=== PATIENT | female | born 1975 | race Caucasian/White ===

== ENCOUNTER → 2016-11-12 | Outpatient (CLI) | payer OTHER ==
--- NOTE | 2016-11-12 17:53 | US ---
EXAMINATION TYPE: US transvaginal DATE OF EXAM: 11/12/2016 COMPARISON: NONE CLINICAL HISTORY: N94.6 Dysmenorrhea. Vaginal bleeding during intercourse x 2 years. . TECHNIQUE: Transvaginal (TV) Date of LMP: 2 weeks ago EXAM MEASUREMENTS: Uterus: 8.5 x 4.4 x 5.5 cm Endometrial Stripe: .82 cm Right Ovary: 2.8 x 1.5 x 2.6 cm Left Ovary: 3.7 x 2.5 1.5 cm 1. Uterus: Anteverted Calcifications noted within lower uterine segment. 2. Endometrium: wnl 3. Right Ovary: wnl 4. Left Ovary: Complex area noted =2.0 x 2.0 x 1.6 cm 5. Bilateral Adnexa: wnl 6. Posterior cul-de-sac: Small amount of fluid seen. IMPRESSION: 1. MIXED SOLID AND CYSTIC LESION MEASURING 2 CM AND THE LEFT OVARY. 2. NABOTHIAN CYSTS IN THE POSTERIOR LIP OF THE CERVIX. 3. SMALL AMOUNT OF FREE FLUID.
== END | disposition home or self-care (01) ==
LOC: RADUSWWP 15:06
PROVIDERS: ATTEND Family Medicine
DX: N83.202 Unspecified ovarian cyst, left side (principal); N88.8 Other specified noninflammatory disorders of cervix uteri
CPT/HCPCS: 76830

== ENCOUNTER → 2017-08-13 | Outpatient (CLI) | payer OTHER ==
--- NOTE | 2017-08-13 14:23 | MM ---
Reason for exam: screening (asymptomatic). Baseline mammogram. History: Family history of breast cancer in aunt. Physical Findings: Nurse did not find any significant physical abnormalities on exam. MG Screening Mammo w CAD Bilateral CC and MLO view(s) were taken. The breast tissue is heterogeneously dense. This may lower the sensitivity of mammography. There are benign appearing scattered bilateral calcifications with no suspicious group. No suspicious abnormality. These results were verbally communicated with the patient and result sheet given to the patient on 08/13/17. ASSESSMENT: Benign, BI-RAD 2 RECOMMENDATION: Routine screening mammogram of both breasts in 1 year.
== END | disposition home or self-care (01) ==
LOC: RADMAMWWP 12:59
PROVIDERS: ATTEND Family Medicine
DX: Z12.31 Encounter for screening mammogram for malignant neoplasm of breast (principal); Z80.3 Family history of malignant neoplasm of breast
CPT/HCPCS: 77067

== ENCOUNTER 2018-11-01 06:56 | Inpatient (IN) | payer OTHER ==
[2018-11-01] MEDS ORDERED: ONDANSETRON 4 MG/2 ML VIAL IVP STA (07:12)
[2018-11-01] MEDS ORDERED: SODIUM CHLORIDE 0.9% 1,000 ML IV STA (07:12)
[2018-11-01] MEDS ORDERED: LORazepam 2 MG/ML INJ IV STA (07:31)
--- NOTE | 2018-11-01 07:34 | ED ---
General Adult HPI - General Chief complaint: Abdominal Pain Stated complaint: Abdominal Pain/Cough Time Seen by Provider: 11/01/18 07:12 Source: patient, family Mode of arrival: ambulatory Limitations: no limitations - History of Present Illness Initial comments: Dictation was produced using [employer] dictation software. please excuse any grammatical, word or spelling errors. Chief Complaint: 43-year-old female past medical history of anxiety presents with pleuritic chest pain, nausea vomiting, cough 2 days. History of Present Illness: Patient is a 43-year-old female she states that she was diagnosed with pneumonia number course the last couple weeks. She was given a course of antibiotics and steroids with improvement of symptoms. She states her symptoms do not improve completely. She states that for the last 2-3 days she's been having worsening symptoms. Patient's with complaint of nausea vomiting, pleuritic chest pain and constitutional symptoms. Patient denies any history of blood clots. Patient denies any blood or black characteristic to her vomiting. No diarrhea. She does report that it feels as though the pain is in her abdomen. She has been having a persistent cough. She states that her pain is worse with coughing. She does have cough productive sputum. The ROS documented in this emergency department record has been reviewed and confirmed by me. Those systems with pertinent positive or negative responses have been documented in the HPI. All other systems are other negative and/or noncontributory. PHYSICAL EXAM: General Impression: Alert and oriented x3, not in acute distress HEENT: Normocephalic atraumatic, extra-ocular movements intact, pupils equal and reactive to light bilaterally, mucous membranes moist. Cardiovascular: Tachycardic Chest: Mild crackles to the right lung base posteriorly Abdomen: Bowel sounds present, abdomen soft, non-tender, non-distended, no organ omegaly, negative Arauz's sign Musculoskeletal: Pulses present and equal in all extremities, no peripheral edema Motor: no focal deficits noted Neurological: CN II-XII grossly intact, no focal motor or sensory deficits noted Skin: Intact with no visualized rashes Psych: Normal affect and mood ED course: 43-year-old female with presents chief complaint of nausea, vomiting, abdominal pain, pleuritic chest pain.Laboratory evaluation obtained. Leukocytosis of 14.7, hemoglobin of 7.6 which is drastically reduced from 14 4 years ago. Patient also appears slightly pale on reevaluation. Coag panel unremarkable. D-dimer is 3.67. Troponin 0.06. Rest metabolic panel is grossly unremarkable. Urinalysis shows 6 white blood cells in the urine however 16 squamous epithelial cells. This is likely a dirty catch. Urine culture pending. Chest x-ray shows worsening multifocal consolidations compatible with pneumonia and new mild) amount of confusion. CT was ordered for concern of pulmonary emboli. There appears to be right greater than left bilateral perihilar masslike consolidations in the upper and lower lungs. There is concern for neoplastic versus infectious etiology. Patient started on vancomycin and cefepime for atypical pneumonia resistant to outpatient antibiotics. Patient given fluids. Patient be admitted with pulmonology consultation. Discussed patient case with Dr. Thomas who is willing to accept admission. CT angioma was suboptimal for ruling out pulmonary emboli however given extensive findings and lung parenchyma PE is less likely given clinical presentation. Anticoagulation is held at this time. EKG interpretation: Ventricular rate 124, sinus tachycardia, RI interval 118, care 74, QTC 413. No RI prolongation, no QTC prolongation, no ST or T-wave changes noted. - Related Data Home Medications Medication Instructions Recorded Confirmed cloNIDine HCL 0.3 mg PO HS 05/15/15 11/01/18 ARIPiprazole [Abilify] 15 mg PO HS 11/01/18 11/01/18 Vortioxetine Hydrobromide 20 mg PO HS 11/01/18 11/01/18 [Trintellix] clonazePAM [KlonoPIN] 1 mg PO BID 11/01/18 11/01/18 lamoTRIgine [LaMICtal] 200 mg PO HS 11/01/18 11/01/18 Allergies Allergy/AdvReac Type Severity Reaction Status Date / Time No Known Allergies Allergy Verified 11/01/18 07:17 Review of Systems ROS Statement: Those systems with pertinent positive or pertinent negative responses have been documented in the HPI. ROS Other: All systems not noted in ROS Statement are negative. Past Medical History Past Medical History: No Reported History Additional Past Medical History / Comment(s): anxiety, recovering opiate addiction clean for a year, borderline personality History of Any Multi-Drug Resistant Organisms: None Reported Past Surgical History: Section, Tubal Ligation Past Anesthesia/Blood Transfusion Reactions: No Reported Reaction Past Psychological History: ADD/ADHD, Anxiety, Depression, Panic Disorder Smoking Status: Former smoker Past Drug Use History: Marijuana, Opiates - Past Family History Father History Unknown: Yes Mother History Unknown: Yes General Exam Limitations: no limitations Course Vital Signs 11/01/18 07:02 Temperature 99.1 F Pulse Rate 123 H Respiratory 20 Rate Blood Pressure 165/79 O2 Sat by Pulse 97 Oximetry Medical Decision Making - Lab Data Result diagrams: 11/01/18 07:35 11/01/18 07:35 Lab Results 11/01/18 11/01/18 11/01/18 Range/Units 07:35 07:35 07:35 WBC 14.7 H (3.8-10.6) k/uL RBC 2.94 L (3.80-5.40) m/uL Hgb 7.6 L (11.4-16.0) gm/dL Hct 24.8 L (34.0-46.0) % MCV 84.6 (80.0-100.0) fL MCH 25.7 (25.0-35.0) pg MCHC 30.4 L (31.0-37.0) g/dL RDW 15.4 (11.5-15.5) % Plt Count 565 H (150-450) k/uL Neutrophils % 84 % Lymphocytes % 8 % Monocytes % 5 % Eosinophils % 1 % Basophils % 0 % Neutrophils # 12.3 H (1.3-7.7) k/uL Lymphocytes # 1.2 (1.0-4.8) k/uL Monocytes # 0.7 (0-1.0) k/uL Eosinophils # 0.1 (0-0.7) k/uL Basophils # 0.1 (0-0.2) k/uL Hypochromasia Marked Poikilocytosis Slight PT (9.0-12.0) sec INR (<1.2) D-Dimer (<0.60) mg/L FEU Sodium 137 (137-145) mmol/L Potassium 4.1 (3.5-5.1) mmol/L Chloride 99 (98-107) mmol/L Carbon Dioxide 24 (22-30) mmol/L Anion Gap 14 mmol/L BUN 9 (7-17) mg/dL Creatinine 0.52 (0.52-1.04) mg/dL Est GFR (CKD-EPI)AfAm >90 (>60 ml/min/1.73 sqM) Est GFR (CKD-EPI)NonAf >90 (>60 ml/min/1.73 sqM) Glucose 123 H (74-99) mg/dL Calcium 9.3 (8.4-10.2) mg/dL Total Bilirubin 0.5 (0.2-1.3) mg/dL AST 41 H (14-36) U/L ALT 32 (9-52) U/L Alkaline Phosphatase 246 H (38-126) U/L Troponin I (0.000-0.034) ng/mL Total Protein 6.4 (6.3-8.2) g/dL Albumin 3.4 L (3.5-5.0) g/dL Lipase 18 L (23-300) U/L Urine Color Urine Appearance (Clear) Urine pH (5.0-8.0) Ur Specific [place] (1.001-1.035) Urine Protein (Negative) Urine Glucose (UA) (Negative) Urine Ketones (Negative) Urine Blood (Negative) Urine Nitrite (Negative) Urine Bilirubin (Negative) Urine Urobilinogen (<2.0) mg/dL Ur Leukocyte Esterase (Negative) Urine WBC (0-5) /hpf Ur Squamous Epith Cells (0-4) /hpf Urine Bacteria (None) /hpf Urine Mucus (None) /hpf Urine HCG, Qual Not Detected (Not Detectd) 11/01/18 11/01/18 11/01/18 Range/Units 07:35 07:35 07:35 WBC (3.8-10.6) k/uL RBC (3.80-5.40) m/uL Hgb (11.4-16.0) gm/dL Hct (34.0-46.0) % MCV (80.0-100.0) fL MCH (25.0-35.0) pg MCHC (31.0-37.0) g/dL RDW (11.5-15.5) % Plt Count (150-450) k/uL Neutrophils % % Lymphocytes % % Monocytes % % Eosinophils % % Basophils % % Neutrophils # (1.3-7.7) k/uL Lymphocytes # (1.0-4.8) k/uL Monocytes # (0-1.0) k/uL Eosinophils # (0-0.7) k/uL Basophils # (0-0.2) k/uL Hypochromasia Poikilocytosis PT 12.0 (9.0-12.0) sec INR 1.1 (<1.2) D-Dimer 3.67 H (<0.60) mg/L FEU Sodium (137-145) mmol/L Potassium (3.5-5.1) mmol/L Chloride (98-107) mmol/L Carbon Dioxide (22-30) mmol/L Anion Gap mmol/L BUN (7-17) mg/dL Creatinine (0.52-1.04) mg/dL Est GFR (CKD-EPI)AfAm (>60 ml/min/1.73 sqM) Est GFR (CKD-EPI)NonAf (>60 ml/min/1.73 sqM) Glucose (74-99) mg/dL Calcium (8.4-10.2) mg/dL Total Bilirubin (0.2-1.3) mg/dL AST (14-36) U/L ALT (9-52) U/L Alkaline Phosphatase (38-126) U/L Troponin I 0.060 H* (0.000-0.034) ng/mL Total Protein (6.3-8.2) g/dL Albumin (3.5-5.0) g/dL Lipase (23-300) U/L Urine Color Yellow Urine Appearance Cloudy H (Clear) Urine pH 5.5 (5.0-8.0) Ur Specific [place] 1.032 (1.001-1.035) Urine Protein 1+ H (Negative) Urine Glucose (UA) Negative (Negative) Urine Ketones Negative (Negative) Urine Blood Negative (Negative) Urine Nitrite Negative (Negative) Urine Bilirubin Negative (Negative) Urine Urobilinogen 3.0 (<2.0) mg/dL Ur Leukocyte Esterase Negative (Negative) Urine WBC 6 H (0-5) /hpf Ur Squamous Epith Cells 16 H (0-4) /hpf Urine Bacteria Many H (None) /hpf Urine Mucus Rare H (None) /hpf Urine HCG, Qual (Not Detectd) Disposition Clinical Impression: Pneumonia Disposition: ADMITTED IP TO THIS [facility] Condition: Fair Referrals: Fredo Eason MD [Primary Care Provider] - 1-2 days Decision Time: 09:37
[2018-11-01 08:03] LABS: Appearance,Urine Cloudy (Clear); Bacteria,Urine Many /hpf; Bilirubin,Urine Negative (Negative); Blood,Urine Negative (Negative); Color,Urine Yellow; Glucose,Urine (UA) Negative (Negative); Ketones,Urine Negative (Negative); Leukocyte Esterase,Urine Negative (Negative); Mucus,Urine Rare /hpf; Nitrite,Urine Negative (Negative); PH, Urine 5.5 (5.0-8.0); Protein,Urine 1+ (Negative); Specific Gravity,Urine 1.032 (1.001-1.035); Squamous Epithelial Cell,Urine 16 /hpf (0-4); WBC,Urine 6 /hpf (0-5)
[2018-11-01 08:04] LABS: Basophils # (A) 0.1 k/uL (0-0.2); Basophils % (A) 0 %; Eosinophils # (A) 0.1 k/uL (0-0.7); Eosinophils % (A) 1 %; HCT 24.8 % (34.0-46.0); HGB 7.6 gm/dL (11.4-16.0); Hypochromasia Marked; INR 1.1 (<1.2); Lymphocytes # (A) 1.2 k/uL (1.0-4.8); Lymphocytes % (A) 8 %; MCH 25.7 pg (25.0-35.0); MCHC 30.4 g/dL (31.0-37.0); MCV 84.6 fL (80.0-100.0); Mean Platelet Volume 6.7; Monocytes # (A) 0.7 k/uL (0-1.0); Monocytes % (A) 5 %; Neutrophils # (A) 12.3 k/uL (1.3-7.7); Neutrophils % (A) 84 %; Platelet Count 565 k/uL (150-450); Poikilocytosis Slight; RBC 2.94 m/uL (3.80-5.40); RDW 15.4 % (11.5-15.5); WBC 14.7 k/uL (3.8-10.6)
[2018-11-01 08:05] LABS: ALT 32 U/L (9-52); AST 41 U/L (14-36); African American GFR (CKD) >90 (>60 ml/min/1.73 sqM); Albumin 3.4 g/dL (3.5-5.0); Alkaline Phosphatase 246 U/L (38-126); Anion Gap 14 mmol/L; Blood Urea Nitrogen 9 mg/dL (7-17); Calcium 9.3 mg/dL (8.4-10.2); Carbon Dioxide 24 mmol/L (22-30); Chloride 99 mmol/L (98-107); Glucose 123 mg/dL (74-99); Lipase 18 U/L (23-300); Potassium 4.1 mmol/L (3.5-5.1); Sodium 137 mmol/L (137-145); Total Bilirubin 0.5 mg/dL (0.2-1.3); Total Protein 6.4 g/dL (6.3-8.2)
[2018-11-01 08:13] LABS: D-Dimer 3.67 mg/L FEU (<0.60)
--- NOTE | 2018-11-01 08:27 | XR ---
EXAMINATION TYPE: XR chest 2V DATE OF EXAM: 11/01/2018 COMPARISON: 07/20/2011 HISTORY: Pneumonia symptoms and shortness of breath TECHNIQUE: Frontal and lateral views of the chest are obtained. FINDINGS: There is worsening right sided airspace disease and right perihilar consolidation with new mild right pleural effusion. Left perihilar strand-like airspace disease has also worsened in the in terim. Cardiomediastinal silhouette is stable. Osseous structures are grossly intact. IMPRESSION: Worsening multifocal consolidations most compatible with pneumonia and a new mild right parapneumonic effusion.
[2018-11-01] MEDS ORDERED: HEPARIN SODIUM,PORCINE 10,000 UNIT/ML 1 ML VIAL IV ONE (08:39)
[2018-11-01] MEDS ORDERED: HEPARIN SODIUM,PORCINE 5,000 UNIT/ML 1 ML VIAL IV PRN (08:39)
[2018-11-01] MEDS ORDERED: HEPARIN SOD,PORK IN 0.45% NACL 25,000 UNIT in 0.45% NACL 1 250ML.BAG IV SCH (08:45)
--- NOTE | 2018-11-01 08:56 | CT ---
EXAMINATION TYPE: CT angio chest DATE OF EXAM: 11/01/2018 COMPARISON: CTA chest May 15, 2015. Two-view chest x-ray earlier today. HISTORY: Difficulty breathing CT DLP: 210.5 mGycm. Automated Exposure Control for Dose Reduction was Utilized. CONTRAST: CTA scan of the thorax is performed with IV Contrast, patient injected with 100 mL of Isovue 300, pul monary embolism protocol. MIP Images are created on CT scanner and reviewed. FINDINGS: LUNGS: There is small right pleural effusion or fluid collection which does not completely layer depe ndently. There is associated compressive atelectasis in the right lung base. There is masslike consol idation right hilar level extending superiorly abutting the mediastinum causing narrowing and occlusi on of upper lung bronchi and bronchioles for reference coronal image 58. There is extension of this l arge masslike consolidation into the right middle and lower lobes with abrupt occlusion of lower lobe bronchi. There is overall heterogeneity. Underlying neoplasm cannot be excluded. There is tiny left-sided pleural fluid collection which does not layer dependently. There is similar left hilar masslike consolidation with superior medial extension abutting the mediastinum and more pr ominent extension into the left lower lobe. Left-sided findings are less prominent than right sided f indings. Some bronchial occlusion on the left side however is present. There is additional left basil ar linear scarring and/or atelectasis. There are additional foci of groundglass opacity and gustavo con solidation in the periphery of the lung for reference left apex focus of masslike consolidation measu ring 1.3 x 1.1 cm coronal image 73 is noted. MEDIASTINUM: There is suboptimal study with more dense contrast in aorta versus pulmonary arteries bu t no CT evidence for pulmonary embolism. There is additional enlarged subcarinal lymph node estimate d 2.6 x 2.0 cm axial image 62. Mild cardiomegaly is now present. Tiny pericardial effusion is noted. OTHER: Visualized portion of liver shows small vague hypodense lesions measuring under 1.5 cm, nonspe cific finding on background of heterogeneity. Mild multilevel spurring is present. IMPRESSION: 1. Suboptimal study without CT evidence for acute pulmonary embolism. 2. Right greater than left bilateral perihilar masslike consolidations with extension into upper and lower lungs. There is bronchial narrowing and occlusion bilaterally. Possible hilar adenopathy. Under lying neoplasm needs to BE considered. Liver involvement is not excluded. Consider bronchoscopy to fu rther investigate. Small to tiny right greater than left nonsimple pleural fluid collections. Underly ing infectious process needs to BE considered.
[2018-11-01] MEDS ORDERED: CEFEPIME 2 GM in SODIUM CHLORIDE 0.9% 100 ML IVPB STA (08:57)
[2018-11-01] MEDS ORDERED: VANCOMYCIN 1,250 MG in SODIUM CHLORIDE 0.9% 250 ML IVPB STA (08:57)
[2018-11-01] MEDS ORDERED: NALOXONE 0.4 MG/ML 1 ML VIAL IV PRN (09:32)
[2018-11-01] MEDS: SODIUM CHLORIDE 0.9% 1,000 ML IV SCH (10:37)
[2018-11-01] MEDS: ACETAMINOPHEN TAB 325 MG TAB PO PRN (11:37)
[2018-11-01 11:53] VITALS: BMI 29.9
[2018-11-01] MEDS ORDERED: PNEUMOCOCCAL VACC-PNEUMOVAX 23 25 MCG/0.5 ML VIAL IM ONE (11:55)
--- NOTE | 2018-11-01 16:46 | P.CNPUL ---
History of Present Illness Consult date: 11/01/18 Reason for consult: pneumonia, pleural effusion Chief complaint: right sided pleuritic chest pain and cough for the last 2 days. History of present illness: this is a 43-year-old female with remote history of IV drug abuse, history of cervical cancer, status post chemotherapy and radiation therapy she was treated at [facility], and she was told that her cancer was clear. Her cancer was diagnosed about a year ago. Patient is also known to have history of anxiety. Presented to the ER with 2 days history of not feeling well, mostly been complaining of right-sided pleuritic chest pain, cough for the last 2 days, cough is productive with whitish phlegm, but she denies any fever no chills, no hemoptysis, she did havefew episodes of nausea and vomiting. Patient had a CT of the chest, and it showed significant abnormalities in both lungs. The CT of the chest showed masslike consolidation in the right lung and it also showed another masslike consolidation in the left lower lobe. Patient had a 12-pack- year smoking history. Does not smoke at present. Considering the findings and considering the masslike consolidation is suggestive of pneumonia or malignancy, this consult was initiated. There is also evidence of loculated pleural effusion on the right side.no evidence of pulmonary embolism noted.the CT of the chest also showed some bronchial narrowing and occlusion bilaterally with questionable hilar adenopathy. Liver involvement was entertained. Patient is known to have history of fatty infiltration of the liver. Review of Systems constitutional: Denies any weight loss, no fever, no chills. HEENT: Denies any sore throat, no earache, no headache, no blurred vision, no dizziness. Pulmonary: As noted in HPI. Cardiac: Denies any anginal symptoms, no palpitations, no diaphoresis. GI: Right sided upper quadrant pain and intermittent episodes of nausea and vomiting. Denies any melena no hematemesis , no diarrhea, no constipation. No changes in appetite. Genitourinary: Denies any dysuria frequency hematuria urgency. Or incontinence. [place] skeletal: Denies any limitation in range of motion, denies any muscular pain or arthralgia. Neurologic: Denies any headache blurred vision or dizziness. No syncope. Skin: Denies any rashes Psychiatric: History of anxiety, no symptoms of active depression.known history of ADHD and borderline personality disorder Hematologic: No clotting bleeding or bruising Lymphatics: No lymphadenopathy. Past Medical History Past Medical History: No Reported History Additional Past Medical History / Comment(s): anxiety, recovering opiate addiction clean for a year, borderline personality History of Any Multi-Drug Resistant Organisms: None Reported Past Surgical History: Section, Tubal Ligation Past Anesthesia/Blood Transfusion Reactions: No Reported Reaction Past Psychological History: ADD/ADHD, Anxiety, Depression, Panic Disorder Smoking Status: Former smoker Past Drug Use History: Marijuana, Opiates - Past Family History Father History Unknown: Yes Family Medical History: Liver Disease Additional Family Medical History / Comment(s): Father had hepatitis at the age of 17 yrs. He was an drug addict. He started drinking when his and this lead to his per pt. Mother History Unknown: Yes Additional Family Medical History / Comment(s): Mother is healthy. Medications and Allergies Home Medications Medication Instructions Recorded Confirmed Type cloNIDine HCL 0.3 mg PO HS 05/15/15 11/01/18 History ARIPiprazole [Abilify] 15 mg PO HS 11/01/18 11/01/18 History Vortioxetine Hydrobromide 20 mg PO HS 11/01/18 11/01/18 History [Trintellix] clonazePAM [KlonoPIN] 1 mg PO BID 11/01/18 11/01/18 History lamoTRIgine [LaMICtal] 200 mg PO HS 11/01/18 11/01/18 History Allergies Allergy/AdvReac Type Severity Reaction Status Date / Time No Known Allergies Allergy Verified 11/01/18 07:17 Physical Exam Vitals: Vital Signs Temp Pulse Pulse Resp BP BP Pulse Ox 11/01/18 15:17 99.2 F 136 H 18 139/84 81 L 11/01/18 14:02 98 F 115 H 18 123/84 93 L 11/01/18 13:40 117 H 20 128/61 95 11/01/18 11:39 102 H 22 138/71 95 11/01/18 10:04 98.5 F 101 H 20 119/67 96 11/01/18 07:02 99.1 F 123 H 20 165/79 97 Intake and Output 11/01/18 11/01/18 11/01/18 06:59 14:59 22:59 Other: Weight 67.132 kg Physical Exam: Revealed a 43-year-old female in no distress. Anxious. Head: Atraumatic, normocephalic. HEENT:[Neck is supple.] [No neck masses.] [No thyromegaly.] [No JVD.]PERRLA, EOMI, no icterus. Dry mucous membranes Chest: [diminished breath sounds on the right side, left side is clear..] Cardiac Exam: [Normal S1 and S2, no S3 gallop, no murmur.] Abdomen: [Soft, nontender, no megaly, no rebound, no guarding, normal bowel sounds.] Extremities: [No clubbing, no edema, no cyanosis.] Neurological Exam: alert and oriented 3.[No focal neurologic deficit.] psychiatric: Anxious, blunt affect, normal mental status examination. Lymphatics: No lymphadenopathy. Skin: No rashes. Results - Laboratory Findings CBC and BMP: 11/01/18 07:35 11/01/18 07:35 PT/INR, D-dimer PT 12.0 sec (9.0-12.0) 11/01/18 07:35 INR 1.1 (<1.2) 11/01/18 07:35 D-Dimer 3.67 mg/L FEU (<0.60) H 11/01/18 07:35 Abnormal lab findings: Abnormal Labs 11/01/18 11/01/18 11/01/18 07:35 07:35 07:35 WBC 14.7 H RBC 2.94 L Hgb 7.6 L Hct 24.8 L MCHC 30.4 L Plt Count 565 H Neutrophils # 12.3 H D-Dimer Glucose 123 H AST 41 H Alkaline Phosphatase 246 H Troponin I Albumin 3.4 L Lipase 18 L Urine Appearance Cloudy H Urine Protein 1+ H Urine WBC 6 H Ur Squamous Epith Cells 16 H Urine Bacteria Many H Urine Mucus Rare H 11/01/18 11/01/18 07:35 07:35 WBC RBC Hgb Hct MCHC Plt Count Neutrophils # D-Dimer 3.67 H Glucose AST Alkaline Phosphatase Troponin I 0.060 H* Albumin Lipase Urine Appearance Urine Protein Urine WBC Ur Squamous Epith Cells Urine Bacteria Urine Mucus - Diagnostic Findings CT scan - chest: image reviewed (no evidence of pulmonary embolism, right greater than left bilateral perihilar masslike consolidations with extension into the upper and lower lungs. There is bronchial narrowing and occlusion bilaterally with possible hilar adenopathy. Differential diagnoses includes pneumonia and or malignancy. Small 2 tiny right greater than left loculated pleural effusion is noted.) Assessment and Plan Assessment: impression: Masslike consolidation involving both lungs however mostly involving the right lung, differential diagnoses includes malignancy and/or pneumonia. history of generalized anxiety disorder and depression History of IV drug abuse Remote smoking history. Recommendation: Had a long discussion with the patient regarding her abnormal CT of the chest, I have recommended bronchoscopy and airways evaluation, possible biopsy depending on the findings during the bronchoscopy examination. Patient is agreeable to proceed, and this will be done on at no time. In the meantime we'll continue present treatment plan including antibiotics, and bronchodilators.depending on the bronchoscopy findings, further recommendations will follow. In the meantime I will go ahead and recommended ultrasound of the liver and assess findings on the liver and decide whether the patient will even require CT-guided liver biopsy. I believe the findings on the liver are related to fatty infiltration. Time with Patient: Greater than 30
[2018-11-01] MEDS: VANCOMYCIN 1,250 MG in SODIUM CHLORIDE 0.9% 250 ML IVPB SCH (17:44)
[2018-11-01] MEDS: IBUPROFEN 800 MG TAB PO PRN (17:44)
[2018-11-01] MEDS: lamoTRIgine 100 MG TAB PO SCH (20:16)
[2018-11-01] MEDS: clonazePAM 1 MG TAB PO SCH (20:16)
[2018-11-01] MEDS: VORTIOXETINE HYDROBROMIDE 20 MG TABLET PO SCH (22:07)
[2018-11-01] MEDS: ARIPiprazole 15 MG TAB PO SCH (22:07)
[2018-11-01] MEDS: cloNIDine HCL 0.1 MG TAB PO SCH (22:07)
[2018-11-02] MEDS: VANCOMYCIN 1,250 MG in SODIUM CHLORIDE 0.9% 250 ML IVPB SCH ×3 (02:01→18:09)
[2018-11-02 07:55] LABS: Basophils % (A) 0 %; Eosinophils # (A) 0.2 k/uL (0-0.7); Eosinophils % (A) 2 %; HCT 24.8 % (34.0-46.0); HGB 7.3 gm/dL (11.4-16.0); Hypochromasia Marked; Lymphocytes # (A) 0.7 k/uL (1.0-4.8); Lymphocytes % (A) 7 %; MCH 25.6 pg (25.0-35.0); MCHC 29.3 g/dL (31.0-37.0); MCV 87.4 fL (80.0-100.0); Mean Platelet Volume 6.6; Monocytes # (A) 0.5 k/uL (0-1.0); Monocytes % (A) 5 %; Neutrophils # (A) 8.3 k/uL (1.3-7.7); Neutrophils % (A) 84 %; Platelet Count 535 k/uL (150-450); Poikilocytosis Slight; RBC 2.84 m/uL (3.80-5.40); RDW 15.3 % (11.5-15.5); WBC 9.9 k/uL (3.8-10.6)
[2018-11-02 08:19] LABS: ALT 35 U/L (9-52); AST 26 U/L (14-36); African American GFR (CKD) >90 (>60 ml/min/1.73 sqM); Alkaline Phosphatase 217 U/L (38-126); Anion Gap 10 mmol/L; Blood Urea Nitrogen 9 mg/dL (7-17); Calcium 9.2 mg/dL (8.4-10.2); Carbon Dioxide 26 mmol/L (22-30); Chloride 104 mmol/L (98-107); Glucose 106 mg/dL (74-99); Potassium 4.4 mmol/L (3.5-5.1); Sodium 140 mmol/L (137-145); Total Bilirubin 0.3 mg/dL (0.2-1.3)
[2018-11-02] MEDS: PANTOPRAZOLE 40 MG/10 ML VIAL IV SCH (09:22)
[2018-11-02] MEDS: IBUPROFEN 800 MG TAB PO PRN ×2 (09:23→18:34)
[2018-11-02] MEDS: clonazePAM 1 MG TAB PO SCH ×2 (09:26→21:03)
[2018-11-02] MEDS: SODIUM CHLORIDE 0.9% 1,000 ML IV SCH (09:30)
--- NOTE | 2018-11-02 15:18 | US ---
EXAMINATION TYPE: US liver DATE OF EXAM: 11/02/2018 COMPARISON: NONE CLINICAL HISTORY: liver lesions, possibly mets. EXAM MEASUREMENTS: Liver Length: 14.9 cm Gallbladder Wall: 0.3 cm CBD: 0.4 cm Right Kidney: 11.1 x 4.4 x 5.4 cm Right pleural effusion noted Pancreas: wnl Liver: unable to visualize mass seen on CT Gallbladder: wnl Evidence for sonographic Arauz's sign: no CBD: wnl Right Kidney: inferior pole obscured by overlying bowel gas IMPRESSION: No distinct abnormality seen at this time. Correlate with dedicated CT of the liver.
--- NOTE | 2018-11-02 16:46 | P.HPIM ---
History of Present Illness H&P Date: 11/02/18 Chief Complaint: N/V, pleuritic cp This is a 43-year-old female, history of opiate addiction, nicotine dependence of 12 years- Quit 3 weeks ago, cervical cancer diagnosed 1 year ago-s/p leap procedure,chemotherapy and radiation; patient reports cancer has cleared, anxiety, depression, borderline personality disorder, completed antibiotic regimen for pneumonia approximately 2 weeks ago; but reports she has not felt well for over a month with loss of appetite accompanied by significant weight loss estimated to be around 15lbs in the last month. Presented to the ER with wo rsening shortness of breath, cough, pleuritic chest pain,Nausea ,Vomiting without diarrhea, distal to right ribcage, right upper quadrant abdominal pain.PE ruled out per Chest CT, but reports masslike consolidations right greater than left of the perihilarareas extending into upper and lower lungs with bronchial narrowing and bilaterally occlusion. Possible Hilar adenopathy.Enlarged subcarinal lymph node 2.6 X 2.0 cm. right pleural effusion. Possible malignancy,Compressive Atelactasis, possible liver involvement with small liver lesions 1.5cm. Denies any fever or chills. Denies any chest pain, palpitations. Denies any lightheadedness ,dizziness or focal deficits. T-max 99.2, WBC 14.7 -now down to 9.9 , hemoglobin 7.6 , currently 7.3 tachycardic- heart rate 136 on admission, 97% on room air on admission, now maintaining high 90s on 3 L nasal cannula, alk phos 246, now 217.Troponin 0.060. EKG reported sinus tachycardia. Vancomycin and cefepime initiated, in addition to IV fluid hydration. Pulmonary consulted. - Review of Systems ROS Statement: Those systems with pertinent positive or pertinent negative responses have been documented in the HPI. ROS Other: All systems not noted in ROS Statement are negative. Past Medical History Past Medical History: No Reported History Additional Past Medical History / Comment(s): anxiety, recovering opiate addiction clean for a year, borderline personality History of Any Multi-Drug Resistant Organisms: None Reported Past Surgical History: Section, Tubal Ligation Past Anesthesia/Blood Transfusion Reactions: No Reported Reaction Past Psychological History: ADD/ADHD, Anxiety, Depression, Panic Disorder Smoking Status: Former smoker Past Drug Use History: Marijuana, Opiates - Past Family History Father History Unknown: Yes Mother History Unknown: Yes Medications and Allergies Home Medications Medication Instructions Recorded Confirmed Type cloNIDine HCL 0.3 mg PO HS 05/15/15 11/01/18 History ARIPiprazole [Abilify] 15 mg PO HS 11/01/18 11/01/18 History Vortioxetine Hydrobromide 20 mg PO HS 11/01/18 11/01/18 History [Trintellix] clonazePAM [KlonoPIN] 1 mg PO BID 11/01/18 11/01/18 History lamoTRIgine [LaMICtal] 200 mg PO HS 11/01/18 11/01/18 History Allergies Allergy/AdvReac Type Severity Reaction Status Date / Time No Known Allergies Allergy Verified 11/01/18 07:17 Physical Exam Vitals: Vital Signs Temp Pulse Resp BP Pulse Ox 11/01/18 10:04 98.5 F 101 H 20 119/67 96 11/01/18 07:02 99.1 F 123 H 20 165/79 97 Intake and Output 10/31/18 11/01/18 11/01/18 22:59 06:59 14:59 Other: Weight 67.132 kg PHYSICAL EXAM: VITAL SIGNS: As above GENERAL: Sitting up in bed, no acute distress, tearful HEENT: Normocephalic, atraumatic, Conjunctivae normal. eyes normal. face has sunken in appearance, Oral mucosa moist NECK: No JVD. No thyroid enlargement. No LNs CARDIOVASCULAR: S1, S2 regular. Tachycardic, No murmur RESPIRATION: Breath sounds diminished in the bases more so on the right; No rhonchi, crackles, No wheezing, No bronchial breathing. ABDOMEN: Soft,tender Right upper quadrant, No guarding. no masses palpable. Bowel sounds heard. LEGS: No edema. no swelling. No clubbing, no cyanosis PSYCHIATRY: Alert and oriented -3, flat affect, anxious NERVOUS SYSTEM: Cranial N 2-12 grossly normal. Moves all 4 limbs. No focal deficits. Strength and sensation grossly intact. Skin: no lesions, no rash Joints: No active swelling. No inflammation. Lymphatic system. No LN neck axilla or groin. Results CBC & Chem 7: 11/02/18 07:09 11/02/18 07:09 Labs: Abnormal Lab Results - Last 24 Hours (Table) 11/01/18 11/01/18 11/01/18 Range/Units 07:35 07:35 07:35 WBC 14.7 H (3.8-10.6) k/uL RBC 2.94 L (3.80-5.40) m/uL Hgb 7.6 L (11.4-16.0) gm/dL Hct 24.8 L (34.0-46.0) % MCHC 30.4 L (31.0-37.0) g/dL Plt Count 565 H (150-450) k/uL Neutrophils # 12.3 H (1.3-7.7) k/uL D-Dimer (<0.60) mg/L FEU Glucose 123 H (74-99) mg/dL AST 41 H (14-36) U/L Alkaline Phosphatase 246 H (38-126) U/L Troponin I (0.000-0.034) ng/mL Albumin 3.4 L (3.5-5.0) g/dL Lipase 18 L (23-300) U/L Urine Appearance Cloudy H (Clear) Urine Protein 1+ H (Negative) Urine WBC 6 H (0-5) /hpf Ur Squamous Epith Cells 16 H (0-4) /hpf Urine Bacteria Many H (None) /hpf Urine Mucus Rare H (None) /hpf 11/01/18 11/01/18 Range/Units 07:35 07:35 WBC (3.8-10.6) k/uL RBC (3.80-5.40) m/uL Hgb (11.4-16.0) gm/dL Hct (34.0-46.0) % MCHC (31.0-37.0) g/dL Plt Count (150-450) k/uL Neutrophils # (1.3-7.7) k/uL D-Dimer 3.67 H (<0.60) mg/L FEU Glucose (74-99) mg/dL AST (14-36) U/L Alkaline Phosphatase (38-126) U/L Troponin I 0.060 H* (0.000-0.034) ng/mL Albumin (3.5-5.0) g/dL Lipase (23-300) U/L Urine Appearance (Clear) Urine Protein (Negative) Urine WBC (0-5) /hpf Ur Squamous Epith Cells (0-4) /hpf Urine Bacteria (None) /hpf Urine Mucus (None) /hpf Assessment and Plan Assessment: -Pneumonia, possibly failed OP Treatment. PE ruled out per Chest CT, but reports masslike consolidations right greater than left of the perihilarareas extending into upper and lower lungs with bronchial narrowing and bilaterally occlusion. Possible Hilar adenopathy.Enlarged subcarinal lymph node 2.6 X 2.0 cm.Pleural effusions. Possible malignancy with possible liver involvement in a patient with history of nicotine abuse. -Compressive Atelactasis -Elevated alk phos Small liver lesions 1.5cm, in a patient with history of fatty liver -History of opiate abuse -Nicotine dependence, quit 3 weeks ago -Borderline Personality disorder -Anxiety & depression -Cervical cancer 1yr ago, status post chemoradiation, patient reports cleared. -Significant weight loss over a month of approximately 15 pounds. Plan: Continue on current medication regime ,monitoring and symptomatic treat ment. Obtain records from [facility] regarding cervical cancer treatment. Maintain IV antibiotics, nebulized bronchodilators. Appreciate Pulmonary recommendations; diagnostic bronchoscopy with biopsy pending. Liver ultrasound ordered. Anticoagulation held at this time. GI prophylaxis in place. Oncology will be consulted, pending results.Home meds have been reviewed and resumed. Repeat troponin. Further recommendations to follow. The impression and plan of care has been dictated as directed. : I performed a history and examination of this patient, discussed the same with the dictator. I agree with the dictator's note ,documented as a scribe. Any additional findings or plans will be noted. Time taken: 35 min
[2018-11-02] MEDS ORDERED: VANCOMYCIN TROUGH DUE 1 EACH MISC MISCELLANE ONE (17:00)
--- NOTE | 2018-11-02 17:03 | P.PN ---
Subjective Progress Note Date: 11/02/18 Principal diagnosis: Right-sided bruit chest pain, masslike consolidation involving both lungs, mostly involving the right lung this is a 43-year-old female with remote history of IV drug abuse, history of cervical cancer, status post chemotherapy and radiation therapy she was treated at [facility], and she was told that her cancer was clear. Her cancer was diagnosed about a year ago. Patient is also known to have history of anxiety. Presented to the ER with 2 days history of not feeling well, mostly been complaining of right-sided pleuritic chest pain, cough for the last 2 days, cough is productive with whitish phlegm, but she denies any fever no chills, no hemoptysis, she did havefew episodes of nausea and vomiting. Patient had a CT of the chest, and it showed significant abnormalities in both lungs. The CT of the chest showed masslike consolidation in the right lung and it also showed another masslike consolidation in the left lower lobe. Patient had a [id number] smoking history. Does not smoke at present. Considering the findings and considering the masslike consolidation is suggestive of pneumonia or malignancy, this consult was initiated. There is also evidence of loculated pleural effusion on the right side.no evidence of pulmonary embolism noted.the CT of the chest also showed some bronchial narrowing and occlusion bilaterally with questionable hilar adenopathy. Liver involvement was entertained. Patient is known to have history of fatty infiltration of the liver. On 11/02/2018 patient seen in follow-up on medical surgical floor. She is awake and alert, in no acute distress, is on supplemental oxygen on 3 L, with a pulse ox of 94%, afebrile, patient is are even and nonlabored. On sounds reveal some scattered wheezes, primarily right lower lobe. Urine culture showed no growth. Today's labs have been reviewed, white blood cell count is 9.9, hemoglobin is 7.3, electrolytes and renal profile were unremarkable. Objective - Vital Signs Vital signs: Vital Signs Temp 98 F 11/02/18 12:30 Pulse 118 H 11/02/18 12:30 Resp 16 11/02/18 12:30 BP 136/71 11/02/18 12:30 Pulse Ox 94 L 11/02/18 12:30 Intake & Output 11/01/18 11/02/18 11/02/18 18:59 06:59 18:59 Intake Total 40 Balance 40 Weight 67.132 kg 67.132 kg Intake: Intake, IV Titration 40 Amount Sodium Chloride 0.9% 1, 40 000 ml @ 20 mls/hr IV . Q24H [facility] Rx#:[id number] Other: # Voids 3 - Exam GENERAL EXAM: Alert, pleasant, 43-year-old white female, comfortable in no apparent distress. HEAD: Normocephalic/atraumatic. EYES: Normal reaction of pupils, equal size. Conjunctiva pink, sclera white. NOSE: Clear with pink turbinates. THROAT: No erythema or exudates. NECK: No masses, no JVD, no thyroid enlargement, no adenopathy. CHEST: No chest wall deformity. Symmetrical expansion. LUNGS: Equal air entry with wheezes at the bases, particularly in the right lower lobe CVS: Regular rate and rhythm, normal S1 and S2, no gallops, no murmurs, no rubs ABDOMEN: Soft, nontender. No hepatosplenomegaly, normal bowel sounds, no guarding or rigidity. EXTREMITIES: No clubbing, no edema, no cyanosis, 2+ pulses and upper and lower extremities. MUSCULOSKELETAL: Muscle strength and tone normal. SPINE: No scoliosis or deformity SKIN: No rashes CENTRAL NERVOUS SYSTEM: Alert and oriented -3. No focal deficits, tone is normal in all 4 extremities. PSYCHIATRIC: Alert and oriented -3. Appropriate affect. Intact judgment and insight. - Labs CBC & Chem 7: 11/02/18 07:09 11/02/18 07:09 Labs: Abnormal Lab Results - Last 24 Hours (Table) 11/02/18 11/02/18 Range/Units 07:09 07:09 RBC 2.84 L (3.80-5.40) m/uL Hgb 7.3 L (11.4-16.0) gm/dL Hct 24.8 L (34.0-46.0) % MCHC 29.3 L (31.0-37.0) g/dL Plt Count 535 H (150-450) k/uL Neutrophils # 8.3 H (1.3-7.7) k/uL Lymphocytes # 0.7 L (1.0-4.8) k/uL Glucose 106 H (74-99) mg/dL Alkaline Phosphatase 217 H (38-126) U/L Total Protein 6.0 L (6.3-8.2) g/dL Albumin 3.0 L (3.5-5.0) g/dL Microbiology - Last 24 Hours (Table) 11/01/18 07:35 Urine Culture - Final Urine,Voided 11/01/18 07:35 Blood Culture - Preliminary Blood No Growth after 24 hours Assessment and Plan Plan: Masslike consolidation involving both lungs however mostly involving the right lung, differential diagnoses includes malignancy and/or pneumonia. history of generalized anxiety disorder and depression History of IV drug abuse Remote smoking history. Plan: We will continue current antibiotic coverage, breathing treatments, no worsening dyspnea, still has some scattered wheezes, and cough. We'll proceed with bronchoscopy and biopsies of the masslike lesions in both lungs tomorrow on 11/03/2018, NPO after midnight. Patient is agreeable to proceed I performed a history & physical examination of the patient and discussed their management with my nurse practitioner, Nicole Yancey. I reviewed the nurse practitioner's note and agree with the documented findings and plan of care. Lung sounds are positive for scattered wheezes and bilateral bases, particularly the right lower base. The findings and the impression was discussed with the patient. I attest to the documentation by the nurse practitioner. Time with Patient: Less than 30
[2018-11-02] MEDS: ARIPiprazole 15 MG TAB PO SCH (20:57)
[2018-11-02] MEDS: VORTIOXETINE HYDROBROMIDE 20 MG TABLET PO SCH (20:57)
[2018-11-02] MEDS: cloNIDine HCL 0.1 MG TAB PO SCH (20:58)
[2018-11-02] MEDS: lamoTRIgine 100 MG TAB PO SCH (20:58)
[2018-11-03] MEDS: PANTOPRAZOLE 40 MG/10 ML VIAL IV SCH (08:38)
[2018-11-03] MEDS: VANCOMYCIN 1,250 MG in SODIUM CHLORIDE 0.9% 250 ML IVPB SCH ×2 (08:44→20:39)
[2018-11-03] MEDS: clonazePAM 1 MG TAB PO SCH ×2 (08:44→20:39)
[2018-11-03] MEDS: SODIUM CHLORIDE 0.9% 1,000 ML IV SCH (08:47)
[2018-11-03 09:27] LABS: African American GFR (CKD) >90 (>60 ml/min/1.73 sqM); Anion Gap 7 mmol/L; Blood Urea Nitrogen 11 mg/dL (7-17); Calcium 8.8 mg/dL (8.4-10.2); Carbon Dioxide 28 mmol/L (22-30); Chloride 107 mmol/L (98-107); Glucose 115 mg/dL (74-99); Sodium 142 mmol/L (137-145)
[2018-11-03 09:33] LABS: Basophils % (A) 0 %; Eosinophils # (A) 0.2 k/uL (0-0.7); Eosinophils % (A) 2 %; HCT 21.8 % (34.0-46.0); Hypochromasia Marked; Lymphocytes # (A) 0.6 k/uL (1.0-4.8); Lymphocytes % (A) 8 %; MCH 25.4 pg (25.0-35.0); MCHC 29.2 g/dL (31.0-37.0); Mean Platelet Volume 6.6; Monocytes # (A) 0.4 k/uL (0-1.0); Monocytes % (A) 5 %; Neutrophils # (A) 6.5 k/uL (1.3-7.7); Neutrophils % (A) 83 %; Platelet Count 468 k/uL (150-450); Poikilocytosis Slight; RDW 15.5 % (11.5-15.5); WBC 7.8 k/uL (3.8-10.6)
[2018-11-03 09:53] LABS: HGB 6.3 gm/dL (11.4-16.0)
--- NOTE | 2018-11-03 12:20 | P.PN ---
Subjective Progress Note Date: 11/03/18 Principal diagnosis: Right-sided chest pain, masslike consolidation bilaterally, more so on the right lung This is a 43-year-old female with remote history of IV drug abuse, history of cervical cancer, status post chemotherapy and radiation therapy she was treated at [facility], and she was told that her cancer was clear. Her cancer was diagnosed about a year ago. Patient is also known to have history of anxiety. Presented to the ER with 2 days history of not feeling well, mostly been complaining of right-sided pleuritic chest pain, cough for the last 2 days, cough is productive with whitish phlegm, but she denies any fever no chills, no hemoptysis, she did havefew episodes of nausea and vomiting. Patient had a CT of the chest, and it showed significant abnormalities in both lungs. The CT of the chest showed masslike consolidation in the right lung and it also showed another masslike consolidation in the left lower lobe. Patient had a [id number] smoking history. Does not smoke at present. Considering the findings and considering the masslike consolidation is suggestive of pneumonia or malignancy, this consult was initiated. There is also evidence of loculated pleural effusion on the right side.no evidence of pulmonary embolism noted.the CT of the chest also showed some bronchial narrowing and occlusion bilaterally with questionable hilar adenopathy. Liver involvement was entertained. Patient is known to have history of fatty infiltration of the liver. On 11/02/2018 patient seen in follow-up on medical surgical floor. She is awake and alert, in no acute distress, is on supplemental oxygen on 3 L, with a pulse ox of 94%, afebrile, patient is are even and nonlabored. On sounds reveal some scattered wheezes, primarily right lower lobe. Urine culture showed no growth. Today's labs have been reviewed, white blood cell count is 9.9, hemoglobin is 7.3, electrolytes and renal profile were unremarkable. Patient is seen today 11/03/2018 in follow-up on the regular medical floor. She is currently resting comfortably in bed. Her right-sided chest discomfort is better today compared to yesterday. She is maintaining O2 saturations in the 90s on 3 L/m per nasal cannula. She's afebrile. Hemodynamically stable. Blood and urine cultures reveal no growth. White count 7.8. Hemoglobin 6.3. Platelet count 468,000. Creatinine 0.77. No active bleeding noted. The patient was for bronchoscopy with biopsies today however based on her hemoglobin the procedure was canceled. She is to be transfused 1 unit of packed red blood cells. GI consulted. Ultrasound of the liver revealed no distinct abnormalities. Objective - Vital Signs Vital signs: Vital Signs Temp 97.7 F 11/03/18 05:00 Pulse 100 11/03/18 05:00 Resp 16 11/03/18 05:00 BP 101/63 11/03/18 05:00 Pulse Ox 92 L 11/03/18 05:00 Intake & Output 11/02/18 11/03/18 11/03/18 18:59 06:59 18:59 Intake Total 650 Balance 650 Weight 67.132 kg Intake: Intake, IV Titration 60 Amount Sodium Chloride 0.9% 1, 60 000 ml @ 20 mls/hr IV . Q24H [facility] Rx#:[id number] Oral 590 Other: # Voids 2 2 - Exam GENERAL EXAM: Pale. Alert, fairly comfortable in no apparent distress. On 2 L. HEAD: Normocephalic. EYES: Normal reaction of pupils, equal size. NOSE: Clear with pink turbinates. THROAT: No erythema or exudates. NECK: No masses, no JVD. CHEST: No chest wall deformity. LUNGS: Equal air entry with few scattered rhonchi. CVS: S1 and S2 normal with no audible murmur, regular rhythm. ABDOMEN: No hepatosplenomegaly, normal bowel sounds, no guarding or rigidity. SPINE: No scoliosis or deformity SKIN: No rashes CENTRAL NERVOUS SYSTEM: No focal deficits, tone is normal in all 4 extremities. EXTREMITIES: There is no peripheral edema. No clubbing, no cyanosis. Peripheral pulses are intact. - Labs CBC & Chem 7: 11/03/18 08:50 11/03/18 08:50 Labs: Abnormal Lab Results - Last 24 Hours (Table) 11/02/18 11/03/18 11/03/18 Range/Units 17:38 08:50 08:50 RBC 2.50 L (3.80-5.40) m/uL Hgb 6.3 L* (11.4-16.0) gm/dL Hct 21.8 L (34.0-46.0) % MCHC 29.2 L (31.0-37.0) g/dL Plt Count 468 H (150-450) k/uL Lymphocytes # 0.6 L (1.0-4.8) k/uL Glucose 115 H (74-99) mg/dL Troponin I 0.035 H* (0.000-0.034) ng/mL Microbiology - Last 24 Hours (Table) 11/01/18 07:35 Blood Culture - Preliminary Blood No Growth after 48 hours 11/01/18 07:35 Urine Culture - Final Urine,Voided Assessment and Plan Assessment: Impression: #1 Right-sided pleuritic-type chest pain and a patient found to have masslike consolidation involving both lungs more so on the right lung. Differential inc ludes malignancy versus pneumonia. #2 History of cervical cancer status post chemoradiation 1 year ago. #3 History of opiate addiction. #4 History of generalized anxiety/depression. #5 History of chronic tobacco dependence. Plan: The patient was seen and evaluated by Dr. Peck. The plan was for bronchoscopy with biopsies today however her hemoglobin is 6.3 and she'll receive one unit of packed red blood cells. GI consulted. We'll reschedule for tomorrow. Continue current treatment plan. Currently on vancomycin. We will continue to follow and make further recommendations based on her clinical status. I, the cosigning physician, performed a history & physical examination of the patient. Lungs sounds with bilateral rhonchi. Maintaining good O2 saturations in the 90s on 3 L/m per nasal cannula. I discussed the assessment and plan of care with my nurse practitioner, Angelika Bingham. I attest to the above note as dictated by her.
[2018-11-03] MEDS: IBUPROFEN 800 MG TAB PO PRN (12:39)
[2018-11-03 13:40] LABS: Reticulocyte % 1.5 % (0.5-2.0)
--- NOTE | 2018-11-03 13:50 | P.CONS ---
History of Present Illness - Reason for Consult Consult date: 11/03/18 Anemia Requesting physician: Angelika Bingham - Chief Complaint Pleuritic chest pain nausea vomiting cough - History of Present Illness 43-year-old female history of remote IV drug abuse, fatty liver disease, cervical cancer chemoradiation, nicotine cigarette dependency, anxiety, admitted with chest pain nausea vomiting cough [address] chest reported masslike consolidation involving both lungs most involving the right lung differential diagnosis includes malignancy and/or pneumonia. IV antibiotics bronchodilators started. CT chest cannot rule out liver involvement. Follow-up liver ultrasound no distinct abnormality. Patient was scheduled for bronchoscopy biopsies today but it was canceled secondary to a drop in hemoglobin and rescheduled for tomorrow afternoon. Consult requested for anemia. Admission hemoglobin 7.6. MCV 84. Platelet 565. White count 14.7. Currently hemoglobin 6.3. INR 1.1. BUN 9 creatinine 0.5. Total bilirubin 0.5. AST 41. ALT 32. AP 46. Lipase 18. Previous hemoglobin in May 2015 was 14.6. Patient denies overt bleeding such as hematemesis hematochezia or melena. She has been treating right pleuritic pain with 600 mg of Motrin twice daily with occasional tablet of Aleve as needed. No history of GI bleeds EGD or colonoscopy. Review of Systems Constitutional: Denies fever, chills, sweats, weight gain, or loss. HEENT: Negative for migraines, blurred vision or loss, earaches, drainage, tinnitus, oral mucosal lesions, dysphagia, or odynophagia. CARDIAC: Negative for chest pain, arrhythmias, or palpitation. RESPIRATORY: Admitted with shortness of breath denies, hemoptysis, cough, or sputum production. GI: See HPI for pertinent findings. : Negative for hematuria, urgency, frequency, polyuria, or dysuria. GYNc: Denies possibility of . Negative vaginal discharge. MUSCULOSKELETAL: Negative for muscle aches, swelling, arthritis, and arthralgias. NEUROLOGIC: Negative for stroke or TIA. ENDOCRINE: Negative for thyroid problems. SKIN: Negative for rash or itching. PSYCHIATRIC: Negative history for depression and anxiety Past Medical History Past Medical History: No Reported History Additional Past Medical History / Comment(s): anxiety, recovering opiate addiction clean for a year, borderline personality History of Any Multi-Drug Resistant Organisms: None Reported Past Surgical History: Section, Tubal Ligation Past Anesthesia/Blood Transfusion Reactions: No Reported Reaction Past Psychological History: ADD/ADHD, Anxiety, Depression, Panic Disorder Smoking Status: Former smoker Past Drug Use History: Marijuana, Opiates - Past Family History Father History Unknown: Yes Family Medical History: Liver Disease Additional Family Medical History / Comment(s): Father had hepatitis at the age of 17 yrs. He was an drug addict. He started drinking when his and this lead to his per pt. Mother History Unknown: Yes Additional Family Medical History / Comment(s): Mother is healthy. Medications and Allergies Home Medications Medication Instructions Recorded Confirmed Type cloNIDine HCL 0.3 mg PO HS 05/15/15 11/01/18 History ARIPiprazole [Abilify] 15 mg PO HS 11/01/18 11/01/18 History Vortioxetine Hydrobromide 20 mg PO HS 11/01/18 11/01/18 History [Trintellix] clonazePAM [KlonoPIN] 1 mg PO BID 11/01/18 11/01/18 History lamoTRIgine [LaMICtal] 200 mg PO HS 11/01/18 11/01/18 History Allergies Allergy/AdvReac Type Severity Reaction Status Date / Time No Known Allergies Allergy Verified 11/01/18 07:17 Physical Exam Vitals: Vital Signs Temp Pulse Resp BP Pulse Ox 11/03/18 05:00 97.7 F 100 16 101/63 92 L 11/02/18 21:00 98.1 F 103 H 16 104/67 95 11/02/18 12:30 98 F 118 H 16 136/71 94 L Intake and Output 11/02/18 11/03/18 11/03/18 22:59 06:59 14:59 Intake Total 60 590 Balance 60 590 Intake: Intake, IV Titration 60 Amount Sodium Chloride 0.9% 1, 60 000 ml @ 20 mls/hr IV . Q24H [facility] Rx#:[id number] Oral 590 Other: # Voids 1 2 General appearance: The patient is alert, oriented, in no acute distress. HET: Head is normocephalic and atraumatic. Pupils are equal and reactive. Oropharynx is clear without lesions. Neck: Supple without lymphadenopathy. Trachea midline. Heart: S1 S2. Regular rate and rhythm. Lungs: No crackles or wheezes are heard. Abdomen: Soft, mild tenderness under the right breast region right upper quadrant increased discomfort with inspiration, nondistended with bowel sounds. No peritoneal signs. No palpable organomegaly or masses. Extremities: Normal skin color and turgor. No cyanosis, rash, ulceration, clubbing, or edema. Radial and pedal pulses are 2/4 bilaterally. Neurological: No focal deficits. Strength and sensation are grossly intact. Results CBC & Chem 7: 11/03/18 08:50 11/03/18 08:50 Labs: Abnormal Lab Results - Last 24 Hours (Table) 11/02/18 11/03/18 11/03/18 Range/Units 17:38 08:50 08:50 RBC 2.50 L (3.80-5.40) m/uL Hgb 6.3 L* (11.4-16.0) gm/dL Hct 21.8 L (34.0-46.0) % MCHC 29.2 L (31.0-37.0) g/dL Plt Count 468 H (150-450) k/uL Lymphocytes # 0.6 L (1.0-4.8) k/uL Glucose 115 H (74-99) mg/dL Troponin I 0.035 H* (0.000-0.034) ng/mL Microbiology - Last 24 Hours (Table) 11/01/18 07:35 Blood Culture - Preliminary Blood No Growth after 48 hours 11/01/18 07:35 Urine Culture - Final Urine,Voided CT scan - chest: report reviewed (Dr. Perez) US - abdomen: report reviewed (Dr. Perez) Assessment and Plan (1) Normocytic hypochromic anemia Narrative/Plan: 43-year-old female with a history of cervical carcinoma presents with shortness of breath with abnormal CT chest imaging underlying neoplasm could not be excluded an underlying normocytic hypochromic anemia component of acute blood loss without overt bleeding. Occult GI bleed cannot be excluded with recent NSAID usage for the past month. Other considerations to consider is a small bowel source possible colonic source contributing to her anemia. Current Visit: Yes Status: Acute Code(s): D50.9 - IRON DEFICIENCY ANEMIA, UNSPECIFIED SNOMED Code(s): 72368824 Plan: 1. Protonix 40 mg daily. No NSAIDs. Case was discussed with boarding machine operator Dr. Cisco. We'll proceed with EGD evaluation this afternoon to rule out upper GI pathology. Continue CBC monitoring blood transfusion. Patient is scheduled for bronchoscopy tomorrow afternoon. Patient may require small bowel video capsule endoscopy possible colonoscopy during this admission will advise based on her clinical course. Thank you for this kind referral and the opportunity to participate in the care of your patient. This consultation was discussed with Dr. Perez. The impression and plan of care have been directed as dictated.
--- NOTE | 2018-11-03 15:26 | P.PN ---
Subjective Progress Note Date: 11/03/18 This is a 43-year-old female, history of opiate addiction, nicotine dependence of 12 years- Quit 3 weeks ago, cervical cancer diagnosed 1 year ago-s/p leap procedure,chemotherapy and radiation; patient reports cancer has cleared, anxiety, depression, borderline personality disorder, completed antibiotic re gimen for pneumonia approximately 2 weeks ago; but reports she has not felt well for over a month with loss of appetite accompanied by significant weight loss estimated to be around 15lbs in the last month. Presented to the ER with worsening shortness of breath, cough, pleuritic chest pain,Nausea ,Vomiting without diarrhea, distal to right ribcage, right upper quadrant abdominal pain.PE ruled out per Chest CT, but reports masslike consolidations right greater than left of the perihilarareas extending into upper and lower lungs with bronchial narrowing and bilaterally occlusion. Possible Hilar adenopathy.Enlarged subcarinal lymph node 2.6 X 2.0 cm. right pleural effusion. Possible malignancy,Compressive Atelactasis, possible liver involvement with small liver lesions 1.5cm. Denies any fever or chills. Denies any chest pain, palpitations. Denies any lightheadedness ,dizziness or focal deficits. T-max 99.2, WBC 14.7 -now down to 9.9 , hemoglobin 7.6 , currently 7.3 tachycardic- heart rate 136 on admission, 97% on room air on admission, now maintaining high 90s on 3 L nasal cannula, alk phos 246, now 217.Troponin 0.060. EKG reported sinus tachycardia. Vancomycin and cefepime initiated, in addition to IV fluid hydration. Pulmonary consulted. 11/03/2018 initially scheduled for diagnostic bronchoscopy with biopsy with pulmonary today but hemoglobin dropped to 6.3, platelets 468. Denies abdominal pain. Reports she has been consuming NSAIDs regularly for right pleuritic pain at home. Asymptomatic, denies active bleeding. Stool for occult blood sent. Receiving 1 unit of packed RBCs. Evaluated by GI and scheduled for EGD. Awaiting [facility] records regarding cervical cancer, treatment. Tachycardic, heart rate in the 120s. Maintaining O2 sats in the 90s on 3 L nasal cannula. Afebrile. Preliminary Blood and urine cultures revealed no growth. Objective - Vital Signs Vital signs: Vital Signs Temp 98.6 F 11/03/18 14:25 Pulse 126 H 11/03/18 14:25 Resp 18 11/03/18 14:15 BP 113/69 11/03/18 14:25 Pulse Ox 92 L 11/03/18 14:25 Intake & Output 11/02/18 11/03/18 11/03/18 18:59 06:59 18:59 Intake Total 650 0 Balance 650 0 Weight 67.132 kg Intake: Intake, IV Titration 60 Amount Sodium Chloride 0.9% 1, 60 000 ml @ 20 mls/hr IV . Q24H [facility] Rx#:[id number] Oral 590 Blood Product 0 Rc Pheresis 2 As3 Unit 0 [id number] Other: # Voids 2 2 - Exam VITAL SIGNS: As above GENERAL: Sitting up in bed, no acute distress HEENT: Normocephalic, atraumatic, Conjunctivae normal. eyes normal. Oral mucosa moist NECK: No JVD. No thyroid enlargement. No LNs CARDIOVASCULAR: S1, S2 regular. Tachycardic, No murmur RESPIRATION: Breath sounds diminished in the bases more so on the right; No rhonchi, crackles, No wheezing, No bronchial breathing. ABDOMEN: Soft,tender Right rib cage /upper quadrant, No guarding. no masses palpable. Bowel sounds heard. LEGS: No edema. no swelling. No clubbing, no cyanosis PSYCHIATRY: Alert and oriented -3, flat affect, anxious, tearful NERVOUS SYSTEM: Cranial N 2-12 grossly normal. Moves all 4 limbs. No focal deficits. Strength and sensation grossly intact. Skin: no lesions, no rash - Labs CBC & Chem 7: 11/03/18 08:50 11/03/18 08:50 Labs: Abnormal Lab Results - Last 24 Hours (Table) 11/02/18 11/03/18 11/03/18 Range/Units 17:38 08:50 08:50 RBC 2.50 L (3.80-5.40) m/uL Hgb 6.3 L* (11.4-16.0) gm/dL Hct 21.8 L (34.0-46.0) % MCHC 29.2 L (31.0-37.0) g/dL Plt Count 468 H (150-450) k/uL Lymphocytes # 0.6 L (1.0-4.8) k/uL Glucose 115 H (74-99) mg/dL Troponin I 0.035 H* (0.000-0.034) ng/mL Stool Occult Blood (Negative) Crossmatch 11/03/18 11/03/18 Range/Units 10:45 13:30 RBC (3.80-5.40) m/uL Hgb (11.4-16.0) gm/dL Hct (34.0-46.0) % MCHC (31.0-37.0) g/dL Plt Count (150-450) k/uL Lymphocytes # (1.0-4.8) k/uL Glucose (74-99) mg/dL Troponin I (0.000-0.034) ng/mL Stool Occult Blood Positive H (Negative) Crossmatch See Detail Microbiology - Last 24 Hours (Table) 11/01/18 07:35 Blood Culture - Preliminary Blood No Growth after 48 hours 11/01/18 07:35 Urine Culture - Final Urine,Voided Assessment and Plan Assessment: -Pneumonia, possibly failed OP Treatment. PE ruled out per Chest CT, but reports masslike consolidations right greater than left of the perihilarareas extending into upper and lower lungs with bronchial narrowing and bilaterally occlusion. Possible Hilar adenopathy.Enlarged subcarinal lymph node 2.6 X 2.0 cm.Pleural effusions. Possible malignancy with possible liver involvement in a patient with history of nicotine abuse. -Compressive Atelactasis -Elevated alk phos Small liver lesions 1.5cm, in a patient with history of fatty liver -History of opiate abuse, addiction -Nicotine dependence, quit 3 weeks ago -Borderline Personality disorder -Anxiety & depression -Cervical cancer 1yr ago, status post chemoradiation, patient reports cleared. -Significant weight loss over a month of approximately 15 pounds. -Anemia, rule out acute GI bleed, in a patient had been consuming NSAIDs on a regular basis. Plan: Continue on current medication regime , PPI, monitoring and symptomatic treatment. Records pending from [facility] regarding cervical cancer, treatment. Diagnostic bronchoscopy with biopsy on hold, rescheduled for tomorrow. Anticoagulation remains on hold. Scheduled for EGD today. Close monitoring of hemoglobin, labs ordered for tomorrow. Patient updated on plan of care. The impression and plan of care has been dictated as directed. : I performed a history and examination of this patient, discussed the same with the dictator. I agree with the dictator's note ,documented as a scribe. Any additional findings or plans will be noted. Time taken: 35 min
[2018-11-03] MEDS ORDERED: PROPOFOL 10 MG/ML 20 ML VIAL IV ONE (16:48)
[2018-11-03] MEDS ORDERED: LIDOCAINE 1% INJ 10MG/ML (20 ML MDV) ONE (16:48)
[2018-11-03] MEDS ORDERED: LACTATED RINGERS 1,000 ML IV ONE (16:50)
--- NOTE | 2018-11-03 17:08 | P.PCN ---
Date of Procedure: 11/03/18 Description of Procedure: BRIEF HISTORY: 43-year-old female history of remote IV drug abuse, fatty liver disease, cervical cancer chemoradiation, nicotine cigarette dependency, anxiety, admitted with chest pain nausea vomiting cough [address] chest reported masslike consolidation involving both lungs most involving the right lung differential diagnosis includes malignancy and/or pneumonia. IV antibiotics bronchodilators started. CT chest cannot rule out liver involvement. Follow-up liver ultrasound no distinct abnormality. Patient was scheduled for bronchoscopy biopsies today but it was canceled secondary to a drop in hemoglobin and rescheduled for tomorrow afternoon. Consult requested for anemia. Admission hemoglobin 7.6. MCV 84. Platelet 565. White count 14.7. Currently hemoglobin 6.3. INR 1.1. BUN 9 creatinine 0.5. Total bilirubin 0.5. AST 41. ALT 32. AP 46. Lipase 18. Previous hemoglobin in May 2015 was 14.6. Patient denies overt bleeding such as hematemesis hematochezia or melena. She has been treating right pleuritic pain with 600 mg of Motrin twice daily with occasional tablet of Aleve as needed. No history of GI bleeds EGD or colonoscopy. PROCEDURE PERFORMED: Esophagogastroduodenoscopy with biopsy. PREOPERATIVE DIAGNOSIS: Anemia. ESTIMATED BLOOD LOSS: Minimal. IV sedation per anesthesia. PROCEDURE: After informed consent was obtained, the patient was brought into the endoscopy unit. IV sedation was administered by Anesthesia under continuous monitoring. Initially the Olympus GIF-190 video endoscope was inserted into the mouth. Esophagus intubated without any difficulty. It was gradually advanced into the stomach and duodenum and carefully examined. The bulb and the second part of the duodenum appeared normal, with biopsies taken. The scope at this time was withdrawn to the stomach, adequately insufflated with air, and upon careful examination, mucosa of the antrum, body, cardia and the fundus were significant for a superficial nonbleeding ulcer in the antrum of the stomach with biopsies taken and some mild scattered erythema in the antrum and body suggestive of mild gastritis with biopsies taken. The scope was then withdrawn into the esophagus. The GE junction was located at 35 cm from the incisors. The esophagus appeared normal. There were no erosions or ulcerations seen and the patient tolerated the procedure well. IMPRESSION: 1. Nonbleeding antral ulcer, biopsied. 2. Gastritis antrum and body, biopsied. 3. Duodenal biopsies. RECOMMENDATIONS: The findings of this examination were discussed with the patient. Okay for diet tonight. Monitor hemoglobin and hematocrit and transfuse as needed. Continue Protonix 40 mg twice daily by mouth. Patient will need repeat EGD in 6-8 weeks to check for ulcer healing. The gastroenterology service will stand by, please call us back with any questions or concerns.
[2018-11-03] MEDS: PANTOPRAZOLE 40 MG TABLET PO SCH (18:26)
[2018-11-03] MEDS: VORTIOXETINE HYDROBROMIDE 20 MG TABLET PO SCH (20:39)
[2018-11-03] MEDS: cloNIDine HCL 0.1 MG TAB PO SCH (20:39)
[2018-11-03] MEDS: lamoTRIgine 100 MG TAB PO SCH (20:39)
[2018-11-03] MEDS: ARIPiprazole 15 MG TAB PO SCH (20:39)
[2018-11-03 23:16] LABS: Iron Saturation 6.09 (12.00-45.00)
[2018-11-04] MEDS ORDERED: LIDOCAINE 1% 20 ML VIAL (10MG/ML) FOR IV START INTRADERMA PRN (06:26)
[2018-11-04] MEDS ORDERED: LACTATED RINGERS 1,000 ML IV SCH (06:30)
[2018-11-04] MEDS ORDERED: VANCOMYCIN TROUGH DUE 1 EACH MISC MISCELLANE ONE (08:00)
[2018-11-04] MEDS: PANTOPRAZOLE 40 MG TABLET PO SCH ×2 (08:21→20:26)
[2018-11-04] MEDS: VANCOMYCIN 1,250 MG in SODIUM CHLORIDE 0.9% 250 ML IVPB SCH (08:21)
[2018-11-04] MEDS: clonazePAM 1 MG TAB PO SCH ×2 (08:21→20:26)
[2018-11-04 08:33] LABS: Basophils % (A) 0 %; Eosinophils # (A) 0.2 k/uL (0-0.7); Eosinophils % (A) 2 %; HCT 24.8 % (34.0-46.0); HGB 7.6 gm/dL (11.4-16.0); Hypochromasia Marked; Lymphocytes # (A) 0.9 k/uL (1.0-4.8); Lymphocytes % (A) 10 %; MCHC 30.5 g/dL (31.0-37.0); MCV 85.2 fL (80.0-100.0); Mean Platelet Volume 6.5; Monocytes # (A) 0.6 k/uL (0-1.0); Monocytes % (A) 6 %; Neutrophils # (A) 7.9 k/uL (1.3-7.7); Neutrophils % (A) 80 %; Platelet Count 519 k/uL (150-450); Poikilocytosis Moderate; RBC 2.91 m/uL (3.80-5.40); RDW 15.9 % (11.5-15.5); WBC 9.9 k/uL (3.8-10.6)
[2018-11-04 08:37] LABS: African American GFR (CKD) >90 (>60 ml/min/1.73 sqM); Anion Gap 6 mmol/L; Blood Urea Nitrogen 10 mg/dL (7-17); Calcium 8.9 mg/dL (8.4-10.2); Carbon Dioxide 29 mmol/L (22-30); Chloride 107 mmol/L (98-107); Glucose 103 mg/dL (74-99); Potassium 5.1 mmol/L (3.5-5.1); Sodium 142 mmol/L (137-145)
[2018-11-04] MEDS: SODIUM CHLORIDE 0.9% 1,000 ML IV SCH (11:35)
[2018-11-04] MEDS: ONDANSETRON 4 MG/2 ML VIAL IVP PRN ×2 (11:35→20:27)
--- NOTE | 2018-11-04 12:39 | P.PN ---
Subjective Progress Note Date: 11/04/18 This is a 43-year-old female, history of opiate addiction, nicotine dependence of 12 years- Quit 3 weeks ago, cervical cancer diagnosed 1 year ago-s/p leap procedure,chemotherapy and radiation; patient reports cancer has cleared, anxiety, depression, borderline personality disorder, completed antibiotic re gimen for pneumonia approximately 2 weeks ago; but reports she has not felt well for over a month with loss of appetite accompanied by significant weight loss estimated to be around 15lbs in the last month. Presented to the ER with worsening shortness of breath, cough, pleuritic chest pain,Nausea ,Vomiting without diarrhea, distal to right ribcage, right upper quadrant abdominal pain.PE ruled out per Chest CT, but reports masslike consolidations right greater than left of the perihilarareas extending into upper and lower lungs with bronchial narrowing and bilaterally occlusion. Possible Hilar adenopathy.Enlarged subcarinal lymph node 2.6 X 2.0 cm. right pleural effusion. Possible malignancy,Compressive Atelactasis, possible liver involvement with small liver lesions 1.5cm. Denies any fever or chills. Denies any chest pain, palpitations. Denies any lightheadedness ,dizziness or focal deficits. T-max 99.2, WBC 14.7 -now down to 9.9 , hemoglobin 7.6 , currently 7.3 tachycardic- heart rate 136 on admission, 97% on room air on admission, now maintaining high 90s on 3 L nasal cannula, alk phos 246, now 217.Troponin 0.060. EKG reported sinus tachycardia. Vancomycin and cefepime initiated, in addition to IV fluid hydration. Pulmonary consulted. 11/03/2018 initially scheduled for diagnostic bronchoscopy with biopsy with pulmonary today but hemoglobin dropped to 6.3, platelets 468. Denies abdominal pain. Reports she has been consuming NSAIDs regularly for right pleuritic pain at home. Asymptomatic, denies active bleeding. Stool for occult blood sent. Receiving 1 unit of packed RBCs. Evaluated by GI and scheduled for EGD. Awaiting [facility] records regarding cervical cancer, treatment. Tachycardic, heart rate in the 120s. Maintaining O2 sats in the 90s on 3 L nasal cannula. Afebrile. Preliminary Blood and urine cultures revealed no growth. 11/04/2018 positive stool for occult blood. receive 1 unit of packed RBCs yesterday, current hemoglobin 7.6. Anemia workup in progress reporting low iron levels. Evaluated by GI, underwent ETT yesterday reporting nonbleeding antral ulcer, gastritis, biopsies obtained. Maintained on PPI twice a day with recommended follow-up EGD in 2 months. Scheduled for diagnostic bronchoscopy today with pulmonary. Denies chest pain, palpitations. Objective - Vital Signs Vital signs: Vital Signs Temp 98.6 F 11/04/18 05:00 Pulse 114 H 11/04/18 08:00 Resp 32 H 11/04/18 05:00 BP 112/65 11/04/18 05:00 Pulse Ox 93 L 11/04/18 05:00 Intake & Output 11/03/18 11/04/18 11/04/18 18:59 06:59 18:59 Intake Total 410 1300 Balance 410 1300 Intake: IV 100 Oral 1300 Blood Product 310 Rc Pheresis 2 As3 Unit 310 [id number] Other: # Voids 2 2 - Exam VITAL SIGNS: As above GENERAL: Sitting up in bed, no acute distress, sleepy HEENT: Normocephalic, atraumatic, Conjunctivae normal. eyes normal. Oral mucosa moist NECK: No JVD. No thyroid enlargement. No LNs CARDIOVASCULAR: S1, S2 regular. Mild Tachycardic, No murmur, rubs or gallops RESPIRATION: Breath sounds diminished in the bases more so on the right; No rhonchi, crackles, wheezing. ABDOMEN: Soft,tender Right rib cage /upper quadrant, No guarding. no masses palpable.Positive Bowel sounds. LEGS: No edema. no swelling. No clubbing, no cyanosis. PSYCHIATRY: Alert and oriented -3, mood and affect normal NERVOUS SYSTEM: Cranial N 2-12 grossly normal. Moves all 4 limbs. No focal de ficits. Strength and sensation grossly intact. Skin: no lesions, no rash - Labs CBC & Chem 7: 11/04/18 07:49 11/04/18 07:49 Labs: Abnormal Lab Results - Last 24 Hours (Table) 11/03/18 11/03/18 11/03/18 Range/Units 08:50 08:50 08:50 RBC 2.50 L (3.80-5.40) m/uL Hgb 6.3 L* (11.4-16.0) gm/dL Hct 21.8 L (34.0-46.0) % MCHC 29.2 L (31.0-37.0) g/dL RDW (11.5-15.5) % Plt Count 468 H (150-450) k/uL Neutrophils # (1.3-7.7) k/uL Lymphocytes # 0.6 L (1.0-4.8) k/uL Glucose 115 H (74-99) mg/dL Iron 12 L (50-170) ug/dL TIBC 197 L (228-460) ug/dL Iron Saturation 6.09 L (12.00-45.00) Ferritin 626.3 H (10.0-291.0) ng/mL Stool Occult Blood (Negative) Crossmatch 11/03/18 11/03/18 11/04/18 Range/Units 10:45 13:30 07:49 RBC (3.80-5.40) m/uL Hgb (11.4-16.0) gm/dL Hct (34.0-46.0) % MCHC (31.0-37.0) g/dL RDW (11.5-15.5) % Plt Count (150-450) k/uL Neutrophils # (1.3-7.7) k/uL Lymphocytes # (1.0-4.8) k/uL Glucose 103 H (74-99) mg/dL Iron (50-170) ug/dL TIBC (228-460) ug/dL Iron Saturation (12.00-45.00) Ferritin (10.0-291.0) ng/mL Stool Occult Blood Positive H (Negative) Crossmatch See Detail 11/04/18 Range/Units 07:49 RBC 2.91 L (3.80-5.40) m/uL Hgb 7.6 L (11.4-16.0) gm/dL Hct 24.8 L (34.0-46.0) % MCHC 30.5 L (31.0-37.0) g/dL RDW 15.9 H (11.5-15.5) % Plt Count 519 H (150-450) k/uL Neutrophils # 7.9 H (1.3-7.7) k/uL Lymphocytes # 0.9 L (1.0-4.8) k/uL Glucose (74-99) mg/dL Iron (50-170) ug/dL TIBC (228-460) ug/dL Iron Saturation (12.00-45.00) Ferritin (10.0-291.0) ng/mL Stool Occult Blood (Negative) Crossmatch Microbiology - Last 24 Hours (Table) 11/01/18 07:35 Blood Culture - Preliminary Blood No Growth after 48 hours Assessment and Plan Assessment: -Pneumonia, possibly failed OP Treatment. PE ruled out per Chest CT, but reports masslike consolidations right greater than left of the perihilarareas extending into upper and lower lungs with bronchial narrowing and bilaterally occlusion. Possible Hilar adenopathy.Enlarged subcarinal lymph node 2.6 X 2.0 cm.Pleural effusions. Possible malignancy with possible liver involvement in a patient with history of nicotine abuse. -Compressive Atelactasis -Elevated alk phos Small liver lesions 1.5cm, in a patient with history of fatty liver -History of opiate abuse, addiction -Nicotine dependence, quit 3 weeks ago -Borderline Personality disorder -Anxiety & depression -Cervical cancer 1yr ago, status post chemoradiation, patient reports cleared. -Significant weight loss over a month of approximately 15 pounds. -Anemia, iron deficient, status post EGD reporting nonbleeding antral ulcer, gastritis, in a patient had been consuming NSAIDs on a regular basis. Plan: Continue on current medication regime , PPI, monitoring and symptomatic treatment.[facility] reports pending regarding cervical cancer, treatment. Diagnostic bronchoscopy with biopsy today. Anticoagulation remains on hold. Close monitoring of hemoglobin, labs ordered for tomorrow. The impression and plan of care has been dictated as directed. : I performed a history and examination of this patient, discussed the same with the dictator. I agree with the dictator's note ,documented as a scribe. Any additional findings or plans will be noted. Time taken: 35 min
--- NOTE | 2018-11-04 12:57 | P.PN ---
Subjective Progress Note Date: 11/04/18 Principal diagnosis: Right-sided chest pain, masslike consolidation bilaterally, more so on the right lung This is a 43-year-old female with remote history of IV drug abuse, history of cervical cancer, status post chemotherapy and radiation therapy she was treated at [facility], and she was told that her cancer was clear. Her cancer was diagnosed about a year ago. Patient is also known to have history of anxiety. Presented to the ER with 2 days history of not feeling well, mostly been complaining of right-sided pleuritic chest pain, cough for the last 2 days, cough is productive with whitish phlegm, but she denies any fever no chills, no hemoptysis, she did havefew episodes of nausea and vomiting. Patient had a CT of the chest, and it showed significant abnormalities in both lungs. The CT of the chest showed masslike consolidation in the right lung and it also showed another masslike consolidation in the left lower lobe. Patient had a [id number] smoking history. Does not smoke at present. Considering the findings and considering the masslike consolidation is suggestive of pneumonia or malignancy, this consult was initiated. There is also evidence of loculated pleural effusion on the right side.no evidence of pulmonary embolism noted.the CT of the chest also showed some bronchial narrowing and occlusion bilaterally with questionable hilar adenopathy. Liver involvement was entertained. Patient is known to have history of fatty infiltration of the liver. On 11/02/2018 patient seen in follow-up on medical surgical floor. She is awake and alert, in no acute distress, is on supplemental oxygen on 3 L, with a pulse ox of 94%, afebrile, patient is are even and nonlabored. On sounds reveal some scattered wheezes, primarily right lower lobe. Urine culture showed no growth. Today's labs have been reviewed, white blood cell count is 9.9, hemoglobin is 7.3, electrolytes and renal profile were unremarkable. Patient is seen today 11/03/2018 in follow-up on the regular medical floor. She is currently resting comfortably in bed. Her right-sided chest discomfort is better today compared to yesterday. She is maintaining O2 saturations in the 90s on 3 L/m per nasal cannula. She's afebrile. Hemodynamically stable. Blood and urine cultures reveal no growth. White count 7.8. Hemoglobin 6.3. Platelet count 468,000. Creatinine 0.77. No active bleeding noted. The patient was for bronchoscopy with biopsies today however based on her hemoglobin the procedure was canceled. She is to be transfused 1 unit of packed red blood cells. GI consulted. Ultrasound of the liver revealed no distinct abnormalities. The patient is seen today 11/04/2017 in follow-up on the regular medical floor. She is awake and alert in no acute distress. She is still with a loose nonproductive cough. Maintaining O2 saturations in the 90s on 3 L/m per nasal cannula. She's afebrile. Hemoglobin 7.6 post 1 unit of packed red blood cells. White count 9.9. Platelets 519,000. Stool for occult blood was positive. EGD yesterday revealed a nonbleeding antral ulcer, gastritis. Biopsies were taken. Remains on Protonix 40 mg every 12 hours. Plan is to recheck via EGD in 6-8 weeks. She will be undergoing bronchoscopy with biopsies today. Objective - Vital Signs Vital signs: Vital Signs Temp 98.6 F 11/04/18 08:00 Pulse 114 H 11/04/18 08:00 Resp 32 H 11/04/18 08:00 BP 112/65 11/04/18 08:00 Pulse Ox 93 L 11/04/18 08:00 Intake & Output 11/03/18 11/04/18 11/04/18 18:59 06:59 18:59 Intake Total 410 1300 Balance 410 1300 Intake: IV 100 Oral 1300 Blood Product 310 Rc Pheresis 2 As3 Unit 310 [id number] Other: # Voids 2 2 - Exam GENERAL EXAM: Pale. Alert, fairly comfortable in no apparent distress. On 2 L. HEAD: Normocephalic. EYES: Normal reaction of pupils, equal size. NOSE: Clear with pink turbinates. THROAT: No erythema or exudates. NECK: No masses, no JVD. CHEST: No chest wall deformity. LUNGS: Equal air entry with few scattered rhonchi. CVS: S1 and S2 normal with no audible murmur, regular rhythm. ABDOMEN: No hepatosplenomegaly, normal bowel sounds, no guarding or rigidity. SPINE: No scoliosis or deformity SKIN: No rashes CENTRAL NERVOUS SYSTEM: No focal deficits, tone is normal in all 4 extremities. EXTREMITIES: There is no peripheral edema. No clubbing, no cyanosis. Peripheral pulses are intact. - Labs CBC & Chem 7: 11/04/18 07:49 11/04/18 07:49 Labs: Abnormal Lab Results - Last 24 Hours (Table) 11/03/18 11/03/18 11/03/18 Range/Units 08:50 08:50 10:45 RBC (3.80-5.40) m/uL Hgb (11.4-16.0) gm/dL Hct (34.0-46.0) % MCHC (31.0-37.0) g/dL RDW (11.5-15.5) % Plt Count (150-450) k/uL Neutrophils # (1.3-7.7) k/uL Lymphocytes # (1.0-4.8) k/uL Glucose (74-99) mg/dL Iron 12 L (50-170) ug/dL TIBC 197 L (228-460) ug/dL Iron Saturation 6.09 L (12.00-45.00) Ferritin 626.3 H (10.0-291.0) ng/mL RBC Folate 1,543 H (280 - 791) ng/mL Stool Occult Blood (Negative) Crossmatch See Detail 11/03/18 11/04/18 11/04/18 Range/Units 13:30 07:49 07:49 RBC 2.91 L (3.80-5.40) m/uL Hgb 7.6 L (11.4-16.0) gm/dL Hct 24.8 L (34.0-46.0) % MCHC 30.5 L (31.0-37.0) g/dL RDW 15.9 H (11.5-15.5) % Plt Count 519 H (150-450) k/uL Neutrophils # 7.9 H (1.3-7.7) k/uL Lymphocytes # 0.9 L (1.0-4.8) k/uL Glucose 103 H (74-99) mg/dL Iron (50-170) ug/dL TIBC (228-460) ug/dL Iron Saturation (12.00-45.00) Ferritin (10.0-291.0) ng/mL RBC Folate (280 - 791) ng/mL Stool Occult Blood Positive H (Negative) Crossmatch Microbiology - Last 24 Hours (Table) 11/01/18 07:35 Blood Culture - Preliminary Blood No Growth after 72 hours Assessment and Plan Assessment: Impression: #1 Right-sided pleuritic-type chest pain and a patient found to have masslike consolidation involving both lungs more so on the right lung. Differential includes malignancy versus pneumonia. Bronchoscopy with biopsies 11/04/2018. #2 History of cervical cancer status post chemoradiation 1 year ago. #3 History of opiate addiction. #4 History of generalized anxiety/depression. #5 History of chronic tobacco dependence. #6 Anemia of unclear etiology with hemoglobin is 6.3. Status post 1 unit packed red blood cells. Today's hemoglobin 7.6. EGD 11/03/2018 revealed a nonbleeding antral ulcer, gastritis. Biopsies taken. Plan: The patient was seen and evaluated by Dr. Peck. Hemoglobin 7.6 following 1 unit of packed red blood cells. The plan is for bronchoscopy with biopsies today. Continue current treatment plan. Currently on vancomycin. We will continue to follow and make further recommendations based on her clinical status. I, the cosigning physician, performed a history & physical examination of the patient. Lungs sounds with bilateral rhonchi. Maintaining good O2 saturations in the 90s on 3 L/m per nasal cannula. I discussed the assessment and plan of care with my nurse practitioner, Angelika Bingham. I attest to the above note as dictated by her.
[2018-11-04] MEDS ORDERED: KETAMINE 10 MG/ML 20 ML VIAL ONE (13:00)
[2018-11-04] MEDS ORDERED: MIDAZOLAM 2 MG/2 ML VIAL ONE (13:00)
[2018-11-04] MEDS ORDERED: LIDOCAINE 1% INJ 10MG/ML (20 ML MDV) ONE (13:00)
[2018-11-04] MEDS ORDERED: SODIUM CHLORIDE 0.9% 500 ML 500 ML IV ONE (13:07)
--- NOTE | 2018-11-04 14:07 | P.PN ---
Progress Note - Text Progress Note Date: 11/04/18 bronchoscopy was canceled.patient was brought in to bronch suite,however,she was noted to be tachycardic,HR 150,tachypneic RR 40 SAO2 92 PERCENT ON 5 LIT NC.Given ketamine and versed and lidocaine by insulation estimator.No change was noted.Hence I recommended canceling bronchoscopy.will consult thoracic surgery for possible vats lung biopsy.Otherwise consider transfer to [facility]
[2018-11-04] MEDS: ARIPiprazole 15 MG TAB PO SCH (20:26)
[2018-11-04] MEDS: ACETAMINOPHEN TAB 325 MG TAB PO PRN (20:26)
[2018-11-04] MEDS: cloNIDine HCL 0.1 MG TAB PO SCH (20:27)
[2018-11-04] MEDS: lamoTRIgine 100 MG TAB PO SCH (20:27)
[2018-11-04] MEDS: VORTIOXETINE HYDROBROMIDE 20 MG TABLET PO SCH (20:27)
[2018-11-04 21:00] VITALS: BP 141/81; PULSE 132; RESP 32; TEMP 101.6
[2018-11-05] MEDS ORDERED: VANCOMYCIN 1,250 MG in SODIUM CHLORIDE 0.9% 250 ML IVPB SCH (09:00)
[2018-11-07 13:30] LABS: Methylmalonic Acid 0.11 umol/L (<0.40)
--- NOTE | 2018-11-07 13:50 | CDI ---
Documentation Clarification Form Date: 11/07/2018 From: Gunjan Berger Phone: If questions call Romy Merino @ [phone], Hours-8:30 am & 5 pm M- F Admit Date: 11/01/2018 9:32:00 AM Patient Name: Latonia Quiles Visit Number: [id number] Discharge Date: 11/04/2018 9:15:00 PM ATTENTION: The Clinical Documentation Specialists (CDI) and [facility] Coding Staff appreciate your assistance in clarifying documentation. Please respond to the clarification below the line at the bottom and electronically sign. The CDI & [facility] Coding staff will review the response and follow-up if needed. Please note: Queries are made part of the Legal Health Record. If you have any questions, please contact the author of this message via ITS. Dr. Truman Thomas The patients principal diagnosis has not been clearly identified and requires clarification. She presented with pneumonia, possibly failied OP treatment. PE ruled out per chest CT but reports masslike consolidations right greater than left or the perihilarareas extending into upper and lower lungs with bronchial narrowing and bilaterally occlusion. Possbile hilar adenopathy. Bronchoscopy cancelled due to tachycardia. Patient transferred to [facility]. History/Risk factors: cervical ca s/p treatment In your professional opinion, can you please clarify which diagnosis, after study, accounted for the patients presenting symptoms and was the reason chiefly responsible for the admission? see discharge summary MTDD
--- NOTE | 2018-11-16 13:44 | P.DS ---
Providers Date of admission: 11/01/18 09:32 Expected date of discharge: 11/16/18 Attending physician: Truman Thomas Consults: 11/01/18 09:34 Consult Physician Routine Consulting Provider: Louis Barrios Consult Reason/Comments: pleural effusion Do you want consulting provider notified?: Yes 11/02/18 11:48 Consult Physician Routine Consulting Provider: Abdullahi García Consult Reason/Comments: Lung Cancer Do you want consulting provider notified?: Already Contacted Primary care physician: Fredo Yumi [facility] Course: Attempt was made to perform bronchoscopy on patient apparently she decompensated O2 sats dropped and Dr. Peck decided that she was becoming more unstable and that she needed to be she needed to be transferred to [facility] He has of her acuity, and risk Patient Condition at Discharge: Fair Plan - Discharge Summary Discharge Rx Participant: No New Discharge Prescriptions: No Action cloNIDine HCL 0.3 mg PO HS lamoTRIgine [LaMICtal] 200 mg PO HS clonazePAM [KlonoPIN] 1 mg PO BID ARIPiprazole [Abilify] 15 mg PO HS Vortioxetine Hydrobromide [Trintellix] 20 mg PO HS Discharge Medication List cloNIDine HCL 0.3 mg PO HS 05/15/15 [History] ARIPiprazole [Abilify] 15 mg PO HS 11/01/18 [History] Vortioxetine Hydrobromide [Trintellix] 20 mg PO HS 11/01/18 [History] clonazePAM [KlonoPIN] 1 mg PO BID 11/01/18 [History] lamoTRIgine [LaMICtal] 200 mg PO HS 11/01/18 [History] Follow up Appointment(s)/Referral(s): Fredo Eason MD [Primary Care Provider] - 1 Week Stanley Perez MD [STAFF PHYSICIAN] - 2 Weeks Activity/Diet/Wound Care/Special Instructions: patient requests pneumonia vaccine before discharge (if ok with doctors) Care Plan Goals (MU): Transferred to [facility] Discharge Disposition: OTHER INSTITUTION NOT DEFINED
== END 2018-11-04 21:15 | disposition short-term general hospital (02) | DRG 194 ==
LOC: EC 06:56 → 3NMEDONC 09:32
PROVIDERS: ADMIT Family Medicine; ATTEND Family Medicine
PROC: 0DB78ZX Excision of Stomach, Pylorus, Via Natural or Artificial Opening Endoscopic, Diagnostic (ICD-10-PCS; 2018-11-03)
PROC: 30233N1 Transfusion of Nonautologous Red Blood Cells into Peripheral Vein, Percutaneous Approach (ICD-10-PCS; principal; 2018-11-03 11:10)
DX: J18.9 Pneumonia, unspecified organism (principal); J90 Pleural effusion, not elsewhere classified; D62 Acute posthemorrhagic anemia; R91.8 Other nonspecific abnormal finding of lung field; K76.0 Fatty (change of) liver, not elsewhere classified; D50.9 Iron deficiency anemia, unspecified; F11.21 Opioid dependence, in remission; F32.9 Major depressive disorder, single episode, unspecified; K29.70 Gastritis, unspecified, without bleeding; K25.9 Gastric ulcer, unspecified as acute or chronic, without hemorrhage or perforation; F90.9 Attention-deficit hyperactivity disorder, unspecified type; F41.1 Generalized anxiety disorder; F60.3 Borderline personality disorder; F41.0 Panic disorder [episodic paroxysmal anxiety]; R63.4 Abnormal weight loss; Z53.9 Procedure and treatment not carried out, unspecified reason; Z79.899 Other long term (current) drug therapy; Z87.891 Personal history of nicotine dependence; Z85.41 Personal history of malignant neoplasm of cervix uteri; Z92.21 Personal history of antineoplastic chemotherapy; Z92.3 Personal history of irradiation; Z98.891 History of uterine scar from previous surgery; Z98.51 Tubal ligation status; Z83.1 Family history of other infectious and parasitic diseases; Z81.3 Family history of other psychoactive substance abuse and dependence
CPT/HCPCS: 31625; 36415; 43239; 71046; 71275; 76705; 80048; 80053; 80202; 81001; 81025; 82272; 82607; 82728; 82747; 83540; 83550; 83690; 83921; 84484; 85025; 85045; 85379; 85610; 86850; 86900; 86901; 86920; 87040; 87086; 88305; 93005; 94760; 96361; 96365; 96366; 96367; 96375; 99285

== ENCOUNTER 2018-11-22 08:55 | Inpatient (IN) | payer OTHER ==
[2018-11-22] MEDS ORDERED: ACETAMINOPHEN TAB 325 MG TAB PO STA (09:06)
[2018-11-22] MEDS ORDERED: SODIUM CHLORIDE 0.9% 1,000 ML IV STA ×2 (09:06→11:23)
[2018-11-22] MEDS ORDERED: IPRATROPIUM-ALBUTEROL 3 ML NEB INHALATION STA (09:07)
--- NOTE | 2018-11-22 09:42 | ED ---
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 No overt chest pain no nausea vomiting or diarrhea and question whether there was an overdose of her medication no other modifying factors at this time MD Complaint: fever, malaise, weakness - Related Data Home Medications Medication Instructions Recorded Confirmed cloNIDine HCL 0.3 mg PO HS 05/15/15 11/22/18 ARIPiprazole [Abilify] 15 mg PO HS 11/01/18 11/22/18 Vortioxetine Hydrobromide 20 mg PO HS 11/01/18 11/22/18 [Trintellix] clonazePAM [KlonoPIN] 1 mg PO BID 11/01/18 11/22/18 lamoTRIgine [LaMICtal] 200 mg PO HS 11/01/18 11/22/18 Benzonatate [Tessalon Perles] 200 mg PO TID 11/22/18 11/22/18 Loratadine [Claritin] 10 mg PO DAILY 11/22/18 11/22/18 Methocarbamol [Robaxin] 500 mg PO QID 11/22/18 11/22/18 Omeprazole 40 mg PO DAILY 11/22/18 11/22/18 Ondansetron Odt [Zofran Odt] 8 mg PO Q8HR 11/22/18 11/22/18 traMADol HCL [Ultram] 50 mg PO Q6HR PRN 11/22/18 11/22/18 Allergies Allergy/AdvReac Type Severity Reaction Status Date / Time No Known Allergies Allergy Verified 11/22/18 09:49 Review of Systems ROS Statement: Those systems with pertinent positive or pertinent negative responses have been documented in the HPI. ROS Other: All systems not noted in ROS Statement are negative. Past Medical History Past Medical History: Cancer Additional Past Medical History / Comment(s): stage 4 lung cancer,anxiety, recovering opiate addiction clean for a year, borderline personality History of Any Multi-Drug Resistant Organisms: None Reported Past Surgical History: Section, Tubal Ligation Past Anesthesia/Blood Transfusion Reactions: No Reported Reaction Past Psychological History: ADD/ADHD, Anxiety, Depression, Panic Disorder Smoking Status: Former smoker Past Alcohol Use History: None Reported Past Drug Use History: Marijuana, Opiates - Past Family History Father History Unknown: Yes Family Medical History: Liver Disease Additional Family Medical History / Comment(s): Father had hepatitis at the age of 17 yrs. He was an drug addict. He started drinking when his and this lead to his per pt. Mother History Unknown: Yes Additional Family Medical History / Comment(s): Mother is healthy. General Exam - General Exam Comments Initial Comments: This a well-developed well-nourished awake alert but somewhat lethargic female Limitations: no limitations General appearance: alert, in no apparent distress Head exam: Present: atraumatic, normocephalic, normal inspection Eye exam: Present: normal appearance, PERRL, EOMI. Absent: scleral icterus, conjunctival injection, periorbital swelling ENT exam: Present: mucous membranes dry Neck exam: Present: normal inspection. Absent: tenderness, meningismus, lymphadenopathy Respiratory exam: Present: decreased breath sounds, other (Some right lower lobe rhonchi and markedly diminished breath sounds on the right compared to the left). Absent: respiratory distress, wheezes, rales, rhonchi, stridor Cardiovascular Exam: Present: normal rhythm, tachycardia, normal heart sounds. Absent: systolic murmur, diastolic murmur, rubs, gallop, clicks GI/Abdominal exam: Present: soft, normal bowel sounds. Absent: distended, tenderness, guarding, rebound, rigid Extremities exam: Present: normal inspection, full ROM, normal capillary refill. Absent: tenderness, pedal edema, joint swelling, calf tenderness Back exam: Present: normal inspection Neurological exam: Present: alert, oriented X3, CN II-XII intact Psychiatric exam: Present: normal affect, normal mood Skin exam: Present: warm, dry, intact, normal color. Absent: rash Course Vital Signs 11/22/18 11/22/18 11/22/18 08:59 09:04 09:30 Temperature 99.0 F Pulse Rate 121 H 111 H Respiratory 18 19 Rate Blood Pressure 103/59 103/59 103/59 O2 Sat by Pulse 95 93 L 94 L Oximetry 11/22/18 11/22/18 11/22/18 09:50 10:00 10:30 Temperature Pulse Rate 107 H 105 H 111 H Respiratory 20 20 Rate Blood Pressure 101/62 104/65 O2 Sat by Pulse 98 93 L Oximetry 11/22/18 11/22/18 11/22/18 11:00 11:30 12:00 Temperature Pulse Rate 102 H 99 105 H Respiratory 21 20 20 Rate Blood Pressure 100/59 110/57 97/51 O2 Sat by Pulse 95 96 94 L Oximetry 11/22/18 12:30 Temperature Pulse Rate 105 H Respiratory 18 Rate Blood Pressure 89/50 O2 Sat by Pulse 95 Oximetry Medical Decision Making - Medical Decision Making I did discuss the findings with the patient family members as well as with Dr. Eason. Patient be admitted we placed on antibiotics for suspected pneumonia due to the anemia and evidence dehydration he'll be given 1 unit of blood she did demonstrate hypotensive episode. Oncology Dr. Michaels will also be consulted. - Lab Data Result diagrams: 11/22/18 10:10 11/22/18 10:10 Lab Results 11/22/18 11/22/18 11/22/18 Range/Units 10:10 10:10 10:10 WBC 8.7 (3.8-10.6) k/uL RBC 2.86 L (3.80-5.40) m/uL Hgb 7.3 L (11.4-16.0) gm/dL Hct 24.5 L (34.0-46.0) % MCV 85.5 (80.0-100.0) fL MCH 25.6 (25.0-35.0) pg MCHC 30.0 L (31.0-37.0) g/dL RDW 18.2 H (11.5-15.5) % Plt Count 545 H (150-450) k/uL Neutrophils % 83 % Lymphocytes % 10 % Monocytes % 5 % Eosinophils % 1 % Basophils % 0 % Neutrophils # 7.2 (1.3-7.7) k/uL Lymphocytes # 0.8 L (1.0-4.8) k/uL Monocytes # 0.4 (0-1.0) k/uL Eosinophils # 0.1 (0-0.7) k/uL Basophils # 0.0 (0-0.2) k/uL Hypochromasia Marked Poikilocytosis Slight Anisocytosis Slight Sodium 141 (137-145) mmol/L Potassium 5.6 H (3.5-5.1) mmol/L Chloride 103 (98-107) mmol/L Carbon Dioxide 30 (22-30) mmol/L Anion Gap 8 mmol/L BUN 14 (7-17) mg/dL Creatinine 0.64 (0.52-1.04) mg/dL Est GFR (CKD-EPI)AfAm >90 (>60 ml/min/1.73 sqM) Est GFR (CKD-EPI)NonAf >90 (>60 ml/min/1.73 sqM) Glucose 84 (74-99) mg/dL Plasma Lactic Acid Peter 2.7 H* (0.7-2.0) mmol/L Calcium 8.7 (8.4-10.2) mg/dL Magnesium 2.3 (1.6-2.3) mg/dL Total Bilirubin 0.2 (0.2-1.3) mg/dL AST 23 (14-36) U/L ALT 26 (9-52) U/L Alkaline Phosphatase 127 H (38-126) U/L Ammonia <9 (<30) umol/L Total Protein 6.0 L (6.3-8.2) g/dL Albumin 3.0 L (3.5-5.0) g/dL Urine Color Urine Appearance (Clear) Urine pH (5.0-8.0) Ur Specific [place] (1.001-1.035) Urine Protein (Negative) Urine Glucose (UA) (Negative) Urine Ketones (Negative) Urine Blood (Negative) Urine Nitrite (Negative) Urine Bilirubin (Negative) Urine Urobilinogen (<2.0) mg/dL Ur Leukocyte Esterase (Negative) Urine Opiates Screen (NotDetected) Ur Oxycodone Screen (NotDetected) Urine Methadone Screen (NotDetected) Ur Propoxyphene Screen (NotDetected) Acetaminophen ug/mL Ur Barbiturates Screen (NotDetected) U Tricyclic Antidepress (NotDetected) Ur Phencyclidine Scrn (NotDetected) Ur Amphetamines Screen (NotDetected) U Methamphetamines Scrn (NotDetected) U Benzodiazepines Scrn (NotDetected) Urine Cocaine Screen (NotDetected) U Marijuana (THC) Screen (NotDetected) Influenza Type A RNA (Not Detectd) Influenza Type B (PCR) (Not Detectd) 11/22/18 11/22/18 11/22/18 Range/Units 10:10 11:00 12:24 WBC (3.8-10.6) k/uL RBC (3.80-5.40) m/uL Hgb (11.4-16.0) gm/dL Hct (34.0-46.0) % MCV (80.0-100.0) fL MCH (25.0-35.0) pg MCHC (31.0-37.0) g/dL RDW (11.5-15.5) % Plt Count (150-450) k/uL Neutrophils % % Lymphocytes % % Monocytes % % Eosinophils % % Basophils % % Neutrophils # (1.3-7.7) k/uL Lymphocytes # (1.0-4.8) k/uL Monocytes # (0-1.0) k/uL Eosinophils # (0-0.7) k/uL Basophils # (0-0.2) k/uL Hypochromasia Poikilocytosis Anisocytosis Sodium (137-145) mmol/L Potassium (3.5-5.1) mmol/L Chloride (98-107) mmol/L Carbon Dioxide (22-30) mmol/L Anion Gap mmol/L BUN (7-17) mg/dL Creatinine (0.52-1.04) mg/dL Est GFR (CKD-EPI)AfAm (>60 ml/min/1.73 sqM) Est GFR (CKD-EPI)NonAf (>60 ml/min/1.73 sqM) Glucose (74-99) mg/dL Plasma Lactic Acid Peter (0.7-2.0) mmol/L Calcium (8.4-10.2) mg/dL Magnesium (1.6-2.3) mg/dL Total Bilirubin (0.2-1.3) mg/dL AST (14-36) U/L ALT (9-52) U/L Alkaline Phosphatase (38-126) U/L Ammonia (<30) umol/L Total Protein (6.3-8.2) g/dL Albumin (3.5-5.0) g/dL Urine Color Yellow Urine Appearance Clear (Clear) Urine pH 5.5 (5.0-8.0) Ur Specific [place] 1.013 (1.001-1.035) Urine Protein Trace H (Negative) Urine Glucose (UA) Negative (Negative) Urine Ketones Negative (Negative) Urine Blood Negative (Negative) Urine Nitrite Negative (Negative) Urine Bilirubin Negative (Negative) Urine Urobilinogen <2.0 (<2.0) mg/dL Ur Leukocyte Esterase Negative (Negative) Urine Opiates Screen (NotDetected) Ur Oxycodone Screen (NotDetected) Urine Methadone Screen (NotDetected) Ur Propoxyphene Screen (NotDetected) Acetaminophen <10.0 ug/mL Ur Barbiturates Screen (NotDetected) U Tricyclic Antidepress (NotDetected) Ur Phencyclidine Scrn (NotDetected) Ur Amphetamines Screen (NotDetected) U Methamphetamines Scrn (NotDetected) U Benzodiazepines Scrn (NotDetected) Urine Cocaine Screen (NotDetected) U Marijuana (THC) Screen (NotDetected) Influenza Type A RNA Not Detected (Not Detectd) Influenza Type B (PCR) Not Detected (Not Detectd) 11/22/18 Range/Units 12:24 WBC (3.8-10.6) k/uL RBC (3.80-5.40) m/uL Hgb (11.4-16.0) gm/dL Hct (34.0-46.0) % MCV (80.0-100.0) fL MCH (25.0-35.0) pg MCHC (31.0-37.0) g/dL RDW (11.5-15.5) % Plt Count (150-450) k/uL Neutrophils % % Lymphocytes % % Monocytes % % Eosinophils % % Basophils % % Neutrophils # (1.3-7.7) k/uL Lymphocytes # (1.0-4.8) k/uL Monocytes # (0-1.0) k/uL Eosinophils # (0-0.7) k/uL Basophils # (0-0.2) k/uL Hypochromasia Poikilocytosis Anisocytosis Sodium (137-145) mmol/L Potassium (3.5-5.1) mmol/L Chloride (98-107) mmol/L Carbon Dioxide (22-30) mmol/L Anion Gap mmol/L BUN (7-17) mg/dL Creatinine (0.52-1.04) mg/dL Est GFR (CKD-EPI)AfAm (>60 ml/min/1.73 sqM) Est GFR (CKD-EPI)NonAf (>60 ml/min/1.73 sqM) Glucose (74-99) mg/dL Plasma Lactic Acid Peter (0.7-2.0) mmol/L Calcium (8.4-10.2) mg/dL Magnesium (1.6-2.3) mg/dL Total Bilirubin (0.2-1.3) mg/dL AST (14-36) U/L ALT (9-52) U/L Alkaline Phosphatase (38-126) U/L Ammonia (<30) umol/L Total Protein (6.3-8.2) g/dL Albumin (3.5-5.0) g/dL Urine Color Urine Appearance (Clear) Urine pH (5.0-8.0) Ur Specific [place] (1.001-1.035) Urine Protein (Negative) Urine Glucose (UA) (Negative) Urine Ketones (Negative) Urine Blood (Negative) Urine Nitrite (Negative) Urine Bilirubin (Negative) Urine Urobilinogen (<2.0) mg/dL Ur Leukocyte Esterase (Negative) Urine Opiates Screen Not Detected (NotDetected) Ur Oxycodone Screen Not Detected (NotDetected) Urine Methadone Screen Not Detected (NotDetected) Ur Propoxyphene Screen Not Detected (NotDetected) Acetaminophen ug/mL Ur Barbiturates Screen Not Detected (NotDetected) U Tricyclic Antidepress Not Detected (NotDetected) Ur Phencyclidine Scrn Not Detected (NotDetected) Ur Amphetamines Screen Not Detected (NotDetected) U Methamphetamines Scrn Detected H (NotDetected) U Benzodiazepines Scrn Not Detected (NotDetected) Urine Cocaine Screen Not Detected (NotDetected) U Marijuana (THC) Screen Detected H (NotDetected) Influenza Type A RNA (Not Detectd) Influenza Type B (PCR) (Not Detectd) - Radiology Data Radiology results: report reviewed (I did review the imaging and report there is evidence of the perihilar mass was noted beenSided infiltrate.), image reviewed Disposition Clinical Impression: Symptomatic anemia, Left lower lobe pneumonia, Dehydration, Febrile illness, acute, Ovarian cancer, Metastatic cancer to lung Disposition: ADMITTED IP TO THIS HOSP Condition: Fair Referrals: Fredo Eason MD [Primary Care Provider] - 1-2 days
[2018-11-22 10:26] LABS: Anisocytosis Slight; Basophils % (A) 0 %; Eosinophils # (A) 0.1 k/uL (0-0.7); Eosinophils % (A) 1 %; HCT 24.5 % (34.0-46.0); HGB 7.3 gm/dL (11.4-16.0); Hypochromasia Marked; Lymphocytes # (A) 0.8 k/uL (1.0-4.8); Lymphocytes % (A) 10 %; MCH 25.6 pg (25.0-35.0); MCV 85.5 fL (80.0-100.0); Mean Platelet Volume 6.3; Monocytes # (A) 0.4 k/uL (0-1.0); Monocytes % (A) 5 %; Neutrophils # (A) 7.2 k/uL (1.3-7.7); Neutrophils % (A) 83 %; Platelet Count 545 k/uL (150-450); Poikilocytosis Slight; RBC 2.86 m/uL (3.80-5.40); RDW 18.2 % (11.5-15.5); WBC 8.7 k/uL (3.8-10.6)
[2018-11-22 10:36] LABS: Ammonia <9 umol/L (<30)
[2018-11-22 10:42] LABS: ALT 26 U/L (9-52); AST 23 U/L (14-36); African American GFR (CKD) >90 (>60 ml/min/1.73 sqM); Alkaline Phosphatase 127 U/L (38-126); Anion Gap 8 mmol/L; Blood Urea Nitrogen 14 mg/dL (7-17); Calcium 8.7 mg/dL (8.4-10.2); Carbon Dioxide 30 mmol/L (22-30); Chloride 103 mmol/L (98-107); Glucose 84 mg/dL (74-99); Magnesium 2.3 mg/dL (1.6-2.3); Potassium 5.6 mmol/L (3.5-5.1); Sodium 141 mmol/L (137-145); Total Bilirubin 0.2 mg/dL (0.2-1.3)
--- NOTE | 2018-11-22 10:52 | XR ---
EXAMINATION TYPE: XR chest 2V DATE OF EXAM: 11/22/2018 COMPARISON: Chest x-ray and CTA chest 11/01/2018 HISTORY: Recently diagnosed lung cancer with hypoxia and cough TECHNIQUE: Frontal and lateral views of the chest are obtained. FINDINGS: There is persisting cardiomegaly with central vascular congestion and small to moderate-si zed right pleural fluid collection which does not completely layer dependently. Persistent hilar opac ities and new left basilar opacity noted. The osseous structures are intact. IMPRESSION: Persistent cardiomegaly with small to moderate-sized nonsimple right pleural effusion. P ersistent bilateral hilar masslike infiltrates. New left basilar infiltrate is felt present.
[2018-11-22 11:01] LABS: Lactic Acid, Venous 2.7 mmol/L (0.7-2.0)
[2018-11-22] MEDS ORDERED: cefTRIAXone IN SWFI 1,000 MG/10 ML SYRINGE IVP STA (11:38)
--- NOTE | 2018-11-22 12:02 | CT ---
EXAMINATION TYPE: CT brain wo con DATE OF EXAM: 11/22/2018 COMPARISON: None HISTORY: Unresponsive, altered mental status CT DLP: 1095.4 mGycm. Automated Exposure Control for Dose Reduction was Utilized. TECHNIQUE: CT scan of the head is performed without contrast. FINDINGS: There is no acute intracranial hemorrhage, mass effect, or midline shift identified. The ventricles and sulci are within normal limits in size. The globes are intact and the visualized sin uses are clear. IMPRESSION: No acute intracranial hemorrhage, mass effect, or midline shift is seen.
[2018-11-22] MEDS ORDERED: SODIUM CHLORIDE 0.9% 500 ML 500 ML IV STA (12:38)
[2018-11-22 12:42] LABS: Appearance,Urine Clear (Clear); Bilirubin,Urine Negative (Negative); Blood,Urine Negative (Negative); Color,Urine Yellow; Glucose,Urine (UA) Negative (Negative); Ketones,Urine Negative (Negative); Leukocyte Esterase,Urine Negative (Negative); Nitrite,Urine Negative (Negative); PH, Urine 5.5 (5.0-8.0); Protein,Urine Trace (Negative); Specific Gravity,Urine 1.013 (1.001-1.035); Urobilinogen,Urine <2.0 mg/dL (<2.0)
[2018-11-22 12:59] LABS: Amphetamine Screen,Urine Not Detected (NotDetected); Barbiturate Screen,Urine Not Detected (NotDetected); Benzodiazepines Screen,Urine Not Detected (NotDetected); Cocaine Screen,Urine Not Detected (NotDetected); Methadone Screen, Urine Not Detected (NotDetected); Opiate Screen,Urine Not Detected (NotDetected); Oxycodone Screen, Urine Not Detected (NotDetected); Phencyclidine Screen,Urine Not Detected (NotDetected); Tricyclic Antidepressant,Urine Not Detected (NotDetected); Urn Cannabinoid Scrn Detected (NotDetected)
[2018-11-22] MEDS ORDERED: NALOXONE 0.4 MG/ML 1 ML VIAL IV PRN (13:28)
[2018-11-22] MEDS ORDERED: ACETAMINOPHEN TAB 325 MG TAB PO PRN (13:28)
[2018-11-22] MEDS ORDERED: AZITHROMYCIN 500 MG in SODIUM CHLORIDE 0.9% 250 ML IVPB STA (13:31)
[2018-11-22] MEDS ORDERED: traMADol 50 MG TAB PO PRN (13:33)
[2018-11-22] MEDS: SODIUM CHLORIDE 0.9% 1,000 ML IV SCH (14:42)
[2018-11-22] MEDS: BENZONATATE 100 MG CAP PO SCH ×2 (16:51→21:50)
[2018-11-22] MEDS: ONDANSETRON ODT 8 MG TAB.RAPDIS PO SCH ×2 (16:51→23:22)
[2018-11-22] MEDS: METHOCARBAMOL 500 MG TAB PO SCH ×2 (19:55→21:51)
[2018-11-22] MEDS: cloNIDine HCL 0.1 MG TAB PO SCH (21:20)
[2018-11-22] MEDS: VORTIOXETINE HYDROBROMIDE 20 MG TABLET PO SCH (21:50)
[2018-11-22] MEDS: ARIPiprazole 15 MG TAB PO SCH (21:50)
[2018-11-22] MEDS: lamoTRIgine 100 MG TAB PO SCH (21:50)
[2018-11-23] MEDS: SODIUM CHLORIDE 0.9% 1,000 ML IV SCH ×3 (04:57→12:30)
[2018-11-23] MEDS: AZITHROMYCIN 500 MG TAB PO SCH (07:54)
[2018-11-23] MEDS: METHOCARBAMOL 500 MG TAB PO SCH ×4 (07:54→21:23)
[2018-11-23] MEDS: BENZONATATE 100 MG CAP PO SCH ×3 (07:54→21:23)
[2018-11-23] MEDS: PANTOPRAZOLE 40 MG TABLET PO SCH (07:54)
[2018-11-23] MEDS: LORATADINE 10 MG TAB PO SCH (07:54)
[2018-11-23] MEDS: ONDANSETRON ODT 8 MG TAB.RAPDIS PO SCH ×2 (07:55→16:00)
[2018-11-23] MEDS ORDERED: cefTRIAXone IN SWFI 1,000 MG/10 ML SYRINGE IVP SCH (09:00)
[2018-11-23] MEDS: clonazePAM 1 MG TAB PO SCH ×2 (09:06→21:26)
[2018-11-23 09:46] LABS: Anisocytosis Slight; Basophils % (A) 0 %; Eosinophils # (A) 0.1 k/uL (0-0.7); Eosinophils % (A) 1 %; HCT 28.6 % (34.0-46.0); HGB 8.4 gm/dL (11.4-16.0); Hypochromasia Marked; Lymphocytes # (A) 0.7 k/uL (1.0-4.8); Lymphocytes % (A) 7 %; MCH 26.5 pg (25.0-35.0); MCHC 29.3 g/dL (31.0-37.0); MCV 90.3 fL (80.0-100.0); Mean Platelet Volume 6.5; Monocytes # (A) 0.5 k/uL (0-1.0); Monocytes % (A) 5 %; Neutrophils # (A) 8.8 k/uL (1.3-7.7); Neutrophils % (A) 85 %; Platelet Count 447 k/uL (150-450); Poikilocytosis Slight; RBC 3.17 m/uL (3.80-5.40); RDW 17.8 % (11.5-15.5); WBC 10.3 k/uL (3.8-10.6)
[2018-11-23 10:04] LABS: African American GFR (CKD) >90 (>60 ml/min/1.73 sqM); Anion Gap 8 mmol/L; Blood Urea Nitrogen 9 mg/dL (7-17); Calcium 8.7 mg/dL (8.4-10.2); Carbon Dioxide 27 mmol/L (22-30); Chloride 106 mmol/L (98-107); Glucose 106 mg/dL (74-99); Potassium 4.4 mmol/L (3.5-5.1); Sodium 141 mmol/L (137-145)
[2018-11-23] MEDS: methylPREDNISolone SOD SUCCI 40 MG/ML 1 ML VIAL IV SCH ×2 (11:21→16:00)
--- NOTE | 2018-11-23 12:01 | P.HPIM ---
History of Present Illness H&P Date: 11/23/18 Chief Complaint: Lethargic,fevers This a 43-year-old female history of stage IV lung cancer metastasis, primary ovaries, anxiety, recovering opiate addiction, depression, panic disorder, borderline personality disorder, former nicotine dependence-quit a month and a half ago, and multiple other medical issues, presented to the ER with complaints of fever of 101.3 at home accompanied by shortness of breath, generalized weakness, lethargic, malaise-possible medication related. Drug screen positive for THC, methamphetamines. T-max 99 on admission, normal WBC. Denies nausea vomiting or diarrhea. Denies chest pain, palpitations. Brain CT reported no acute hemorrhage, mass effect or midline shift. Chest x-ray reports persistent cardiomegaly, small to moderate-sized non-simple right pleural effusion, persistent bilateral hilar masslike infiltrates with new left basilar infiltrate. Receive 1 unit of packed RBCs for symptomatic anemia, repeat hemoglobin pending. Influenza screen negative, Lactic acid 2.7, with an episode of hypotension.Hemoglobin 7.3. Received 1 unit of packed RBCs, IV fluids. Placed on IV antibiotics Rocephin and Zithromax. Oncology consulted. Review of Systems ROS Statement: Those systems with pertinent positive or pertinent negative responses have been documented in the HPI. ROS Other: All systems not noted in ROS Statement are negative. Past Medical History Past Medical History: Cancer Additional Past Medical History / Comment(s): stage 4 lung cancer,anxiety, recovering opiate addiction clean for a year, borderline personality History of Any Multi-Drug Resistant Organisms: None Reported Past Surgical History: Section, Tubal Ligation Past Anesthesia/Blood Transfusion Reactions: No Reported Reaction Past Psychological History: ADD/ADHD, Anxiety, Depression, Panic Disorder Additional Psychological History / Comment(s): Borderline personality disorder. Pt resides with her significant other and 2 of her adult children. She recieves social security d/t mental health problems. She is independent. She goes to [facility] but needs to set up with new therapist-her current therapist no longer works there. Smoking Status: Former smoker Past Alcohol Use History: None Reported Additional Past Alcohol Use History / Comment(s): Pt started smoking in 2006 quit a month and a half hgo 5/4 Past Drug Use History: Marijuana, Opiates Additional Drug Use History / Comment(s): Pt is a recovering opiate addict-she has been clean 5 yrs. - Past Family History Father History Unknown: Yes Family Medical History: Liver Disease Additional Family Medical History / Comment(s): Father had hepatitis at the age of 17 yrs. He was an drug addict. He started drinking when his and this lead to his per pt. Mother History Unknown: Yes Additional Family Medical History / Comment(s): Mother is healthy. Medications and Allergies Home Medications Medication Instructions Recorded Confirmed Type cloNIDine HCL 0.3 mg PO HS 05/15/15 11/22/18 History ARIPiprazole [Abilify] 15 mg PO HS 11/01/18 11/22/18 History Vortioxetine Hydrobromide 20 mg PO HS 11/01/18 11/22/18 History [Trintellix] clonazePAM [KlonoPIN] 1 mg PO BID 11/01/18 11/22/18 History lamoTRIgine [LaMICtal] 200 mg PO HS 11/01/18 11/22/18 History Benzonatate [Tessalon Perles] 200 mg PO TID 11/22/18 11/22/18 History Loratadine [Claritin] 10 mg PO DAILY 11/22/18 11/22/18 History Methocarbamol [Robaxin] 500 mg PO QID 11/22/18 11/22/18 History Omeprazole 40 mg PO DAILY 11/22/18 11/22/18 History Ondansetron Odt [Zofran Odt] 8 mg PO Q8HR 11/22/18 11/22/18 History traMADol HCL [Ultram] 50 mg PO Q6HR PRN 11/22/18 11/22/18 History Allergies Allergy/AdvReac Type Severity Reaction Status Date / Time No Known Allergies Allergy Verified 11/22/18 09:49 Physical Exam Vitals: Vital Signs Temp Pulse Pulse Resp BP BP Pulse Ox 11/23/18 05:00 98.5 F 111 H 20 106/67 93 L 11/22/18 21:00 97.9 F 106 H 16 115/73 95 11/22/18 20:01 18 11/22/18 19:17 98.3 F 93 18 110/67 95 11/22/18 18:30 98.1 F 88 16 98/64 95 11/22/18 18:25 98.1 F 88 16 98/64 95 11/22/18 17:30 92 20 109/61 95 11/22/18 17:00 107 H 19 94/57 94 L 11/22/18 16:41 98.1 F 98 16 100/53 95 11/22/18 16:30 97 18 101/64 95 11/22/18 16:11 98.3 F 105 H 15 106/65 95 11/22/18 16:01 98.1 F 107 H 14 96/59 96 11/22/18 16:00 103 H 17 95/58 97 11/22/18 15:30 100 17 88/53 95 11/22/18 15:00 99 15 100/57 96 11/22/18 14:45 101 H 18 100/57 95 11/22/18 14:30 98.2 F 95 16 82/49 11/22/18 14:00 100 19 100/54 98 11/22/18 13:30 101 H 18 108/55 98 11/22/18 13:00 105 H 18 89/50 94 L 11/22/18 12:30 105 H 18 89/50 95 11/22/18 12:00 105 H 20 97/51 94 L 11/22/18 11:30 99 20 110/57 96 11/22/18 11:00 102 H 21 100/59 95 11/22/18 10:30 111 H 20 104/65 93 L 11/22/18 10:00 105 H 20 101/62 98 11/22/18 09:50 107 H 11/22/18 09:30 111 H 19 103/59 94 L 11/22/18 09:04 103/59 93 L 11/22/18 08:59 99.0 F 121 H 18 103/59 95 Intake and Output 11/22/18 11/23/18 11/23/18 22:59 06:59 14:59 Intake Total 900 590 Balance 900 590 Intake: Oral 590 590 Blood Product 310 Rc As-1 Unit 310 [id number] Other: Voiding Method Toilet # Voids 1 2 PHYSICAL EXAM: VITAL SIGNS: [As above] GENERAL: Sitting up in bed, no acute distress, anxious HEENT: Conjunctivae normal. eyes normal. Oral mucosa moist NECK: No JVD. No thyroid enlargement. No LNs CARDIOVASCULAR: S1, S2 regular.. No murmur RESPIRATION: Breath sounds diminished in the bases. Right sided rhonchi, no c rackles. ABDOMEN: Soft, nontender . No guarding. no masses palpable.Bowel sounds heard. LEGS: No edema. no swelling PSYCHIATRY: Alert and oriented X3, mood and affect normal. NERVOUS SYSTEM: Cranial N 2-12 grossly normal. Moves all 4 limbs. Diffuse weakness No focal deficits. Strength and sensation grossly intact.. Skin: no lesions, no rash Joints: No active swelling. No inflammation. Lymphatic system. No LN neck axilla or groin. Results CBC & Chem 7: 11/23/18 08:57 11/23/18 08:57 Labs: Abnormal Lab Results - Last 24 Hours (Table) 11/22/18 11/22/18 11/22/18 Range/Units 10:10 10:10 10:10 RBC 2.86 L (3.80-5.40) m/uL Hgb 7.3 L (11.4-16.0) gm/dL Hct 24.5 L (34.0-46.0) % MCHC 30.0 L (31.0-37.0) g/dL RDW 18.2 H (11.5-15.5) % Plt Count 545 H (150-450) k/uL Lymphocytes # 0.8 L (1.0-4.8) k/uL Potassium 5.6 H (3.5-5.1) mmol/L Plasma Lactic Acid Peter 2.7 H* (0.7-2.0) mmol/L Alkaline Phosphatase 127 H (38-126) U/L Total Protein 6.0 L (6.3-8.2) g/dL Albumin 3.0 L (3.5-5.0) g/dL Urine Protein (Negative) U Methamphetamines Scrn (NotDetected) U Marijuana (THC) Screen (NotDetected) Crossmatch 11/22/18 11/22/18 11/22/18 Range/Units 12:24 12:24 14:05 RBC (3.80-5.40) m/uL Hgb (11.4-16.0) gm/dL Hct (34.0-46.0) % MCHC (31.0-37.0) g/dL RDW (11.5-15.5) % Plt Count (150-450) k/uL Lymphocytes # (1.0-4.8) k/uL Potassium (3.5-5.1) mmol/L Plasma Lactic Acid Peter (0.7-2.0) mmol/L Alkaline Phosphatase (38-126) U/L Total Protein (6.3-8.2) g/dL Albumin (3.5-5.0) g/dL Urine Protein Trace H (Negative) U Methamphetamines Scrn Detected H (NotDetected) U Marijuana (THC) Screen Detected H (NotDetected) Crossmatch See Detail 11/22/18 Range/Units 14:44 RBC (3.80-5.40) m/uL Hgb (11.4-16.0) gm/dL Hct (34.0-46.0) % MCHC (31.0-37.0) g/dL RDW (11.5-15.5) % Plt Count (150-450) k/uL Lymphocytes # (1.0-4.8) k/uL Potassium (3.5-5.1) mmol/L Plasma Lactic Acid Peter 2.4 H* (0.7-2.0) mmol/L Alkaline Phosphatase (38-126) U/L Total Protein (6.3-8.2) g/dL Albumin (3.5-5.0) g/dL Urine Protein (Negative) U Methamphetamines Scrn (NotDetected) U Marijuana (THC) Screen (NotDetected) Crossmatch Thrombosis Risk Factor Assmnt - Choose All That Apply Any of the Below Risk Factors Present?: Yes Each Factor Represents 1 point: Age 41-60 years, Serious lung disease incl. pneumonia (< 1month) Other Risk Factors: No Thrombosis Risk Factor Assessment Total Risk Factor Score: 2 Thrombosis Risk Factor Assessment Level: Low Risk Assessment and Plan Assessment: -Acute left lower lobe pneumonia -Sepsis secondary to the above -Dehydration with fever -Symptomatic anemia, status post transfusion 1 unit packed RBCs -Ovarian cancer, metastatic cancer to lung, stage IV -Recovering opiate addiction -Toxicology screen positive for methamphetamines,THC -Anxiety, depression, panic disorder -Former nicotine dependence, quit 1-1/2 months ago Plan: Continue on current medication regime ,monitoring and symptomatic treatment. Home meds have been reviewed and resumed. This morning alert, anxious, Klonopin resumed. Status post transfusion of 1 unit packed RBCs with follow-up CBC pending. Maintain IV fluids, IV antibiotics. Aggressive pulmonary toileting with incentive spirometer ordered. GI and DVT prophylaxis ordered. Oncology consulted with recommendations pending. Colace added for complaints of constipation, hold if diarrhea. The impression and plan of care has been dictated as directed. : I performed a history and examination of this patient, discussed the same with the dictator. I agree with the dictator's note ,documented as a scribe. Any additional findings or plans will be noted. Time taken: 35 minutes
--- NOTE | 2018-11-23 12:20 | P.CNPUL ---
History of Present Illness Consult date: 11/23/18 Requesting physician: Abdullahi García Reason for consult: abnormal CXR/CT Chief complaint: Shortness of breath, fever History of present illness: This is a pleasant 43-year-old female patient who follows with Dr. Eason as her primary care physician. She has a history of borderline personality dis order, anxiety, depression, panic disorder, ADHD, IV drug abuse, opiate addiction. She also has a [place] [facility] [place] last month for maintenance of shortness of breath cough and congestion. CAT scan from 11/01/2018 revealed evidence of bilateral perihilar masslike consolidations right greater than left with extension into upper and lower lungs. There was bronchial narrowing and occlusion bilaterally. Possible hilar adenopathy. Underlying neoplasm was considered. There is liver involvement as well. She was to have a bronchoscopy with biopsies at that time by Dr. Peck however she was too unstable in the Bronch suite. Tachycardic, tachypneic, hypoxic. She was subsequently transferred to [facility] for further evaluation. She presented here to the emergency room yesterday with complaints of weakness fatigue shortness of breath and his temperature of 101.3. She states she was diagnosed with stage IV ovarian cancer that metastasized to the lungs. The records and pathology from [facility] are still pendin g. She is seen today in consultation on the oncology unit. She is currently awake and alert. Maintaining O2 saturations in the mid 90s on 2 L/m nasal cannula. She's been afebrile. Slightly tachycardic in the 110s. Shortness of breath with exertion. Chest x-ray shows persistent cardiomegaly with small to moderate-sized non-simple right pleural effusion. Persistent bilateral hilar masslike infiltrates. New left basilar infiltrate. White count 10.3. Hemoglobin 8.4. Creatinine 0.57. Lactic acid 2.4. Urine drug screen positive for methamphetamines and marijuana. She has been initiated on ceftriaxone and azithromycin. Review of Systems REVIEW OF SYSTEMS: CONSTITUTIONAL: Positive for recent weight loss, fatigue, weakness. EYES: Denies change in vision. EARS, NOSE, MOUTH, THROAT: Denies headaches, denies sore throat. CARDIOVASCULAR: Denies chest pain, palpitations or syncopal episodes. RESPIRATORY: Positive for shortness of breath, cough, congestion no hemoptysis. GASTROINTESTINAL: Denies change in appetite, denies abdominal pain GENITOURINARY: Denies hematuria, denies infections. MUSKULOSKELETAL: Denies pain, denies swelling. INTEGUMENTARY: Denies rash, denies eczema. NEUROLOGICAL: Denies recent memory loss, no recent seizure activity. PSYCHIATRIC: Positive for anxiety, positive for depression. HEMATOLOGIC/LYMPHATIC: Denies anemia, denies enlarged lymph nodes. Past Medical History Past Medical History: Cancer Additional Past Medical History / Comment(s): stage 4 lung cancer,anxiety, recovering opiate addiction clean for a year, borderline personality History of Any Multi-Drug Resistant Organisms: None Reported Past Surgical History: Section, Tubal Ligation Past Anesthesia/Blood Transfusion Reactions: No Reported Reaction Past Psychological History: ADD/ADHD, Anxiety, Depression, Panic Disorder Additional Psychological History / Comment(s): Borderline personality disorder. Pt resides with her significant other and 2 of her adult children. She recieves social security d/t mental health problems. She is independent. She goes to [facility] but needs to set up with new therapist-her current therapist no longer works there. Smoking Status: Former smoker Past Alcohol Use History: None Reported Additional Past Alcohol Use History / Comment(s): Pt started smoking in 2006 quit a month and a half hgo 5/4 Past Drug Use History: Marijuana, Opiates Additional Drug Use History / Comment(s): Pt is a recovering opiate addict-she has been clean 5 yrs. - Past Family History Father History Unknown: Yes Family Medical History: Liver Disease Additional Family Medical History / Comment(s): Father had hepatitis at the age of 17 yrs. He was an drug addict. He started drinking when his and this lead to his per pt. Mother History Unknown: Yes Additional Family Medical History / Comment(s): Mother is healthy. Medications and Allergies Home Medications Medication Instructions Recorded Confirmed Type cloNIDine HCL 0.3 mg PO HS 05/15/15 11/22/18 History ARIPiprazole [Abilify] 15 mg PO HS 11/01/18 11/22/18 History Vortioxetine Hydrobromide 20 mg PO HS 11/01/18 11/22/18 History [Trintellix] clonazePAM [KlonoPIN] 1 mg PO BID 11/01/18 11/22/18 History lamoTRIgine [LaMICtal] 200 mg PO HS 11/01/18 11/22/18 History Benzonatate [Tessalon Perles] 200 mg PO TID 11/22/18 11/22/18 History Loratadine [Claritin] 10 mg PO DAILY 11/22/18 11/22/18 History Methocarbamol [Robaxin] 500 mg PO QID 11/22/18 11/22/18 History Omeprazole 40 mg PO DAILY 11/22/18 11/22/18 History Ondansetron Odt [Zofran Odt] 8 mg PO Q8HR 11/22/18 11/22/18 History traMADol HCL [Ultram] 50 mg PO Q6HR PRN 11/22/18 11/22/18 History Allergies Allergy/AdvReac Type Severity Reaction Status Date / Time No Known Allergies Allergy Verified 11/22/18 09:49 Physical Exam Vitals: Vital Signs Temp Pulse Pulse Resp BP BP Pulse Ox 11/23/18 08:00 115 H 11/23/18 05:00 98.5 F 111 H 20 106/67 93 L 11/22/18 21:00 97.9 F 106 H 16 115/73 95 11/22/18 20:01 18 11/22/18 19:17 98.3 F 93 18 110/67 95 11/22/18 18:30 98.1 F 88 16 98/64 95 11/22/18 18:25 98.1 F 88 16 98/64 95 11/22/18 17:30 92 20 109/61 95 11/22/18 17:00 107 H 19 94/57 94 L 11/22/18 16:41 98.1 F 98 16 100/53 95 11/22/18 16:30 97 18 101/64 95 11/22/18 16:11 98.3 F 105 H 15 106/65 95 11/22/18 16:01 98.1 F 107 H 14 96/59 96 11/22/18 16:00 103 H 17 95/58 97 11/22/18 15:30 100 17 88/53 95 11/22/18 15:00 99 15 100/57 96 11/22/18 14:45 101 H 18 100/57 95 11/22/18 14:30 98.2 F 95 16 82/49 11/22/18 14:00 100 19 100/54 98 11/22/18 13:30 101 H 18 108/55 98 11/22/18 13:00 105 H 18 89/50 94 L 11/22/18 12:30 105 H 18 89/50 95 11/22/18 12:00 105 H 20 97/51 94 L Intake and Output 11/22/18 11/23/18 11/23/18 22:59 06:59 14:59 Intake Total 900 590 Balance 900 590 Intake: Oral 590 590 Blood Product 310 Rc As-1 Unit 310 [id number] Other: Voiding Method Toilet Toilet # Voids 1 2 GENERAL EXAM: Weak 43-year-old female patient. Alert, fairly comfortable in no apparent distress. On 2 L nasal cannula. HEAD: Normocephalic. EYES: Normal reaction of pupils, equal size. NOSE: Clear with pink turbinates. THROAT: No erythema or exudates. NECK: No masses, no JVD. CHEST: No chest wall deformity. LUNGS: Equal air entry with scattered rhonchi bilaterally CVS: S1 and S2 normal with no audible murmur, regular rhythm. Tachycardic. ABDOMEN: No hepatosplenomegaly, normal bowel sounds, no guarding or rigidity. SPINE: No scoliosis or deformity SKIN: No rashes CENTRAL NERVOUS SYSTEM: No focal deficits, tone is normal in all 4 extremities. EXTREMITIES: There is no peripheral edema. No clubbing, no cyanosis. Peripheral pulses are intact. Results - Laboratory Findings CBC and BMP: 11/23/18 08:57 11/23/18 08:57 Abnormal lab findings: Abnormal Labs 11/22/18 11/22/18 11/22/18 10:10 10:10 10:10 RBC 2.86 L Hgb 7.3 L Hct 24.5 L MCHC 30.0 L RDW 18.2 H Plt Count 545 H Neutrophils # Lymphocytes # 0.8 L Potassium 5.6 H Glucose Plasma Lactic Acid Peter 2.7 H* Alkaline Phosphatase 127 H Total Protein 6.0 L Albumin 3.0 L Urine Protein U Methamphetamines Scrn U Marijuana (THC) Screen Crossmatch 11/22/18 11/22/18 11/22/18 12:24 12:24 14:05 RBC Hgb Hct MCHC RDW Plt Count Neutrophils # Lymphocytes # Potassium Glucose Plasma Lactic Acid Peter Alkaline Phosphatase Total Protein Albumin Urine Protein Trace H U Methamphetamines Scrn Detected H U Marijuana (THC) Screen Detected H Crossmatch See Detail 11/22/18 11/23/18 11/23/18 14:44 08:57 08:57 RBC 3.17 L Hgb 8.4 L Hct 28.6 L MCHC 29.3 L RDW 17.8 H Plt Count Neutrophils # 8.8 H Lymphocytes # 0.7 L Potassium Glucose 106 H Plasma Lactic Acid Peter 2.4 H* Alkaline Phosphatase Total Protein Albumin Urine Protein U Methamphetamines Scrn U Marijuana (THC) Screen Crossmatch - Diagnostic Findings Chest x-ray: image reviewed Assessment and Plan Assessment: Impression: #1 Generalized weakness, malaise, febrile illness. The patient is a recent diagnosis of ovarian cancer with lung metastasis possible liver involvement. Records pending from [facility]. #2 Dyspnea secondary to new left basilar infiltrate. Chest x-ray reveals persistent cardiomegaly with small to moderate-sized non-simple right pleural effusion. Persistent bilateral hilar masslike infiltrates. Status post biopsies performed at [facility]. Records pending. #3 History of generalized anxiety disorder. #4 History of depression. #5 History of IV drug abuse. #6 History of chronic tobacco dependence. #7 Urine drug screen positive for marijuana and methamphetamines. Plan: The patient was seen and evaluated by Dr. Peck. Chest x-ray and labs reviewed. He is familiar with the patient's case from previous admission. She was quite unstable for bronchoscopy in the past and he feels this repeated bronchoscopy or further biopsies are needed she should be transferred back to [facility]. In the interim, we'll continue with her current treatment plan. Continue antibiotics. Increase her activity as tolerated. We'll continue to follow. I, the cosigning physician, performed a history & physical examination of the patient. Lungs sounds few scattered rhonchi, crackles in the bases left greater than right. Maintaining good O2 saturations in the 90s on 2 L/m per nasal cannula. I discussed the assessment and plan of care with my nurse practitioner, Angelika Bingham. I attest to the above note as dictated by her. Time with Patient: Greater than 30
[2018-11-23] MEDS: DOCUSATE 100 MG CAP PO SCH ×2 (12:31→21:22)
[2018-11-23 15:12] LABS: Anisocytosis Slight; Basophils % (A) 0 %; Eosinophils % (A) 0 %; HCT 29.7 % (34.0-46.0); Hypochromasia Marked; Lymphocytes # (A) 0.5 k/uL (1.0-4.8); Lymphocytes % (A) 5 %; MCH 26.7 pg (25.0-35.0); MCHC 30.3 g/dL (31.0-37.0); MCV 87.9 fL (80.0-100.0); Mean Platelet Volume 6.6; Monocytes # (A) 0.2 k/uL (0-1.0); Monocytes % (A) 2 %; Neutrophils # (A) 9.7 k/uL (1.3-7.7); Neutrophils % (A) 92 %; Platelet Count 432 k/uL (150-450); Poikilocytosis Moderate; RBC 3.38 m/uL (3.80-5.40); RDW 17.1 % (11.5-15.5); WBC 10.6 k/uL (3.8-10.6)
--- NOTE | 2018-11-23 15:34 | P.CONS ---
History of Present Illness - Reason for Consult Consult date: 11/23/18 Hx cervical cancer, lungs metastasis Requesting physician: Fredo Eason - Chief Complaint JOHNNY - History of Present Illness Ms. Quiles is a very pleasant 43-year-old female patient who was diagnosed in August 2017 with an endometrial/cervical squamous cell carcinoma. The information I have available to me is that this was clinically a stage IB, treated with surgery, weekly cisplatin concurrently with 6 weeks of radiation therapy. This was completed in December 2017. Patient states last following up with Dr. Mendez at [facility] in April 2018. Patient has been plagued, since during treatment, with persistent cough and shortness of breath. Patient denies hemoptysis, pleuritic chest pain, history of lung disease, she does have a 11 year pack history of smoking, no lymph node swellings, unintentional/excessive weight loss, acute changes in appetite, no nausea, vomiting, abdominal pain or cramping, vaginal discharge or unusual odor, new or unusual pain. Review of Systems 14 point ROS is negative except as stated in HPI Past Medical History Past Medical History: Cancer Additional Past Medical History / Comment(s): stage 4 lung cancer,anxiety, recovering opiate addiction clean for a year, borderline personality History of Any Multi-Drug Resistant Organisms: None Reported Past Surgical History: Section, Tubal Ligation Past Anesthesia/Blood Transfusion Reactions: No Reported Reaction Past Psychological History: ADD/ADHD, Anxiety, Depression, Panic Disorder Additional Psychological History / Comment(s): Borderline personality disorder. Pt resides with her significant other and 2 of her adult children. She recieves social security d/t mental health problems. She is independent. She goes to [facility] but needs to set up with new therapist-her current therapist no longer works there. Smoking Status: Former smoker Past Alcohol Use History: None Reported Additional Past Alcohol Use History / Comment(s): Pt started smoking in 2006 quit a month and a half hgo 5/4 Past Drug Use History: Marijuana, Opiates Additional Drug Use History / Comment(s): Pt is a recovering opiate addict-she has been clean 5 yrs. - Past Family History Father History Unknown: Yes Family Medical History: Liver Disease Additional Family Medical History / Comment(s): Father had hepatitis at the age of 17 yrs. He was an drug addict. He started drinking when his and this lead to his per pt. Mother History Unknown: Yes Additional Family Medical History / Comment(s): Mother is healthy. Medications and Allergies Home Medications Medication Instructions Recorded Confirmed Type cloNIDine HCL 0.3 mg PO HS 05/15/15 11/22/18 History ARIPiprazole [Abilify] 15 mg PO HS 11/01/18 11/22/18 History Vortioxetine Hydrobromide 20 mg PO HS 11/01/18 11/22/18 History [Trintellix] clonazePAM [KlonoPIN] 1 mg PO BID 11/01/18 11/22/18 History lamoTRIgine [LaMICtal] 200 mg PO HS 11/01/18 11/22/18 History Benzonatate [Tessalon Perles] 200 mg PO TID 11/22/18 11/22/18 History Loratadine [Claritin] 10 mg PO DAILY 11/22/18 11/22/18 History Methocarbamol [Robaxin] 500 mg PO QID 11/22/18 11/22/18 History Omeprazole 40 mg PO DAILY 11/22/18 11/22/18 History Ondansetron Odt [Zofran Odt] 8 mg PO Q8HR 11/22/18 11/22/18 History traMADol HCL [Ultram] 50 mg PO Q6HR PRN 11/22/18 11/22/18 History Allergies Allergy/AdvReac Type Severity Reaction Status Date / Time No Known Allergies Allergy Verified 11/22/18 09:49 Physical Exam Vitals: Vital Signs Temp Pulse Pulse Resp BP BP Pulse Ox 11/23/18 12:30 97.9 F 127 H 28 H 175/96 92 L 11/23/18 08:00 115 H 11/23/18 05:00 98.5 F 111 H 20 106/67 93 L 11/22/18 21:00 97.9 F 106 H 16 115/73 95 11/22/18 20:01 18 11/22/18 19:17 98.3 F 93 18 110/67 95 11/22/18 18:30 98.1 F 88 16 98/64 95 11/22/18 18:25 98.1 F 88 16 98/64 95 11/22/18 17:30 92 20 109/61 95 11/22/18 17:00 107 H 19 94/57 94 L 11/22/18 16:41 98.1 F 98 16 100/53 95 11/22/18 16:30 97 18 101/64 95 11/22/18 16:11 98.3 F 105 H 15 106/65 95 11/22/18 16:01 98.1 F 107 H 14 96/59 96 11/22/18 16:00 103 H 17 95/58 97 11/22/18 15:30 100 17 88/53 95 Intake and Output 11/23/18 11/23/18 11/23/18 06:59 14:59 22:59 Intake Total 590 2040 Balance 590 2040 Intake: Intake, IV Titration 1200 Amount Sodium Chloride 0.9% 1, 1150 000 ml @ 100 mls/hr IV . Q10H STA Rx#:[id number] cefTRIAXone 1 gm In 50 Sodium Chloride 0.9% 50 ml @ 100 mls/hr IVPB Q24HR LAYLA Rx#:[id number] Oral 590 840 Other: Voiding Method Toilet Toilet # Voids 2 4 4 # Bowel Movements 1 1 - Constitutional looks much older then stated age General appearance: average body habitus, cooperative, no acute distress - EENT Eyes: anicteric sclerae, EOMI, normal appearance ENT: no hard of hearing, hearing grossly normal, no NA/AT, normal oropharynx, no other, no pharyngeal erythema, no thrush, no tonsillar exudates, no tonsillar swelling - Neck Neck: no lymphadenopathy - Respiratory Respiratory: bilateral: diminished, other (weak inspiratory efffort) - Cardiovascular Rhythm: regular Heart sounds: normal: S1, S2 Abnormal Heart Sounds: no systolic murmur, no diastolic murmur, no rub, no S3 Gallop, no S4 Gallop, no click, no other - Gastrointestinal General gastrointestinal: no absent bowel sounds, no decreased bowel sounds, no distended, no hepatomegaly, no hyperactive bowel sounds, normal bowel sounds, no organomegaly, no rigid, no scaphoid, soft, no splenomegaly, no tenderness, no umbilical hernia, no ventral hernia - Integumentary Integumentary: pale - Neurologic Neurologic: CNII-XII intact - Musculoskeletal Musculoskeletal: strength equal bilaterally - Psychiatric flat affect Psychiatric: A&O x's 3, intact judgment & insight Results CBC & Chem 7: 11/23/18 14:50 11/23/18 08:57 Labs: Abnormal Lab Results - Last 24 Hours (Table) 11/22/18 11/22/18 11/23/18 Range/Units 14:05 14:44 08:57 RBC 3.17 L (3.80-5.40) m/uL Hgb 8.4 L (11.4-16.0) gm/dL Hct 28.6 L (34.0-46.0) % MCHC 29.3 L (31.0-37.0) g/dL RDW 17.8 H (11.5-15.5) % Neutrophils # 8.8 H (1.3-7.7) k/uL Lymphocytes # 0.7 L (1.0-4.8) k/uL Glucose (74-99) mg/dL Plasma Lactic Acid Peter 2.4 H* (0.7-2.0) mmol/L Crossmatch See Detail 11/23/18 11/23/18 Range/Units 08:57 14:50 RBC 3.38 L (3.80-5.40) m/uL Hgb 9.0 L (11.4-16.0) gm/dL Hct 29.7 L (34.0-46.0) % MCHC 30.3 L (31.0-37.0) g/dL RDW 17.1 H (11.5-15.5) % Neutrophils # 9.7 H (1.3-7.7) k/uL Lymphocytes # 0.5 L (1.0-4.8) k/uL Glucose 106 H (74-99) mg/dL Plasma Lactic Acid Peter (0.7-2.0) mmol/L Crossmatch Microbiology - Last 24 Hours (Table) 11/22/18 10:10 Blood Culture - Preliminary Blood No Growth after 24 hours Comments: 11/04-EGD negative CT Scan - head: report reviewed Assessment and Plan (1) Primary cervical squamous cell carcinoma Narrative/Plan: Patient and her mother states recent CT-guided percutaneous biopsy in the upper chest area performed at [facility] came back positive for squamous cell cancer, which they were told was metastatic from her cervical cancer. Whether this squamous cell is consistent with patient's previous cervical squamous cell is not known for sure-very unusual but not impossible. We have calls out to [facility] to have them review the slides and to confirm if patient's biopsy is consistent with a metastatic cervical cancer or if this is a new squamous cell primary of the lung. Both situations have very different treatments and prognosis. Dr. García did discuss this with the patient and her mother. We will follow-up as soon as we have information. Discussed the case with Pulmonary. Have asked Pulmonary to see the patient. In case there is not enough tissue from the [facility] specimen to do further testing on to clarify origin of the squamous cell malignancy then a bronchoscopy would be the preferred modality for evaluation and biopsy. This was also discussed with the patient and her mother. Will follow up Current Visit: Yes Status: Chronic Priority: High Code(s): C53.9 - MALIGNANT NEOPLASM OF CERVIX UTERI, UNSPECIFIED SNOMED Code(s): 397663418 Plan: attests: I have seen and examined patient, performed history and physical exam, developed impression and plan of care. Discussed with dictator, agree with note as dictated, documented as described
[2018-11-23] MEDS: cloNIDine HCL 0.1 MG TAB PO SCH (21:22)
[2018-11-23] MEDS: ARIPiprazole 15 MG TAB PO SCH (21:23)
[2018-11-23] MEDS: VORTIOXETINE HYDROBROMIDE 20 MG TABLET PO SCH (21:23)
[2018-11-23] MEDS: lamoTRIgine 100 MG TAB PO SCH (21:23)
[2018-11-24] MEDS: ONDANSETRON ODT 8 MG TAB.RAPDIS PO SCH ×3 (00:36→17:02)
[2018-11-24] MEDS: methylPREDNISolone SOD SUCCI 40 MG/ML 1 ML VIAL IV SCH ×3 (00:36→17:11)
[2018-11-24] MEDS: SODIUM CHLORIDE 0.9% 1,000 ML IV SCH ×2 (00:37→17:11)
[2018-11-24 08:06] LABS: African American GFR (CKD) >90 (>60 ml/min/1.73 sqM); Anion Gap 8 mmol/L; Blood Urea Nitrogen 11 mg/dL (7-17); Calcium 9.5 mg/dL (8.4-10.2); Carbon Dioxide 27 mmol/L (22-30); Chloride 108 mmol/L (98-107); Glucose 120 mg/dL (74-99); Potassium 4.7 mmol/L (3.5-5.1); Sodium 143 mmol/L (137-145)
[2018-11-24] MEDS: AZITHROMYCIN 500 MG TAB PO SCH (08:10)
[2018-11-24] MEDS: METHOCARBAMOL 500 MG TAB PO SCH ×3 (08:10→17:02)
[2018-11-24] MEDS: DOCUSATE 100 MG CAP PO SCH (08:10)
[2018-11-24] MEDS: clonazePAM 1 MG TAB PO SCH (08:10)
[2018-11-24] MEDS: PANTOPRAZOLE 40 MG TABLET PO SCH (08:10)
[2018-11-24] MEDS: BENZONATATE 100 MG CAP PO SCH ×2 (08:10→17:02)
[2018-11-24] MEDS: LORATADINE 10 MG TAB PO SCH (08:10)
--- NOTE | 2018-11-24 12:11 | P.PN ---
Subjective Progress Note Date: 11/24/18 Principal diagnosis: Generalized weakness, malaise, febrile illness This is a pleasant 43-year-old female patient who follows with Dr. Eason as her primary care physician. She has a history of borderline personality disorder, anxiety, depression, panic disorder, ADHD, IV drug abuse, opiate addiction. She also has a history of cervical/ovarian cancer treated at [facility]. She was here last month for maintenance of shortness of breath cough and congestion. CAT scan from 11/01/2018 revealed evidence of bilateral perihilar masslike consolidations right greater than left with extension into upper and lower lungs. There was bronchial narrowing and occlusion bilaterally. Possible hilar adenopathy. Underlying neoplasm was considered. There is liver involvement as well. She was to have a bronchoscopy with biopsies at that time by Dr. Peck however she was too unstable in the Bronch suite. Tachycardic, tachypneic, hypoxic. She was subsequently transferred to [facility] for further evaluation. She presented here to the emergency room yesterday with complaints of weakness fatigue shortness of breath and his temperature of 101.3. She states she was diagnosed with stage IV ovarian cancer that metastasized to the lungs. The records and pathology from [facility] are still pending. She is seen today in consultation on the oncology unit. She is currently awake and alert. Maintaining O2 saturations in the mid 90s on 2 L/m nasal cannula. She's been afebrile. Slightly tachycardic in the 110s. Shortness of breath with exertion. Chest x-ray shows persistent cardiomegaly with small to moderate-sized non-simple right pleural effusion. Persistent bilateral hilar masslike infiltrates. New left basilar infiltrate. White count 10.3. Hemoglobin 8.4. Creatinine 0.57. Lactic acid 2.4. Urine drug screen positive for methamphetamines and marijuana. She has been initiated on ceftriaxone and azithromycin. The patient is seen today 11/24/2018 in follow-up on the oncology unit. She is currently awake and alert oriented no acute distress. Maintaining O2 saturations in the 90s on 3 L/m per nasal cannula. She's been afebrile. Sodium 143. Potassium 4.7. Creatinine 0.51. The culture reveals no growth to date. She is continued on ceftriaxone and azithromycin. Records from [facility] are still pending. Objective - Vital Signs Vital signs: Vital Signs Temp 97.5 F L 11/24/18 05:00 Pulse 105 H 11/24/18 08:20 Resp 18 11/24/18 08:20 BP 137/87 11/24/18 05:00 Pulse Ox 94 L 11/24/18 05:00 Intake & Output 11/23/18 11/24/18 11/24/18 18:59 06:59 18:59 Intake Total 2039 2099 Balance 2039 2099 Intake: Intake, IV Titration 1200 1600 Amount Sodium Chloride 0.9% 1, 400 000 ml @ 100 mls/hr IV . Q10H LAYLA Rx#:[id number] Sodium Chloride 0.9% 1, 1150 000 ml @ 100 mls/hr IV . Q10H STA Rx#:[id number] cefTRIAXone 1 gm In 50 1200 Sodium Chloride 0.9% 50 ml @ 100 mls/hr IVPB Q24HR LAYLA Rx#:[id number] Oral 840 500 Other: Voiding Method Toilet Toilet Toilet # Voids 4 2 # Bowel Movements 1 - Exam GENERAL EXAM: Weak 43-year-old female patient. Alert, comfortable in no apparent distress. On 3 L nasal cannula. HEAD: Normocephalic. EYES: Normal reaction of pupils, equal size. NOSE: Clear with pink turbinates. THROAT: No erythema or exudates. NECK: No masses, no JVD. CHEST: No chest wall deformity. LUNGS: Equal air entry with scattered rhonchi bilaterally CVS: S1 and S2 normal with no audible murmur, regular rhythm. Tachycardic. ABDOMEN: No hepatosplenomegaly, normal bowel sounds, no guarding or rigidity. SPINE: No scoliosis or deformity SKIN: No rashes CENTRAL NERVOUS SYSTEM: No focal deficits, tone is normal in all 4 extremities. EXTREMITIES: There is no peripheral edema. No clubbing, no cyanosis. Peripheral pulses are intact. - Labs CBC & Chem 7: 11/23/18 14:50 11/24/18 06:40 Labs: Abnormal Lab Results - Last 24 Hours (Table) 11/23/18 11/24/18 Range/Units 14:50 06:40 RBC 3.38 L (3.80-5.40) m/uL Hgb 9.0 L (11.4-16.0) gm/dL Hct 29.7 L (34.0-46.0) % MCHC 30.3 L (31.0-37.0) g/dL RDW 17.1 H (11.5-15.5) % Neutrophils # 9.7 H (1.3-7.7) k/uL Lymphocytes # 0.5 L (1.0-4.8) k/uL Chloride 108 H (98-107) mmol/L Creatinine 0.51 L (0.52-1.04) mg/dL Glucose 120 H (74-99) mg/dL Microbiology - Last 24 Hours (Table) 11/22/18 10:10 Blood Culture - Preliminary Blood No Growth after 24 hours Assessment and Plan Assessment: Impression: #1 Generalized weakness, malaise, febrile illness. The patient is a recent diagnosis of ovarian cancer with lung metastasis possible liver involvement. Records still pending from [facility]. #2 Dyspnea secondary to new left basilar infiltrate. Chest x-ray reveals persistent cardiomegaly with small to moderate-sized non-simple right pleural effusion. Persistent bilateral hilar masslike infiltrates. Status post biopsies performed at [facility]. Records pending. #3 History of generalized anxiety disorder. #4 History of depression. #5 History of IV drug abuse. #6 History of chronic tobacco dependence. #7 Urine drug screen positive for marijuana and methamphetamines. Plan: The patient was seen and evaluated by Dr. Peck. Records from [facility] still pending. She is improved today compared to yesterday. We'll continue with her current treatment plan. Continue antibiotics. Increase her activity as tolerated. We'll continue to follow. I, the cosigning physician, performed a history & physical examination of the patient. Lungs sounds few scattered rhonchi, crackles in the bases left greater than right. Maintaining good O2 saturations in the 90s on 3 L/m per nasal cannula. I discussed the assessment and plan of care with my nurse practitioner, Angelika Bingham. I attest to the above note as dictated by her.
--- NOTE | 2018-11-24 13:19 | P.DS ---
Providers Date of admission: 11/22/18 13:28 Expected date of discharge: 11/24/18 Attending physician: Fredo Eason Consults: 11/22/18 13:29 Consult Physician Routine Consulting Provider: Daniella Michaels Consult Reason/Comments: Ovarian cancer with metastatic disease to the lung Do you want consulting provider notified?: Yes 11/23/18 09:19 Consult Physician Routine Consulting Provider: Christine Peck Consult Reason/Comments: bilateral lung infiltrates, bronch, biopsy Do you want consulting provider notified?: Already Contacted 11/23/18 14:41 Consult Physician Routine Consulting Provider: Yadira Swenson Consult Reason/Comments: depression Do you want consulting provider notified?: Yes Primary care physician: Fredo Eason Hospital Course: Final Diagnoses: -Acute left lower lobe pneumonia. -Sepsis secondary to the above -Dehydration with fever -Symptomatic anemia, status post transfusion 1 unit packed RBCs -Ovarian cancer, metastatic cancer to lung, stage IV, possible liver involvement .biopsy/pathology reports from [facility] pending. -Recovering opiate addiction -Toxicology screen positive for methamphetamines,THC -Anxiety, depression, panic disorder -Former nicotine dependence, quit 1-1/2 months ago Hospital course:This a 43-year-old female history of stage IV lung cancer metastasis, primary ovaries, anxiety, recovering opiate addiction, depression, panic disorder, borderline personality disorder, former nicotine dependence-quit a month and a half ago, and multiple other medical issues, presented to the ER with complaints of fever of 101.3 at home accompanied by shortness of breath, generalized weakness, lethargic, malaise-possible medication related. Drug screen positive for THC, methamphetamines. T-max 99 on admission, normal WBC. Denies nausea vomiting or diarrhea. Denies chest pain, palpitations. Brain CT reported no acute hemorrhage, mass effect or midline shift. Chest x-ray reports persistent cardiomegaly, small to moderate-sized non-simple right pleural effusion, persistent bilateral hilar masslike infiltrates with new left basilar infiltrate. Receive 1 unit of packed RBCs for symptomatic anemia, repeat hemoglobin pending. Influenza screen negative, Lactic acid 2.7, with an episode of hypotension.Hemoglobin 7.3. Received 1 unit of packed RBCs, IV fluids. Placed on IV antibiotics Rocephin and Zithromax. Oncology consulted. Status post transfusion of 1 unit packed RBCs. Maintained on IV antibiotics.[facility] Records being obtained. IF further Bronscopy/BX required, probably transfer to , given her instability with prior attempted bronschopsy here. Maintaining O2 sats in the 90s on 3 L nasal cannula. Afebrile, normal WBC, preliminary blood cultures no growth at 48 hours. [facility] records pending. Oncology recommending diagnostic bronchoscopy to clarify origin of squamous cell malignancy. Patient is being transferred to [facility] secondary to high risk bronchoscopy. Patient updated and consented to transfer. Oncology currently speaking with [facility]. Patient will be transferred to [facility] in stable condition with guarded prognosis. EXAM: GENERAL: Alert & oriented X 3, no acute distress CARDIOVASCULAR: S1, S2 regular.. No murmur RESPIRATION: Breath sounds diminished in the bases. Occasional scattered rhonchi, no crackles. Occasional fine inspiratory wheeze ABDOMEN: Soft, nontender . No guarding. no masses palpable.Bowel sounds heard. LEGS: No edema. no swelling NERVOUS SYSTEM: No focal deficits. The impression and plan of care has been dictated as directed. : I performed a history and examination of this patient, discussed the same with the dictator. I agree with the dictator's note ,documented as a scribe. Any additional findings or plans will be noted. Time taken: 35 minutes Patient Condition at Discharge: Stable Plan - Discharge Summary Discharge Rx Participant: No New Discharge Prescriptions: No Action cloNIDine HCL 0.3 mg PO HS lamoTRIgine [LaMICtal] 200 mg PO HS clonazePAM [KlonoPIN] 1 mg PO BID ARIPiprazole [Abilify] 15 mg PO HS Vortioxetine Hydrobromide [Trintellix] 20 mg PO HS Loratadine [Claritin] 10 mg PO DAILY traMADol HCL [Ultram] 50 mg PO Q6HR PRN PRN Reason: Pain Ondansetron Odt [Zofran Odt] 8 mg PO Q8HR Omeprazole 40 mg PO DAILY Methocarbamol [Robaxin] 500 mg PO QID Benzonatate [Tessalon Perles] 200 mg PO TID Discharge Medication List cloNIDine HCL 0.3 mg PO HS 05/15/15 [History] ARIPiprazole [Abilify] 15 mg PO HS 11/01/18 [History] Vortioxetine Hydrobromide [Trintellix] 20 mg PO HS 11/01/18 [History] clonazePAM [KlonoPIN] 1 mg PO BID 11/01/18 [History] lamoTRIgine [LaMICtal] 200 mg PO HS 11/01/18 [History] Benzonatate [Tessalon Perles] 200 mg PO TID 11/22/18 [History] Loratadine [Claritin] 10 mg PO DAILY 11/22/18 [History] Methocarbamol [Robaxin] 500 mg PO QID 11/22/18 [History] Omeprazole 40 mg PO DAILY 11/22/18 [History] Ondansetron Odt [Zofran Odt] 8 mg PO Q8HR 11/22/18 [History] traMADol HCL [Ultram] 50 mg PO Q6HR PRN 11/22/18 [History] Follow up Appointment(s)/Referral(s): [facility], [NON-STAFF] - Fredo Eason MD [Primary Care Provider] - 1 Week Daniella Michaels MD [STAFF PHYSICIAN] - 1 Week Activity/Diet/Wound Care/Special Instructions: Transfer to [facility] secondary to high risk bronchoscopy/biopsy needed to differentiate origin of squamous cell malignancy of the lungs.
--- NOTE | 2018-11-24 15:20 | P.CN ---
Psychiatric Consult - . Consult date: 11/24/18 Consult:: 11/24/18 15:05 Identification: Patient is a 43-year-old female who presented to the hospital reporting that she had an increasing temperature was becoming more short of breath. Reason for Consult: Depression History of Present Illness: Patient's chart was reviewed the patient was seen and interviewed in her room with no family members. Patient states that she had not been feeling well for some time and presented to the hospital last week and was transferred to [facility] where she had a needle biopsy with a diagnosis of squamous cell cancer but they have not been able to determine whether this is metastatic disease from a prior cervical cancer diagnosis or a new primary tumor. Patient states that she did have her follow-up in March for her diagnosis of cervical cancer that had been made over a year ago, she had a LEEP procedure as well as chemotherapy and radiation therapy in her treatment was done at [facility]. Patient states she had follow-up in March 2018 and all her tests were negative but she did not go back for follow-up in May. Patient states that over the last several months she's felt increasingly tired and lethargic and thought it was due to her depression for which she is been treated for a number of years. Patient has been treated for depression and is currently being seen by [facility] and maintained on Abilify 15 mg daily, Klonopin 1 mg twice a day, Lamictal 200 mg twice a day and Trintellix 20 mg daily and reports that these doses have not been adjusted for some time. She states that she has periods of depression but they have not been severe enough to require hospitalization or an adjustment in her medication. Her last hospitalization was here in 2014. Patient states that she in the past is had periods of depression, she has had hallucinations in the past but states she has not had any hallucinations or paranoia for quite some time. Patient has had no history of suicide attempts. Patient states that she has not been feeling suicidal, has not had any psychotic symptoms and her depressive symptoms of been relatively mild, she thought her increasing tiredness and lethargy were due to her depression. She reports that her appetite has not been good either. Patient has been compliant with her medication as an outpatient and states that she has not been using any drugs other than marijuana and has not used for the last 3 weeks. Patient discussed her concerns regarding her diagnosis and the need for further procedures to obtain more tissue to correctly diagnose whether this is metastatic lung cancer or a primary lung cancer. She states that they are requesting transfer to [facility] to have a bronchoscopy performed there. She discussed her concerns about her children and how they will deal with this, her fears of dying and leaving her children. Past Psychiatric History: Patient has a history of depression and anxiety that of been treated in the past at [facility] and most recently at [facility]. She was hospitalized here twice in 2014 and prior to that in 2011 following an overdose of opiates. Patient denied any prior history of suicide attempts. Patient's current psychotropic medications are as stated above. Past Medical/Surgical History: Patient states that she was diagnosed with cervical cancer a year ago is status post LEEP procedure and chemotherapy and radiation therapy. She is currently diagnosed with squamous cell cancer of the lung is not determine whether this is metastatic disease or primary tumor. Family History: Mother is treated for anxiety, her father was treated for depression and substance use. Social History: Patient has been with her current partner for 5 years and states it's a good relationship. She has 5 children between the ages of 25 and 18. Her 18-year-old is living with her father and her 21-year-old daughter is living with the patient and her partner. Patient reports a good relationship with all 5 of her children. Patient is currently on Social Security disability. Substance Use History: Patient denies any current alcohol use and states that in the past she was using opiates, stating that she's been sober from opiates for more than 3 years. She reports that she does use marijuana but has not used it for the last 3 weeks. She reports no other drug use history. Mental status: Appearance/Attitude: Patient is in a hospital gown, in no acute distress she makes eye contact and was cooperative during the interview. Behavior: Patient did not exhibit any psychomotor agitation or retardation Speech/Language: Patient's speech was spontaneous and normal volume and rhythm and she was coherent Thought Process: Patient is goal-directed there is no evidence of loose associations or flight of ideas Thought Content: Patient denies any current auditory or visual hallucinations no delusions or paranoid ideation were elicited. Patient discussed her fears about her diagnosis, concerns about her children and her guilt about not having gone for follow-up care testing in May. Patient states that she is been feeling tired and lethargic and thought it was due to depression but slowly was developing shortness of breath when walking, pain in her side and a cough and states that she felt something else was wrong. Suicidal/Homicidal Ideation: Patient denies any current suicidal or homicidal ideation Sensorium/Cognition: Patient is alert and oriented to person, place, and time and her recent and remote memory are grossly intact Mood/Affect: Patient's mood is tearful, slightly depressed and her affect is appropriate to her mood Insight/Judgment: Patient's insight and judgment fair Assessment: Patient has a history of being treated for depression and anxiety for a number of years and has not been hospitalized since 2014. Patient does not endorse a history of manic symptoms in the past but has had psychotic symptoms in the past but states those have not been present for a number of years. Patient has been stable on her current medications for over a year with no adjustments in the doses and has been following up at the [facility]. Patient states that she needs to change her counselor is her counselor is taken a leave of absence from there she was in the process of setting up appointments with a new counselor. Patient discussed with me her concerns about her diagnosis, her fears in regard to her children as well as her regrets about not having followed up with the appointments that she did not make in May and did not reschedule. Patient states that she has not abused any drugs other than marijuana and has not smoked marijuana for the last 3 weeks, but patient was quite upset that her urine drug screen revealed positive for methamphetamines. Patient adamantly denies that she has used any methamphetamines or other drugs. Diagnosis: Major depressive disorder, recurrent; unspecified anxiety disorder Plan: Patient was encouraged to continue on her current psychiatric medications, and continue with outpatient counseling. Patient and I discussed her fears and concerns regarding her diagnosis and we reviewed coping strategies that she had learned when she was taking DBT classes in the past at [facility]. I recommend no changes to her psychotropic medication at this time and recommend that she be continued on them. I will sign off the case 30 further questions or concerns please and hesitate to contact me 11/24/18 15:08
--- NOTE | 2018-11-24 16:26 | P.PN ---
Subjective Progress Note Date: 11/24/18 Principal diagnosis: Squamous cell carcinoma of right pleura Patient is seen in follow-up today, her O2 needs are stable, denies purulent sputum or hemoptysis, no fevers or vomiting Objective - Vital Signs Vital signs: Vital Signs Temp 97.8 F 11/24/18 13:00 Pulse 123 H 11/24/18 13:00 Resp 18 11/24/18 13:00 BP 131/75 11/24/18 13:00 Pulse Ox 93 L 11/24/18 13:00 Intake & Output 11/23/18 11/24/18 11/24/18 18:59 06:59 18:59 Intake Total 2040 2100 360 Balance 2040 2100 360 Intake: Intake, IV Titration 1200 1600 Amount Sodium Chloride 0.9% 1, 400 000 ml @ 100 mls/hr IV . Q10H LAYLA Rx#:[id number] Sodium Chloride 0.9% 1, 1150 000 ml @ 100 mls/hr IV . Q10H STA Rx#:[id number] cefTRIAXone 1 gm In 50 1200 Sodium Chloride 0.9% 50 ml @ 100 mls/hr IVPB Q24HR LAYLA Rx#:[id number] Oral 840 500 360 Other: Voiding Method Toilet Toilet Toilet # Voids 4 2 4 # Bowel Movements 1 - Constitutional General appearance: Present: average body habitus, cooperative, mild distress - EENT Eyes: Present: anicteric sclerae ENT: Present: hearing grossly normal - Respiratory Respiratory: bilateral: diminished - Cardiovascular Heart sounds: normal: S1, S2 - Peripheral edema leg Peripheral Edema: bilateral: None - Gastrointestinal General gastrointestinal: Present: normal bowel sounds, soft - Integumentary Integumentary: Present: pale - Neurologic Neurologic: Present: CNII-XII intact - Musculoskeletal Musculoskeletal: Present: generalized weakness - Psychiatric Psychiatric Comment(s): flat affect, tearful at times Psychiatric: Present: A&O x's 3, intact judgment & insight - Labs CBC & Chem 7: 11/23/18 14:50 11/24/18 06:40 Labs: Abnormal Lab Results - Last 24 Hours (Table) 11/24/18 Range/Units 06:40 Chloride 108 H (98-107) mmol/L Creatinine 0.51 L (0.52-1.04) mg/dL Glucose 120 H (74-99) mg/dL Microbiology - Last 24 Hours (Table) 11/22/18 10:10 Blood Culture - Preliminary Blood No Growth after 48 hours Assessment and Plan (1) Primary cervical squamous cell carcinoma Narrative/Plan: Patient and her mother states recent CT-guided percutaneous biopsy in the upper chest area performed at [facility] came back positive for squamous cell cancer, which they were told was metastatic from her cervical cancer. Whether th is squamous cell is consistent with patient's previous cervical squamous cell is not known for sure-very unusual but not impossible. Dr. García did discuss case with the [facility] pathologist. The staining used to define squamous cell unfortunately is not specific for squamous cell of the cervical origin versus lung origin. Due to the extraordinary differences in treatment and prognosis of metastatic cervical cancer versus a squamous cell lung cancer recommendation was for a bronchoscopy and possible biopsy. Discussed the case with pulmonary and unfortunately, patient is a very high risk bronchoscopy, recommendation to go to [facility]. I have spoken with [facility] transfer team who did agree to transfer but, unfortunately patient's insurance is requiring a [id number]. When I contacted the insurance company to do the [id number] I was told that they will contact someone at our location to do the peer to peer in the next 24-48 hours(?). At this point in time I am unsure what are the proper steps to take to get this patient to [facility]. Should Attending and pulmonary treat her, discharge her and see if they can get a follow-up at [facility] for bronch and biopsy or should we wait for the [id number], to happen sometime in the next 24-48 hours-and see if the patient's insurance will allow her to be transferred-no guarantees. There is an appt for pt to see Dr. Toney on the . CTA chest from 11/01 reviewed. Current Visit: Yes Status: Chronic Priority: High Code(s): C53.9 - MALIGNANT NEOPLASM OF CERVIX UTERI, UNSPECIFIED SNOMED Code(s): 758739018 Time with Patient: Greater than 30 (90 min spent, >50% time counseling and coordinating care)
[2018-11-24 20:09] VITALS: BP 132/74; PULSE 118; RESP 22; TEMP 98.5
== END 2018-11-24 21:00 | disposition short-term general hospital (02) | DRG 871 ==
LOC: EC 08:55 → 3NMEDONC 13:28
PROVIDERS: ADMIT Family Medicine; ATTEND Family Medicine
PROC: 30233N1 Transfusion of Nonautologous Red Blood Cells into Peripheral Vein, Percutaneous Approach (ICD-10-PCS; principal; 2018-11-22)
DX: A41.9 Sepsis, unspecified organism (principal); J18.1 Lobar pneumonia, unspecified organism; C56.9 Malignant neoplasm of unspecified ovary; J90 Pleural effusion, not elsewhere classified; E86.0 Dehydration; C53.9 Malignant neoplasm of cervix uteri, unspecified; F41.9 Anxiety disorder, unspecified; F60.3 Borderline personality disorder; F90.9 Attention-deficit hyperactivity disorder, unspecified type; D64.9 Anemia, unspecified; F32.9 Major depressive disorder, single episode, unspecified; F41.0 Panic disorder [episodic paroxysmal anxiety]; F41.1 Generalized anxiety disorder; I51.7 Cardiomegaly; K59.00 Constipation, unspecified; R09.02 Hypoxemia; R06.82 Tachypnea, not elsewhere classified; Z87.891 Personal history of nicotine dependence; Z79.899 Other long term (current) drug therapy; Z80.49 Family history of malignant neoplasm of other genital organs; Z81.3 Family history of other psychoactive substance abuse and dependence
CPT/HCPCS: 36415; 51701; 70450; 71046; 80048; 80053; 80306; 80329; 81003; 82140; 83605; 83735; 85025; 86850; 86900; 86901; 86920; 87040; 87502; 94640; 96361; 96374; 99285

== ENCOUNTER 2018-11-30 11:05 | Day surgery (SDC) | payer OTHER ==
[2018-11-30 11:45] VITALS: BP 101/56; RESP 16
[2018-11-30 12:52] VITALS: PULSE 96; TEMP 97.4
--- NOTE | 2018-11-30 16:02 | IR ---
EXAMINATION TYPE: IR cvc insert >=5 years DATE OF EXAM: 11/30/2018 COMPARISON: NONE CLINICAL HISTORY: Cervical cancer Needs long-term intravenous access for chemotherapy. PROCEDURE: After informed consent, the skin overlying the right basilic vein was localized with ultrasound and n oted to be compressible and patent. An ultrasound image was obtained and submitted on the patient's chart. The overlying skin was prepped and draped and Lidocaine was used for local anesthesia. A ski n lindsey was made with a scalpel. Access was gained to the vein under ultrasound guidance with a 21 ga uge needle and a 0.018 inch wire was advanced. Access site was dilated with Peel-Away sheath and cat heter tailored to the appropriate length and advanced such that the distal tip is at the cavoatrial j unction. Spot image was obtained verifying placement. Catheter was fixed to the skin and a sterile dressing was placed following hemostasis. Catheter was aspirated and flushed with saline. Patient w as discharged in stable condition without complication.Maximal barrier technique is utilized. Ultras ound image is documented on the chart. Ultrasound used with sterile technique. Fluoro time and fluoroscopic images submitted to document procedure: 14 intraoperative C-arm images, 0.3 minutes fluoroscopy time IMPRESSION: STATUS POST ULTRASOUND AND FLUOROSCOPIC GUIDED PICC LINE PLACEMENT, READY FOR USE. THIS PROCEDURE WAS PERFORMED BY THE UNDERSIGNED.
== END 2018-11-30 12:52 | disposition home health service (06) ==
LOC: CATHCVL 11:05
PROVIDERS: ATTEND Radiology Diagnostic Radiology
DX: C53.8 Malignant neoplasm of overlapping sites of cervix uteri (principal); C78.2 Secondary malignant neoplasm of pleura; I87.2 Venous insufficiency (chronic) (peripheral); F32.5 Major depressive disorder, single episode, in full remission; R63.0 Anorexia; Z98.51 Tubal ligation status; Z80.3 Family history of malignant neoplasm of breast; Z79.899 Other long term (current) drug therapy; Z87.891 Personal history of nicotine dependence
CPT/HCPCS: 36573; 81025; C1751; C1769

== ENCOUNTER → 2019-02-14 | Outpatient (CLI) | payer OTHER ==
[2019-02-14 14:42] LABS: African American GFR (CKD) >90 (>60 ml/min/1.73 sqM); Blood Urea Nitrogen 11 mg/dL (7-17)
--- NOTE | 2019-02-14 16:20 | CT ---
EXAMINATION TYPE: CT ChestAbdPelvis w con DATE OF EXAM: 02/14/2019 COMPARISON: CTA chest November 01, 2018 HISTORY: Cervical and long CA, observation for metastatic disease, currently receiving chemotherapy CT DLP: 1239 mGycm. Automated Exposure Control for Dose Reduction was Utilized. CONTRAST: CT scan of the thorax, abdomen and pelvis is performed with IV Contrast, patient injected with 100 mL of Isovue 300. FINDINGS: LUNGS: Improving masslike consolidation bilaterally particularly in the left lung where there are quiana e scattered linear scarring and/or atelectasis and small area of masslike consolidation posterior mid line measuring 2.8 x 1.2 cm current study image 31 significantly improved from prior study measuring 4.5 x 3.3 cm axial image 78. There is persistent central pleural masslike thickening in the right lluvia g extending to the right lung base just above the diaphragm but is improved from prior study. Some ce ntral bronchial narrowing on the right remains present though improved. No complete occlusion present on current study. Improvement in pleural effusions. No pneumothorax. MEDIASTINUM: There are no new greater than 1 cm hilar or mediastinal lymph nodes. Improved subcarinal lymph node noted grossly axial image 24 versus image 59 measuring 1.6 x 0.9 cm prior study versus 2. 6 x 1.7 cm. tiny pericardial effusion is less prominent. Heart size upper limits of normal but stabl e. OTHER: Stable right subclavian Mediport catheter. LIVER/GB: But a visualization of hepatic metastatic disease with multiple hypodense nodules, for refe rence 1.3 cm lesion adjacent to intrahepatic IVC axial image 49 is noted. Prior study did not include is entire abdomen or liver to assess if there is interval change. Liver is upper limits of normal in current study PANCREAS: No significant abnormality is seen. SPLEEN: Spleen is upper limits of normal in size on current study. ADRENALS: No significant abnormality is seen. KIDNEYS: No significant abnormality is seen. BOWEL: Oral contrast only reaches mid small bowel loops in the left abdomen. Small bowel loops are pr ominent. There is no abrupt transition point. Fecal material is seen in prominent colon along the per iphery. GENITAL ORGANS: This heterogeneous anteverted uterus with suspicion for uterine fibroids. Moderate am ount of fluid in pelvis surrounding the uterus and also involves cul-de-sac. LYMPH NODES: No greater than 1cm abdominal or pelvic lymph nodes are appreciated. Prominent but subce ntimeter mesenteric lymph nodes are seen. OSSEOUS STRUCTURES: No significant abnormality is seen. OTHER: No significant additional abnormality is seen. IMPRESSION: Interval improvement in neoplastic involvement in the thorax. Confirmation of metastatic disease in the liver. Moderate amount of fluid in pelvis is noted. Overall nonspecific bowel gas pat tern.
== END | disposition home or self-care (01) ==
LOC: RADPROMAIN 13:53
PROVIDERS: ATTEND Internal Medicine Hematology & Oncology
DX: C78.7 Secondary malignant neoplasm of liver and intrahepatic bile duct (principal); C53.8 Malignant neoplasm of overlapping sites of cervix uteri; D49.89 Neoplasm of unspecified behavior of other specified sites
CPT/HCPCS: 82565; 84520; 71260; 74177; 36415; J1642; Q9967

== ENCOUNTER 2019-02-16 14:02 | Inpatient (IN) | payer OTHER ==
[2019-02-16] MEDS ORDERED: ONDANSETRON 4 MG/2 ML VIAL IVP STA (14:50)
[2019-02-16] MEDS ORDERED: SODIUM CHLORIDE 0.9% 1,000 ML IV STA (14:50)
[2019-02-16] MEDS ORDERED: FAMOTIDINE 20 MG/2 ML VIAL IV STA (14:51)
[2019-02-16] MEDS ORDERED: MORPHINE SULFATE 4 MG/ML SYRINGE IV STA (14:52)
--- NOTE | 2019-02-16 14:58 | ED ---
General Adult HPI - General Chief complaint: Abdominal Pain Stated complaint: Abdominal pain, CA PT Time Seen by Provider: 02/16/19 14:16 Source: patient, RN notes reviewed Mode of arrival: ambulatory Limitations: no limitations - History of Present Illness Initial comments: Patient is a pleasant 43-year-old female presenting to the emergency Department with complaints of abdominal discomfort. Symptoms started a couple of days ago. Patient does have nausea and has had several episodes of vomiting. Discomfort is in the epigastric region patient states she has a known history of ulcer disease. No hematemesis. Patient feels like her abdomen is somewhat bloated. Patient slightly has some constipation. No diarrhea. No fevers. Patient does have history of metastatic lesion in her lung from history of cervical cancer. Patient is currently on chemotherapy. - Related Data Home Medications Medication Instructions Recorded Confirmed cloNIDine HCL 0.3 mg PO HS 05/15/15 02/16/19 ARIPiprazole [Abilify] 15 mg PO HS 11/01/18 02/16/19 Vortioxetine Hydrobromide 20 mg PO HS 11/01/18 02/16/19 [Trintellix] clonazePAM [KlonoPIN] 1 mg PO BID 11/01/18 02/16/19 lamoTRIgine [LaMICtal] 200 mg PO HS 11/01/18 02/16/19 Benzonatate [Tessalon Perles] 200 mg PO TID 11/22/18 02/16/19 Omeprazole 40 mg PO DAILY 11/22/18 02/16/19 Ondansetron Odt [Zofran Odt] 8 mg PO Q8HR 11/22/18 02/16/19 Acetaminophen 650 mg PO Q6H PRN 11/30/18 02/16/19 CHLORPHEN-HYDROcod 8-10mg/5ml 5 ml PO Q12HR 02/16/19 02/16/19 [Tussionex] LORazepam [Ativan] 0.5 mg PO DAILY PRN 02/16/19 02/16/19 Allergies Allergy/AdvReac Type Severity Reaction Status Date / Time No Known Allergies Allergy Verified 02/16/19 14:53 Review of Systems ROS Statement: Those systems with pertinent positive or pertinent negative responses have been documented in the HPI. ROS Other: All systems not noted in ROS Statement are negative. Constitutional: Denies: fever Eyes: Denies: eye pain ENT: Denies: ear pain Respiratory: Denies: cough Cardiovascular: Denies: chest pain Endocrine: Denies: fatigue Gastrointestinal: Reports: abdominal pain, nausea, vomiting Genitourinary: Denies: dysuria Musculoskeletal: Denies: back pain Skin: Denies: rash Neurological: Denies: weakness Past Medical History Past Medical History: Cancer Additional Past Medical History / Comment(s): stage 4 lung cancer,anxiety, recovering opiate addiction clean for a year, borderline personality History of Any Multi-Drug Resistant Organisms: None Reported Past Surgical History: Section, Tubal Ligation Past Anesthesia/Blood Transfusion Reactions: No Reported Reaction Past Psychological History: ADD/ADHD, Anxiety, Depression, Panic Disorder Smoking Status: Former smoker Past Alcohol Use History: None Reported Past Drug Use History: None Reported - Past Family History Father History Unknown: Yes Family Medical History: Liver Disease Additional Family Medical History / Comment(s): Father had hepatitis at the age of 17 yrs. He was an drug addict. He started drinking when his and this lead to his per pt. Mother History Unknown: Yes Additional Family Medical History / Comment(s): Mother is healthy. General Exam Limitations: no limitations General appearance: alert, in no apparent distress Head exam: Present: atraumatic Eye exam: Present: normal appearance, PERRL ENT exam: Present: normal oropharynx Neck exam: Present: normal inspection Respiratory exam: Present: normal lung sounds bilaterally Cardiovascular Exam: Present: normal rhythm, tachycardia Expanded Peripheral pulses: 2+: Radial (R), Radial (L), Dorsalis Pedis (R), Dorsalis Pedis (L) GI/Abdominal exam: Present: soft, tenderness (Mild to moderate epigastric tenderness to palpation). Absent: distended Back exam: Present: normal inspection Neurological exam: Present: alert Psychiatric exam: Present: normal affect, normal mood Skin exam: Present: normal color Course Vital Signs 02/16/19 02/16/19 14:04 14:36 Temperature 97.6 F Pulse Rate 120 H 108 H Respiratory 24 18 Rate Blood Pressure 143/85 134/84 O2 Sat by Pulse 100 99 Oximetry - Reevaluation(s) Reevaluation #1: 02/16/19 16:51 Case was discussed with Dr. García, who will consult. He does request 1 unit of blood. EKG Findings - EKG Comments: EKG Findings:: Sinus tachycardia 114. AR 134. QRS 74. QT 318. QTC 438. Normal axis. Normal QRS. No acute ST change. Medical Decision Making - Medical Decision Making Patient reevaluated and updated. Case discussed with Dr. John, Dr. Toney has been paged. - Lab Data Result diagrams: 02/16/19 15:30 02/16/19 15:30 Lab Results 02/16/19 02/16/19 02/16/19 Range/Units 15:30 15:30 15:30 WBC 3.6 L (3.8-10.6) k/uL RBC 2.24 L (3.80-5.40) m/uL Hgb 7.1 L (11.4-16.0) gm/dL Hct 21.1 L (34.0-46.0) % MCV 94.4 (80.0-100.0) fL MCH 31.7 (25.0-35.0) pg MCHC 33.6 (31.0-37.0) g/dL RDW 19.6 H (11.5-15.5) % Plt Count 238 (150-450) k/uL Hypochromasia Slight Poikilocytosis Slight Anisocytosis Slight Macrocytosis Slight PT 10.3 (9.0-12.0) sec INR 1.0 (<1.2) APTT 27.8 (22.0-30.0) sec Sodium 135 L (137-145) mmol/L Potassium 4.6 (3.5-5.1) mmol/L Chloride 98 (98-107) mmol/L Carbon Dioxide 26 (22-30) mmol/L Anion Gap 11 mmol/L BUN 10 (7-17) mg/dL Creatinine 0.44 L (0.52-1.04) mg/dL Est GFR (CKD-EPI)AfAm >90 (>60 ml/min/1.73 sqM) Est GFR (CKD-EPI)NonAf >90 (>60 ml/min/1.73 sqM) Glucose 95 (74-99) mg/dL Calcium 9.4 (8.4-10.2) mg/dL Total Bilirubin 0.4 (0.2-1.3) mg/dL AST 35 (14-36) U/L ALT 17 (9-52) U/L Alkaline Phosphatase 155 H (38-126) U/L Total Protein 7.4 (6.3-8.2) g/dL Albumin 3.9 (3.5-5.0) g/dL Amylase 37 (30-110) U/L Lipase 21 L (23-300) U/L Urine Color Urine Appearance (Clear) Urine pH (5.0-8.0) Ur Specific Bradley (1.001-1.035) Urine Protein (Negative) Urine Glucose (UA) (Negative) Urine Ketones (Negative) Urine Blood (Negative) Urine Nitrite (Negative) Urine Bilirubin (Negative) Urine Urobilinogen (<2.0) mg/dL Ur Leukocyte Esterase (Negative) 02/16/19 Range/Units 15:30 WBC (3.8-10.6) k/uL RBC (3.80-5.40) m/uL Hgb (11.4-16.0) gm/dL Hct (34.0-46.0) % MCV (80.0-100.0) fL MCH (25.0-35.0) pg MCHC (31.0-37.0) g/dL RDW (11.5-15.5) % Plt Count (150-450) k/uL Hypochromasia Poikilocytosis Anisocytosis Macrocytosis PT (9.0-12.0) sec INR (<1.2) APTT (22.0-30.0) sec Sodium (137-145) mmol/L Potassium (3.5-5.1) mmol/L Chloride (98-107) mmol/L Carbon Dioxide (22-30) mmol/L Anion Gap mmol/L BUN (7-17) mg/dL Creatinine (0.52-1.04) mg/dL Est GFR (CKD-EPI)AfAm (>60 ml/min/1.73 sqM) Est GFR (CKD-EPI)NonAf (>60 ml/min/1.73 sqM) Glucose (74-99) mg/dL Calcium (8.4-10.2) mg/dL Total Bilirubin (0.2-1.3) mg/dL AST (14-36) U/L ALT (9-52) U/L Alkaline Phosphatase (38-126) U/L Total Protein (6.3-8.2) g/dL Albumin (3.5-5.0) g/dL Amylase (30-110) U/L Lipase (23-300) U/L Urine Color Yellow Urine Appearance Clear (Clear) Urine pH 6.5 (5.0-8.0) Ur Specific Bradley 1.017 (1.001-1.035) Urine Protein Negative (Negative) Urine Glucose (UA) Negative (Negative) Urine Ketones Negative (Negative) Urine Blood Negative (Negative) Urine Nitrite Negative (Negative) Urine Bilirubin Negative (Negative) Urine Urobilinogen <2.0 (<2.0) mg/dL Ur Leukocyte Esterase Negative (Negative) - Radiology Data Radiology results: image reviewed (Abdominal x-ray shows nonobstructive pattern. Small right effusion with possible infiltrate.) Disposition Clinical Impression: Abdominal pain, Anemia, Liver metastases Disposition: ADMITTED IP TO THIS HOSP Is patient prescribed a controlled substance at d/c from ED?: No Referrals: Fredo Eason MD [Primary Care Provider] - 1-2 days Decision Time: 16:46
[2019-02-16 15:52] LABS: Appearance,Urine Clear (Clear); Bilirubin,Urine Negative (Negative); Blood,Urine Negative (Negative); Color,Urine Yellow; Glucose,Urine (UA) Negative (Negative); Ketones,Urine Negative (Negative); Leukocyte Esterase,Urine Negative (Negative); Nitrite,Urine Negative (Negative); PH, Urine 6.5 (5.0-8.0); Protein,Urine Negative (Negative); Specific Gravity,Urine 1.017 (1.001-1.035); Urobilinogen,Urine <2.0 mg/dL (<2.0)
[2019-02-16 16:02] LABS: Anisocytosis Slight; HCT 21.1 % (34.0-46.0); HGB 7.1 gm/dL (11.4-16.0); Hypochromasia Slight; MCH 31.7 pg (25.0-35.0); MCHC 33.6 g/dL (31.0-37.0); MCV 94.4 fL (80.0-100.0); Macrocytosis Slight; Mean Platelet Volume 6.6; Platelet Count 238 k/uL (150-450); Poikilocytosis Slight; RBC 2.24 m/uL (3.80-5.40); RDW 19.6 % (11.5-15.5); WBC 3.6 k/uL (3.8-10.6)
[2019-02-16 16:05] LABS: ALT 17 U/L (9-52); AST 35 U/L (14-36); African American GFR (CKD) >90 (>60 ml/min/1.73 sqM); Albumin 3.9 g/dL (3.5-5.0); Alkaline Phosphatase 155 U/L (38-126); Amylase 37 U/L (30-110); Anion Gap 11 mmol/L; Blood Urea Nitrogen 10 mg/dL (7-17); Calcium 9.4 mg/dL (8.4-10.2); Carbon Dioxide 26 mmol/L (22-30); Chloride 98 mmol/L (98-107); Glucose 95 mg/dL (74-99); Sodium 135 mmol/L (137-145); Total Bilirubin 0.4 mg/dL (0.2-1.3); Total Protein 7.4 g/dL (6.3-8.2)
[2019-02-16 16:18] LABS: Partial Thromboplastin Time 27.8 sec (22.0-30.0); Prothrombin Time 10.3 sec (9.0-12.0)
[2019-02-16 16:25] LABS: Potassium 4.6 mmol/L (3.5-5.1)
--- NOTE | 2019-02-16 16:26 | XR ---
EXAMINATION TYPE: XR KUB DATE OF EXAM: 02/16/2019 COMPARISON: NONE HISTORY: Pain TECHNIQUE: Single supine KUB image of the abdomen is obtained FINDINGS: Small bowel demonstrates no evidence for dilatation or air fluid levels. Gas and fecal material is seen in non-distended colon. No convincing evidence for pneumoperitoneum. Moderate residual contrast within the right hemicolon fr om recent CT. No unusual calcifications. Small right basilar pleural effusion with infiltrate suggested. The osseous structures are intact. IMPRESSION: 1. Overall nonobstructive bowel gas pattern. 2.Small right basilar pleural effusion with infiltrate suggested.
[2019-02-16] MEDS ORDERED: NALOXONE 0.4 MG/ML 1 ML VIAL IV PRN (16:48)
[2019-02-16 17:27] LABS: Lymphocytes # (M) 0.79 k/uL (1.0-4.8); Monocytes # (M) 0.47 k/uL (0-1.0); Neutrophils % (M) 65 %; Nucleated Red Blood Cells 0 /100 WBC (0-0); Poikilocytosis (M) Present; Polychromasia Present; Target Cells Present; Total Cells Counted 100; Toxic Vacuolation Present
[2019-02-16] MEDS: PANTOPRAZOLE 40 MG/10 ML VIAL IV SCH (17:29)
[2019-02-16] MEDS: SODIUM CHLORIDE 0.9% 1,000 ML IV SCH (18:09)
[2019-02-16 21:38] VITALS: BMI 27.8
[2019-02-16] MEDS: HYDROmorphone 0.5 MG/0.5 ML SYRINGE IVP PRN (22:28)
[2019-02-16] MEDS: ONDANSETRON 4 MG/2 ML VIAL IVP PRN (23:19)
[2019-02-16] MEDS: cloNIDine HCL 0.1 MG TAB PO SCH (23:55)
[2019-02-16] MEDS: clonazePAM 1 MG TAB PO SCH (23:55)
[2019-02-16] MEDS: ARIPiprazole 15 MG TAB PO SCH (23:55)
[2019-02-16] MEDS: BENZONATATE 100 MG CAP PO SCH (23:55)
[2019-02-16] MEDS: lamoTRIgine 100 MG TAB PO SCH (23:56)
[2019-02-16] MEDS: VORTIOXETINE HYDROBROMIDE 20 MG TABLET PO SCH (23:56)
[2019-02-16] MEDS: [UNRECOGNIZED DRUG - OTHER] PO SCH (23:56)
[2019-02-17] MEDS: HYDROmorphone 1 MG/ML 1 ML SYRINGE IVP PRN ×7 (01:30→19:57)
[2019-02-17] MEDS: PANTOPRAZOLE 40 MG/10 ML VIAL IV SCH (08:34)
[2019-02-17] MEDS: BENZONATATE 100 MG CAP PO SCH ×3 (08:34→22:13)
[2019-02-17] MEDS: clonazePAM 1 MG TAB PO SCH ×2 (08:34→21:37)
[2019-02-17] MEDS: [UNRECOGNIZED DRUG - OTHER] PO SCH ×2 (08:40→21:37)
--- NOTE | 2019-02-17 13:47 | P.CONS ---
History of Present Illness - Reason for Consult Consult date: 02/17/19 Metastatic Cancer on Treatment - Chief Complaint abdominal pain - History of Present Illness Latonia was originally admitted to [facility] with rapidly progressive SOB X 1-2 months, she was found to have bilateral lung masses and inflamatory changes, she was thought to have infectious process, received antibiotics coursed, she was evenually referred to [facility] where she was treated with Cervical vancer in August 2017, had R Pleural biopsy on November 07 revealing metastatic Squamous cell Carcinoma. The patient was diagnosed with stage IIB cervical Squamous cell carcinoma on August 30 2017, she was treated with Primary concurrent radiation therapy/Chemotherapy (H dose Cisplatinum) with excellent local response. More lately the patient became Hypoxemic and required Home O2 at all times (2-4 L per NC). She denies any pain at present, but stated having R lower chest pain 1 month ago. She admitted anorexia & weight loss. She smoked 2 PPD X 15 years, quit October 2018, denied STOH use, she is . 12/13/18: Feels much better, tolerated cycle#1 of Carnoplatinum+Taxol+Avastin very well > pain is much better, less Hypoxemic, no nausea/vomiting. 01/03/19: Feels Ok, tolerated cycle#2 of Chemotherapy well (Carboplatinum+Taxol+Avastin+Keytruda) very well, C/O dry cough & stable SOB, on O2 PRN now 01.17.19: Latonia is status post cycle 3 but is seen today for acute visit as she has been complaining of increased pain, nausea. She did have positive Klebsiella in Urine in December. Continued to complain of UTI like symptoms 01.13.19 - Urine dipstick negative. Her urine dipstick was negative 12.23, but 4 days later resulted Klebsiella pneumonia. She did not take abx at that time, I will prescribe today. recheck urine and culture. She also has sharp pain in right chest, Heart Rate is 135, Cough, Hypoxia oxygen require,emt 1 Liter now 2-3L. 01.26.19: She is feeling so much better after last weeks visit. CTA Revealed bilateral pneumonia and she is on Day 6 of Levaquin. She is scheduled today for her restaging CT scans, although Will delay to the week of to allow full treatment of pneumonia and pulmonology evaluation. She is saturating on room air >95%. 02/02/19: C/O SOB & cough, tolerating Chemotherapy well, given ABX for suspected pneumonia. Latonia was seen in office on 02.16.19. She was nauseated and having a difficult time with abdominal pain, feeling twisted. She was given IV hydration as she was unable to drink or eat well with her nausea and abdominal pain. the pain worsened when she left and was advised to be seen in ER. A unit of PRBC was given. Her pain did improve. KUB showed no signs of obstruction. Her recent CT scans for restagng showed positive response to treatment and no acute issues that could account for symptoms. Review of Systems A 14 point review of systems assessed and completed and all negative except HPI Past Medical History Past Medical History: Cancer Additional Past Medical History / Comment(s): stage 4 lung cancer,anxiety, recovering opiate addiction clean for a year, borderline personality History of Any Multi-Drug Resistant Organisms: None Reported Past Surgical History: Section, Tubal Ligation Past Anesthesia/Blood Transfusion Reactions: No Reported Reaction Past Psychological History: ADD/ADHD, Anxiety, Depression, Panic Disorder Additional Psychological History / Comment(s): Borderline personality disorder. Pt resides with her significant other and 2 of her adult children. She recieves social security d/t mental health problems. She is independent. She goes to [facility] but needs to set up with new therapist-her current therapist no longer works there. Smoking Status: Former smoker Past Alcohol Use History: None Reported Additional Past Alcohol Use History / Comment(s): Pt started smoking in 2006 quit a month and a half hgo 5/4 Past Drug Use History: None Reported Additional Drug Use History / Comment(s): Pt is a recovering opiate addict-she has been clean 5 yrs. - Past Family History Father History Unknown: Yes Family Medical History: Liver Disease Additional Family Medical History / Comment(s): Father had hepatitis at the age of 17 yrs. He was an drug addict. He started drinking when his and this lead to his per pt. Mother History Unknown: Yes Additional Family Medical History / Comment(s): Mother is healthy. Medications and Allergies Home Medications Medication Instructions Recorded Confirmed Type cloNIDine HCL 0.3 mg PO HS 15 02/16/19 History ARIPiprazole [Abilify] 15 mg PO HS 11/01/18 02/16/19 History Vortioxetine Hydrobromide 20 mg PO HS 11/01/18 02/16/19 History [Trintellix] clonazePAM [KlonoPIN] 1 mg PO BID 11/01/18 02/16/19 History lamoTRIgine [LaMICtal] 200 mg PO HS 11/01/18 02/16/19 History Benzonatate [Tessalon Perles] 200 mg PO TID 11/22/18 02/16/19 History Omeprazole 40 mg PO DAILY 11/22/18 02/16/19 History Ondansetron Odt [Zofran Odt] 8 mg PO Q8HR 11/22/18 02/16/19 History Acetaminophen 650 mg PO Q6H PRN 11/30/18 02/16/19 History CHLORPHEN-HYDROcod 8-10mg/5ml 5 ml PO Q12HR 02/16/19 02/16/19 History [Tussionex] LORazepam [Ativan] 0.5 mg PO DAILY PRN 02/16/19 02/16/19 History Allergies Allergy/AdvReac Type Severity Reaction Status Date / Time No Known Allergies Allergy Verified 02/16/19 14:53 Physical Exam Vitals: Vital Signs Temp Pulse Pulse Resp BP BP Pulse Ox 02/17/19 08:00 95 02/17/19 07:00 98.5 F 95 16 114/75 97 02/17/19 02:35 98.3 F 99 18 143/88 98 02/16/19 23:52 98.3 F 101 H 16 145/83 98 02/16/19 22:05 98.3 F 101 H 18 120/78 94 L 02/16/19 21:35 98.2 F 102 H 16 123/83 94 L 02/16/19 21:25 98.1 F 97 16 121/77 95 02/16/19 20:19 98.2 F 95 18 114/78 100 02/16/19 17:31 98 18 106/65 96 02/16/19 14:36 108 H 18 134/84 99 02/16/19 14:04 97.6 F 120 H 24 143/85 100 Intake and Output 02/16/19 02/17/19 02/17/19 22:59 06:59 14:59 Intake Total 900 0 50 Balance 900 0 50 Intake: Oral 590 50 Blood Product 310 0 Rc Pheresis As-3 Unit 0 0 [id number] Other: Voiding Method Toilet # Voids 2 - Constitutional General appearance: average body habitus, mild distress - EENT Eyes: EOMI, PERRLA ENT: NA/AT, thrush - Respiratory Respiratory: bilateral: diminished (lower lobes no increased efffort) - Cardiovascular aTachy - Gastrointestinal Localized gastrointestinal: rebound: midline - Integumentary Integumentary: pale - Neurologic Neurologic: CNII-XII intact - Musculoskeletal Musculoskeletal: gait normal Results CBC & Chem 7: 02/17/19 13:45 02/17/19 13:45 Labs: Abnormal Lab Results - Last 24 Hours (Table) 02/16/19 02/16/19 02/16/19 Range/Units 15:30 15:30 16:50 WBC 3.6 L (3.8-10.6) k/uL RBC 2.24 L (3.80-5.40) m/uL Hgb 7.1 L (11.4-16.0) gm/dL Hct 21.1 L (34.0-46.0) % RDW 19.6 H (11.5-15.5) % Lymphocytes # (Manual) 0.79 L (1.0-4.8) k/uL Sodium 135 L (137-145) mmol/L Creatinine 0.44 L (0.52-1.04) mg/dL Alkaline Phosphatase 155 H (38-126) U/L Lipase 21 L (23-300) U/L Crossmatch See Detail Abdominal x-ray: report reviewed, other CT scan - abdomen: report reviewed CT scan - chest: report reviewed Assessment and Plan Plan: Assessment and Recommendations: Metastatic Cervical Cancer: - Metastatic Disease to lungs - Recent CT improvement in mets to lung Intractable midepigastric pain: - Associated nausea and vomting - Hx: Ulcers - Reordered CT Scans of abdomen and pelvis and concern for Partial obstruction/Gastritis: Patient has had BM - Gi and Gen Surg consults to evalaute - NPO until further evalaution, if SBO ruled out consider EGD Physician Attest: I have completed the full history and physicial and developed the completed impression and plan, agree with above dictation, dictated as a scribe.
[2019-02-17 14:13] LABS: Anisocytosis Slight; HCT 30.3 % (34.0-46.0); Hypochromasia Slight; MCH 29.7 pg (25.0-35.0); MCHC 31.7 g/dL (31.0-37.0); MCV 93.6 fL (80.0-100.0); Macrocytosis Slight; Mean Platelet Volume 6.8; Platelet Count 203 k/uL (150-450); Poikilocytosis Slight; RBC 3.23 m/uL (3.80-5.40); RDW 19.1 % (11.5-15.5); WBC 2.6 k/uL (3.8-10.6)
[2019-02-17 14:18] LABS: HGB 9.6 gm/dL (11.4-16.0)
[2019-02-17 14:21] LABS: ALT 17 U/L (9-52); AST 19 U/L (14-36); African American GFR (CKD) >90 (>60 ml/min/1.73 sqM); Albumin 3.4 g/dL (3.5-5.0); Alkaline Phosphatase 128 U/L (38-126); Anion Gap 7 mmol/L; Blood Urea Nitrogen 8 mg/dL (7-17); Calcium 9.2 mg/dL (8.4-10.2); Carbon Dioxide 30 mmol/L (22-30); Chloride 99 mmol/L (98-107); Glucose 83 mg/dL (74-99); Potassium 4.3 mmol/L (3.5-5.1); Sodium 136 mmol/L (137-145); Total Bilirubin 0.4 mg/dL (0.2-1.3); Total Protein 6.5 g/dL (6.3-8.2)
[2019-02-17 15:04] LABS: Band Neutrophils % 1 %; Monocytes # (M) 0.47 k/uL (0-1.0); Neutrophils % (M) 58 %; Nucleated Red Blood Cells 0 /100 WBC (0-0); Total Cells Counted 100
[2019-02-17] MEDS: DICYCLOMINE 10 MG CAP PO PRN (15:23)
[2019-02-17] MEDS: SODIUM CHLORIDE 0.9% 1,000 ML IV SCH (17:00)
[2019-02-17] MEDS: IOPAMIDOL-300 CONTRAST 30 ML VIAL (ORAL USE) PO PRN ×2 (17:01→18:06)
--- NOTE | 2019-02-17 18:18 | P.HPIM ---
History of Present Illness H&P Date: 02/17/19 Chief Complaint: Abdominal pain This a 43-year-old female history of stage IIB cervical squama cell CA ,stage IV lung cancer metastasis, squamous cell carcinoma of right pleura, status post chemotherapy, radiation ,anxiety, recovering opiate addiction, depression, panic disorder, borderline personality disorder, former nicotine dependence, and multiple other medical issues, presented to the ER with complaints of mid epigastric abdominal pain, abdominal cramping, spasming, nausea/vomiting. Denies hematemesis. Denies fever or chills Receive 1 unit of packed RBCs in the ER. KUB reporting no signs of obstruction, small right effusion with possible infiltrate. Patient reports recent CT reporting improvement. Last bowel movement yesterday-hardened. Routinely has 1-2 bowel movements per week. Received IV fluid hydration. Clear liquid diet initiated. Review of Systems ROS Statement: Those systems with pertinent positive or pertinent negative responses have been documented in the HPI. ROS Other: All systems not noted in ROS Statement are negative. Past Medical History Past Medical History: Cancer Additional Past Medical History / Comment(s): stage 4 lung cancer,anxiety, recovering opiate addiction clean for a year, borderline personality History of Any Multi-Drug Resistant Organisms: None Reported Past Surgical History: Section, Tubal Ligation Past Anesthesia/Blood Transfusion Reactions: No Reported Reaction Past Psychological History: ADD/ADHD, Anxiety, Depression, Panic Disorder Additional Psychological History / Comment(s): Borderline personality disorder. Pt resides with her significant other and 2 of her adult children. She recieves social security d/t mental health problems. She is independent. She goes to [facility] but needs to set up with new therapist-her current therapist no longer works there. Smoking Status: Former smoker Past Alcohol Use History: None Reported Additional Past Alcohol Use History / Comment(s): Pt started smoking in 2006 quit a month and a half hgo 5/ Past Drug Use History: None Reported Additional Drug Use History / Comment(s): Pt is a recovering opiate addict-she has been clean 5 yrs. - Past Family History Father History Unknown: Yes Family Medical History: Liver Disease Additional Family Medical History / Comment(s): Father had hepatitis at the age of 17 yrs. He was an drug addict. He started drinking when his and this lead to his per pt. Mother History Unknown: Yes Additional Family Medical History / Comment(s): Mother is healthy. Medications and Allergies Home Medications Medication Instructions Recorded Confirmed Type cloNIDine HCL 0.3 mg PO HS 05/15/15 02/16/19 History ARIPiprazole [Abilify] 15 mg PO HS 11/01/18 02/16/19 History Vortioxetine Hydrobromide 20 mg PO HS 11/01/18 02/16/19 History [Trintellix] clonazePAM [KlonoPIN] 1 mg PO BID 11/01/18 02/16/19 History lamoTRIgine [LaMICtal] 200 mg PO HS 11/01/18 02/16/19 History Benzonatate [Tessalon Perles] 200 mg PO TID 11/22/18 02/16/19 History Omeprazole 40 mg PO DAILY 11/22/18 02/16/19 History Ondansetron Odt [Zofran Odt] 8 mg PO Q8HR 11/22/18 02/16/19 History Acetaminophen 650 mg PO Q6H PRN 11/30/18 02/16/19 History CHLORPHEN-HYDROcod 8-10mg/5ml 5 ml PO Q12HR 02/16/19 02/16/19 History [Tussionex] LORazepam [Ativan] 0.5 mg PO DAILY PRN 02/16/19 02/16/19 History Allergies Allergy/AdvReac Type Severity Reaction Status Date / Time No Known Allergies Allergy Verified 02/16/19 14:53 Physical Exam Vitals: Vital Signs Temp Pulse Pulse Resp BP BP Pulse Ox 02/17/19 14:44 98.4 F 94 18 100/66 98 02/17/19 08:00 95 02/17/19 07:00 98.5 F 95 16 114/75 97 02/17/19 02:35 98.3 F 99 18 143/88 98 02/16/19 23:52 98.3 F 101 H 16 145/83 98 02/16/19 22:05 98.3 F 101 H 18 120/78 94 L 02/16/19 21:35 98.2 F 102 H 16 123/83 94 L 02/16/19 21:25 98.1 F 97 16 121/77 95 02/16/19 20:19 98.2 F 95 18 114/78 100 Intake and Output 02/17/19 02/17/19 02/17/19 06:59 14:59 22:59 Intake Total 0 50 Balance 0 50 Intake: Oral 50 Blood Product 0 Rc Pheresis As-3 Unit 0 [id number] Other: # Voids 3 PHYSICAL EXAM: VITAL SIGNS: As above GENERAL: Sitting up in bed, no acute distress HEENT: Conjunctivae normal. eyes normal. NECK: No JVD. No thyroid enlargement. No LNs CARDIOVASCULAR: S1, S2 regular.. No murmur RESPIRATION: Breath sounds diminished in the bases. No rhonchi or crackles. No bronchial breathing. ABDOMEN: Soft, nontender . Distended. No guarding. no masses palpable. Hyperactive Bowel sounds heard ,spasms palpable. LEGS: No edema. no swelling PSYCHIATRY: Alert and oriented X3, mood and affect normal. NERVOUS SYSTEM: Cranial N 2-12 grossly normal. Moves all 4 limbs. Diffuse weakness No focal deficits. Strength and sensation grossly intact.. Skin: no lesions, no rash Joints: No active swelling. No inflammation. Lymphatic system. No LN neck axilla or groin. Results CBC & Chem 7: 02/17/19 13:45 02/17/19 13:45 Labs: Abnormal Lab Results - Last 24 Hours (Table) 02/16/19 02/17/19 02/17/19 Range/Units 16:50 13:45 13:45 WBC 2.6 L (3.8-10.6) k/uL RBC 3.23 L (3.80-5.40) m/uL Hgb 9.6 L D (11.4-16.0) gm/dL Hct 30.3 L (34.0-46.0) % RDW 19.1 H (11.5-15.5) % Lymphocytes # (Manual) 0.60 L (1.0-4.8) k/uL Sodium 136 L (137-145) mmol/L Creatinine 0.50 L (0.52-1.04) mg/dL Alkaline Phosphatase 128 H (38-126) U/L Albumin 3.4 L (3.5-5.0) g/dL Crossmatch See Detail Thrombosis Risk Factor Assmnt - Choose All That Apply Any of the Below Risk Factors Present?: Yes Each Factor Represents 1 point: Age 41-60 years Other Risk Factors: Yes Each Risk Factor Represents 2 Points: Malignancy Other congenital or acquired thrombophilia - If yes, enter type in comment: No Thrombosis Risk Factor Assessment Total Risk Factor Score: 3 Thrombosis Risk Factor Assessment Level: Moderate Risk Assessment and Plan Assessment: Abdominal pain with spasms, radiation Sequlae -Symptomatic Chronic anemia, status post 1 unit of packed RBCs -Stage IIB Cervical squamous Cell cancer, 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 IV push Protonix. Maintain clear liquid diet until patient begins passing flatus, bowel movements. Mental and MiraLAX added to med regime for patient's abdominal spasming, cramping. Home meds have been reviewed and resumed accordingly. Increase ambulation as tolerated. Dr. García consulted with recommendations pending. Further recommendations to follow. The impression and plan of care has been dictated as directed. : I performed a history and examination of this patient, discussed the same with the dictator. I agree with the dictator's note ,documented as a scribe. Any additional findings or plans will be noted. Time taken: 35 minutes
[2019-02-17] MEDS: POLYETHYLENE GLYCOL 3350 17 GM POWD.PACK PO SCH (19:57)
[2019-02-17] MEDS: ONDANSETRON 4 MG/2 ML VIAL IVP PRN (19:57)
--- NOTE | 2019-02-17 20:25 | CT ---
EXAMINATION TYPE: CT abdomen pelvis w con DATE OF EXAM: 02/17/2019 COMPARISON: CT chest abdomen pelvis 02/14/2019 HISTORY: abdominal pain, nausea, vomiting. hx of lung ca. CT DLP: 838.8 mGycm Automated exposure control for dose reduction was used. TECHNIQUE: Helical acquisition of images was performed from the lung bases through the pelvis. CONTRAST: Performed with Oral Contrast and with IV Contrast, patient injected with 100 mL of Isovue 300. FINDINGS: Masslike pleural thickening of the image right lung base without significant interval change. Incompl etely imaged consolidative right basilar opacities and to a lesser extent at the left lung base demon strates no significant interval change from 02/14/2019. Multiple intraparenchymal liver lesions redemonstrated. Portal venous system remains patent. No intra hepatic biliary ductal dilatation. The gallbladder is distended with questionable increased attenuati on dependently which may be due to vicarious contrast excretion from recent contrasted exam versus fa sting state. No splenomegaly. Pancreas is within normal limits. No adrenal mass. Symmetric renal enhancement without hydronephrosis. Urinary bladder is within normal limits. Antevert ed uterus with heterogenous endometrial and myometrial appearance which is nonspecific and not signif icant change in the interval. Jejunal and ileal small bowel dilatation up to 3.7 cm with wall thickening and mucosal hyperenhanceme nt and mesenteric fluid. Right midabdominal distal ileal transition point (series 201 images 51-49) f rom dilated bowel to somewhat decompressed distal ileal loops where the wall is abnormally thickened to 1.1 cm a very small amount of fluid is present within the distal ileum beyond the transition point . Oral contrast from recent exam is present within the colon. There is stool throughout the colon. No suspicious mesenteric adenopathy. No aortic aneurysm or ectasia. No osseous destructive lesion. Mild degenerative changes throughout the imaged spine. IMPRESSION: 1. Incomplete small bowel obstruction with distal ileal transition point in the right mid abdomen, as sociated enteritis. There is abnormal masslike wall thickening at the transition point raising suspic ion for neoplastic involvement. 2. No significant interval change in hepatic metastatic disease from 02/14/2019. Incompletely imaged t horacic metastatic disease also demonstrates no significant interval change.
[2019-02-17] MEDS: lamoTRIgine 100 MG TAB PO SCH (21:36)
[2019-02-17] MEDS: ARIPiprazole 15 MG TAB PO SCH (21:37)
[2019-02-17] MEDS: cloNIDine HCL 0.1 MG TAB PO SCH (21:37)
[2019-02-17] MEDS: VORTIOXETINE HYDROBROMIDE 20 MG TABLET PO SCH ×2 (22:12→22:15)
[2019-02-18] MEDS: HYDROmorphone 1 MG/ML 1 ML SYRINGE IVP PRN ×6 (00:22→23:23)
[2019-02-18] MEDS: PANTOPRAZOLE 40 MG/10 ML VIAL IV SCH (09:31)
[2019-02-18] MEDS: BENZONATATE 100 MG CAP PO SCH ×3 (09:31→21:05)
[2019-02-18] MEDS: ONDANSETRON 4 MG/2 ML VIAL IVP PRN ×2 (09:31→22:13)
[2019-02-18] MEDS: clonazePAM 1 MG TAB PO SCH ×2 (09:32→21:05)
[2019-02-18] MEDS: [UNRECOGNIZED DRUG - OTHER] PO SCH ×2 (09:33→21:08)
[2019-02-18] MEDS: POLYETHYLENE GLYCOL 3350 17 GM POWD.PACK PO SCH ×2 (09:34→14:54)
--- NOTE | 2019-02-18 11:08 | P.PN ---
Subjective Progress Note Date: 02/18/19 Principal diagnosis: Cervical cancer with metastatic disease Patient was started on Bentyl 10 mg 1 pill by mouth 4 times daily as needed for abdominal spasm. CT abdomen suggests a mass like wall thickening in the small bowel consistent with or suspicious for neoplastic involvement. Hepatic metastases noted as well Objective - Vital Signs Vital signs: Vital Signs Temp 97.6 F 02/18/19 09:10 Pulse 101 H 02/18/19 09:10 Resp 16 02/18/19 09:10 BP 106/71 02/18/19 09:10 Pulse Ox 98 02/18/19 09:10 Intake & Output 02/17/19 02/18/19 02/18/19 18:59 06:59 18:59 Intake Total 150 360 Balance 150 360 Intake: Intake, IV Titration 240 Amount Sodium Chloride 0.9% 1, 240 000 ml @ 20 mls/hr IV . Q24H [facility] Rx#:[id number] Oral 150 120 Other: Voiding Method Toilet # Voids 3 1 - Exam General: [Patient awake, alert and oriented times 3. Patient in no acute distress.] HEENT: [PERRL. EOMI. No pharyngeal erythema or exudate.] Neck: [No adenopathy.] Cardiac: [Heart regular in rate and rhythm. No S3. No S4. No clicks, rubs. No murmur.] Lungs: [Clear to auscultation bilaterally.] Abdomen: [No mass. No organomegaly. Bowel sounds presnt and normoactive in all 4 quadrants. Patient is passing gas, limited diffuse abdominal pain improved from yesterday Extremes: [No edema no cyanosis no claudication normal pulses] : Female genitalia Musculoskeletal: [No joint erythema, edema or tenderness.] Skin: [No rash.] Neurologic: [No lateralizing deficits. CN II - XII grossly intact.] Lymphatic: [No adenopathy.] - Labs CBC & Chem 7: 02/17/19 13:45 02/17/19 13:45 Labs: Abnormal Lab Results - Last 24 Hours (Table) 02/17/19 02/17/19 Range/Units 13:45 13:45 WBC 2.6 L (3.8-10.6) k/uL RBC 3.23 L (3.80-5.40) m/uL Hgb 9.6 L D (11.4-16.0) gm/dL Hct 30.3 L (34.0-46.0) % RDW 19.1 H (11.5-15.5) % Lymphocytes # (Manual) 0.60 L (1.0-4.8) k/uL Sodium 136 L (137-145) mmol/L Creatinine 0.50 L (0.52-1.04) mg/dL Alkaline Phosphatase 128 H (38-126) U/L Albumin 3.4 L (3.5-5.0) g/dL Assessment and Plan (1) Abdominal pain Current Visit: Yes Status: Acute Code(s): R10.9 - UNSPECIFIED ABDOMINAL PAIN SNOMED Code(s): 49872950 (2) Anemia Current Visit: Yes Status: Acute Code(s): D64.9 - ANEMIA, UNSPECIFIED SNOMED Code(s): 002269610 (3) Liver metastases Current Visit: Yes Status: Acute Code(s): C78.7 - SECONDARY MALIG NEOPLASM OF LIVER AND INTRAHEPATIC BILE DUCT SNOMED Code(s): 75213087 (4) Primary cervical squamous cell carcinoma Current Visit: No Status: Chronic Priority: High Code(s): C53.9 - MALIGNANT NEOPLASM OF CERVIX UTERI, UNSPECIFIED SNOMED Code(s): 027623945 Plan: Possible small bowel metastases Hold MiraLAX for now Continue Bentyl as scheduled seems to be helping spasm Known liver metastases no increase in size or number Known lung metastases no change Primary cervical cancer by history GI evaluation pending/surgical evaluation pending Time with Patient: Greater than 30
--- NOTE | 2019-02-18 12:00 | P.PN ---
Subjective Progress Note Date: 02/18/19 The patient's pain is better controlled. She continues however, to have distention and some nausea. She has been passing some gas. She has not had any bowel movement since her exam yesterday. She denied any shortness of breath or obvious bleeding Objective - Vital Signs Vital signs: Vital Signs Temp 97.6 F 02/18/19 09:10 Pulse 101 H 02/18/19 09:10 Resp 16 02/18/19 09:10 BP 106/71 02/18/19 09:10 Pulse Ox 98 02/18/19 09:10 Intake & Output 02/17/19 02/18/19 02/18/19 18:59 06:59 18:59 Intake Total 150 360 Balance 150 360 Intake: Intake, IV Titration 240 Amount Sodium Chloride 0.9% 1, 240 000 ml @ 20 mls/hr IV . Q24H [facility] Rx#:[id number] Oral 150 120 Other: Voiding Method Toilet # Voids 3 1 - Constitutional General appearance: Present: no acute distress - EENT Eyes: Present: EOMI ENT: Present: hearing grossly normal, normal oropharynx - Respiratory Respiratory: bilateral: CTA - Cardiovascular Rhythm: regular Heart sounds: normal: S1, S2 - Gastrointestinal General gastrointestinal: Present: absent bowel sounds, distended Localized gastrointestinal: tender: epigastric periumbilical - Integumentary Integumentary: Present: normal - Neurologic Neurologic: Present: CNII-XII intact - Musculoskeletal Musculoskeletal: Present: generalized weakness, strength equal bilaterally - Psychiatric Psychiatric: Present: A&O x's 3, appropriate affect - Labs CBC & Chem 7: 02/17/19 13:45 02/17/19 13:45 Labs: Abnormal Lab Results - Last 24 Hours (Table) 02/17/19 02/17/19 Range/Units 13:45 13:45 WBC 2.6 L (3.8-10.6) k/uL RBC 3.23 L (3.80-5.40) m/uL Hgb 9.6 L D (11.4-16.0) gm/dL Hct 30.3 L (34.0-46.0) % RDW 19.1 H (11.5-15.5) % Lymphocytes # (Manual) 0.60 L (1.0-4.8) k/uL Sodium 136 L (137-145) mmol/L Creatinine 0.50 L (0.52-1.04) mg/dL Alkaline Phosphatase 128 H (38-126) U/L Albumin 3.4 L (3.5-5.0) g/dL Assessment and Plan (1) Small bowel obstruction Narrative/Plan: The patient appears to have a partial obstruction at this time, as she is passing some gas. She continues to have pain due to the same. As noted previously, the obstruction could be mechanical due to tumor, but enteritis, including ischemic is not ruled out. The patient is nothing by mouth except for ice chips and meds. Surgical consult pending. Continue IV hydration. The results of the CT scan and plan were discussed with her. Current Visit: Yes Status: Acute Code(s): K56.609 - UNSP INTESTNL OBST, UNSP TO PARTIAL VERSUS COMPLETE OBST SNOMED Code(s): 364709994 (2) Abdominal pain Narrative/Plan: Due to above. Pain is better controlled with bowel rest and pain medications. Await surgical recommendations Current Visit: Yes Status: Acute Code(s): R10.9 - UNSPECIFIED ABDOMINAL PAIN SNOMED Code(s): 58930393 (3) Primary cervical squamous cell carcinoma Narrative/Plan: The patient has metastatic disease, on treatment as noted in the initial consult. Her CAT scan otherwise shows no progression with some decrease in tumor burden in the lung and stable disease in the liver. Therefore etiologies other than tumor progression cannot be ruled out as a cause of her small bowel obstruction Treatment is on hold until her acute situation resolves. We will monitor counts. Current Visit: No Status: Chronic Priority: High Code(s): C53.9 - MALIGNANT NEOPLASM OF CERVIX UTERI, UNSPECIFIED SNOMED Code(s): 875317783
[2019-02-18] MEDS: SODIUM CHLORIDE 0.9% 1,000 ML IV SCH ×3 (12:09→23:19)
--- NOTE | 2019-02-18 12:21 | P.GSCN ---
History of Present Illness Consult date: 02/18/19 History of present illness: CHIEF COMPLAINT: Abdominal pain HISTORY OF PRESENT ILLNESS: The patient is a 43 year old female admitted 02/16/2019. She has history of lung cancer stage IV. She reports feeling better today that yesterday. She denies any current nausea. She reports abdominal pain, crampy and at the epigastrium for 5 days. She reports her bowel movements are weekly. She has had similar abdominal pain prior to bowel movements. She reports hunger. PAST MEDICAL HISTORY: See list. PAST SURGICAL HISTORY: See list. MEDICATIONS: See list. ALLERGIES: See list. SOCIAL HISTORY: See list. FAMILY HISTORY: See list. REVIEW OF ORGAN SYSTEMS: CONSTITUTIONAL: No fevers or chills. EYES: Denies any trouble with vision. No glasses. HEENT: No difficulties with hearing. No nosebleeds. No difficulty swallowing. RESPIRATORY: Has stage IV lung cancer CARDIOVASCULAR: Denies any chest pain, palpitations, or recent heart attacks. GASTROINTESTINAL: Denies fatty food intolerance. Has chronic constipation weekly. GENITOURINARY: Denies any blood in urine or increased urinary frequency. NEUROLOGICAL: Denies any numbness or tingling along the distal extremities. No seizure disorders or headaches. MUSCULOSKELETAL: Has back pain, stiffness or joint arthritis. SKIN: No current skin cancer. No rash. PSYCHIATRIC: Has depression. Has anxiety. Has borderline personality disorder ENDOCRINE: Denies current thyroid disorders. Denies any blood sugar glucose intolerance. HEME/LYMPHATIC: On chemotherapy ALLERGY/IMMUNOLOGY: No immunoglobulin therapy. No immune deficiencies. BREAST: Denies current breast lumps, pain or nipple discharge. PHYSICAL EXAM: VITALS: Reviewed CONSTITUTIONAL: Well developed and in no acute distress. EYES: Conjuctivae without sclera icterus. Extraocular movements grossly intact. HEAD, EARS, NOSE, THROAT: Moist buccal mucosa. Head is atraumatic, normocephalic. Hears conversational speech. No nasal drainage. NECK: Supple. No JV distention. No thyroidomegaly. RESPIRATORY: Non-labored respirations and equal bilateral excursions. No gross wheezes. CARDIOVASCULAR: Regular rate and rhythm. Extremities without moderate edema. Palpable 2+ radial pulses. ABDOMEN: Soft. Mild distention. Minimal tenderness at epigastrium. MUSCULOSKELETAL: Nail and fingers with good capillary refill. SKIN: Warm and well perfused with good skin turgor. NEUROLOGIC: Cranial nerves I through XII grossly intact. Sensation upper and extremities intact. No focal or lateralizing signs. PSYCH: Appropriate affect. Alert and oriented to person, place and time. Displays appropriate insight. CLINCAL LABS: Reviewed. White blood cell count 2.6. Hemoglobin 9.6 RADIOLOGY: Report reviewed. Demonstrates confirmed small bowel obstruction with transition point within the abdomen highly suspicious for metastatic process MEDICAL TEST: Endoscopy reviewed from October 2018 demonstrating gastritis. IMAGING: Independently reviewed CT of the abdomen and pelvis demonstrating multiple lesions along the liver highly suspicious for metastatic disease. Small bowel is dilated with small bowel wall edema along the left upper quadr ant. Abdominal ascites also identified. ASSESSMENT: 1. Small bowel obstruction PLAN: 1. Clinically she is feeling better and may start liquid diet 2. No surgical intervention at this time. 3. DVT prophylaxis 4. IV fluid hydration. Thank you for this kind consultation. Past Medical History Past Medical History: Cancer Additional Past Medical History / Comment(s): stage 4 lung cancer,anxiety, recovering opiate addiction clean for a year, borderline personality History of Any Multi-Drug Resistant Organisms: None Reported Past Surgical History: Section, Tubal Ligation Past Anesthesia/Blood Transfusion Reactions: No Reported Reaction Past Psychological History: ADD/ADHD, Anxiety, Depression, Panic Disorder Additional Psychological History / Comment(s): Borderline personality disorder. Pt resides with her significant other and 2 of her adult children. She recieves social security d/t mental health problems. She is independent. She goes to [facility] but needs to set up with new therapist-her current therapist no longer works there. Smoking Status: Former smoker Past Alcohol Use History: None Reported Additional Past Alcohol Use History / Comment(s): Pt started smoking in 2006 q uit a month and a half hgo 5/4 Past Drug Use History: None Reported Additional Drug Use History / Comment(s): Pt is a recovering opiate addict-she has been clean 5 yrs. - Past Family History Father History Unknown: Yes Family Medical History: Liver Disease Additional Family Medical History / Comment(s): Father had hepatitis at the age of 17 yrs. He was an drug addict. He started drinking when his and this lead to his per pt. Mother History Unknown: Yes Additional Family Medical History / Comment(s): Mother is healthy. Medications and Allergies Home Medications Medication Instructions Recorded Confirmed Type cloNIDine HCL 0.3 mg PO HS 05/15/15 02/16/19 History ARIPiprazole [Abilify] 15 mg PO HS 11/01/18 02/16/19 History Vortioxetine Hydrobromide 20 mg PO HS 11/01/18 02/16/19 History [Trintellix] clonazePAM [KlonoPIN] 1 mg PO BID 11/01/18 02/16/19 History lamoTRIgine [LaMICtal] 200 mg PO HS 11/01/18 02/16/19 History Benzonatate [Tessalon Perles] 200 mg PO TID 11/22/18 02/16/19 History Omeprazole 40 mg PO DAILY 11/22/18 02/16/19 History Ondansetron Odt [Zofran Odt] 8 mg PO Q8HR 11/22/18 02/16/19 History Acetaminophen 650 mg PO Q6H PRN 11/30/18 02/16/19 History CHLORPHEN-HYDROcod 8-10mg/5ml 5 ml PO Q12HR 02/16/19 02/16/19 History [Tussionex] LORazepam [Ativan] 0.5 mg PO DAILY PRN 02/16/19 02/16/19 History Allergies Allergy/AdvReac Type Severity Reaction Status Date / Time No Known Allergies Allergy Verified 02/16/19 14:53 Surgical - Exam Vital Signs Temp Pulse Resp BP Pulse Ox 97.6 F 120 H 24 143/85 100 02/16/19 14:04 02/16/19 14:04 02/16/19 14:04 02/16/19 14:04 02/16/19 14:04 Results - Labs 02/17/19 13:45 02/17/19 13:45 Abnormal Lab Results - Last 24 Hours (Table) 02/17/19 02/17/19 Range/Units 13:45 13:45 WBC 2.6 L (3.8-10.6) k/uL RBC 3.23 L (3.80-5.40) m/uL Hgb 9.6 L D (11.4-16.0) gm/dL Hct 30.3 L (34.0-46.0) % RDW 19.1 H (11.5-15.5) % Lymphocytes # (Manual) 0.60 L (1.0-4.8) k/uL Sodium 136 L (137-145) mmol/L Creatinine 0.50 L (0.52-1.04) mg/dL Alkaline Phosphatase 128 H (38-126) U/L Albumin 3.4 L (3.5-5.0) g/dL Diabetes panel 02/17/19 Range/Units 13:45 Sodium 136 L (137-145) mmol/L Potassium 4.3 (3.5-5.1) mmol/L Chloride 99 (98-107) mmol/L Carbon Dioxide 30 (22-30) mmol/L BUN 8 (7-17) mg/dL Creatinine 0.50 L (0.52-1.04) mg/dL Glucose 83 (74-99) mg/dL Calcium 9.2 (8.4-10.2) mg/dL AST 19 (14-36) U/L ALT 17 (9-52) U/L Alkaline Phosphatase 128 H (38-126) U/L Total Protein 6.5 (6.3-8.2) g/dL Albumin 3.4 L (3.5-5.0) g/dL Calcium panel 02/17/19 Range/Units 13:45 Calcium 9.2 (8.4-10.2) mg/dL Albumin 3.4 L (3.5-5.0) g/dL Pituitary panel 02/17/19 Range/Units 13:45 Sodium 136 L (137-145) mmol/L Potassium 4.3 (3.5-5.1) mmol/L Chloride 99 (98-107) mmol/L Carbon Dioxide 30 (22-30) mmol/L BUN 8 (7-17) mg/dL Creatinine 0.50 L (0.52-1.04) mg/dL Glucose 83 (74-99) mg/dL Calcium 9.2 (8.4-10.2) mg/dL Adrenal panel 02/17/19 Range/Units 13:45 Sodium 136 L (137-145) mmol/L Potassium 4.3 (3.5-5.1) mmol/L Chloride 99 (98-107) mmol/L Carbon Dioxide 30 (22-30) mmol/L BUN 8 (7-17) mg/dL Creatinine 0.50 L (0.52-1.04) mg/dL Glucose 83 (74-99) mg/dL Calcium 9.2 (8.4-10.2) mg/dL Total Bilirubin 0.4 (0.2-1.3) mg/dL AST 19 (14-36) U/L ALT 17 (9-52) U/L Alkaline Phosphatase 128 H (38-126) U/L Total Protein 6.5 (6.3-8.2) g/dL Albumin 3.4 L (3.5-5.0) g/dL Assessment and Plan (1) Liver metastases Current Visit: Yes Status: Acute Code(s): C78.7 - SECONDARY MALIG NEOPLASM OF LIVER AND INTRAHEPATIC BILE DUCT SNOMED Code(s): 12338156 (2) Small bowel obstruction Current Visit: Yes Status: Acute Code(s): K56.609 - UNSP INTESTNL OBST, UNSP TO PARTIAL VERSUS COMPLETE OBST SNOMED Code(s): 159087921 (3) Dehydration Current Visit: No Status: Acute Code(s): E86.0 - DEHYDRATION SNOMED Code(s): 45884383 (4) Normocytic hypochromic anemia Current Visit: No Status: Acute Code(s): D50.9 - IRON DEFICIENCY ANEMIA, UNSPECIFIED SNOMED Code(s): 97368755 (5) Lung cancer Current Visit: Yes Status: Acute Code(s): C34.90 - MALIGNANT NEOPLASM OF UNSP PART OF UNSP BRONCHUS OR LUNG SNOMED Code(s): 779647568
[2019-02-18] MEDS: DICYCLOMINE 10 MG CAP PO PRN (13:21)
--- NOTE | 2019-02-18 17:07 | CONS ---
CONSULTATION DATE OF SERVICE: 02/18/2019 REQUESTING PHYSICIAN: Dr. Thomas. REASON FOR CONSULTATION: Abdominal pain. HISTORY OF PRESENT ILLNESS: The patient is a 43-year-old pleasant white female admitted to the hospital because of severe epigastric pain that started about 2 days ago. The pain is mostly in the epigastric and periumbilical area associated with nausea, vomiting. He continued to progressively get worse and hence came to the emergency room and subsequently admitted to the hospital for further evaluation. She was diagnosed with cervical cancer in August of 2017 and initially treated with chemoradiation. Unfortunately, she was diagnosed with lung metastasis in November of this year and currently undergoing chemotherapy. She finished 4 cycles of chemotherapy. The last 1 was about 2 weeks ago. She did have a CT of the abdomen and pelvis done last night that showed incomplete small bowel obstruction with digital ileal transition point in the right mid abdomen and also there was an abnormal masslike wall thickening at the transition point suspicious for neoplastic involvement. Also evidence of multiple hepatic metastasis noted. No evidence of biliary ductal dilation. PAST MEDICAL HISTORY: 1. Significant for metastatic cervical cancer. 2. Hypertension. 3. Anxiety/depression. PAST SURGICAL HISTORY: , tubal ligation. MEDICATIONS: Include Clonidine, Abilify, Trintellix, Lamictal, Tessalon patches, Prilosec, Zofran, Ativan, Acetaminophen. ALLERGIES: None. SOCIAL HISTORY: Remote smoking. No alcohol use. FAMILY HISTORY: Unremarkable. Father had some kind of liver disease. Mother is healthy. REVIEW OF SYSTEMS: CARDIOPULMONARY: No chest pain. No shortness of breath. GENITOURINARY: No dysuria or hematuria. MUSCULOSKELETAL: Some back pain. NEUROLOGY: Unremarkable. PSYCHIATRIC: History of anxiety and depression. ENT/vision unremarkable. CONSTITUTIONAL: Weight loss of 10 pounds. No fever, chills, night sweats. PHYSICAL EXAMINATION: She appears comfortable. No apparent distress. Vital signs are stable. Blood pressure is 112/82, pulse rate 102, temperature 98.3. HEENT examination: Unremarkable. Conjunctivae pink. Sclerae anicteric. Oral cavity no lesions. NECK: No JVD or lymph node enlargement. CHEST: Clear to auscultation. HEART: Regular rate and rhythm. ABDOMEN: Soft, it was slightly distended. There was mild diffuse tenderness. No rebound or rigidity. Bowel sounds are positive. EXTREMITIES: No pedal edema. SKIN: No rashes. NEUROLOGIC: Alert and oriented x3. No focal deficits. LABS: From yesterday WBC 3.6, hemoglobin 7.1, platelets 238. Basic metabolic panel was within normal limits. ALT, AST, T-bilirubin, alkaline phosphatase are normal. Lipase is normal. IMPRESSION: 1. This is a patient with history of stage IV cervical cancer with lung metastasis diagnosed in November of this year, undergoing chemotherapy, status post 4 cycles, last one was 2 weeks ago. Presents to the hospital with abdominal pain mostly in the epigastric and periumbilical area with abdominal distention and nausea, vomiting, and CT scan of the abdomen showing dilated jejunal loops suggestive of partial small-bowel obstruction and a possible masslike lesion in the right mid abdomen at the site of transition suspicious for neoplasm. 2. Cervical cancer originally diagnosed August of 2017 at stage II, status post chemoradiation and subsequently diagnosed with stage IV cervical cancer with lung and liver metastasis, presently undergoing chemotherapy. RECOMMENDATIONS: 1. Keep n.p.o. 2. Await surgical consultation. 3. Pain medications as needed. 4. Protonix 40 mg twice daily. 5. No need for any endoscopy intervention. We will await surgical recommendations. Thank you for this consultation. MMODL / IJN: [id number] /
[2019-02-18] MEDS: VORTIOXETINE HYDROBROMIDE 20 MG TABLET PO SCH (21:05)
[2019-02-18] MEDS: lamoTRIgine 100 MG TAB PO SCH (21:05)
[2019-02-18] MEDS: ARIPiprazole 15 MG TAB PO SCH (21:06)
[2019-02-18] MEDS: cloNIDine HCL 0.1 MG TAB PO SCH (21:06)
[2019-02-19] MEDS: SODIUM CHLORIDE 0.9% 1,000 ML IV SCH ×4 (01:19→19:51)
[2019-02-19] MEDS: HYDROmorphone 1 MG/ML 1 ML SYRINGE IVP PRN ×5 (03:37→17:54)
[2019-02-19] MEDS: [UNRECOGNIZED DRUG - OTHER] PO SCH ×2 (08:59→22:04)
[2019-02-19] MEDS: POLYETHYLENE GLYCOL 3350 17 GM POWD.PACK PO SCH (09:18)
[2019-02-19] MEDS: BENZONATATE 100 MG CAP PO SCH ×3 (09:24→22:03)
[2019-02-19] MEDS: clonazePAM 1 MG TAB PO SCH ×2 (09:24→22:03)
[2019-02-19] MEDS: DICYCLOMINE 10 MG CAP PO PRN (09:25)
[2019-02-19] MEDS: PANTOPRAZOLE 40 MG/10 ML VIAL IV SCH (09:25)
[2019-02-19] MEDS: ONDANSETRON 4 MG/2 ML VIAL IVP PRN ×2 (09:33→22:05)
[2019-02-19 10:06] LABS: Anisocytosis Slight; HCT 28.9 % (34.0-46.0); HGB 9.2 gm/dL (11.4-16.0); Hypochromasia Slight; MCH 29.7 pg (25.0-35.0); MCV 92.6 fL (80.0-100.0); Mean Platelet Volume 6.3; Platelet Count 216 k/uL (150-450); Poikilocytosis Slight; RBC 3.12 m/uL (3.80-5.40); RDW 18.8 % (11.5-15.5); WBC 3.4 k/uL (3.8-10.6)
[2019-02-19 10:13] LABS: African American GFR (CKD) >90 (>60 ml/min/1.73 sqM); Anion Gap 9 mmol/L; Blood Urea Nitrogen 4 mg/dL (7-17); Calcium 9.2 mg/dL (8.4-10.2); Carbon Dioxide 27 mmol/L (22-30); Chloride 97 mmol/L (98-107); Glucose 95 mg/dL (74-99); Potassium 4.1 mmol/L (3.5-5.1); Sodium 133 mmol/L (137-145)
--- NOTE | 2019-02-19 10:43 | P.PN ---
Subjective Progress Note Date: 02/19/19 Principal diagnosis: Cervical cancer with metastatic disease, including lung, liver, and possible small bowel Patient was started on Bentyl 10 mg 1 pill by mouth 4 times daily as needed for abdominal spasm. CT abdomen suggests a mass like wall thickening in the small bowel consistent with or suspicious for neoplastic involvement. Hepatic metastases noted as well Patient is awake alert oriented 3 no new complaints states abdominal discomfort slightly improved. History of primary cervical cancer grade 4 with metastatic disease to lungs and liver and possibly small bowel, resulting in partial SBO Objective - Vital Signs Vital signs: Vital Signs Temp 99.1 F 02/19/19 07:30 Pulse 83 02/19/19 07:30 Resp 18 02/19/19 07:30 BP 111/76 02/19/19 07:30 Pulse Ox 94 L 02/19/19 07:30 Intake & Output 02/18/19 02/19/19 02/19/19 18:59 06:59 18:59 Intake Total 140 1230 360 Balance 140 1230 360 Intake: Intake, IV Titration 140 1050 Amount Sodium Chloride 0.9% 1, 1050 000 ml @ 100 mls/hr IV . Q10H [facility] Rx#:[id number] Sodium Chloride 0.9% 1, 140 000 ml @ 20 mls/hr IV . Q24H [facility] Rx#:[id number] Oral 60 360 Blood Product 120 Other: Voiding Method Toilet # Voids 1 - Exam General: [Patient awake, alert and oriented times 3. Patient in no acute di stress.] HEENT: [PERRL. EOMI. No pharyngeal erythema or exudate.] Neck: [No adenopathy.] Cardiac: [Heart regular in rate and rhythm. No S3. No S4. No clicks, rubs. No murmur.] Lungs: [Clear to auscultation bilaterally.] Abdomen: [No mass. No organomegaly. Bowel sounds presnt and normoactive in all 4 quadrants. Some ascites noted Patient is passing gas, limited diffuse abdominal pain improved from yesterday Extremes: [No edema no cyanosis no claudication normal pulses] : Female genitalia Musculoskeletal: [No joint erythema, edema or tenderness.] Skin: [No rash.] Neurologic: [No lateralizing deficits. CN II - XII grossly intact.] Lymphatic: [No adenopathy.] - Labs CBC & Chem 7: 02/19/19 09:30 02/19/19 09:30 Labs: Abnormal Lab Results - Last 24 Hours (Table) 02/16/19 02/19/19 02/19/19 Range/Units 16:50 09:30 09:30 WBC 3.4 L (3.8-10.6) k/uL RBC 3.12 L (3.80-5.40) m/uL Hgb 9.2 L (11.4-16.0) gm/dL Hct 28.9 L (34.0-46.0) % RDW 18.8 H (11.5-15.5) % Sodium 133 L (137-145) mmol/L Chloride 97 L (98-107) mmol/L BUN 4 L (7-17) mg/dL Creatinine 0.46 L (0.52-1.04) mg/dL Crossmatch See Detail Assessment and Plan (1) Abdominal pain Current Visit: Yes Status: Acute Code(s): R10.9 - UNSPECIFIED ABDOMINAL PAIN SNOMED Code(s): 10056777 (2) Anemia Current Visit: Yes Status: Acute Code(s): D64.9 - ANEMIA, UNSPECIFIED SNOMED Code(s): 149706839 (3) Liver metastases Current Visit: Yes Status: Acute Code(s): C78.7 - SECONDARY MALIG NEOPLASM OF LIVER AND INTRAHEPATIC BILE DUCT SNOMED Code(s): 10495804 (4) Primary cervical squamous cell carcinoma Current Visit: No Status: Chronic Priority: High Code(s): C53.9 - MALIGNANT NEOPLASM OF CERVIX UTERI, UNSPECIFIED SNOMED Code(s): 729573215 Plan: Possible small bowel metastases Hold MiraLAX for now Continue Bentyl increased to 20 mg as scheduled seems to be helping spasm Known liver metastases no increase in size or number Known lung metastases no change Primary cervical cancer by history GI evaluation pending/surgical evaluation pending Time with Patient: Greater than 30
[2019-02-19 10:52] LABS: Lymphocytes # (M) 0.54 k/uL (1.0-4.8); Monocytes # (M) 0.85 k/uL (0-1.0); Neutrophils % (M) 59 %; Nucleated Red Blood Cells 0 /100 WBC (0-0); Total Cells Counted 100
[2019-02-19] MEDS ORDERED: BISACODYL 10 MG SUPP RECTAL STA (12:34)
--- NOTE | 2019-02-19 12:34 | P.PN ---
Subjective Progress Note Date: 02/19/19 CHIEF COMPLAINT: Abdominal pain HISTORY OF PRESENT ILLNESS: The patient is a 43 year old female admitted 02/16/2019. She has history of cervical cancer stage IV with metastases to liver and lung. Upon discussion with admitting provider, patient has been on liquid diet for 1 week. Primary team uncomfortable for any discharge with possible metastatic disease to the abdomen and small bowel obstruction. I had an extended conversation between her and her mother at bedside over 35 minutes. She reports feeling better than yesterday and is passing flatus. She reports chronic constipation. She does report occassional crampy abdominal pain that goes in waves. She reports being on chemotherapy for cervical cancer spread to her lungs. "I want to go home." We reviewed the progression of gynecological cancer to the abdomen including "frozen" abdomen. Her risk factors for bowel obstruction also includes past . She does not want surgery at this time and is seeking alternatives. ROS: No fevers or chills. No bowel movements. She is passing flatus. No chest pain. No productive sputum. PHYSICAL EXAM: VITALS: Reviewed CONSTITUTIONAL: Well developed and in no acute distress. EYES: Conjuctivae without sclera icterus. Extraocular movements grossly intact. HEAD, EARS, NOSE, THROAT: Moist buccal mucosa. Head is atraumatic, normocephalic. Hears conversational speech. No nasal drainage. NECK: Supple. No JV distention. No thyroidomegaly. RESPIRATORY: Non-labored respirations and equal bilateral excursions. No gross wheezes. CARDIOVASCULAR: Regular rate and rhythm. Extremities without moderate edema. Palpable 2+ radial pulses. ABDOMEN: Soft. Mild distention. No diffuse peritonitis. MUSCULOSKELETAL: Nail and fingers with good capillary refill. SKIN: Warm and well perfused with good skin turgor. NEUROLOGIC: Cranial nerves I through XII grossly intact. Sensation upper and extremities intact. No focal or lateralizing signs. PSYCH: Appropriate affect. Alert and oriented to person, place and time. Displays appropriate insight. CLINCAL LABS: Reviewed. White blood cell count 2.6 increased to 3.4. Hemoglobin 9.2 ASSESSMENT: 1. Small bowel obstruction 2. Metastatic cervical cancer, stage IV to lung and liver 3. Abnormal computed tomography scan with possible metastatic disease to the abdomen PLAN: 1. Per discussion with admitting provider, patient does have stage IV cervical cancer to lung and liver not primary lung cancer. 2. Overall nature of cervical cancer or gynecologic cancer includes spread to the peritoneum of the abdomen and frozen abdomen and small bowel obstructions are common. 3. As she is passing flatus, will do trial of full liquid diet and suppositories. She reports taking suppositories in the past. 4. She is currently on chemotherapy where emergent surgical intervention is high risk for perioperative complications as was discussed with her and her family. 5. She may benefit from additional surgical opinions to help with her decision for surgery. She is pending evaluation by Dr. Flynn. Coordination of care and discussion over 37 minutes Objective - Vital Signs Vital signs: Vital Signs Temp 99.1 F 02/19/19 07:30 Pulse 83 02/19/19 07:30 Resp 18 02/19/19 07:30 BP 111/76 02/19/19 07:30 Pulse Ox 94 L 02/19/19 07:30 Intake & Output 02/18/19 02/19/19 02/19/19 18:59 06:59 18:59 Intake Total 140 1230 360 Balance 140 1230 360 Intake: Intake, IV Titration 140 1050 Amount Sodium Chloride 0.9% 1, 1050 000 ml @ 100 mls/hr IV . Q10H [facility] Rx#:[id number] Sodium Chloride 0.9% 1, 140 000 ml @ 20 mls/hr IV . Q24H [facility] Rx#:[id number] Oral 60 360 Blood Product 120 Other: Voiding Method Toilet # Voids 1 - Labs CBC & Chem 7: 02/19/19 09:30 02/19/19 09:30 Labs: Abnormal Lab Results - Last 24 Hours (Table) 02/16/19 02/19/19 02/19/19 Range/Units 16:50 09:30 09:30 WBC 3.4 L (3.8-10.6) k/uL RBC 3.12 L (3.80-5.40) m/uL Hgb 9.2 L (11.4-16.0) gm/dL Hct 28.9 L (34.0-46.0) % RDW 18.8 H (11.5-15.5) % Lymphocytes # (Manual) 0.54 L (1.0-4.8) k/uL Sodium 133 L (137-145) mmol/L Chloride 97 L (98-107) mmol/L BUN 4 L (7-17) mg/dL Creatinine 0.46 L (0.52-1.04) mg/dL Crossmatch See Detail Assessment and Plan (1) Liver metastases Current Visit: Yes Status: Acute Code(s): C78.7 - SECONDARY MALIG NEOPLASM OF LIVER AND INTRAHEPATIC BILE DUCT SNOMED Code(s): 80835591 (2) Small bowel obstruction Current Visit: Yes Status: Acute Code(s): K56.609 - UNSP INTESTNL OBST, UNSP TO PARTIAL VERSUS COMPLETE OBST SNOMED Code(s): 161197721 (3) Dehydration Current Visit: No Status: Acute Code(s): E86.0 - DEHYDRATION SNOMED Code(s): 78776293 (4) Normocytic hypochromic anemia Current Visit: No Status: Acute Code(s): D50.9 - IRON DEFICIENCY ANEMIA, UNSPECIFIED SNOMED Code(s): 03020042 (5) Primary cervical cancer with metastasis to other site Current Visit: Yes Status: Acute Code(s): C53.9 - MALIGNANT NEOPLASM OF CERVIX UTERI, UNSPECIFIED SNOMED Code(s): 257640665
--- NOTE | 2019-02-19 13:17 | PN ---
PROGRESS NOTE DATE OF SERVICE: 02/19/2019 The patient is a 43-year-old pleasant white female with history of metastatic cervical cancer who is undergoing chemotherapy; was admitted the hospital with abdominal pain, abdominal distention, nausea, vomiting. She is feeling better today. She still has some epigastric discomfort and some abdominal distention. She was seen by Dr. Zheng yesterday. She still feels extremely constipated and normally has bowel movements once a week. She has been drinking MiraLAX 17 g daily with no help so far. No fever, chills, or night sweats. PHYSICAL EXAMINATION: She appears comfortable. No apparent distress. VITAL SIGNS: Stable. Blood pressure is 109/69, pulse 93, temperature 98.7. HEENT examination unremarkable. Conjunctivae pink. Sclerae anicteric. Oral cavity no lesions. NECK: No JVD or lymph node enlargement. CHEST: Clear to auscultation. HEART: Regular rate and rhythm. ABDOMEN: Slightly distended. Bowel sounds are positive. There is minimal tenderness in the epigastric area. EXTREMITIES: No pedal edema. SKIN: No rashes. NEUROLOGIC: Alert and oriented x3. No focal deficits. LABS: WBC 3.4, hemoglobin 9.2, platelets 216. Basic metabolic panel is within normal limits. IMPRESSION: 1. Partial small-bowel obstruction secondary to tumor progression with a transition point in the distal ileum. The abdominal pain is gradually improving. She was seen by Dr. Zheng yesterday and continue with conservative approach. 2. Metastatic cervical cancer with lung and liver metastasis, presently undergoing chemotherapy. RECOMMENDATIONS: 1. Increase MiraLAX to 17 g twice daily. 2. Further management per surgical service. 3. At this time we will sign off. Please call us if needed. Thank you for this consultation. MMODL / IJN: [id number] /
[2019-02-19] MEDS: cloNIDine HCL 0.1 MG TAB PO SCH (22:03)
[2019-02-19] MEDS: ARIPiprazole 15 MG TAB PO SCH (22:03)
[2019-02-19] MEDS: lamoTRIgine 100 MG TAB PO SCH (22:03)
[2019-02-19] MEDS: VORTIOXETINE HYDROBROMIDE 20 MG TABLET PO SCH (22:03)
[2019-02-20] MEDS: SODIUM CHLORIDE 0.9% 1,000 ML IV SCH ×2 (05:48→18:06)
[2019-02-20] MEDS: HYDROmorphone 1 MG/ML 1 ML SYRINGE IVP PRN ×5 (05:51→20:58)
[2019-02-20] MEDS: [UNRECOGNIZED DRUG - OTHER] PO SCH ×2 (09:02→20:21)
[2019-02-20] MEDS: BISACODYL 10 MG SUPP RECTAL SCH (09:04)
[2019-02-20] MEDS: clonazePAM 1 MG TAB PO SCH ×2 (09:13→21:14)
[2019-02-20] MEDS: ONDANSETRON 4 MG/2 ML VIAL IVP PRN ×2 (09:13→21:16)
[2019-02-20] MEDS: BENZONATATE 100 MG CAP PO SCH ×3 (09:13→22:05)
[2019-02-20] MEDS: POLYETHYLENE GLYCOL 3350 17 GM POWD.PACK PO SCH (09:14)
[2019-02-20] MEDS: PANTOPRAZOLE 40 MG TABLET PO SCH (09:14)
[2019-02-20 10:45] LABS: Anisocytosis Slight; Basophils # (A) 0.1 k/uL (0-0.2); Basophils % (A) 1 %; Eosinophils % (A) 1 %; HCT 28.6 % (34.0-46.0); HGB 9.4 gm/dL (11.4-16.0); Hypochromasia Slight; Lymphocytes # (A) 0.5 k/uL (1.0-4.8); Lymphocytes % (A) 11 %; MCH 30.5 pg (25.0-35.0); MCHC 32.9 g/dL (31.0-37.0); MCV 92.7 fL (80.0-100.0); Mean Platelet Volume 6.5; Monocytes # (A) 0.4 k/uL (0-1.0); Monocytes % (A) 9 %; Neutrophils # (A) 3.7 k/uL (1.3-7.7); Neutrophils % (A) 75 %; Platelet Count 201 k/uL (150-450); Poikilocytosis Slight; RBC 3.08 m/uL (3.80-5.40); RDW 18.4 % (11.5-15.5); WBC 4.9 k/uL (3.8-10.6)
[2019-02-20 11:01] LABS: African American GFR (CKD) >90 (>60 ml/min/1.73 sqM); Anion Gap 9 mmol/L; Blood Urea Nitrogen 3 mg/dL (7-17); Calcium 9.1 mg/dL (8.4-10.2); Carbon Dioxide 30 mmol/L (22-30); Chloride 96 mmol/L (98-107); Glucose 99 mg/dL (74-99); Potassium 4.1 mmol/L (3.5-5.1); Sodium 135 mmol/L (137-145)
--- NOTE | 2019-02-20 14:26 | P.PN ---
<Tabitha Hayes A - Last Filed: 02/20/19 14:21> Subjective Progress Note Date: 02/20/19 CHIEF COMPLAINT: Abdominal pain HISTORY OF PRESENT ILLNESS: Patient examined this morning at the bedside. Family present. Patient reports mid abdomen/epigastric pain this morning which she re ports has been going on for about a week. She reports feeling bloated. She reports a large formed bowel movement yesterday. Apparently, the patient only has bowel movements about once a week which has been her norm for quite some time. She is passing flatus. She tolerated full liquid diet for breakfast but does not the taste of many of the items on her tray. She denies nausea or vomiting. She is requesting to have her diet advanced. PHYSICAL EXAM: VITAL SIGNS: Reviewed. GENERAL: Well-developed in no acute distress. HEENT: No sclera icterus. Extraocular movements grossly intact. Moist buccal mucosa. Head is atraumatic, normocephalic. ABDOMEN: Soft. Distended. Tenderness with palpation of mid abdomen and epigastric region. NEUROLOGIC: Alert and oriented. Cranial nerves II through XII grossly intact. ASSESSMENT: 1. Small bowel obstruction 2. Metastatic cervical cancer, stage IV to lung and liver 3. Abnormal computed tomography scan with possible metastatic disease to the abdomen 4. Chronic constipation PLAN: 1. Patient has been tolerating full liquid diet. She is passing flatus and had a large BM yesterday. Patient requesting to have diet advanced as she does not like many of the items on full liquid tray. Will advance diet but recommend patient choose softer foods from the menu that she likes. 2. Continue daily Dulcolax suppositories 3. Dr. Zheng (covering for Dr. Flynn) evaluated patient yesterday and no surgical intervention was recommended. Dr. Flynn to evaluate patient this afternoon. Nurse practitioner note has been reviewed by physician. Signing provider agrees with the documented findings, assessment, and plan of care. Objective - Vital Signs Vital signs: Vital Signs Temp 98.1 F 02/20/19 12:15 Pulse 97 02/20/19 12:15 Resp 16 02/20/19 12:15 BP 131/77 02/20/19 12:15 Pulse Ox 98 02/20/19 12:15 Intake & Output 02/19/19 02/20/19 02/20/19 18:59 06:59 18:59 Intake Total 804 195 2283 Balance 746 602 7696 Weight 62.596 kg Intake: Intake, IV Titration 1050 Amount Sodium Chloride 0.9% 1, 1050 000 ml @ 100 mls/hr IV . Q10H LAYLA Rx#:[id number] Oral 840 240 120 Other: Voiding Method Toilet # Voids 1 1 - Labs CBC & Chem 7: 02/20/19 10:40 02/20/19 10:40 Labs: Abnormal Lab Results - Last 24 Hours (Table) 02/20/19 02/20/19 Range/Units 10:40 10:40 RBC 3.08 L (3.80-5.40) m/uL Hgb 9.4 L (11.4-16.0) gm/dL Hct 28.6 L (34.0-46.0) % RDW 18.4 H (11.5-15.5) % Lymphocytes # 0.5 L (1.0-4.8) k/uL Sodium 135 L (137-145) mmol/L Chloride 96 L (98-107) mmol/L BUN 3 L (7-17) mg/dL Creatinine 0.48 L (0.52-1.04) mg/dL <Alex Flynn - Last Filed: 02/20/19 15:14> Subjective As above. Patient seen yesterday on consultation. Doing better at this time. CAT scan was reviewed. There certainly does appear to be a transition point in the distal jejunum proximal ileum. Underlying malignancy at that location is li kirk. Patient however is tolerating her diet thus far. Denies nausea today. Only mild abdominal pain. She still feels bloated. She would like to try advancing diet in fact her diet was advanced earlier today. She has tolerated that thus far. We'll plan modifying dietary order to a low fiber dysphagia diet. We'll reassess tomorrow. Additional imaging could be obtained. We'll discuss this further with oncology. Objective - Vital Signs Vital signs: Vital Signs Temp 98.1 F 02/20/19 12:15 Pulse 97 02/20/19 12:15 Resp 16 02/20/19 12:15 BP 131/77 02/20/19 12:15 Pulse Ox 98 02/20/19 12:15 Intake & Output 02/19/19 02/20/19 02/20/19 18:59 06:59 18:59 Intake Total 446 596 4008 Balance 068 689 7088 Weight 62.596 kg Intake: Intake, IV Titration 1050 Amount Sodium Chloride 0.9% 1, 1050 000 ml @ 100 mls/hr IV . Q10H LAYLA Rx#:[id number] Oral 840 240 120 Other: Voiding Method Toilet # Voids 1 1 - Labs CBC & Chem 7: 02/20/19 10:40 02/20/19 10:40 Labs: Abnormal Lab Results - Last 24 Hours (Table) 02/20/19 02/20/19 Range/Units 10:40 10:40 RBC 3.08 L (3.80-5.40) m/uL Hgb 9.4 L (11.4-16.0) gm/dL Hct 28.6 L (34.0-46.0) % RDW 18.4 H (11.5-15.5) % Lymphocytes # 0.5 L (1.0-4.8) k/uL Sodium 135 L (137-145) mmol/L Chloride 96 L (98-107) mmol/L BUN 3 L (7-17) mg/dL Creatinine 0.48 L (0.52-1.04) mg/dL
--- NOTE | 2019-02-20 15:28 | P.PN ---
Subjective Progress Note Date: 02/20/19 Principal diagnosis: abd pain, anemia, s/p chemo for metastatic ovarian In f/u today pt is better then on admit, her abd pain is controlled, she does not feel that her abd is more distended then previously, she has had a BM and that helped. No fever, nausea or vomiting, SOB, JOHNNY, epigastric discomfort is stable, no swelling she is independently ambulatory. Objective - Vital Signs Vital signs: Vital Signs Temp 98.1 F 02/20/19 12:15 Pulse 97 02/20/19 12:15 Resp 16 02/20/19 12:15 BP 131/77 02/20/19 12:15 Pulse Ox 98 02/20/19 12:15 Intake & Output 02/19/19 02/20/19 02/20/19 18:59 06:59 18:59 Intake Total 056 656 3328 Balance 619 413 6236 Weight 62.596 kg Intake: Intake, IV Titration 1050 Amount Sodium Chloride 0.9% 1, 1050 000 ml @ 100 mls/hr IV . Q10H LAYLA Rx#:[id number] Oral 840 240 120 Other: Voiding Method Toilet # Voids 1 1 - Constitutional General appearance: Present: average body habitus, cooperative, no acute distress - EENT Eyes: Present: anicteric sclerae, EOMI ENT: Present: hearing grossly normal - Respiratory Respiratory: bilateral: CTA - Cardiovascular Rhythm: regular Heart sounds: normal: S1, S2 Abnormal Heart Sounds: Absent: systolic murmur, diastolic murmur, rub, S3 Gallop, S4 Gallop, click, other - Peripheral edema leg Peripheral Edema: bilateral: None - Gastrointestinal Gastrointestinal Comment(s): sitting upright lower abd to to just above naval dull to percussion General gastrointestinal: Present: distended, normal bowel sounds, soft - Neurologic Neurologic: Present: CNII-XII intact - Musculoskeletal Musculoskeletal: Present: strength equal bilaterally - Psychiatric Psychiatric: Present: A&O x's 3, appropriate affect, intact judgment & insight - Labs CBC & Chem 7: 02/20/19 10:40 02/20/19 10:40 Labs: Abnormal Lab Results - Last 24 Hours (Table) 02/20/19 02/20/19 Range/Units 10:40 10:40 RBC 3.08 L (3.80-5.40) m/uL Hgb 9.4 L (11.4-16.0) gm/dL Hct 28.6 L (34.0-46.0) % RDW 18.4 H (11.5-15.5) % Lymphocytes # 0.5 L (1.0-4.8) k/uL Sodium 135 L (137-145) mmol/L Chloride 96 L (98-107) mmol/L BUN 3 L (7-17) mg/dL Creatinine 0.48 L (0.52-1.04) mg/dL Assessment and Plan (1) Abdominal pain Narrative/Plan: Improved with BM and medications. Pt encouraged to maintain soft stool with use of medications Current Visit: Yes Status: Acute Priority: High Code(s): R10.9 - UNSPECIFIED ABDOMINAL PAIN SNOMED Code(s): 90453931 (2) Small bowel obstruction Narrative/Plan: Surgical notes reviewed, pending Dr. Flynn evaluation of pt Concern is for what is the source of pt abd pain. Recent CT showed stable disease in the liver and what was seen in the lung bases. There is discussion of masslike thickening at the distal ileum but, no other concerning findings in the abd. Pending Surgical opinion, as to if biopsy or exp lap may be appropriate to further evaluate the area. Current Visit: Yes Status: Acute Priority: High Code(s): K56.609 - UNSP INTESTNL OBST, UNSP TO PARTIAL VERSUS COMPLETE OBST SNOMED Code(s): 510152293 (3) Primary cervical cancer with metastasis to other site Narrative/Plan: Pt is s/p 4/6 cycles of 1st line treatment. Stable disease in liver and lungs, distal ileum thickening is area of concern. Will await opinion of Surgeon. Current Visit: Yes Status: Chronic Priority: Medium Code(s): C53.9 - MALIGNANT NEOPLASM OF CERVIX UTERI, UNSPECIFIED SNOMED Code(s): 212015620
--- NOTE | 2019-02-20 15:39 | P.PN ---
Subjective Progress Note Date: 02/20/19 This a 43-year-old female history of stage IIB cervical squama cell CA ,stage IV lung cancer metastasis, squamous cell carcinoma of right pleura, status post chemotherapy, radiation ,anxiety, recovering opiate addiction, depression, panic disorder, borderline personality disorder, former nicotine dependence, and multiple other medical issues, presented to the ER with complaints of mid epigastric abdominal pain, abdominal cramping, spasming, nausea/vomiting. Denies hematemesis. Denies fever or chills Receive 1 unit of packed RBCs in the ER. KUB reporting no signs of obstruction, small right effusion with possible infiltrate. Patient reports recent CT reporting improvement. Last bowel movement yesterday-hardened. Routinely has 1-2 bowel movements per week. Received IV fluid hydration. Clear liquid diet initiated. Patient was started on Bentyl 10 mg 1 pill by mouth 4 times daily as needed for abdominal spasm. CT abdomen suggests a mass like wall thickening in the small bowel consistent with or suspicious for neoplastic involvement. Hepatic metastases noted as well Patient is awake alert oriented 3 no new complaints states abdominal discomfort slightly improved. History of primary cervical cancer grade 4 with metastatic disease to lungs and liver and possibly small bowel, resulting in partial SBO 02/20/2019 Reports large bowel movement yesterday. No nausea vomiting. Diet intake improving, consumed 100% full liquid diet at lunch. Requesting diet advancement. Passing flatus today. Mid-epigastric pain continues, evaluated by surgery yesterday with no surgical interventions recommended. Objective - Vital Signs Vital signs: Vital Signs Temp 99.2 F 02/20/19 09:21 Pulse 80 02/20/19 09:21 Resp 16 02/20/19 09:21 BP 110/77 02/20/19 09:21 Pulse Ox 94 L 02/20/19 09:21 Intake & Output 02/19/19 02/20/19 02/20/19 18:59 06:59 18:59 Intake Total 711 717 8991 Balance 693 405 5580 Weight 62.596 kg Intake: Intake, IV Titration 1050 Amount Sodium Chloride 0.9% 1, 1050 000 ml @ 100 mls/hr IV . Q10H LAYLA Rx#:[id number] Oral 840 240 120 Other: Voiding Method Toilet # Voids 1 1 - Exam VITAL SIGNS: As above GENERAL: Sitting up in bed, no acute distress HEENT: Conjunctivae normal. eyes normal. NECK: No JVD. No thyroid enlargement. No LNs CARDIOVASCULAR: S1, S2 regular.. No murmur RESPIRATION: Breath sounds diminished in the bases. No rhonchi or crackles. No bronchial breathing. ABDOMEN: Soft. Distended, ascites. Mid epigastric abdominal tenderness.No guarding. no masses palpable. Positive Bowel sounds. LEGS: No edema. no swelling. PSYCHIATRY: Alert and oriented X3, mood and affect normal. NERVOUS SYSTEM: Cranial N 2-12 grossly normal. Moves all 4 limbs. No focal deficits. Strength and sensation grossly intact.. Skin: no lesions, no rash Joints: No active swelling. No inflammation. - Labs CBC & Chem 7: 02/20/19 10:40 02/20/19 10:40 Labs: Abnormal Lab Results - Last 24 Hours (Table) 02/20/19 Range/Units 10:40 RBC 3.08 L (3.80-5.40) m/uL Hgb 9.4 L (11.4-16.0) gm/dL Hct 28.6 L (34.0-46.0) % RDW 18.4 H (11.5-15.5) % Lymphocytes # 0.5 L (1.0-4.8) k/uL Assessment and Plan Assessment: -Abdominal pain with spasms, radiation Sequlae, possible small bowel metastasis, small bowel obstruction. -Symptomatic Chronic anemia, status post 1 unit of packed RBCs -Stage IIB Cervical squamous Cell cancer, 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 Maintain on Bentyl ,Protonix. Dr. Flynn evaluation pending. Further recommendations to follow. The impression and plan of care has been dictated as directed. : I performed a history and examination of this patient, discussed the same with the dictator. I agree with the dictator's note ,documented as a scribe. Any additional findings or plans will be noted. Time taken: 35 minutes
[2019-02-20] MEDS: DICYCLOMINE 20 MG TAB PO PRN (21:14)
[2019-02-20] MEDS: cloNIDine HCL 0.1 MG TAB PO SCH (21:14)
[2019-02-20] MEDS: ARIPiprazole 15 MG TAB PO SCH (21:15)
[2019-02-20] MEDS: lamoTRIgine 100 MG TAB PO SCH (21:15)
[2019-02-20] MEDS: VORTIOXETINE HYDROBROMIDE 20 MG TABLET PO SCH (21:15)
[2019-02-21] MEDS: SODIUM CHLORIDE 0.9% 1,000 ML IV SCH ×3 (03:06→21:32)
[2019-02-21] MEDS: HYDROmorphone 1 MG/ML 1 ML SYRINGE IVP PRN ×3 (04:12→22:02)
[2019-02-21] MEDS: POLYETHYLENE GLYCOL 3350 17 GM POWD.PACK PO SCH (08:15)
[2019-02-21] MEDS: clonazePAM 1 MG TAB PO SCH ×2 (08:15→21:24)
[2019-02-21] MEDS: PANTOPRAZOLE 40 MG TABLET PO SCH ×2 (08:15→21:25)
[2019-02-21] MEDS: BENZONATATE 100 MG CAP PO SCH ×3 (08:15→21:25)
[2019-02-21] MEDS: BISACODYL 10 MG SUPP RECTAL SCH ×2 (08:15→08:26)
[2019-02-21] MEDS: ONDANSETRON 4 MG/2 ML VIAL IVP PRN (08:25)
[2019-02-21] MEDS: [UNRECOGNIZED DRUG - OTHER] PO SCH ×2 (08:27→21:15)
[2019-02-21] MEDS ORDERED: LORazepam 2 MG/ML INJ IV STA (11:22)
[2019-02-21] MEDS ORDERED: ONDANSETRON 4 MG/2 ML VIAL IVP STA (11:22)
[2019-02-21] MEDS: HYDROmorphone 0.5 MG/0.5 ML SYRINGE IVP PRN ×3 (12:02→19:08)
--- NOTE | 2019-02-21 14:07 | P.PN ---
<AbigailTabitha Vela - Last Filed: 02/21/19 13:15> Subjective Progress Note Date: 02/21/19 CHIEF COMPLAINT: Abdominal pain HISTORY OF PRESENT ILLNESS: Patient examined at the bedside. She reports continued abdominal bloating today. She reports mid abdomen/epigastric pain that she believes is a little worse than yesterday. She states none of the food tastes good. She reports only having a few bites of food throughout the day. Passing flatus. Reports two large formed bowel movements today. Patient also had two episodes of emesis. PHYSICAL EXAM: VITAL SIGNS: Reviewed. GENERAL: Well-developed in no acute distress. HEENT: No sclera icterus. Extraocular movements grossly intact. Moist buccal mucosa. Head is atraumatic, normocephalic. ABDOMEN: Soft. Distended. Tenderness with palpation of mid abdomen and epigastric region. NEUROLOGIC: Alert and oriented. Cranial nerves II through XII grossly intact. ASSESSMENT: 1. Small bowel obstruction 2. Metastatic cervical cancer, stage IV to lung and liver 3. Abnormal computed tomography scan with possible metastatic disease to the abdomen 4. Chronic constipation PLAN: 1. Diet as tolerated. 2. Continue daily Dulcolax suppositories 3. Obtain upper GI with small bowel follow through. Further recommendations pending results. Nurse practitioner note has been reviewed by physician. Signing provider agrees with the documented findings, assessment, and plan of care. Objective - Vital Signs Vital signs: Vital Signs Temp 98.4 F 02/21/19 11:05 Pulse 95 02/21/19 11:05 Resp 16 02/21/19 11:05 BP 116/83 02/21/19 11:05 Pulse Ox 97 02/21/19 11:05 Intake & Output 02/20/19 02/21/19 02/21/19 18:59 06:59 18:59 Intake Total 1410 1440 Output Total 60 Balance 1410 1380 Intake: Intake, IV Titration 1050 1200 Amount Sodium Chloride 0.9% 1, 1050 1200 000 ml @ 100 mls/hr IV . Q10H LAYLA Rx#:[id number] Oral 360 240 Output: Emesis 60 Other: Voiding Method Toilet # Voids 1 1 - Labs CBC & Chem 7: 02/20/19 10:40 02/20/19 10:40 <Alex Flynn - Last Filed: 02/21/19 16:57> Subjective As above. Patient still nauseated. 1 episode of vomiting earlier today. Opt ions reviewed with the patient and also with oncology. We'll plan small bowel series tomorrow morning. Further recommendations to follow. Begin clear liquid diet at this time. Objective - Vital Signs Vital signs: Vital Signs Temp 98.4 F 02/21/19 11:05 Pulse 90 02/21/19 16:00 Resp 16 02/21/19 16:00 BP 116/83 02/21/19 11:05 Pulse Ox 97 02/21/19 11:05 Intake & Output 02/20/19 02/21/19 02/21/19 18:59 06:59 18:59 Intake Total 1410 1440 Output Total 60 Balance 1410 1380 Intake: Intake, IV Titration 1050 1200 Amount Sodium Chloride 0.9% 1, 1050 1200 000 ml @ 100 mls/hr IV . Q10H LAYLA Rx#:[id number] Oral 360 240 Output: Emesis 60 Other: Voiding Method Toilet Toilet # Voids 1 1 2 # Bowel Movements 1 - Labs CBC & Chem 7: 02/20/19 10:40 02/20/19 10:40
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
[2019-02-21] MEDS: ONDANSETRON 4 MG TAB PO SCH ×2 (17:27→23:14)
[2019-02-21] MEDS: LORazepam 1 MG TAB PO SCH ×2 (17:27→21:25)
[2019-02-21] MEDS: DICYCLOMINE 20 MG TAB PO PRN (21:25)
[2019-02-21] MEDS: cloNIDine HCL 0.1 MG TAB PO SCH (21:25)
[2019-02-21] MEDS: ARIPiprazole 15 MG TAB PO SCH (21:25)
[2019-02-21] MEDS: lamoTRIgine 100 MG TAB PO SCH (21:25)
[2019-02-21] MEDS: VORTIOXETINE HYDROBROMIDE 20 MG TABLET PO SCH (21:25)
[2019-02-22] MEDS: HYDROmorphone 1 MG/ML 1 ML SYRINGE IVP PRN ×3 (05:37→22:13)
[2019-02-22] MEDS: HYDROmorphone 0.5 MG/0.5 ML SYRINGE IVP PRN (09:32)
[2019-02-22] MEDS: POLYETHYLENE GLYCOL 3350 17 GM POWD.PACK PO SCH (09:32)
[2019-02-22] MEDS: ONDANSETRON 4 MG TAB PO SCH ×3 (09:32→22:10)
[2019-02-22] MEDS: PANTOPRAZOLE 40 MG TABLET PO SCH ×2 (09:32→22:10)
[2019-02-22] MEDS: clonazePAM 1 MG TAB PO SCH ×2 (09:35→22:10)
[2019-02-22] MEDS: BENZONATATE 100 MG CAP PO SCH ×3 (09:36→22:13)
[2019-02-22] MEDS: BISACODYL 10 MG SUPP RECTAL SCH (09:36)
[2019-02-22] MEDS: SODIUM CHLORIDE 0.9% 1,000 ML IV SCH ×2 (09:41→15:34)
[2019-02-22] MEDS: LORazepam 1 MG TAB PO SCH (09:42)
[2019-02-22] MEDS: [UNRECOGNIZED DRUG - OTHER] PO SCH ×2 (09:42→22:12)
--- NOTE | 2019-02-22 11:37 | P.PN ---
<AbigailAlicjaTabitha A - Last Filed: 02/22/19 11:35> Subjective Progress Note Date: 02/22/19 CHIEF COMPLAINT: Abdominal pain HISTORY OF PRESENT ILLNESS: Patient examined at the bedside. Patient states she had a good night overall. Abdominal pain is about the same. She has been tolera ting liquid diet. Denies further episodes of emesis. PHYSICAL EXAM: VITAL SIGNS: Reviewed. GENERAL: Well-developed in no acute distress. HEENT: No sclera icterus. Extraocular movements grossly intact. Moist buccal mucosa. Head is atraumatic, normocephalic. ABDOMEN: Soft. Distended. Tenderness with palpation of mid abdomen and epigastric region. NEUROLOGIC: Alert and oriented. Cranial nerves II through XII grossly intact. ASSESSMENT: 1. Small bowel obstruction 2. Metastatic cervical cancer, stage IV to lung and liver 3. Abnormal computed tomography scan with possible metastatic disease to the abdomen 4. Chronic constipation PLAN: 1. Clear liquid diet 2. Continue daily Dulcolax suppositories 3. Small bowel series ordered this morning. Await results. Further recommendations pending results of small bowel series. Nurse practitioner note has been reviewed by physician. Signing provider agrees with the documented findings, assessment, and plan of care. Objective - Vital Signs Vital signs: Vital Signs Temp 97.9 F 02/22/19 05:00 Pulse 87 02/22/19 05:00 Resp 16 02/22/19 05:00 BP 118/80 02/22/19 05:00 Pulse Ox 97 02/22/19 05:00 Intake & Output 02/21/19 02/22/19 02/22/19 18:59 06:59 18:59 Intake Total 1440 1420 Balance 1440 1420 Intake: Intake, IV Titration 350 Amount Sodium Chloride 0.9% 1, 350 000 ml @ 100 mls/hr IV . Q10H [facility] Rx#:[id number] Oral 1440 1070 Other: Voiding Method Toilet Toilet # Voids 2 2 # Bowel Movements 1 - Labs CBC & Chem 7: 02/20/19 10:40 02/20/19 10:40 <Alex Flynn - Last Filed: 02/22/19 18:59> Subjective As above. Patient ate solid food yesterday. According to the family and the patient she had bad crampy abdominal pain last night. No significant bowel function. Small bowel series reviewed. Persistent partial obstruction noted. Decompressed distal small bowel loops once again seen. Options reviewed with the patient and her family in detail. At this time we will plan diagnostic laparoscopy with conversion to laparotomy if necessary. Possible need for bowel resection reviewed. Risks of bleeding, infection, negative laparoscopy, leak, abscess, hernia, potential findings of carcinomatosis with frozen abdomen reviewed. They understand and wished breast to proceed. Objective - Vital Signs Vital signs: Vital Signs Temp 98.4 F 02/22/19 13:09 Pulse 92 02/22/19 16:00 Resp 16 02/22/19 16:00 BP 125/83 02/22/19 13:09 Pulse Ox 97 02/22/19 13:09 Intake & Output 02/21/19 02/22/19 02/22/19 18:59 06:59 18:59 Intake Total 1440 1420 720 Balance 1440 1420 720 Intake: Intake, IV Titration 350 Amount Sodium Chloride 0.9% 1, 350 000 ml @ 100 mls/hr IV . Q10H [facility] Rx#:[id number] Oral 1440 1070 720 Other: Voiding Method Toilet Toilet Toilet # Voids 2 2 2 # Bowel Movements 1 - Labs CBC & Chem 7: 02/20/19 10:40 02/20/19 10:40
--- NOTE | 2019-02-22 12:16 | P.PN ---
Subjective Progress Note Date: 02/21/19 This a 43-year-old female history of stage IIB cervical squama cell CA ,stage IV lung cancer metastasis, squamous cell carcinoma of right pleura, status post chemotherapy, radiation ,anxiety, recovering opiate addiction, depression, panic disorder, borderline personality disorder, former nicotine dependence, and multiple other medical issues, presented to the ER with complaints of mid epigastric abdominal pain, abdominal cramping, spasming, nausea/vomiting. Denies hematemesis. Denies fever or chills Receive 1 unit of packed RBCs in the ER. KUB reporting no signs of obstruction, small right effusion with possible infiltrate. Patient reports recent CT reporting improvement. Last bowel movement yesterday-hardened. Routinely has 1-2 bowel movements per week. Received IV fluid hydration. Clear liquid diet initiated. Patient was started on Bentyl 10 mg 1 pill by mouth 4 times daily as needed for abdominal spasm. CT abdomen suggests a mass like wall thickening in the small bowel consistent with or suspicious for neoplastic involvement. Hepatic metastases noted as well Patient is awake alert oriented 3 no new complaints states abdominal discomfort slightly improved. History of primary cervical cancer grade 4 with metastatic disease to lungs and liver and possibly small bowel, resulting in partial SBO 02/20/2019 Reports large bowel movement yesterday. No nausea vomiting. Diet intake improving, consumed 100% full liquid diet at lunch. Requesting diet advancement. Passing flatus today. Mid-epigastric pain continues, evaluated by surgery yesterday with no surgical interventions recommended. 02/21/19 continues to complain of significant mid epigastric pain, currently on Dilaudid IVP. Minimal intake of full liquid diet with positive nausea, positive emesis last night, no diarrhea. Positive bowel movements today. VSS. Denies chest pain, palpitations or shortness of breath. Evaluated by Dr. Flynn, patient is scheduled for small bowel series tomorrow. Objective - Vital Signs Vital signs: Vital Signs Temp 98.4 F 02/21/19 11:05 Pulse 90 02/21/19 16:00 Resp 16 02/21/19 16:00 BP 116/83 02/21/19 11:05 Pulse Ox 97 02/21/19 11:05 Intake & Output 02/20/19 02/21/19 02/21/19 18:59 06:59 18:59 Intake Total 1410 1440 Output Total 60 Balance 1410 1380 Intake: Intake, IV Titration 1050 1200 Amount Sodium Chloride 0.9% 1 1050 1200 000 ml @ 100 mls/hr IV . Q10H [facility] Rx#:[id number] Oral 360 240 Output: Emesis 60 Other: Voiding Method Toilet Toilet # Voids 1 1 2 # Bowel Movements 1 - Exam VITAL SIGNS: As above GENERAL: Sitting up in bed, no acute distress HEENT: Conjunctivae normal. eyes normal. NECK: No JVD. No thyroid enlargement. No LNs CARDIOVASCULAR: S1, S2 regular.. No murmur RESPIRATION: Breath sounds diminished in the bases. No rhonchi or crackles. No bronchial breathing. ABDOMEN: Soft. Distended, Mid epigastric abdominal tenderness.No guarding. no masses palpable. Positive Bowel sounds. LEGS: No edema. no swelling. PSYCHIATRY: Alert and oriented X3, mood and affect normal. NERVOUS SYSTEM: Cranial N 2-12 grossly normal. Moves all 4 limbs. No focal deficits. Strength and sensation grossly intact.. Skin: no lesions, no rash Joints: No active swelling. No inflammation. - Labs CBC & Chem 7: 02/20/19 10:40 02/20/19 10:40 Assessment and Plan Assessment: -Abdominal pain with spasms, radiation Sequlae, possible small bowel metastasis as suggested per CT, small bowel obstruction. -Symptomatic Chronic anemia, status post 1 unit of packed RBCs -Stage IIB Cervical squamous Cell cancer, 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 Discussed with oncology, patient had prior drug addiction, unable to control intake of norcos. Buprenorphine ordered in the outpatient pharmacy as inpatient pharmacy does not carry. Will attempt this and discontinue Dilaudid if it controls patient's pain .prognosis guarded given multiple complex medical issues. Further recommendations to follow. The impression and plan of care has been dictated as directed. : I performed a history and examination of this patient, discussed the same with the dictator. I agree with the dictator's note ,documented as a scribe. Any additional findings or plans will be noted. Time taken: 35 minutes
[2019-02-22] MEDS: BUPRENORPHINE 2 MG SUBLINGUAL PRN (15:31)
--- NOTE | 2019-02-22 15:50 | FL ---
EXAMINATION TYPE: FL UGI w small bowel DATE OF EXAM: 02/22/2019 COMPARISON: CT abdomen and pelvis 5 days ago. HISTORY: Patient has history of advanced stage metastatic lung cancer with abdominal pain nausea and vomiting. Chronic constipation. Abnormal CT with possible small bowel obstruction. TECHNIQUE: A single contrast UGI study is performed with small bowel follow through. Total of 1 carolyn te 3 seconds fluoroscopic time. 33 spot images saved to PACS. FINDINGS: Hydrostatic Tester image of the abdomen shows persistent gaseous prominent or dilated small bowel loops in the left mid abdomen not significantly changed from recent CT. Contrast from recent CT remains pr esent in the left colon. The esophagus shows satisfactory motility and emptying into the stomach. No evidence of hiatal herni a or stricture noted. Right internal jugular Mediport catheter is noted. The stomach shows satisfactory distensibility for single contrast study. No pooling ulcer disease. No significant esophageal reflux was seen during real time performance of this study. The duodenal bulb and sweep are unremarkable. The small bowel study shows some delay in transit to colon which occurs in less than 6 hours. There are prominent jejunal loops some which are dilated throughout the left abdomen. There is nondilated i caraballo loops in the right lower quadrant. Focal transition point presumed right lower quadrant axial im age 49 and coronal image [address] were there is moderate to severe wall thickening of small bowel loo p. This is less well seen on small bowel series as there is overlapping contrast-filled bowel loops m aking evaluation suboptimal. IMPRESSION: Persistent partial mid small bowel obstruction presumed due to adhesions and/or inflammat ory change near level of proximal ileal loops in the right lower quadrant.
[2019-02-22] MEDS: cloNIDine HCL 0.1 MG TAB PO SCH (22:10)
[2019-02-22] MEDS: ARIPiprazole 15 MG TAB PO SCH (22:12)
[2019-02-22] MEDS: lamoTRIgine 100 MG TAB PO SCH (22:12)
[2019-02-22] MEDS: VORTIOXETINE HYDROBROMIDE 20 MG TABLET PO SCH (22:13)
[2019-02-23] MEDS: HYDROmorphone 1 MG/ML 1 ML SYRINGE IVP PRN ×5 (01:30→22:15)
[2019-02-23] MEDS: DICYCLOMINE 20 MG TAB PO PRN (04:17)
[2019-02-23] MEDS: SODIUM CHLORIDE 0.9% 1,000 ML IV SCH ×2 (04:39→12:41)
[2019-02-23] MEDS: ONDANSETRON 4 MG TAB PO SCH ×3 (08:39→23:18)
[2019-02-23] MEDS: clonazePAM 1 MG TAB PO SCH ×2 (08:39→21:40)
[2019-02-23] MEDS: BISACODYL 10 MG SUPP RECTAL SCH (08:39)
[2019-02-23] MEDS: PANTOPRAZOLE 40 MG TABLET PO SCH ×2 (08:40→21:40)
[2019-02-23] MEDS: [UNRECOGNIZED DRUG - OTHER] PO SCH ×2 (08:40→21:57)
[2019-02-23] MEDS: POLYETHYLENE GLYCOL 3350 17 GM POWD.PACK PO SCH (08:40)
[2019-02-23] MEDS: BENZONATATE 100 MG CAP PO SCH ×3 (08:40→21:40)
[2019-02-23 09:29] LABS: Anisocytosis Slight; Basophils % (A) 0 %; Eosinophils % (A) 1 %; HCT 27.6 % (34.0-46.0); HGB 8.9 gm/dL (11.4-16.0); Hypochromasia Slight; Lymphocytes # (A) 0.7 k/uL (1.0-4.8); Lymphocytes % (A) 14 %; MCH 30.4 pg (25.0-35.0); MCHC 32.2 g/dL (31.0-37.0); MCV 94.5 fL (80.0-100.0); Macrocytosis Slight; Mean Platelet Volume 6.8; Monocytes # (A) 0.5 k/uL (0-1.0); Monocytes % (A) 9 %; Neutrophils # (A) 3.8 k/uL (1.3-7.7); Neutrophils % (A) 73 %; Platelet Count 221 k/uL (150-450); Poikilocytosis Slight; RBC 2.92 m/uL (3.80-5.40); RDW 18.5 % (11.5-15.5); WBC 5.2 k/uL (3.8-10.6)
--- NOTE | 2019-02-23 09:33 | P.PN ---
Subjective Progress Note Date: 02/22/19 This a 43-year-old female history of stage IIB cervical squama cell CA ,stage IV lung cancer metastasis, squamous cell carcinoma of right pleura, status post chemotherapy, radiation ,anxiety, recovering opiate addiction, depression, panic disorder, borderline personality disorder, former nicotine dependence, and multiple other medical issues, presented to the ER with complaints of mid epigastric abdominal pain, abdominal cramping, spasming, nausea/vomiting. Denies hematemesis. Denies fever or chills Receive 1 unit of packed RBCs in the ER. KUB reporting no signs of obstruction, small right effusion with possible infiltrate. Patient reports recent CT reporting improvement. Last bowel movement yesterday-hardened. Routinely has 1-2 bowel movements per week. Received IV fluid hydration. Clear liquid diet initiated. Patient was started on Bentyl 10 mg 1 pill by mouth 4 times daily as needed for abdominal spasm. CT abdomen suggests a mass like wall thickening in the small bowel consistent with or suspicious for neoplastic involvement. Hepatic metastases noted as well Patient is awake alert oriented 3 no new complaints states abdominal discomfort slightly improved. History of primary cervical cancer grade 4 with metastatic disease to lungs and liver and possibly small bowel, resulting in partial SBO 02/20/2019 Reports large bowel movement yesterday. No nausea vomiting. Diet intake improving, consumed 100% full liquid diet at lunch. Requesting diet advancement. Passing flatus today. Mid-epigastric pain continues, evaluated by surgery yesterday with no surgical interventions recommended. 02/21/19 continues to complain of significant mid epigastric pain, currently on Dilaudid IVP. Minimal intake of full liquid diet with positive nausea, positive emesis last night, no diarrhea. Positive bowel movements today. VSS. Denies chest pain, palpitations or shortness of breath. Evaluated by Dr. Flynn, patient is scheduled for small bowel series tomorrow. 02/22/2019 no bowel movements today, tolerating clear liquid diet with no emesis this morning. Scheduled for small bowel series today. Mid epigastric pain present. VSS. Objective - Vital Signs Vital signs: Vital Signs Temp 97.9 F 02/22/19 05:00 Pulse 87 02/22/19 05:00 Resp 16 02/22/19 05:00 BP 118/80 02/22/19 05:00 Pulse Ox 97 02/22/19 05:00 Intake & Output 02/21/19 02/22/19 02/22/19 18:59 06:59 18:59 Intake Total 1440 1420 Balance 1440 1420 Intake: Intake, IV Titration 350 Amount Sodium Chloride 0.9% 1, 350 000 ml @ 100 mls/hr IV . Q10H [facility] Rx#:[id number] Oral 1440 1070 Other: Voiding Method Toilet Toilet # Voids 2 2 # Bowel Movements 1 - Exam VITAL SIGNS: As above GENERAL: Sitting up in bed, no acute distress HEENT: Conjunctivae normal. eyes normal. NECK: No JVD. No thyroid enlargement. No LNs CARDIOVASCULAR: S1, S2 regular.. No murmur RESPIRATION: Breath sounds diminished in the bases. No rhonchi,crackles,wheezing ABDOMEN: Soft. Distended, Mid epigastric abdominal tenderness.No guarding. no masses palpable. Positive Bowel sounds. LEGS: No edema. no swelling. PSYCHIATRY: Alert and oriented X3, mood and affect normal. NERVOUS SYSTEM: Cranial N 2-12 grossly normal. Moves all 4 limbs. No focal deficits. Strength and sensation grossly intact.. Skin: no lesions, no rash Joints: No active swelling. No inflammation. - Labs CBC & Chem 7: 02/20/19 10:40 02/20/19 10:40 Assessment and Plan Assessment: -Abdominal pain with spasms, radiation Sequlae, possible small bowel metastasis as suggested per CT, small bowel obstruction. -Symptomatic Chronic anemia, status post 1 unit of packed RBCs -Stage IIB Cervical squamous Cell cancer, 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 Buprenorphine arriving today and outpatient pharmacy, will be initiated as soon as its obtained. Small bowel series pending . The impression and plan of care has been dictated as directed. : I performed a history and examination of this patient, discussed the same with the dictator. I agree with the dictator's note ,documented as a scribe. Any additional findings or plans will be noted. Time taken: 35 minutes
--- NOTE | 2019-02-23 09:38 | P.PN ---
Subjective Progress Note Date: 02/23/19 This a 43-year-old female history of stage IIB cervical squama cell CA ,stage IV lung cancer metastasis, squamous cell carcinoma of right pleura, status post chemotherapy, radiation ,anxiety, recovering opiate addiction, depression, panic disorder, borderline personality disorder, former nicotine dependence, and multiple other medical issues, presented to the ER with complaints of mid epigastric abdominal pain, abdominal cramping, spasming, nausea/vomiting. Denies hematemesis. Denies fever or chills Receive 1 unit of packed RBCs in the ER. KUB reporting no signs of obstruction, small right effusion with possible infiltrate. Patient reports recent CT reporting improvement. Last bowel movement yesterday-hardened. Routinely has 1-2 bowel movements per week. Received IV fluid hydration. Clear liquid diet initiated. Patient was started on Bentyl 10 mg 1 pill by mouth 4 times daily as needed for abdominal spasm. CT abdomen suggests a mass like wall thickening in the small bowel consistent with or suspicious for neoplastic involvement. Hepatic metastases noted as well Patient is awake alert oriented 3 no new complaints states abdominal discomfort slightly improved. History of primary cervical cancer grade 4 with metastatic disease to lungs and liver and possibly small bowel, resulting in partial SBO 02/20/2019 Reports large bowel movement yesterday. No nausea vomiting. Diet intake improving, consumed 100% full liquid diet at lunch. Requesting diet advancement. Passing flatus today. Mid-epigastric pain continues, evaluated by surgery yesterday with no surgical interventions recommended. 02/21/19 continues to complain of significant mid epigastric pain, currently on Dilaudid IVP. Minimal intake of full liquid diet with positive nausea, positive emesis last night, no diarrhea. Positive bowel movements today. VSS. Denies chest pain, palpitations or shortness of breath. Evaluated by Dr. Flynn, patient is scheduled for small bowel series tomorrow. 02/22/2019 no bowel movements today, tolerating clear liquid diet with no emesis this morning. Scheduled for small bowel series today. Mid epigastric pain present. VSS. 02/23/2019 maintained on scheduled Zofran, no nausea, no emesis. Reports bowel movement last night following small bowel series. Small bowel series reports persistent partial mid small bowel obstruction presumed due to adhesions and or inflammatory changes near level proximal ileal loops in the right lower quadrant. NPO, Scheduled for surgery today. Labs pending. VSS, mild tachycardia. Objective - Vital Signs Vital signs: Vital Signs Temp 97.8 F 02/23/19 05:00 Pulse 102 H 02/23/19 05:00 Resp 16 02/23/19 05:00 BP 117/69 02/23/19 05:00 Pulse Ox 95 02/23/19 05:00 Intake & Output 02/22/19 02/23/19 02/23/19 18:59 06:59 18:59 Intake Total 720 1920 Balance 720 1920 Intake: Intake, IV Titration 900 Amount Sodium Chloride 0.9% 1, 900 000 ml @ 100 mls/hr IV . Q10H [facility] Rx#:[id number] Oral 720 1020 Other: Voiding Method Toilet Toilet # Voids 2 2 - Exam VITAL SIGNS: As above GENERAL: Sitting up in bed, no acute distress HEENT: Conjunctivae normal. eyes normal. NECK: No JVD. No thyroid enlargement. No LNs CARDIOVASCULAR: S1, S2 regular.mild tachycardia, No murmur RESPIRATION: Breath sounds diminished in the bases. No rhonchi,crackles,wheezing ABDOMEN: Soft. Distended, Mid epigastric abdominal tenderness.No guarding. no masses palpable. Positive Bowel sounds. LEGS: No edema. no swelling. PSYCHIATRY: Alert and oriented X3, mood and affect normal. NERVOUS SYSTEM: Cranial N 2-12 grossly normal. Moves all 4 limbs. No focal deficits. Strength and sensation grossly intact.. Skin: no lesions, no rash - Labs CBC & Chem 7: 02/23/19 09:01 02/20/19 10:40 Assessment and Plan Assessment: -Abdominal pain with spasms, radiation Sequlae, possible small bowel metastasis as suggested per CT, small bowel obstruction.Persistent partial mid small bowel obstruction presumed due to adhesions as per small bowel series. -Symptomatic Chronic anemia, status post 1 unit of packed RBCs -Stage IIB Cervical squamous Cell cancer, 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 Surgery pending. Prognosis guarded given multiple complex medical issues. The impression and plan of care has been dictated as directed. : I performed a history and examination of this patient, discussed the same with the dictator. I agree with the dictator's note ,documented as a scribe. Any additional findings or plans will be noted. Time taken: 35 minutes
[2019-02-23 09:45] LABS: HCG,Qualitative Serum Not Detected
--- NOTE | 2019-02-23 10:02 | P.PN ---
Subjective Progress Note Date: 02/23/19 Principal diagnosis: abd pain, anemia, s/p chemo for metastatic ovarian In f/u today pt is preparing for exp lap. Nausea is fairly well controlled, she has been having BMs, abd pain is controlled on dilaudid at this time. Objective - Vital Signs Vital signs: Vital Signs Temp 97.8 F 02/23/19 05:00 Pulse 102 H 02/23/19 05:00 Resp 16 02/23/19 05:00 BP 117/69 02/23/19 05:00 Pulse Ox 95 02/23/19 05:00 Intake & Output 02/22/19 02/23/19 02/23/19 18:59 06:59 18:59 Intake Total 720 1920 Balance 720 1920 Intake: Intake, IV Titration 900 Amount Sodium Chloride 0.9% 1, 900 000 ml @ 100 mls/hr IV . Q10H [facility] Rx#:[id number] Oral 720 1020 Other: Voiding Method Toilet Toilet # Voids 2 2 - Constitutional General appearance: Present: average body habitus, cooperative, no acute distress - EENT Eyes: Present: anicteric sclerae, EOMI ENT: Present: hearing grossly normal - Respiratory Respiratory: bilateral: CTA - Cardiovascular Rhythm: regular Heart sounds: normal: S1, S2 Abnormal Heart Sounds: Absent: systolic murmur, diastolic murmur, rub, S3 Gallop, S4 Gallop, click, other - Peripheral edema leg Peripheral Edema: bilateral: None - Gastrointestinal General gastrointestinal: Present: distended, normal bowel sounds, soft, tenderness Localized gastrointestinal: tender: diffuse - Integumentary Integumentary: Present: normal - Neurologic Neurologic: Present: CNII-XII intact - Musculoskeletal Musculoskeletal: Present: strength equal bilaterally - Psychiatric Psychiatric: Present: A&O x's 3, appropriate affect, intact judgment & insight - Labs CBC & Chem 7: 02/23/19 09:01 02/20/19 10:40 Labs: Abnormal Lab Results - Last 24 Hours (Table) 02/23/19 Range/Units 09:01 RBC 2.92 L (3.80-5.40) m/uL Hgb 8.9 L (11.4-16.0) gm/dL Hct 27.6 L (34.0-46.0) % RDW 18.5 H (11.5-15.5) % Lymphocytes # 0.7 L (1.0-4.8) k/uL - Imaging and Cardiology Small bowel series report reviewed. Dr. García discussed case with Surgeon Assessment and Plan (1) Abdominal pain Narrative/Plan: Improved with BM and medications. Pt encouraged to maintain soft stool with use of medications. MiraLAX twice a day at this time as she finds that is working very well to maintain her bowel movements. Patient is also going to take scheduled anti- emetics, 3 times a day, she finds Zofran is the best for this. She has been ordered Protonix 40 mg twice a day. She continues to use dilaudid for pain, which will not be prescribed on discharge. Current Visit: Yes Status: Acute Priority: High Code(s): R10.9 - UNSPECIFIED ABDOMINAL PAIN SNOMED Code(s): 60226027 (2) Small bowel obstruction Narrative/Plan: S/P small bowel series. Dr. García discussed with pt possible reasons for persistent partial SBO-scar tissue from tumor, adhesions from scar tissue, cancer. Exp lap planned. Pending results Current Visit: Yes Status: Acute Priority: High Code(s): K56.609 - UNSP INTESTNL OBST, UNSP TO PARTIAL VERSUS COMPLETE OBST SNOMED Code(s): 334119768 (3) Primary cervical cancer with metastasis to other site Narrative/Plan: Pt is s/p 4/6 cycles of 1st line treatment. Further work up planned-exp lap. Current Visit: Yes Status: Chronic Priority: Medium Code(s): C53.9 - MALIGNANT NEOPLASM OF CERVIX UTERI, UNSPECIFIED SNOMED Code(s): 128269138 Plan: Doctor attests: I performed a history and physical examination of this patient, developed impression and plan of care. Discussed with dictator. I agree with dictators note, documented as a scribe.
[2019-02-23 10:40] LABS: African American GFR (CKD) >90 (>60 ml/min/1.73 sqM); Anion Gap 8 mmol/L; Blood Urea Nitrogen 3 mg/dL (7-17); Calcium 8.6 mg/dL (8.4-10.2); Carbon Dioxide 26 mmol/L (22-30); Chloride 100 mmol/L (98-107); Glucose 86 mg/dL (74-99); Potassium 4.1 mmol/L (3.5-5.1); Sodium 134 mmol/L (137-145)
[2019-02-23] MEDS ORDERED: IV FLUID CONTINUATION 1,000 ML IV ONE (15:00)
[2019-02-23] MEDS ORDERED: LACTATED RINGERS 950 ML IV ONE (15:15)
[2019-02-23] MEDS ORDERED: ONDANSETRON 4 MG/2 ML VIAL IVP ONE (15:16)
[2019-02-23] MEDS ORDERED: HEPARIN SODIUM,PORCINE 5,000 UNIT/ML 1 ML VIAL SQ ONE (15:16)
[2019-02-23] MEDS ORDERED: DEXAMETHASONE SOD PHOSPHATE 10 MG/ML 1 ML VIAL IV ONE (15:16)
[2019-02-23] MEDS ORDERED: LIDOCAINE 1% INJ 10MG/ML (20 ML MDV) ONE (15:28)
[2019-02-23] MEDS ORDERED: ROCURONIUM BROMIDE 10 MG/ML 10 ML VIAL IV ONE (15:28)
[2019-02-23] MEDS ORDERED: NEOSTIGMINE 1 MG/ML 10 ML VIAL ONE (15:28)
[2019-02-23] MEDS ORDERED: MIDAZOLAM 2 MG/2 ML VIAL ONE (15:28)
[2019-02-23] MEDS ORDERED: HYDROmorphone (PF) 1 MG/ML ONE (15:28)
[2019-02-23] MEDS ORDERED: SUCCINYLCHOLINE CHLORIDE 100 MG/5 ML SYR IV ONE (15:28)
[2019-02-23] MEDS ORDERED: LABETALOL 5 MG/ML VIAL MDV ONE (15:28)
[2019-02-23] MEDS ORDERED: fentaNYL (PF) 50 MCG/ML 2 ML AMP ONE (15:28)
[2019-02-23] MEDS ORDERED: GLYCOPYRROLATE 0.2 MG/ML 2 ML VIAL ONE (15:28)
[2019-02-23] MEDS ORDERED: PROPOFOL 10 MG/ML 20 ML VIAL IV ONE (15:28)
[2019-02-23] MEDS ORDERED: SODIUM CHLORIDE 0.9% 100 ML with ceFAZolin 2,000 MG IV ONE ×2 (15:41)
[2019-02-23] MEDS ORDERED: BUPIVACAINE (PF) 0.25% 30 ML VIAL SQ ONE ×3 (15:58→16:01)
--- NOTE | 2019-02-23 17:32 | P.OP ---
Date of Procedure: 02/23/19 Procedure(s) Performed: PREOPERATIVE DIAGNOSIS: Small bowel obstruction POSTOPERATIVE DIAGNOSIS: Small bowel obstruction secondary to mesenteric deposit PROCEDURE: Laparoscopic lysis of adhesions, open small bowel resection SURGEON: Gee EBL: 25 mL ANESTHESIA: General COMPLICATIONS: None OPERATIVE PROCEDURE: Patient placed in the operative table in the supine position. Preoperative Ratliff catheter and nasogastric tube placed. Abdomen prepped in the usual sterile fashion after general anesthesia achieved. A 5 mm optical trocar used to enter the peritoneal cavity in the left upper quadrant. Full insufflation to 15 mmHg. 2 additional 5 mm trochars in the left midabdomen placed under direct visualization. Distally the small bowel appeared normal. Proximally the small bowel appeared distended. There was no peritoneal deposits identified initially. The patient had multiple malignant appearing deposits on the left lobe of the liver and a few at the dome of the right lobe of liver. The terminal ileum was identified. Proximally we followed the bowel until we reached the area of transition point. There was a metastatic deposit that was involving the fat adjacent to the mid transverse colon, the mesentery of the distal small bowel, and the serosa of the small bowel at the site of obstru ction. Laparoscopically I was able to lyse the adhesions between these malignant deposits. There did appear to be a enterotomy at the site of the adhesion. The bowel was grasped. Proximally the bowel was distended but otherwise appeared normal. A 1 inch infraumbilical incision was made using the scalpel. A 5 mm trocar was advanced through there and that bowel was brought up to the abdominal wall. The fascia was further opened using electrocautery and sharp dissection. The bowel was brought out through this defect. The pneumoperitoneum at this point was evacuated. A [id number] functional end-to-end anastomosis took place by dividing the small bowel proximal and distal to the site of abnormality using a linear 75 stapler. The mesentery was divided using a combination of the LigaSure device and 3-0 silk ties. The antimesenteric portion of the staple line was removed. The linear 75 stapler was fired along the antimesenteric border. The remaining defect was closed using a TX 60 blue load device. The TX 60 stapler line was imbricated using 3-0 GI silk sutures. A 3-0 GI silk crotch stitch was also placed. The bowel was reduced back into the perineal cavity. No bleeding was seen. The fascial defect was closed using a running #1 Vicryl suture. The subcutaneous tissues were closed using 3-0 Vicryl sutures and the skin using a running 4-0 Monocryl stitch. The laparoscopic incision sites were closed using interrupted 4-0 Monocryl subcuticular sutures. Skin glue was used at the incision sites as well. DISPOSITION: Stable to recovery room
[2019-02-23] MEDS: HYDROmorphone 1 MG/ML 1 ML SYRINGE IVP ONE ×4 (17:44→18:34)
[2019-02-23] MEDS ORDERED: LACTATED RINGERS 1,000 ML IV ONE (18:05)
[2019-02-23] MEDS: fentaNYL (PF) 50 MCG/ML 2 ML AMP IVP ONE ×2 (18:13→18:20)
[2019-02-23] MEDS: HYDROmorphone 0.5 MG/0.5 ML SYRINGE IVP PRN (19:42)
[2019-02-23] MEDS: cloNIDine HCL 0.1 MG TAB PO SCH (21:40)
[2019-02-23] MEDS: ARIPiprazole 15 MG TAB PO SCH (21:40)
[2019-02-23] MEDS: lamoTRIgine 100 MG TAB PO SCH (21:40)
[2019-02-23] MEDS: VORTIOXETINE HYDROBROMIDE 20 MG TABLET PO SCH (21:40)
[2019-02-23] MEDS: BUPRENORPHINE 2 MG SUBLINGUAL PRN (21:56)
[2019-02-24] MEDS: HYDROmorphone 1 MG/ML 1 ML SYRINGE IVP PRN ×8 (01:15→22:09)
[2019-02-24] MEDS: SODIUM CHLORIDE 0.9% 1,000 ML IV SCH ×2 (03:56→15:15)
[2019-02-24] MEDS: PANTOPRAZOLE 40 MG TABLET PO SCH ×2 (07:56→22:11)
[2019-02-24] MEDS: clonazePAM 1 MG TAB PO SCH ×2 (07:56→21:32)
[2019-02-24] MEDS: ONDANSETRON 4 MG TAB PO SCH ×2 (07:56→16:23)
[2019-02-24] MEDS: BENZONATATE 100 MG CAP PO SCH ×3 (07:56→22:10)
[2019-02-24] MEDS: [UNRECOGNIZED DRUG - OTHER] PO SCH ×2 (07:57→21:10)
[2019-02-24 13:05] LABS: ALT 10 U/L (9-52); AST 18 U/L (14-36); African American GFR (CKD) >90 (>60 ml/min/1.73 sqM); Albumin 3.1 g/dL (3.5-5.0); Alkaline Phosphatase 102 U/L (38-126); Anion Gap 9 mmol/L; Blood Urea Nitrogen 4 mg/dL (7-17); Carbon Dioxide 27 mmol/L (22-30); Chloride 99 mmol/L (98-107); Glucose 93 mg/dL (74-99); Magnesium 1.6 mg/dL (1.6-2.3); Phosphorus 3.8 mg/dL (2.5-4.5); Sodium 135 mmol/L (137-145); Total Bilirubin 0.3 mg/dL (0.2-1.3); Triglycerides 264 mg/dL (<150)
[2019-02-24 13:09] LABS: Ionized Calcium 4.9 mg/dL (4.5-5.3)
--- NOTE | 2019-02-24 13:56 | P.PN ---
Subjective Progress Note Date: 02/24/19 Principal diagnosis: persistent partial SBO Status Post Explor Lab 02.24.[address] Flynn. She is having pain with little relief from DIlaudid Objective - Vital Signs Vital signs: Vital Signs Temp 98 F 02/24/19 12:14 Pulse 88 02/24/19 12:14 Resp 16 02/24/19 12:14 BP 121/78 02/24/19 12:14 Pulse Ox 98 02/24/19 12:14 Intake & Output 02/23/19 02/24/19 02/24/19 18:59 06:59 18:59 Intake Total 1650 1100 Output Total 495 1999 1750 Balance 1155 -900 -1750 Weight 62.596 kg 62.596 kg Intake: IV 1650 Intake, IV Titration 1100 Amount Sodium Chloride 0.9% 1, 1100 000 ml @ 100 mls/hr IV . Q10H [facility] Rx#:[id number] Output: Urine 470 2000 1750 Estimated Blood Loss 25 Other: Voiding Method Toilet Indwelling Catheter Indwelling Catheter # Voids 1 - Exam Gen: Alert and Oriented, NAD Head: NCNT Neck Supple Heart Tachy Lungs No increased effort CTA B Abdomen: firm Tender Ext: No Rash, No Edema, Equal Strength Psych: Calm and Cooperative Neuro: No Focal Deficits Noted. - Labs CBC & Chem 7: 02/24/19 14:26 02/24/19 14:26 Labs: Abnormal Lab Results - Last 24 Hours (Table) 02/24/19 Range/Units 12:32 Sodium 135 L (137-145) mmol/L BUN 4 L (7-17) mg/dL Creatinine 0.36 L (0.52-1.04) mg/dL Total Protein 6.0 L (6.3-8.2) g/dL Albumin 3.1 L (3.5-5.0) g/dL Triglycerides 264 H (<150) mg/dL Assessment and Plan Plan: Assessment and Recommendations: Metastatic Cervical Cancer: - Metastatic Disease to lungs - Recent CT improvement in mets to lung Intractable midepigastric pain:Secondary to persistent partial SBO - Associated nausea and vomiting - Hx: Ulcers -S/p Ex Lap with surgery 02.23.19 Laparoscopic lysis of adhesions, open small bowel resection with anastamosis
--- NOTE | 2019-02-24 14:28 | P.PN ---
Subjective Progress Note Date: 02/24/19 This a 43-year-old female history of stage IIB cervical squama cell CA ,stage IV lung cancer metastasis, squamous cell carcinoma of right pleura, status post chemotherapy, radiation ,anxiety, recovering opiate addiction, depression, panic disorder, borderline personality disorder, former nicotine dependence, and multiple other medical issues, presented to the ER with complaints of mid epigastric abdominal pain, abdominal cramping, spasming, nausea/vomiting. Denies hematemesis. Denies fever or chills Receive 1 unit of packed RBCs in the ER. KUB reporting no signs of obstruction, small right effusion with possible infiltrate. Patient reports recent CT reporting improvement. Last bowel movement yesterday-hardened. Routinely has 1-2 bowel movements per week. Received IV fluid hydration. Clear liquid diet initiated. Patient was started on Bentyl 10 mg 1 pill by mouth 4 times daily as needed for abdominal spasm. CT abdomen suggests a mass like wall thickening in the small bowel consistent with or suspicious for neoplastic involvement. Hepatic metastases noted as well Patient is awake alert oriented 3 no new complaints states abdominal discomfort slightly improved. History of primary cervical cancer grade 4 with metastatic disease to lungs and liver and possibly small bowel, resulting in partial SBO 02/20/2019 Reports large bowel movement yesterday. No nausea vomiting. Diet intake improving, consumed 100% full liquid diet at lunch. Requesting diet advancement. Passing flatus today. Mid-epigastric pain continues, evaluated by surgery yesterday with no surgical interventions recommended. 02/21/19 continues to complain of significant mid epigastric pain, currently on Dilaudid IVP. Minimal intake of full liquid diet with positive nausea, positive emesis last night, no diarrhea. Positive bowel movements today. VSS. Denies chest pain, palpitations or shortness of breath. Evaluated by Dr. Flynn, patient is scheduled for small bowel series tomorrow. 02/22/2019 no bowel movements today, tolerating clear liquid diet with no emesis this morning. Scheduled for small bowel series today. Mid epigastric pain present. VSS. 02/23/2019 maintained on scheduled Zofran, no nausea, no emesis. Reports bowel movement last night following small bowel series. Small bowel series reports persistent partial mid small bowel obstruction presumed due to adhesions and or inflammatory changes near level proximal ileal loops in the right lower quadrant. NPO, Scheduled for surgery today. Labs pending. VSS, mild tachycardia. 02/24/2019 status post laparoscopic lysis of adhesions, open small bowel resection related to small bowel obstruction secondary to mesenteric deposit. Tolerated procedure well. Complaining of incisional site discomfort. Abdominal binder present. Tolerating popsicles and ice chips with No nausea or vomiting. No flatus, no bowel movement. PPN ordered. T-max 99.3. Objective - Vital Signs Vital signs: Vital Signs Temp 98 F 02/24/19 12:14 Pulse 88 02/24/19 12:14 Resp 16 02/24/19 12:14 BP 121/78 02/24/19 12:14 Pulse Ox 98 02/24/19 12:14 Intake & Output 02/23/19 02/24/19 02/24/19 18:59 06:59 18:59 Intake Total 1650 1100 Output Total 495 2000 1750 Balance 1155 -900 -1750 Weight 62.596 kg 62.596 kg Intake: IV 1650 Intake, IV Titration 1100 Amount Sodium Chloride 0.9% 1, 1100 000 ml @ 100 mls/hr IV . Q10H [facility] Rx#:[id number] Output: Urine 470 2000 1750 Estimated Blood Loss 25 Other: Voiding Method Toilet Indwelling Catheter Indwelling Catheter # Voids 1 - Exam VITAL SIGNS: As above GENERAL: Sitting up in bed, no acute distress HEENT: Conjunctivae normal. eyes normal. NECK: No JVD. No thyroid enlargement. No LNs CARDIOVASCULAR: S1, S2 regular.mild tachycardia, No murmur RESPIRATION: Breath sounds diminished in the bases. No rhonchi,crackles,wheezing ABDOMEN: Soft. Distended, status post surgery. Abdominal binder present. No guarding. no masses palpable. Minimal Hypoactive Bowel sounds. LEGS: No edema. no swelling. PSYCHIATRY: Alert and oriented X3, mood and affect normal. NERVOUS SYSTEM: Cranial N 2-12 grossly normal. Moves all 4 limbs. No focal deficits. Strength and sensation grossly intact. Skin: no lesions, no rash - Labs CBC & Chem 7: 02/23/19 09:01 02/24/19 12:32 Labs: Abnormal Lab Results - Last 24 Hours (Table) 02/24/19 Range/Units 12:32 Sodium 135 L (137-145) mmol/L BUN 4 L (7-17) mg/dL Creatinine 0.36 L (0.52-1.04) mg/dL Total Protein 6.0 L (6.3-8.2) g/dL Albumin 3.1 L (3.5-5.0) g/dL Triglycerides 264 H (<150) mg/dL Assessment and Plan Assessment: -Small bowel obstruction with metastasis, status post laparoscopic lysis of adhesions, open small bowel resection related to small bowel obstruction secondary to mesenteric deposit. Pathology pending. -Symptomatic Chronic anemia, status post 1 unit of packed RBCs. -Primary Cervical squamous Cell cancer, metastatic, to lung and liver -Possible metastatic disease to the abdomen as per CT -Recovering opiate addiction -Anxiety, depression, panic disorder -Former nicotine dependence, quit 1-1/2 months ago Plan: Continue on current medication regime ,monitoring and symptomatic treatment. Diet advancement/pain management as per surgery. Aggressive pulmonary toileting with incentive spirometer ordered. Increase ambulation as tolerated. PT/OT. Labs pending. PPN. Prognosis guarded given multiple complex medical issues. The impression and plan of care has been dictated as directed. : I performed a history and examination of this patient, discussed the same with the dictator. I agree with the dictator's note ,documented as a scribe. Any additional findings or plans will be noted. Time taken: 35 minutes
[2019-02-24] MEDS ORDERED: MVI, ADULT NO.4 WITH VIT K 10 ML, TRACE (CONC-1ML/DOSE) 1 ML in AMINO ACID 4.25%-D10W+L... IV SCH ×3 (15:00)
[2019-02-24 15:02] LABS: African American GFR (CKD) >90 (>60 ml/min/1.73 sqM); Anion Gap 9 mmol/L; Blood Urea Nitrogen 4 mg/dL (7-17); Calcium 8.9 mg/dL (8.4-10.2); Carbon Dioxide 29 mmol/L (22-30); Chloride 98 mmol/L (98-107); Glucose 95 mg/dL (74-99); Potassium 3.8 mmol/L (3.5-5.1); Sodium 136 mmol/L (137-145)
[2019-02-24 15:43] LABS: Anisocytosis Slight; Basophils % (A) 1 %; Eosinophils % (A) 0 %; HCT 29.5 % (34.0-46.0); HGB 9.6 gm/dL (11.4-16.0); Hypochromasia Slight; Lymphocytes # (A) 0.6 k/uL (1.0-4.8); Lymphocytes % (A) 12 %; MCH 30.4 pg (25.0-35.0); MCHC 32.4 g/dL (31.0-37.0); MCV 93.7 fL (80.0-100.0); Mean Platelet Volume 6.4; Monocytes # (A) 0.5 k/uL (0-1.0); Monocytes % (A) 9 %; Neutrophils # (A) 3.7 k/uL (1.3-7.7); Neutrophils % (A) 75 %; Platelet Count 250 k/uL (150-450); Poikilocytosis Slight; RBC 3.14 m/uL (3.80-5.40); RDW 17.9 % (11.5-15.5)
--- NOTE | 2019-02-24 16:21 | P.PN ---
Subjective Progress Note Date: 02/24/19 Principal diagnosis: Small bowel obstruction Patient doing well today. Pain is gradually improving. No bowel function. Denies nausea or vomiting today. Still feels bloated. Objective - Vital Signs Vital signs: Vital Signs Temp 98 F 02/24/19 12:14 Pulse 88 02/24/19 12:14 Resp 16 02/24/19 12:14 BP 121/78 02/24/19 12:14 Pulse Ox 98 02/24/19 12:14 Intake & Output 02/23/19 02/24/19 02/24/19 18:59 06:59 18:59 Intake Total 1650 1100 800 Output Total 495 2000 1750 Balance 1155 -900 -950 Weight 62.596 kg 62.596 kg Intake: IV 1650 Intake, IV Titration 1100 800 Amount Sodium Chloride 0.9% 1, 1100 800 000 ml @ 100 mls/hr IV . Q10H [facility] Rx#:[id number] Output: Urine 470 2000 1750 Estimated Blood Loss 25 Other: Voiding Method Toilet Indwelling Catheter Indwelling Catheter # Voids 1 - Exam Abdomen: Soft, mild distention, incisions clean and dry, mild tenderness - Labs CBC & Chem 7: 02/24/19 14:26 02/24/19 14:26 Labs: Abnormal Lab Results - Last 24 Hours (Table) 02/24/19 02/24/19 02/24/19 Range/Units 12:32 14:26 14:26 RBC 3.14 L (3.80-5.40) m/uL Hgb 9.6 L (11.4-16.0) gm/dL Hct 29.5 L (34.0-46.0) % RDW 17.9 H (11.5-15.5) % Lymphocytes # 0.6 L (1.0-4.8) k/uL Sodium 135 L 136 L (137-145) mmol/L BUN 4 L 4 L (7-17) mg/dL Creatinine 0.36 L 0.38 L (0.52-1.04) mg/dL Total Protein 6.0 L (6.3-8.2) g/dL Albumin 3.1 L (3.5-5.0) g/dL Triglycerides 264 H (<150) mg/dL Assessment and Plan (1) Small bowel obstruction Narrative/Plan: Patient doing relatively well. Will advance diet to full liquids. Hold parenteral nutrition for now. Gradually increase activity. Discontinue Ratliff catheter tomorrow. Current Visit: Yes Status: Acute Priority: High Code(s): K56.609 - UNSP INTESTNL OBST, UNSP TO PARTIAL VERSUS COMPLETE OBST SNOMED Code(s): 939346789
[2019-02-24] MEDS ORDERED: FAT EMULSION 20% 250 ML in EMPTY BAG 1 BAG IV SCH (18:00)
[2019-02-24] MEDS: BUPRENORPHINE 2 MG SUBLINGUAL PRN (21:32)
[2019-02-24] MEDS: VORTIOXETINE HYDROBROMIDE 20 MG TABLET PO SCH (22:11)
[2019-02-24] MEDS: ARIPiprazole 15 MG TAB PO SCH (22:11)
[2019-02-24] MEDS: cloNIDine HCL 0.1 MG TAB PO SCH (22:11)
[2019-02-24] MEDS: lamoTRIgine 100 MG TAB PO SCH (22:11)
[2019-02-25] MEDS: SODIUM CHLORIDE 0.9% 1,000 ML IV SCH ×3 (00:16→20:44)
[2019-02-25] MEDS: ONDANSETRON 4 MG TAB PO SCH ×3 (00:16→16:09)
[2019-02-25] MEDS: HYDROmorphone 1 MG/ML 1 ML SYRINGE IVP PRN ×7 (02:28→22:11)
[2019-02-25] MEDS: 1: MVI, ADULT NO.4 WITH VIT K 10 ML, TRACE (CONC-1ML/DOSE) 1 ML in AMINO ACID 4.25%-D10W IV SCH ×6 (02:32→19:01)
[2019-02-25 08:05] LABS: African American GFR (CKD) >90 (>60 ml/min/1.73 sqM); Anion Gap 8 mmol/L; Blood Urea Nitrogen 3 mg/dL (7-17); Calcium 8.8 mg/dL (8.4-10.2); Carbon Dioxide 31 mmol/L (22-30); Chloride 95 mmol/L (98-107); Glucose 91 mg/dL (74-99); Magnesium 1.5 mg/dL (1.6-2.3); Sodium 134 mmol/L (137-145)
[2019-02-25] MEDS: clonazePAM 1 MG TAB PO SCH ×2 (08:36→20:36)
[2019-02-25] MEDS: PANTOPRAZOLE 40 MG TABLET PO SCH ×2 (08:36→20:38)
[2019-02-25] MEDS: BENZONATATE 100 MG CAP PO SCH ×3 (08:36→22:12)
[2019-02-25] MEDS: [UNRECOGNIZED DRUG - OTHER] PO SCH ×2 (08:53→19:03)
--- NOTE | 2019-02-25 09:11 | P.PN ---
Subjective Progress Note Date: 02/25/19 Principal diagnosis: Small bowel obstruction Patient complaining of mild incisional pain. Feels fatigued. No bowel movement or flatus. Nausea improved. Objective - Vital Signs Vital signs: Vital Signs Temp 96.3 F L 02/25/19 05:00 Pulse 93 02/25/19 05:00 Resp 16 02/25/19 05:00 BP 103/57 02/25/19 05:00 Pulse Ox 98 02/25/19 05:00 Intake & Output 02/24/19 02/25/19 02/25/19 18:59 06:59 18:59 Intake Total 800 2700 Output Total 1750 2600 Balance -950 100 Weight 62.596 kg Intake: Intake, IV Titration 800 800 Amount Sodium Chloride 0.9% 1, 800 800 000 ml @ 100 mls/hr IV . Q10H [facility] Rx#:[id number] Oral 1900 Output: Urine 1750 2600 Uretheral ([place]) 2600 Other: Voiding Method Indwelling Catheter Indwelling Catheter - Exam Abdomen: Soft, mild distention, incisions clean and dry, mild tenderness - Labs CBC & Chem 7: 02/24/19 14:26 02/25/19 06:48 Labs: Abnormal Lab Results - Last 24 Hours (Table) 02/24/19 02/24/19 02/24/19 Range/Units 12:32 14:26 14:26 RBC 3.14 L (3.80-5.40) m/uL Hgb 9.6 L (11.4-16.0) gm/dL Hct 29.5 L (34.0-46.0) % RDW 17.9 H (11.5-15.5) % Lymphocytes # 0.6 L (1.0-4.8) k/uL Sodium 135 L 136 L (137-145) mmol/L Chloride (98-107) mmol/L Carbon Dioxide (22-30) mmol/L BUN 4 L 4 L (7-17) mg/dL Creatinine 0.36 L 0.38 L (0.52-1.04) mg/dL Magnesium (1.6-2.3) mg/dL Total Protein 6.0 L (6.3-8.2) g/dL Albumin 3.1 L (3.5-5.0) g/dL Triglycerides 264 H (<150) mg/dL 02/25/19 Range/Units 06:48 RBC (3.80-5.40) m/uL Hgb (11.4-16.0) gm/dL Hct (34.0-46.0) % RDW (11.5-15.5) % Lymphocytes # (1.0-4.8) k/uL Sodium 134 L (137-145) mmol/L Chloride 95 L (98-107) mmol/L Carbon Dioxide 31 H (22-30) mmol/L BUN 3 L (7-17) mg/dL Creatinine 0.48 L (0.52-1.04) mg/dL Magnesium 1.5 L (1.6-2.3) mg/dL Total Protein (6.3-8.2) g/dL Albumin (3.5-5.0) g/dL Triglycerides (<150) mg/dL Assessment and Plan (1) Small bowel obstruction Narrative/Plan: Continue full liquids with ensure daily. Remove Ratliff. Ambulate. Current Visit: Yes Status: Acute Priority: High Code(s): K56.609 - UNSP INTESTNL OBST, UNSP TO PARTIAL VERSUS COMPLETE OBST SNOMED Code(s): 485799785
[2019-02-25] MEDS: DICYCLOMINE 20 MG TAB PO PRN ×2 (11:23→20:36)
[2019-02-25] MEDS: MAGNESIUM SULFATE-D5W PMX 1 GM in DEXTROSE/WATER 1 100ML.BAG IVPB SCH ×2 (11:31→13:11)
--- NOTE | 2019-02-25 12:49 | P.PN ---
Subjective This a 43-year-old female history of stage IIB cervical squama cell CA ,stage IV lung cancer metastasis, squamous cell carcinoma of right pleura, status post chemotherapy, radiation ,anxiety, recovering opiate addiction, depression, panic disorder, borderline personality disorder, former nicotine dependence, and multiple other medical issues, presented to the ER with complaints of mid epigastric abdominal pain, abdominal cramping, spasming, nausea/vomiting. Denies hematemesis. Denies fever or chills Receive 1 unit of packed RBCs in the ER. KUB reporting no signs of obstruction, small right effusion with possible infiltrate. Patient reports recent CT reporting improvement. Last bowel movement yesterday-hardened. Routinely has 1-2 bowel movements per week. Received IV fluid hydration. Clear liquid diet initiated. Patient was started on Bentyl 10 mg 1 pill by mouth 4 times daily as needed for abdominal spasm. CT abdomen suggests a mass like wall thickening in the small bowel consistent with or suspicious for neoplastic involvement. Hepatic metastases noted as well Patient is awake alert oriented 3 no new complaints states abdominal discomfort slightly improved. History of primary cervical cancer grade 4 with metastatic disease to lungs and liver and possibly small bowel, resulting in partial SBO 02/20/2019 Reports large bowel movement yesterday. No nausea vomiting. Diet intake improving, consumed 100% full liquid diet at lunch. Requesting diet advancement. Passing flatus today. Mid-epigastric pain continues, evaluated by surgery yesterday with no surgical interventions recommended. 02/21/19 continues to complain of significant mid epigastric pain, currently on Dilaudid IVP. Minimal intake of full liquid diet with positive nausea, positive emesis last night, no diarrhea. Positive bowel movements today. VSS. Denies chest pain, palpitations or shortness of breath. Evaluated by Dr. Flynn, patient is scheduled for small bowel series tomorrow. 02/22/2019 no bowel movements today, tolerating clear liquid diet with no emesis this morning. Scheduled for small bowel series today. Mid epigastric pain present. VSS. 02/23/2019 maintained on scheduled Zofran, no nausea, no emesis. Reports bowel movement last night following small bowel series. Small bowel series reports persistent partial mid small bowel obstruction presumed due to adhesions and or inflammatory changes near level proximal ileal loops in the right lower quadrant. NPO, Scheduled for surgery today. Labs pending. VSS, mild tachycardia. 02/24/2019 status post laparoscopic lysis of adhesions, open small bowel resection related to small bowel obstruction secondary to mesenteric deposit. Tolerated procedure well. Complaining of incisional site discomfort. Abdominal binder present. Tolerating popsicles and ice chips with No nausea or vomiting. No flatus, no bowel movement. PPN ordered. T-max 99.3. 02/25/2019: Patient denies any bowel movements but is tolerating a full liquid diet at this time. She isn't needing much. She does have an abdominal binder in place. She denies any significant flatus. She denies any chest pains, pressures, shortness breath. Denies any significant vomiting minimal nausea. She remains afebrile. Objective - Vital Signs Vital signs: Vital Signs Temp 96.3 F L 02/25/19 05:00 Pulse 93 02/25/19 08:35 Resp 16 02/25/19 08:35 BP 103/57 02/25/19 05:00 Pulse Ox 98 02/25/19 05:00 Intake & Output 02/24/19 02/25/19 02/25/19 18:59 06:59 18:59 Intake Total 800 2700 Output Total 1750 2600 600 Balance -950 100 -600 Weight 62.596 kg Intake: Intake, IV Titration 800 800 Amount Sodium Chloride 0.9% 1, 800 800 000 ml @ 100 mls/hr IV . Q10H [facility] Rx#:[id number] Oral 1900 Output: Urine 1750 2600 600 Uretheral ([place]) 2600 Other: Voiding Method Indwelling Catheter Indwelling Catheter Toilet # Bowel Movements 0 - Exam GENERAL: Sitting up in bed, no acute distress HEENT: Conjunctivae normal. eyes normal. NECK: No JVD. No thyroid enlargement. No LNs CARDIOVASCULAR: S1, S2 regular.mild tachycardia, No murmur RESPIRATION: Breath sounds diminished in the bases. No rhonchi,crackles,wheezing ABDOMEN: Soft. Distended, status post surgery. Abdominal binder present. No guarding. no masses palpable. Minimal Hypoactive Bowel sounds. LEGS: No edema. no swelling. PSYCHIATRY: Alert and oriented X3, mood and affect normal. NERVOUS SYSTEM: Cranial N 2-12 grossly normal. Moves all 4 limbs. No focal deficits. Strength and sensation grossly intact. Skin: no lesions, no rash - Labs CBC & Chem 7: 02/24/19 14:26 02/25/19 06:48 Labs: Abnormal Lab Results - Last 24 Hours (Table) 02/24/19 02/24/19 02/24/19 Range/Units 12:32 14:26 14:26 RBC 3.14 L (3.80-5.40) m/uL Hgb 9.6 L (11.4-16.0) gm/dL Hct 29.5 L (34.0-46.0) % RDW 17.9 H (11.5-15.5) % Lymphocytes # 0.6 L (1.0-4.8) k/uL Sodium 135 L 136 L (137-145) mmol/L Chloride (98-107) mmol/L Carbon Dioxide (22-30) mmol/L BUN 4 L 4 L (7-17) mg/dL Creatinine 0.36 L 0.38 L (0.52-1.04) mg/dL Magnesium (1.6-2.3) mg/dL Total Protein 6.0 L (6.3-8.2) g/dL Albumin 3.1 L (3.5-5.0) g/dL Triglycerides 264 H (<150) mg/dL 02/25/19 Range/Units 06:48 RBC (3.80-5.40) m/uL Hgb (11.4-16.0) gm/dL Hct (34.0-46.0) % RDW (11.5-15.5) % Lymphocytes # (1.0-4.8) k/uL Sodium 134 L (137-145) mmol/L Chloride 95 L (98-107) mmol/L Carbon Dioxide 31 H (22-30) mmol/L BUN 3 L (7-17) mg/dL Creatinine 0.48 L (0.52-1.04) mg/dL Magnesium 1.5 L (1.6-2.3) mg/dL Total Protein (6.3-8.2) g/dL Albumin (3.5-5.0) g/dL Triglycerides (<150) mg/dL Assessment and Plan (1) S/P small bowel resection Current Visit: Yes Status: Acute Code(s): Z90.49 - ACQUIRED ABSENCE OF OTHER SPECIFIED PARTS OF DIGESTIVE TRACT SNOMED Code(s): 187258924569645 (2) Abdominal pain Current Visit: Yes Status: Acute Priority: High Code(s): R10.9 - UN SPECIFIED ABDOMINAL PAIN SNOMED Code(s): 45039548 (3) Liver metastases Current Visit: Yes Status: Acute Code(s): C78.7 - SECONDARY MALIG NEOPLASM OF LIVER AND INTRAHEPATIC BILE DUCT SNOMED Code(s): 58079750 (4) Small bowel obstruction Current Visit: Yes Status: Acute Priority: High Code(s): K56.609 - UNSP INTESTNL OBST, UNSP TO PARTIAL VERSUS COMPLETE OBST SNOMED Code(s): 446371534 (5) Primary cervical cancer with metastasis to other site Current Visit: Yes Status: Chronic Priority: Medium Code(s): C53.9 - MALIGNANT NEOPLASM OF CERVIX UTERI, UNSPECIFIED SNOMED Code(s): 230009579 (6) Metastatic cancer to lung Current Visit: No Status: Acute Code(s): C78.00 - SECONDARY MALIGNANT NEOPLASM OF UNSPECIFIED LUNG SNOMED Code(s): 37892614 (7) Normocytic hypochromic anemia Current Visit: No Status: Acute Code(s): D50.9 - IRON DEFICIENCY ANEMIA, UNSPECIFIED SNOMED Code(s): 84066593 (8) Primary cervical squamous cell carcinoma Current Visit: No Status: Chronic Priority: High Code(s): C53.9 - MALIGNANT NEOPLASM OF CERVIX UTERI, UNSPECIFIED SNOMED Code(s): 645597878 (9) Opioid dependence in remission Current Visit: Yes Status: Acute Code(s): F11.21 - OPIOID DEPENDENCE, IN REMISSION SNOMED Code(s): 989424712 (10) Depression, major, recurrent, moderate Current Visit: Yes Status: Acute Code(s): F33.1 - MAJOR DEPRESSIVE DISORDER, RECURRENT, MODERATE SNOMED Code(s): 456526911 Plan: Plan: Continue on current medication regime ,monitoring and symptomatic treatmen t. She'll continue on Dilaudid for pain. She'll continue on the locks on and trying to ask and Abilify for her depression and mood disorder. Continuing Klonopin for anxiety. Diet advancement/pain management as per surgery. Aggressive pulmonary toileting with incentive spirometer ordered. Increase ambulation as tolerated. PT/OT. PPN per surgery. Prognosis guarded given multiple complex medical issues. Repeat labs in a.m. She'll be reevaluated next 24 hours.
[2019-02-25] MEDS: cloNIDine HCL 0.1 MG TAB PO SCH (20:36)
[2019-02-25] MEDS: VORTIOXETINE HYDROBROMIDE 20 MG TABLET PO SCH (20:37)
[2019-02-25] MEDS: ARIPiprazole 15 MG TAB PO SCH (20:37)
[2019-02-25] MEDS: lamoTRIgine 100 MG TAB PO SCH (20:37)
[2019-02-26] MEDS: ONDANSETRON 4 MG TAB PO SCH ×4 (00:39→23:31)
[2019-02-26] MEDS: HYDROmorphone 1 MG/ML 1 ML SYRINGE IVP PRN ×7 (03:26→23:33)
[2019-02-26] MEDS: SODIUM CHLORIDE 0.9% 1,000 ML IV SCH ×3 (06:17→20:10)
[2019-02-26 07:37] LABS: African American GFR (CKD) >90 (>60 ml/min/1.73 sqM); Anion Gap 9 mmol/L; Blood Urea Nitrogen 4 mg/dL (7-17); Calcium 8.6 mg/dL (8.4-10.2); Carbon Dioxide 30 mmol/L (22-30); Chloride 96 mmol/L (98-107); Glucose 85 mg/dL (74-99); Magnesium 1.7 mg/dL (1.6-2.3); Phosphorus 3.6 mg/dL (2.5-4.5); Potassium 3.7 mmol/L (3.5-5.1); Sodium 135 mmol/L (137-145)
[2019-02-26] MEDS: PANTOPRAZOLE 40 MG TABLET PO SCH ×2 (08:52→21:05)
[2019-02-26] MEDS: clonazePAM 1 MG TAB PO SCH ×2 (08:53→21:04)
[2019-02-26] MEDS: BENZONATATE 100 MG CAP PO SCH ×3 (08:53→21:04)
[2019-02-26] MEDS: [UNRECOGNIZED DRUG - OTHER] PO SCH ×2 (08:53→20:56)
--- NOTE | 2019-02-26 10:02 | P.PN ---
Subjective Progress Note Date: 02/26/19 Principal diagnosis: Small bowel obstruction Patient doing better today. She had a liquid stool last night. She is passing more flatus. Pain is less. No nausea or vomiting. Mild tachycardia again. Morning labs pending. Objective - Vital Signs Vital signs: Vital Signs Temp 97.8 F 02/26/19 05:00 Pulse 106 H 02/26/19 05:00 Resp 16 02/26/19 05:00 BP 108/63 02/26/19 05:00 Pulse Ox 96 02/26/19 05:00 Intake & Output 02/25/19 02/26/19 02/26/19 18:59 06:59 18:59 Intake Total 240 2280 Output Total 1200 Balance -960 2280 Intake: Intake, IV Titration 1200 Amount Sodium Chloride 0.9% 1, 1200 000 ml @ 100 mls/hr IV . Q10H [facility] Rx#:[id number] Oral 240 1080 Output: Urine 1200 Other: Voiding Method Toilet Toilet # Voids 2 1 # Bowel Movements 0 1 - Exam Abdomen: Soft, mild distention, mild incisional tenderness - Labs CBC & Chem 7: 02/24/19 14:26 02/26/19 06:40 Labs: Abnormal Lab Results - Last 24 Hours (Table) 02/26/19 Range/Units 06:40 Sodium 135 L (137-145) mmol/L Chloride 96 L (98-107) mmol/L BUN 4 L (7-17) mg/dL Creatinine 0.45 L (0.52-1.04) mg/dL Assessment and Plan (1) Small bowel obstruction Narrative/Plan: Will increase diet. Continue ambulation. Current Visit: Yes Status: Acute Priority: High Code(s): K56.609 - UNSP INTESTNL OBST, UNSP TO PARTIAL VERSUS COMPLETE OBST SNOMED Code(s): 507975103
[2019-02-26 10:07] LABS: Anisocytosis Slight; Basophils % (A) 1 %; Eosinophils % (A) 1 %; HCT 28.1 % (34.0-46.0); HGB 8.7 gm/dL (11.4-16.0); Hypochromasia Moderate; Lymphocytes # (A) 0.6 k/uL (1.0-4.8); Lymphocytes % (A) 11 %; MCH 29.8 pg (25.0-35.0); MCHC 31.1 g/dL (31.0-37.0); MCV 95.8 fL (80.0-100.0); Macrocytosis Slight; Mean Platelet Volume 7.3; Monocytes # (A) 0.4 k/uL (0-1.0); Monocytes % (A) 8 %; Neutrophils # (A) 4.1 k/uL (1.3-7.7); Neutrophils % (A) 78 %; Platelet Count 250 k/uL (150-450); Poikilocytosis Slight; RBC 2.93 m/uL (3.80-5.40); RDW 18.5 % (11.5-15.5); WBC 5.3 k/uL (3.8-10.6)
[2019-02-26] MEDS: MAGNESIUM SULFATE-D5W PMX 1 GM in DEXTROSE/WATER 1 100ML.BAG IVPB SCH ×2 (10:47→17:07)
[2019-02-26] MEDS: POTASSIUM CHLORIDE 10 MEQ in WATER FOR INJECTION 1 100ML.BAG IVPB SCH ×2 (13:14→14:50)
[2019-02-26] MEDS: 1: MVI, ADULT NO.4 WITH VIT K 10 ML, TRACE (CONC-1ML/DOSE) 1 ML in AMINO ACID 4.25%-D10W IV SCH ×3 (14:49)
--- NOTE | 2019-02-26 16:12 | P.PN ---
Subjective This a 43-year-old female history of stage IIB cervical squama cell CA ,stage IV lung cancer metastasis, squamous cell carcinoma of right pleura, status post chemotherapy, radiation ,anxiety, recovering opiate addiction, depression, panic disorder, borderline personality disorder, former nicotine dependence, and multiple other medical issues, presented to the ER with complaints of mid epigastric abdominal pain, abdominal cramping, spasming, nausea/vomiting. Denies hematemesis. Denies fever or chills Receive 1 unit of packed RBCs in the ER. KUB reporting no signs of obstruction, small right effusion with possible infiltrate. Patient reports recent CT reporting improvement. Last bowel movement yesterday-hardened. Routinely has 1-2 bowel movements per week. Received IV fluid hydration. Clear liquid diet initiated. Patient was started on Bentyl 10 mg 1 pill by mouth 4 times daily as needed for abdominal spasm. CT abdomen suggests a mass like wall thickening in the small bowel consistent with or suspicious for neoplastic involvement. Hepatic metastases noted as well Patient is awake alert oriented 3 no new complaints states abdominal discomfort slightly improved. History of primary cervical cancer grade 4 with metastatic disease to lungs and liver and possibly small bowel, resulting in partial SBO 02/20/2019 Reports large bowel movement yesterday. No nausea vomiting. Diet intake improving, consumed 100% full liquid diet at lunch. Requesting diet advancement. Passing flatus today. Mid-epigastric pain continues, evaluated by surgery yesterday with no surgical interventions recommended. 02/21/19 continues to complain of significant mid epigastric pain, currently on Dilaudid IVP. Minimal intake of full liquid diet with positive nausea, positive emesis last night, no diarrhea. Positive bowel movements today. VSS. Denies chest pain, palpitations or shortness of breath. Evaluated by Dr. Flynn, patient is scheduled for small bowel series tomorrow. 02/22/2019 no bowel movements today, tolerating clear liquid diet with no emesis this morning. Scheduled for small bowel series today. Mid epigastric pain present. VSS. 02/23/2019 maintained on scheduled Zofran, no nausea, no emesis. Reports bowel movement last night following small bowel series. Small bowel series reports persistent partial mid small bowel obstruction presumed due to adhesions and or inflammatory changes near level proximal ileal loops in the right lower quadrant. NPO, Scheduled for surgery today. Labs pending. VSS, mild tachycardia. 02/24/2019 status post laparoscopic lysis of adhesions, open small bowel resection related to small bowel obstruction secondary to mesenteric deposit. Tolerated procedure well. Complaining of incisional site discomfort. Abdominal binder present. Tolerating popsicles and ice chips with No nausea or vomiting. No flatus, no bowel movement. PPN ordered. T-max 99.3. 02/25/2019: Patient denies any bowel movements but is tolerating a full liquid diet at this time. She isn't needing much. She does have an abdominal binder in place. She denies any significant flatus. She denies any chest pains, pressures, shortness breath. Denies any significant vomiting minimal nausea. She remains afebrile. 02/26/2019: Patient is doing better. She'll liquid stool last night. She is tolerating her current diet albuterol small amount. Her pain is improved. She continues to have flatus. She denies any chest pain pressure shortness of breath. Nausea is minimal and no recent vomiting. She remains afebrile. She has been tachycardic several times during her stay. Objective - Vital Signs Vital signs: Vital Signs Temp 97.6 F 02/26/19 11:31 Pulse 106 H 02/26/19 11:31 Resp 16 02/26/19 11:31 BP 122/77 02/26/19 11:31 Pulse Ox 96 02/26/19 11:31 Intake & Output 02/25/19 02/26/19 02/26/19 18:59 06:59 18:59 Intake Total 240 2280 240 Output Total 1200 600 Balance -960 2280 -360 Weight 62.596 kg Intake: Intake, IV Titration 1200 Amount Sodium Chloride 0.9% 1, 1200 000 ml @ 100 mls/hr IV . Q10H [facility] Rx#:[id number] Oral 240 1080 240 Output: Urine 1200 600 Other: Voiding Method Toilet Toilet Toilet # Voids 2 1 3 # Bowel Movements 0 1 2 - Exam GENERAL: Sitting up in bed, no acute distress HEENT: Conjunctivae normal. eyes normal. NECK: No JVD. No thyroid enlargement. No LNs CARDIOVASCULAR: S1, S2 regular.mild tachycardia, No murmur RESPIRATION: Breath sounds diminished in the bases. No rhonchi,crackles,wheezing ABDOMEN: Soft. Distended, status post surgery. Abdominal binder present. No guarding. no masses palpable. Hypoactive bowel sounds have improved. LEGS: No edema. no swelling. PSYCHIATRY: Alert and oriented X3, mood and affect normal. NERVOUS SYSTEM: Cranial N 2-12 grossly normal. Moves all 4 limbs. No focal deficits. Strength and sensation grossly intact. Skin: no lesions, no rash - Labs CBC & Chem 7: 02/26/19 06:40 02/26/19 06:40 Labs: Abnormal Lab Results - Last 24 Hours (Table) 02/26/19 02/26/19 Range/Units 06:40 06:40 RBC 2.93 L (3.80-5.40) m/uL Hgb 8.7 L (11.4-16.0) gm/dL Hct 28.1 L (34.0-46.0) % RDW 18.5 H (11.5-15.5) % Lymphocytes # 0.6 L (1.0-4.8) k/uL Sodium 135 L (137-145) mmol/L Chloride 96 L (98-107) mmol/L BUN 4 L (7-17) mg/dL Creatinine 0.45 L (0.52-1.04) mg/dL Assessment and Plan (1) S/P small bowel resection Current Visit: Yes Status: Acute Code(s): Z90.49 - ACQUIRED ABSENCE OF OTHER SPECIFIED PARTS OF DIGESTIVE TRACT SNOMED Code(s): 797176580211052 (2) Abdominal pain Current Visit: Yes Status: Acute Priority: High Code(s): R10.9 - UNSPECIFIED ABDOMINAL PAIN SNOMED Code(s): 59126045 (3) Liver metastases Current Visit: Yes Status: Acute Code(s): C78.7 - SECONDARY MALIG NEOPLASM OF LIVER AND INTRAHEPATIC BILE DUCT SNOMED Code(s): 43517738 (4) Small bowel obstruction Current Visit: Yes Status: Acute Priority: High Code(s): K56.609 - UNSP INTESTNL OBST, UNSP TO PARTIAL VERSUS COMPLETE OBST SNOMED Code(s): 783870607 (5) Primary cervical cancer with metastasis to other site Current Visit: Yes Status: Chronic Priority: Medium Code(s): C53.9 - MALIGNANT NEOPLASM OF CERVIX UTERI, UNSPECIFIED SNOMED Code(s): 001107130 (6) Metastatic cancer to lung Current Visit: No Status: Acute Code(s): C78.00 - SECONDARY MALIGNANT NEOPLASM OF UNSPECIFIED LUNG SNOMED Code(s): 97085538 (7) Normocytic hypochromic anemia Current Visit: No Status: Acute Code(s): D50.9 - IRON DEFICIENCY ANEMIA, UNSPECIFIED SNOMED Code(s): 80439288 (8) Primary cervical squamous cell carcinoma Current Visit: No Status: Chronic Priority: High Code(s): C53.9 - MALIGNANT NEOPLASM OF CERVIX UTERI, UNSPECIFIED SNOMED Code(s): 429876090 (9) Opioid dependence in remission Current Visit: Yes Status: Acute Code(s): F11.21 - OPIOID DEPENDENCE, IN REMISSION SNOMED Code(s): 994146778 (10) Depression, major, recurrent, moderate Current Visit: Yes Status: Acute Code(s): F33.1 - MAJOR DEPRESSIVE DISORDER, RECURRENT, MODERATE SNOMED Code(s): 843022191 Plan: Plan: Continue on current medication regime ,monitoring and symptomatic treatment. She'll continue on Dilaudid for pain. She'll continue on Trintel lix, lamictal and Abilify for her depression and mood disorder. Continuing Klonopin for anxiety. Diet advancement/pain management as per surgery. Aggressive pulmonary toileting with incentive spirometer ordered. Increase ambulation as tolerated. PT/OT. PPN per surgery. Prognosis guarded given multiple complex medical issues. Repeat labs in a.m. She'll be reevaluated next 24 hours. Most likely tachycardias from pain, we'll continue to monitor this,
[2019-02-26] MEDS: cloNIDine HCL 0.1 MG TAB PO SCH (21:05)
[2019-02-26] MEDS: DICYCLOMINE 20 MG TAB PO PRN (21:05)
[2019-02-26] MEDS: ARIPiprazole 15 MG TAB PO SCH (21:05)
[2019-02-26] MEDS: VORTIOXETINE HYDROBROMIDE 20 MG TABLET PO SCH (21:05)
[2019-02-26] MEDS: lamoTRIgine 100 MG TAB PO SCH (21:05)
[2019-02-27] MEDS: HYDROmorphone 1 MG/ML 1 ML SYRINGE IVP PRN ×3 (03:31→11:46)
[2019-02-27] MEDS: ACETAMINOPHEN TAB 325 MG TAB PO PRN ×2 (05:12→12:10)
[2019-02-27] MEDS: 1: MVI, ADULT NO.4 WITH VIT K 10 ML, TRACE (CONC-1ML/DOSE) 1 ML in AMINO ACID 4.25%-D10W IV SCH ×6 (05:12→19:06)
[2019-02-27 07:16] LABS: Anisocytosis Slight; Basophils % (A) 0 %; Eosinophils % (A) 0 %; HCT 28.8 % (34.0-46.0); HGB 8.9 gm/dL (11.4-16.0); Hypochromasia Slight; Lymphocytes # (A) 0.7 k/uL (1.0-4.8); Lymphocytes % (A) 9 %; MCH 28.9 pg (25.0-35.0); MCHC 30.8 g/dL (31.0-37.0); MCV 93.9 fL (80.0-100.0); Monocytes # (A) 0.5 k/uL (0-1.0); Monocytes % (A) 6 %; Neutrophils # (A) 6.7 k/uL (1.3-7.7); Neutrophils % (A) 82 %; Platelet Count 235 k/uL (150-450); RBC 3.07 m/uL (3.80-5.40); RDW 17.9 % (11.5-15.5); WBC 8.2 k/uL (3.8-10.6)
[2019-02-27 07:42] LABS: African American GFR (CKD) >90 (>60 ml/min/1.73 sqM); Anion Gap 10 mmol/L; Blood Urea Nitrogen 6 mg/dL (7-17); Calcium 8.9 mg/dL (8.4-10.2); Carbon Dioxide 30 mmol/L (22-30); Chloride 94 mmol/L (98-107); Glucose 107 mg/dL (74-99); Magnesium 1.8 mg/dL (1.6-2.3); Phosphorus 3.9 mg/dL (2.5-4.5); Potassium 4.7 mmol/L (3.5-5.1); Sodium 134 mmol/L (137-145)
[2019-02-27] MEDS: PANTOPRAZOLE 40 MG TABLET PO SCH ×2 (08:27→20:30)
[2019-02-27] MEDS: BENZONATATE 100 MG CAP PO SCH ×3 (08:27→21:07)
[2019-02-27] MEDS: ONDANSETRON 4 MG TAB PO SCH ×2 (08:27→15:40)
[2019-02-27] MEDS: clonazePAM 1 MG TAB PO SCH ×2 (08:27→20:30)
[2019-02-27] MEDS: SODIUM CHLORIDE 0.9% 1,000 ML IV SCH ×2 (08:31→21:09)
[2019-02-27] MEDS: [UNRECOGNIZED DRUG - OTHER] PO SCH ×2 (08:33→19:05)
--- NOTE | 2019-02-27 11:10 | P.PN ---
<Tabitha Hayes A - Last Filed: 02/27/19 13:02> Subjective Progress Note Date: 02/27/19 CHIEF COMPLAINT: Abdominal pain HISTORY OF PRESENT ILLNESS: Patient examined at the bedside. S/P laparoscopic lysis of adhesions and small bowel resection. Her abdominal pain is tolerable. Tolerating diet. Ate monegasque toast for breakfast. Denies nausea or vomiting. Passing flatus this morning. Reports BM yesterday. Patient did have a temp at 0500 was 100.9. Repeat temp 97.4. Heart rate was 110s early this morning but has improved to the 90s since then. She is anxious to be discharged home. PHYSICAL EXAM: VITAL SIGNS: Reviewed. GENERAL: Well-developed in no acute distress. HEENT: No sclera icterus. Extraocular movements grossly intact. Moist buccal mucosa. Head is atraumatic, normocephalic. ABDOMEN: Soft. Mild distention. Appropriate surgical tenderness. Surgical sites clean dry intact. Abdominal binder noted. NEUROLOGIC: Alert and oriented. Cranial nerves II through XII grossly intact. ASSESSMENT: 1. Small bowel obstruction, S/P laparoscopic lysis of adhesions and small bowel resection. 2. Metastatic cervical cancer, stage IV to lung and liver 3. Abnormal computed tomography scan with possible metastatic disease to the abdomen 4. Chronic constipation PLAN: 1. Continue diet as tolerated 2. Pain control 3. Monitor for further fevers or tachycardia 4. Anticipate discharge home tomorrow if patient remains afebrile Nurse practitioner note has been reviewed by physician. Signing provider agrees with the documented findings, assessment, and plan of care. Objective - Vital Signs Vital signs: Vital Signs Temp 97.4 F L 02/27/19 08:26 Pulse 99 02/27/19 08:30 Resp 16 02/27/19 08:30 BP 118/80 02/27/19 05:00 Pulse Ox 92 L 02/27/19 05:00 Intake & Output 02/26/19 02/27/19 02/27/19 18:59 06:59 18:59 Intake Total 240 350 Output Total 1200 Balance -960 350 Weight 62.596 kg Intake: Intake, IV Titration 350 Amount Sodium Chloride 0.9% 1, 350 000 ml @ 100 mls/hr IV . Q10H [facility] Rx#:[id number] Oral 240 Output: Urine 1200 Other: Voiding Method Toilet Toilet Toilet # Voids 3 1 # Bowel Movements 2 - Labs CBC & Chem 7: 02/27/19 06:55 02/27/19 06:55 Labs: Abnormal Lab Results - Last 24 Hours (Table) 02/27/19 02/27/19 Range/Units 06:55 06:55 RBC 3.07 L (3.80-5.40) m/uL Hgb 8.9 L (11.4-16.0) gm/dL Hct 28.8 L (34.0-46.0) % MCHC 30.8 L (31.0-37.0) g/dL RDW 17.9 H (11.5-15.5) % Lymphocytes # 0.7 L (1.0-4.8) k/uL Sodium 134 L (137-145) mmol/L Chloride 94 L (98-107) mmol/L BUN 6 L (7-17) mg/dL Creatinine 0.48 L (0.52-1.04) mg/dL Glucose 107 H (74-99) mg/dL <Alex Flynn - Last Filed: 02/27/19 15:27> Subjective As above. Patient doing well today. Tolerating diet. She did have a fever of 100.9. Continue to monitor for fevers. Incision without erythema. Objective - Vital Signs Vital signs: Vital Signs Temp 99.4 F 02/27/19 12:03 Pulse 91 02/27/19 12:03 Resp 17 02/27/19 12:03 BP 142/85 02/27/19 12:03 Pulse Ox 97 02/27/19 12:03 Intake & Output 02/26/19 02/27/19 02/27/19 18:59 06:59 18:59 Intake Total 240 350 240 Output Total 1200 Balance -960 350 240 Weight 62.596 kg Intake: Intake, IV Titration 350 Amount Sodium Chloride 0.9% 1, 350 000 ml @ 100 mls/hr IV . Q10H [facility] Rx#:[id number] Oral 240 240 Output: Urine 1200 Other: Voiding Method Toilet Toilet Toilet # Voids 3 1 4 # Bowel Movements 2 - Labs CBC & Chem 7: 02/27/19 06:55 02/27/19 06:55 Labs: Abnormal Lab Results - Last 24 Hours (Table) 02/27/19 02/27/19 Range/Units 06:55 06:55 RBC 3.07 L (3.80-5.40) m/uL Hgb 8.9 L (11.4-16.0) gm/dL Hct 28.8 L (34.0-46.0) % MCHC 30.8 L (31.0-37.0) g/dL RDW 17.9 H (11.5-15.5) % Lymphocytes # 0.7 L (1.0-4.8) k/uL Sodium 134 L (137-145) mmol/L Chloride 94 L (98-107) mmol/L BUN 6 L (7-17) mg/dL Creatinine 0.48 L (0.52-1.04) mg/dL Glucose 107 H (74-99) mg/dL Assessment and Plan (1) Small bowel obstruction Current Visit: Yes Status: Acute Priority: High Code(s): K56.609 - UNSP INTESTNL OBST, UNSP TO PARTIAL VERSUS COMPLETE OBST SNOMED Code(s): 295814696
--- NOTE | 2019-02-27 12:53 | P.PN ---
Subjective Progress Note Date: 02/27/19 Principal diagnosis: persistent partial SBO Tolerated breakfast this am. Fever this am, although appears to have resolved without Acetaminophen. Monitor for further fevers. Objective - Vital Signs Vital signs: Vital Signs Temp 99.4 F 02/27/19 12:03 Pulse 91 02/27/19 12:03 Resp 17 02/27/19 12:03 BP 142/85 02/27/19 12:03 Pulse Ox 97 02/27/19 12:03 Intake & Output 02/26/19 02/27/19 02/27/19 18:59 06:59 18:59 Intake Total 240 350 Output Total 1200 Balance -960 350 Weight 62.596 kg Intake: Intake, IV Titration 350 Amount Sodium Chloride 0.9% 1, 350 000 ml @ 100 mls/hr IV . Q10H [facility] Rx#:[id number] Oral 240 Output: Urine 1200 Other: Voiding Method Toilet Toilet Toilet # Voids 3 1 # Bowel Movements 2 - Exam Gen: Alert and Oriented, NAD Head: NCNT Neck Supple Heart Tachy Lungs No increased effort CTA B Abdomen: firm Tender Ext: No Rash, No Edema, Equal Strength Psych: Calm and Cooperative Neuro: No Focal Deficits Noted. - Labs CBC & Chem 7: 02/27/19 06:55 02/27/19 06:55 Labs: Abnormal Lab Results - Last 24 Hours (Table) 02/27/19 02/27/19 Range/Units 06:55 06:55 RBC 3.07 L (3.80-5.40) m/uL Hgb 8.9 L (11.4-16.0) gm/dL Hct 28.8 L (34.0-46.0) % MCHC 30.8 L (31.0-37.0) g/dL RDW 17.9 H (11.5-15.5) % Lymphocytes # 0.7 L (1.0-4.8) k/uL Sodium 134 L (137-145) mmol/L Chloride 94 L (98-107) mmol/L BUN 6 L (7-17) mg/dL Creatinine 0.48 L (0.52-1.04) mg/dL Glucose 107 H (74-99) mg/dL Assessment and Plan Plan: Assessment and Recommendations: Metastatic Cervical Cancer: - Metastatic Disease to lungs - Recent CT improvement in mets to lung Intractable midepigastric pain:Secondary to persistent partial SBO - Associated nausea and vomiting - Hx: Ulcers -S/p Ex Lap with surgery 02.23.19 Laparoscopic lysis of adhesions, open small bowel resection with anastamosis Encourage to get out of bed and increased activity Pain continues to be an issue, although currently only on IV dilaudid. She had pain at home and therefore concerned she was taking too much of her norco. This maybe because of tolerance and increased pain due to progressive cancer. Will need to switch to PO medications. - Will prescribe Percocet 1 q4 hours for now and see if that manages breakthrough pain. Would recommend 1-2 week prescritions only to closely monitor use. If not controlling pain, long acting MS contin for short term recommended.
[2019-02-27] MEDS: oxyCODONE-APAP 10-325MG 1 EACH TAB PO PRN ×2 (15:39→21:07)
--- NOTE | 2019-02-27 15:48 | P.PN ---
Subjective Progress Note Date: 02/27/19 This a 43-year-old female history of stage IIB cervical squama cell CA ,stage IV lung cancer metastasis, squamous cell carcinoma of right pleura, status post chemotherapy, radiation ,anxiety, recovering opiate addiction, depression, panic disorder, borderline personality disorder, former nicotine dependence, and multiple other medical issues, presented to the ER with complaints of mid epigastric abdominal pain, abdominal cramping, spasming, nausea/vomiting. Denies hematemesis. Denies fever or chills Receive 1 unit of packed RBCs in the ER. KUB reporting no signs of obstruction, small right effusion with possible infiltrate. Patient reports recent CT reporting improvement. Last bowel movement yesterday-hardened. Routinely has 1-2 bowel movements per week. Received IV fluid hydration. Clear liquid diet initiated. Patient was started on Bentyl 10 mg 1 pill by mouth 4 times daily as needed for abdominal spasm. CT abdomen suggests a mass like wall thickening in the small bowel consistent with or suspicious for neoplastic involvement. Hepatic metastases noted as well Patient is awake alert oriented 3 no new complaints states abdominal discomfort slightly improved. History of primary cervical cancer grade 4 with metastatic disease to lungs and liver and possibly small bowel, resulting in partial SBO 02/20/2019 Reports large bowel movement yesterday. No nausea vomiting. Diet intake improving, consumed 100% full liquid diet at lunch. Requesting diet advancement. Passing flatus today. Mid-epigastric pain continues, evaluated by surgery yesterday with no surgical interventions recommended. 02/21/19 continues to complain of significant mid epigastric pain, currently on Dilaudid IVP. Minimal intake of full liquid diet with positive nausea, positive emesis last night, no diarrhea. Positive bowel movements today. VSS. Denies chest pain, palpitations or shortness of breath. Evaluated by Dr. Flynn, patient is scheduled for small bowel series tomorrow. 02/22/2019 no bowel movements today, tolerating clear liquid diet with no emesis this morning. Scheduled for small bowel series today. Mid epigastric pain present. VSS. 02/23/2019 maintained on scheduled Zofran, no nausea, no emesis. Reports bowel movement last night following small bowel series. Small bowel series reports persistent partial mid small bowel obstruction presumed due to adhesions and or inflammatory changes near level proximal ileal loops in the right lower quadrant. NPO, Scheduled for surgery today. Labs pending. VSS, mild tachycardia. 02/24/2019 status post laparoscopic lysis of adhesions, open small bowel resection related to small bowel obstruction secondary to mesenteric deposit. Tolerated procedure well. Complaining of incisional site discomfort. Abdominal binder present. Tolerating popsicles and ice chips with No nausea or vomiting. No flatus, no bowel movement. PPN ordered. T-max 99.3. 02/25/2019: Patient denies any bowel movements but is tolerating a full liquid diet at this time. She isn't needing much. She does have an abdominal binder in place. She denies any significant flatus. She denies any chest pains, pressures, shortness breath. Denies any significant vomiting minimal nausea. She remains afebrile. 02/26/2019: Patient is doing better. She'll liquid stool last night. She is tolerating her current diet albuterol small amount. Her pain is improved. She continues to have flatus. She denies any chest pain pressure shortness of breath. Nausea is minimal and no recent vomiting. She remains afebrile. She has been tachycardic several times during her stay. 02/27/2019 pain controlled. Mild tachycardia, T-max 100.9. Ambulating, tolerating exertion well. Tolerating diet with no nausea vomiting, bowel movement yesterday, passing flatus this morning. Vital signs stable. Objective - Vital Signs Vital signs: Vital Signs Temp 99.4 F 02/27/19 12:03 Pulse 91 02/27/19 12:03 Resp 17 02/27/19 12:03 BP 142/85 02/27/19 12:03 Pulse Ox 97 02/27/19 12:03 Intake & Output 02/26/19 02/27/19 02/27/19 18:59 06:59 18:59 Intake Total 240 350 240 Output Total 1200 Balance -960 350 240 Weight 62.596 kg Intake: Intake, IV Titration 350 Amount Sodium Chloride 0.9% 1, 350 000 ml @ 100 mls/hr IV . Q10H [facility] Rx#:[id number] Oral 240 240 Output: Urine 1200 Other: Voiding Method Toilet Toilet Toilet # Voids 3 1 4 # Bowel Movements 2 - Exam VITAL SIGNS: As above GENERAL: Sitting up in bed, no acute distress HEENT: Conjunctivae normal. eyes normal. NECK: No JVD. No thyroid enlargement. No LNs CARDIOVASCULAR: S1, S2 regular. Mild tachycardia, No murmur RESPIRATION: Breath sounds diminished in the bases. No rhonchi,crackles,wheezing ABDOMEN: Soft. Distended, status post surgery. Abdominal binder present. No guarding. no masses palpable. Positive Bowel sounds. LEGS: No edema. no swelling. PSYCHIATRY: Alert and oriented X3, mood and affect normal. NERVOUS SYSTEM: Cranial N 2-12 grossly normal. Moves all 4 limbs. No focal deficits. Strength and sensation grossly intact. Skin: no lesions, no rash - Labs CBC & Chem 7: 02/27/19 06:55 02/27/19 06:55 Labs: Abnormal Lab Results - Last 24 Hours (Table) 02/27/19 02/27/19 Range/Units 06:55 06:55 RBC 3.07 L (3.80-5.40) m/uL Hgb 8.9 L (11.4-16.0) gm/dL Hct 28.8 L (34.0-46.0) % MCHC 30.8 L (31.0-37.0) g/dL RDW 17.9 H (11.5-15.5) % Lymphocytes # 0.7 L (1.0-4.8) k/uL Sodium 134 L (137-145) mmol/L Chloride 94 L (98-107) mmol/L BUN 6 L (7-17) mg/dL Creatinine 0.48 L (0.52-1.04) mg/dL Glucose 107 H (74-99) mg/dL Assessment and Plan Assessment: -Small bowel obstruction with metastasis, status post laparoscopic lysis of adhesions, open small bowel resection related to small bowel obstruction secondary to mesenteric deposit. Pathology pending. -Symptomatic Chronic anemia, status post 1 unit of packed RBCs. -Primary Cervical squamous Cell cancer, metastatic, to lung and liver -Possible metastatic disease to the abdomen as per CT -Anxiety, depression, panic disorder -Former nicotine dependence, quit 1-1/2 months ago -Opioid dependence in remission Plan: Continue on current medication regime ,monitoring and symptomatic treatment. Maintain aggressive pulmonary toileting with incentive spirometer ordered. Pain management as per surgery . Discharge planning in progress for tomorrow pending patient remains afebrile. The impression and plan of care has been dictated as directed. : I performed a history and examination of this patient, discussed the same with the dictator. I agree with the dictator's note ,documented as a scribe. Any additional findings or plans will be noted. Time taken: 35 minutes
[2019-02-27] MEDS: cloNIDine HCL 0.1 MG TAB PO SCH (20:30)
[2019-02-27] MEDS: lamoTRIgine 100 MG TAB PO SCH (20:31)
[2019-02-27] MEDS: ARIPiprazole 15 MG TAB PO SCH (20:31)
[2019-02-27] MEDS: VORTIOXETINE HYDROBROMIDE 20 MG TABLET PO SCH (20:31)
[2019-02-28] MEDS: ONDANSETRON 4 MG TAB PO SCH ×3 (00:24→17:58)
[2019-02-28] MEDS: oxyCODONE-APAP 10-325MG 1 EACH TAB PO PRN ×3 (04:09→17:58)
[2019-02-28] MEDS: ACETAMINOPHEN TAB 325 MG TAB PO PRN (04:09)
[2019-02-28] MEDS: SODIUM CHLORIDE 0.9% 1,000 ML IV SCH ×2 (04:11→21:22)
[2019-02-28 08:40] LABS: African American GFR (CKD) >90 (>60 ml/min/1.73 sqM); Anion Gap 12 mmol/L; Blood Urea Nitrogen 7 mg/dL (7-17); Calcium 8.7 mg/dL (8.4-10.2); Carbon Dioxide 25 mmol/L (22-30); Chloride 95 mmol/L (98-107); Glucose 92 mg/dL (74-99); Magnesium 1.6 mg/dL (1.6-2.3); Phosphorus 3.9 mg/dL (2.5-4.5); Potassium 4.3 mmol/L (3.5-5.1); Sodium 132 mmol/L (137-145)
[2019-02-28] MEDS ORDERED: VANCOMYCIN IV PER PHARMACY 1 EACH MISC MISCELLANE PRN (09:19)
[2019-02-28] MEDS: clonazePAM 1 MG TAB PO SCH ×2 (10:21→21:22)
[2019-02-28] MEDS: PANTOPRAZOLE 40 MG TABLET PO SCH ×2 (10:22→21:23)
[2019-02-28] MEDS: [UNRECOGNIZED DRUG - OTHER] PO SCH ×2 (10:22→21:16)
[2019-02-28] MEDS: BENZONATATE 100 MG CAP PO SCH ×3 (10:23→21:22)
[2019-02-28] MEDS: LEVOFLOXACIN 500 MG TAB PO SCH (10:23)
[2019-02-28] MEDS ORDERED: VANCOMYCIN 1,500 MG in SODIUM CHLORIDE 0.9% 250 ML IVPB ONE (10:30)
--- NOTE | 2019-02-28 11:49 | XR ---
EXAMINATION TYPE: XR chest 2V DATE OF EXAM: 02/28/2019 COMPARISON: 11/22/2018 HISTORY: Fever with recently diagnosed lung cancer. TECHNIQUE: Frontal and lateral views of the chest are obtained. FINDINGS: Right-sided Mediport has been placed in the interim with its distal tip in the high right atrium. There is redemonstration of elevated right hemidiaphragm, small right layering pleural effusi on, and right basilar airspace disease with improved aeration of the right midlung in comparison to t he prior. Trace left pleural effusion is again noted with improved aeration of the left lung base in the retrocardiac airspace. No acute osseous pathology. Contrast is incidentally noted within bowel. IMPRESSION: Improved aeration of the right midlung and left lung base 1818. Right basilar consolidat ion does remain obscuring this patient's known right-sided lung cancer. Trace left and small right pl eural effusions are similar in volume.
--- NOTE | 2019-02-28 13:54 | P.PN ---
Subjective Progress Note Date: 02/28/19 This a 43-year-old female history of stage IIB cervical squama cell CA ,stage IV lung cancer metastasis, squamous cell carcinoma of right pleura, status post chemotherapy, radiation ,anxiety, recovering opiate addiction, depression, panic disorder, borderline personality disorder, former nicotine dependence, and multiple other medical issues, presented to the ER with complaints of mid epigastric abdominal pain, abdominal cramping, spasming, nausea/vomiting. Denies hematemesis. Denies fever or chills Receive 1 unit of packed RBCs in the ER. KUB reporting no signs of obstruction, small right effusion with possible infiltrate. Patient reports recent CT reporting improvement. Last bowel movement yesterday-hardened. Routinely has 1-2 bowel movements per week. Received IV fluid hydration. Clear liquid diet initiated. Patient was started on Bentyl 10 mg 1 pill by mouth 4 times daily as needed for abdominal spasm. CT abdomen suggests a mass like wall thickening in the small bowel consistent with or suspicious for neoplastic involvement. Hepatic metastases noted as well Patient is awake alert oriented 3 no new complaints states abdominal discomfort slightly improved. History of primary cervical cancer grade 4 with metastatic disease to lungs and liver and possibly small bowel, resulting in partial SBO 02/20/2019 Reports large bowel movement yesterday. No nausea vomiting. Diet intake improving, consumed 100% full liquid diet at lunch. Requesting diet advancement. Passing flatus today. Mid-epigastric pain continues, evaluated by surgery yesterday with no surgical interventions recommended. 02/21/19 continues to complain of significant mid epigastric pain, currently on Dilaudid IVP. Minimal intake of full liquid diet with positive nausea, positive emesis last night, no diarrhea. Positive bowel movements today. VSS. Denies chest pain, palpitations or shortness of breath. Evaluated by Dr. Flynn, patient is scheduled for small bowel series tomorrow. 02/22/2019 no bowel movements today, tolerating clear liquid diet with no emesis this morning. Scheduled for small bowel series today. Mid epigastric pain present. VSS. 02/23/2019 maintained on scheduled Zofran, no nausea, no emesis. Reports bowel movement last night following small bowel series. Small bowel series reports persistent partial mid small bowel obstruction presumed due to adhesions and or inflammatory changes near level proximal ileal loops in the right lower quadrant. NPO, Scheduled for surgery today. Labs pending. VSS, mild tachycardia. 02/24/2019 status post laparoscopic lysis of adhesions, open small bowel resection related to small bowel obstruction secondary to mesenteric deposit. Tolerated procedure well. Complaining of incisional site discomfort. Abdominal binder present. Tolerating popsicles and ice chips with No nausea or vomiting. No flatus, no bowel movement. PPN ordered. T-max 99.3. 02/25/2019: Patient denies any bowel movements but is tolerating a full liquid diet at this time. She isn't needing much. She does have an abdominal binder in place. She denies any significant flatus. She denies any chest pains, pressures, shortness breath. Denies any significant vomiting minimal nausea. She remains afebrile. 02/26/2019: Patient is doing better. She'll liquid stool last night. She is tolerating her current diet albuterol small amount. Her pain is improved. She continues to have flatus. She denies any chest pain pressure shortness of breath. Nausea is minimal and no recent vomiting. She remains afebrile. She has been tachycardic several times during her stay. 02/27/2019 pain controlled. Mild tachycardia, T-max 100.9. Ambulating, tolerating exertion well. Tolerating diet with no nausea vomiting, bowel movement yesterday, passing flatus this morning. Vital signs stable. 02/28/2019 persistent fevers, T-max 101. Blood cultures obtained. ID consulted. Levaquin and vancomycin initiated. Consuming [employer] for breakfast. No nausea, no emesis. Last bowel movement 2 days ago. Passing flatus. Maintaining O2 sats in the 90s on 2 L, chest x-ray pending. Pain controlled. Objective - Vital Signs Vital signs: Vital Signs Temp 101 F H 02/28/19 04:00 Pulse 110 H 02/28/19 04:00 Resp 16 02/28/19 04:00 BP 126/82 02/28/19 04:00 Pulse Ox 94 L 02/28/19 04:00 Intake & Output 02/27/19 02/28/19 02/28/19 18:59 06:59 18:59 Intake Total 240 0 Output Total 600 Balance -360 2039 Intake: Intake, IV Titration 1200 Amount Sodium Chloride 0.9% 1, 1200 000 ml @ 100 mls/hr IV . Q10H [facility] Rx#:[id number] Oral 240 840 Output: Urine 600 Other: Voiding Method Toilet Toilet # Voids 2 1 - Exam VITAL SIGNS: As above GENERAL: Sitting up in bed, no acute distress HEENT: Conjunctivae normal. eyes normal. NECK: No JVD. No thyroid enlargement. No LNs CARDIOVASCULAR: S1, S2 regular. tachycardic, No murmur RESPIRATION: Breath sounds diminished in the bases. No rhonchi,crackles,wheezing ABDOMEN: Soft. Distended, status post surgery. Abdominal binder present. No guarding. no masses palpable. Positive Bowel sounds. LEGS: No edema. no swelling. PSYCHIATRY: Alert and oriented X3, mood and affect normal. NERVOUS SYSTEM: Cranial N 2-12 grossly normal. Moves all 4 limbs. No focal deficits. Strength and sensation grossly intact. Skin: no lesions, no rash - Labs CBC & Chem 7: 02/27/19 06:55 02/28/19 07:39 Labs: Abnormal Lab Results - Last 24 Hours (Table) 02/28/19 Range/Units 07:39 Sodium 132 L (137-145) mmol/L Chloride 95 L (98-107) mmol/L Creatinine 0.42 L (0.52-1.04) mg/dL Assessment and Plan Assessment: -Small bowel obstruction with metastasis, status post laparoscopic lysis of adhesions, open small bowel resection related to small bowel obstruction seco ndary to mesenteric deposit. Pathology pending. -Symptomatic Chronic anemia, status post 1 unit of packed RBCs. -Primary Cervical squamous Cell cancer, metastatic, to lung and liver -Possible metastatic disease to the abdomen as per CT -Anxiety, depression, panic disorder -Former nicotine dependence, quit 1-1/2 months ago -Opioid dependence in remission -Persistent fevers, workup in progress, possibly related to TNF -Hypoxic respiratory failure, multifactorial including atelectasis, chest x-ray pending Plan: Continue on current medication regime ,monitoring and symptomatic treatment. Blood cultures pending. IV antibiotics as per ID. Chest x-ray completed, pending. Maintain aggressive pulmonary toileting with incentive spirometer ordered. Pain management as per surgery . The impression and plan of care has been dictated as directed. : I performed a history and examination of this patient, discussed the same with the dictator. I agree with the dictator's note ,documented as a scribe. Any additional findings or plans will be noted. Time taken: 35 minutes
--- NOTE | 2019-02-28 15:24 | P.PN ---
<Tabitha Hayes A - Last Filed: 02/28/19 15:19> Subjective Progress Note Date: 02/28/19 CHIEF COMPLAINT: Abdominal pain HISTORY OF PRESENT ILLNESS: Patient examined at the bedside. S/P laparoscopic lysis of adhesions and small bowel resection. Patient reports her abdominal pain is tolerable. She reports discomfort at surgical sites. She is tolerating PO intake. Reports having [employer] earlier today. Denies nausea or vomiting. Passing flatus. No BM today. She has been ambulating. She reports not using IS as often as she should be. Patient has been febrile overnight. Tmax 101.0. Most recent temp is 98.7. PHYSICAL EXAM: VITAL SIGNS: Reviewed. GENERAL: Well-developed in no acute distress. HEENT: No sclera icterus. Extraocular movements grossly intact. Moist buccal mucosa. Head is atraumatic, normocephalic. ABDOMEN: Soft. Nondistended. Appropriate surgical tenderness. Surgical sites clean dry intact. NEUROLOGIC: Alert and oriented. Cranial nerves II through XII grossly intact. ASSESSMENT: 1. Small bowel obstruction, S/P laparoscopic lysis of adhesions and small bowel resection. 2. Metastatic cervical cancer, stage IV to lung and liver 3. Abnormal computed tomography scan with possible metastatic disease to the abdomen 4. Chronic constipation PLAN: 1. Continue diet as tolerated 2. Pain control 3. Activity as tolerated 4. Incentive spirometer encouraged 5. Infectious disease consult has been obtained and patient has been pancultured. CXR obtained. Antibiotics started per Dr. García. Await further recommendations from infectious disease Nurse practitioner note has been reviewed by physician. Signing provider agrees with the documented findings, assessment, and plan of care. Objective - Vital Signs Vital signs: Vital Signs Temp 98.7 F 02/28/19 12:22 Pulse 120 H 02/28/19 12:22 Resp 17 02/28/19 12:22 BP 139/90 02/28/19 12:22 Pulse Ox 98 02/28/19 12:22 Intake & Output 02/27/19 02/28/19 02/28/19 18:59 06:59 18:59 Intake Total 240 2040 Output Total 600 Balance -360 2040 Intake: Intake, IV Titration 1200 Amount Sodium Chloride 0.9% 1, 1200 000 ml @ 100 mls/hr IV . Q10H [facility] Rx#:[id number] Oral 240 840 Output: Urine 600 Other: Voiding Method Toilet Toilet Toilet # Voids 2 1 - Labs CBC & Chem 7: 02/27/19 06:55 02/28/19 07:39 Labs: Abnormal Lab Results - Last 24 Hours (Table) 02/28/19 Range/Units 07:39 Sodium 132 L (137-145) mmol/L Chloride 95 L (98-107) mmol/L Creatinine 0.42 L (0.52-1.04) mg/dL <Alex Flynn - Last Filed: 02/28/19 17:11> Subjective As above. Patient doing well today. Tolerating diet. Still having fevers. Infectious disease evaluating patient. No further surgical plans at this time. We'll follow. Objective - Vital Signs Vital signs: Vital Signs Temp 98.7 F 02/28/19 12:22 Pulse 120 H 02/28/19 12:22 Resp 17 02/28/19 12:22 BP 139/90 02/28/19 12:22 Pulse Ox 96 02/28/19 16:02 Intake & Output 02/27/19 02/28/19 02/28/19 18:59 06:59 18:59 Intake Total 240 2040 Output Total 600 Balance -360 2040 Intake: Intake, IV Titration 1200 Amount Sodium Chloride 0.9% 1, 1200 000 ml @ 100 mls/hr IV . Q10H [facility] Rx#:[id number] Oral 240 840 Output: Urine 600 Other: Voiding Method Toilet Toilet Toilet # Voids 2 1 - Labs CBC & Chem 7: 02/27/19 06:55 02/28/19 07:39 Labs: Abnormal Lab Results - Last 24 Hours (Table) 02/28/19 Range/Units 07:39 Sodium 132 L (137-145) mmol/L Chloride 95 L (98-107) mmol/L Creatinine 0.42 L (0.52-1.04) mg/dL Assessment and Plan (1) Small bowel obstruction Current Visit: Yes Status: Acute Priority: High Code(s): K56.609 - UNSP INTESTNL OBST, UNSP TO PARTIAL VERSUS COMPLETE OBST SNOMED Code(s): 887110695
--- NOTE | 2019-02-28 16:39 | P.PN ---
Subjective Progress Note Date: 02/28/19 Principal diagnosis: persistent partial SBO Fevers persistent t max 101 today. pain is controlled. Blood cultures in progress and ID on board Objective - Vital Signs Vital signs: Vital Signs Temp 98.7 F 02/28/19 12:22 Pulse 120 H 02/28/19 12:22 Resp 17 02/28/19 12:22 BP 139/90 02/28/19 12:22 Pulse Ox 96 02/28/19 16:02 Intake & Output 02/27/19 02/28/19 02/28/19 18:59 06:59 18:59 Intake Total 240 2040 Output Total 600 Balance -360 2040 Intake: Intake, IV Titration 1200 Amount Sodium Chloride 0.9% 1, 1200 000 ml @ 100 mls/hr IV . Q10H [facility] Rx#:[id number] Oral 240 840 Output: Urine 600 Other: Voiding Method Toilet Toilet Toilet # Voids 2 1 - Exam Gen: Alert and Oriented, NAD Head: NCNT Neck Supple Heart Tachy Lungs No increased effort CTA B Abdomen: firm Tender Ext: No Rash, No Edema, Equal Strength Psych: Calm and Cooperative Neuro: No Focal Deficits Noted. - Labs CBC & Chem 7: 02/27/19 06:55 02/28/19 07:39 Labs: Abnormal Lab Results - Last 24 Hours (Table) 02/28/19 Range/Units 07:39 Sodium 132 L (137-145) mmol/L Chloride 95 L (98-107) mmol/L Creatinine 0.42 L (0.52-1.04) mg/dL Assessment and Plan Plan: Assessment and Recommendations: Metastatic Cervical Cancer: - Metastatic Disease to lungs - Recent CT improvement in mets to lung Intractable midepigastric pain:Secondary to persistent partial SBO - Associated nausea and vomiting - Hx: Ulcers -S/p Ex Lap with surgery 02.23.19 Laparoscopic lysis of adhesions, open small bowel resection with anastamosis Encourage to get out of bed and increased activity Pain continues to be an issue, although currently only on IV dilaudid. She had pain at home and therefore concerned she was taking too much of her norco. This maybe because of tolerance and increased pain due to progressive cancer. Will need to switch to PO medications. - Will prescribe Percocet 1 q4 hours for now and see if that manages breakthrough pain. Would recommend 1-2 week prescritions only to closely monitor use. If not controlling pain, long acting MS contin for short term recommended. Fevers: - Villalta culture in progress - ID consult I have completed the full history and physical of this patient and developed the complete impression and plan, Agree with [place] GIRON, dictated as a sccribe
[2019-02-28] MEDS: cloNIDine HCL 0.1 MG TAB PO SCH (21:22)
[2019-02-28] MEDS: VORTIOXETINE HYDROBROMIDE 20 MG TABLET PO SCH (21:22)
[2019-02-28] MEDS: ARIPiprazole 15 MG TAB PO SCH (21:22)
[2019-02-28] MEDS: lamoTRIgine 100 MG TAB PO SCH (21:22)
[2019-02-28] MEDS: VANCOMYCIN 1,250 MG in SODIUM CHLORIDE 0.9% 250 ML IVPB SCH (21:23)
--- NOTE | 2019-02-28 22:28 | P.CONS ---
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 She was usually treated with radiation and chemotherapy. She had progression of her disease and has now been treated with a multimodal chemotherapy and had 3 cycles. She is now hospitalized with significant weakness and fatigue malaise. She's had difficulty with eating also. The patient then developed a significant increasing abdominal pain and was taken to the operating room with evidence of obstruction related to metastatic deposits within the mesentery. She was starting to have some improvement but now has developed fever and with this consultation has been requested. The patient which she feels somewhat poorly but is not having further chills or rigors. Her abdominal pain is improving. Review of Systems HEENT:Denies headache or acute visual change. Denies sinus or mouth discomforts. Denies neck stiffness or pain. Denies significant oral cavity pain. Denies difficulty on swallowing. Lungs: Denies significant shortness of breath, cough, sputum production, or hemoptysis. Cardiovascular: Denies significant shortness of breath, chest pain, chest wall pain, orthopnea, dyspnea on exertion, syncope Gastrointestinal: As per the HPI poor appetite has had nausea without recent emesis has been having abdominal pain related to the surgery prior severe pains have resolved Musculoskeletal: denies significant myalgias or arthralgias. No new joint swelling. Denies new back pain. Skin: Denies new rash or lesions. No new ulcers or wounds are related.. Neuro: Does have some headaches they're more severe than usual she has some generalized weakness but no falls or seizures Psychiatric: Situational depression but not acutely changing Endocrine: She has profound fatigue and has had significant weight loss Past Medical History Past Medical History: Cancer Additional Past Medical History / Comment(s): stage 4 lung cancer,anxiety, recovering opiate addiction clean for a year, borderline personality History of Any Multi-Drug Resistant Organisms: None Reported Past Surgical History: Section, Tubal Ligation Past Anesthesia/Blood Transfusion Reactions: No Reported Reaction Past Psychological History: ADD/ADHD, Anxiety, Depression, Panic Disorder Additional Psychological History / Comment(s): Borderline personality disorder. Pt resides with her significant other and 2 of her adult children. She recieves social security d/t mental health problems. She is independent. She goes to [facility] but needs to set up with new therapist-her current therapist no longer works there. Smoking Status: Former smoker Past Alcohol Use History: None Reported Additional Past Alcohol Use History / Comment(s): Pt started smoking in 2006 quit October 2018 Past Drug Use History: None Reported Additional Drug Use History / Comment(s): Pt is a recovering opiate addict-she has been clean 5 yrs. - Past Family History Father History Unknown: Yes Family Medical History: Liver Disease Additional Family Medical History / Comment(s): Father had hepatitis at the age of 17 yrs. He was an drug addict. He started drinking when his and this lead to his per pt. Mother History Unknown: Yes Additional Family Medical History / Comment(s): Mother is healthy. Medications and Allergies Home Medications and Allergies Comment(s): Current Medications Acetaminophen (Tylenol Tab) 650 mg PO Q6HR PRN PRN Reason: Fever and/ or Pain Last Admin: 02/28/19 04:09 Dose: 325 mg Documented by: Aripiprazole (Abilify) 15 mg PO [facility] Last Admin: 02/28/19 21:22 Dose: 15 mg Documented by: Benzonatate (Tessalon Perles) 200 mg PO TID [facility] Last Admin: 02/28/19 21:22 Dose: 200 mg Documented by: Clonazepam (Klonopin) 1 mg PO BID [facility] Last Admin: 02/28/19 21:22 Dose: 1 mg Documented by: Clonidine (Catapres) 0.3 mg PO [facility] Last Admin: 02/28/19 21:22 Dose: 0.3 mg Documented by: Dicyclomine HCl (Bentyl) 20 mg PO QID PRN PRN Reason: Dyspepsia Last Admin: 02/26/19 21:05 Dose: 20 mg Documented by: Hydromorphone HCl (Dilaudid) 0.5 mg IVP Q3HR PRN PRN Reason: Moderate Pain Last Admin: 02/23/19 19:42 Dose: 0.5 mg Documented by: Hydromorphone HCl (Dilaudid) 1 mg IVP Q3HR PRN PRN Reason: Severe Pain Last Admin: 02/27/19 11:46 Dose: 1 mg Documented by: Sodium Chloride (Saline 0.9%) 1,000 mls @ 100 mls/hr IV .Q10H [facility] Last Admin: 02/28/19 21:22 Dose: 100 mls/hr Documented by: Vancomycin HCl 1,250 mg/ (Sodium Chloride) 250 mls @ 125 mls/hr IVPB Q12HR [facility] Last Admin: 02/28/19 21:23 Dose: 125 mls/hr Documented by: Lamotrigine (Lamictal) 200 mg PO [facility] Last Admin: 02/28/19 21:22 Dose: 200 mg Documented by: Levofloxacin (Levaquin) 500 mg PO Q24H [facility] Last Admin: 02/28/19 10:23 Dose: 500 mg Documented by: Naloxone HCl (Narcan) 0.2 mg IV Q2M PRN PRN Reason: Opioid Reversal Chlorphen-Hydrocod 8 (-10mg/5ml 5 Ml) 5 ml PO Q12HR [facility] Last Admin: 02/28/19 21:16 Dose: Not Given Documented by: Buprenorphine 2 Mg 1 each SUBLINGUAL Q6H PRN PRN Reason: Pain Last Admin: 02/24/19 21:32 Dose: 1 each Documented by: Ondansetron HCl (Zofran) 4 mg PO Q8HR [facility] Last Admin: 02/28/19 17:58 Dose: 4 mg Documented by: Oxycodone/Acetaminophen (Percocet 10-325) 1 each PO Q4H PRN PRN Reason: Pain Last Admin: 02/28/19 17:58 Dose: 1 each Documented by: Pantoprazole Sodium (Protonix) 40 mg PO BID [facility] Last Admin: 02/28/19 21:23 Dose: 40 mg Documented by: Vortioxetine (Trintellix) 20 mg PO [facility] Last Admin: 02/28/19 21:22 Dose: 20 mg Documented by: Home Medications Medication Instructions Recorded Confirmed Type cloNIDine HCL 0.3 mg PO 05/15/15 02/16/19 History ARIPiprazole [Abilify] 15 mg PO 11/01/18 02/16/19 History Vortioxetine Hydrobromide 20 mg PO 11/01/18 02/16/19 History [Trintellix] clonazePAM [KlonoPIN] 1 mg PO BID 11/01/18 02/16/19 History lamoTRIgine [LaMICtal] 200 mg PO 11/01/18 02/16/19 History Benzonatate [Tessalon Perles] 200 mg PO TID 11/22/18 02/16/19 History Omeprazole 40 mg PO DAILY 11/22/18 02/16/19 History Ondansetron Odt [Zofran Odt] 8 mg PO Q8HR 11/22/18 02/16/19 History Acetaminophen 650 mg PO Q6H PRN 11/30/18 02/16/19 History CHLORPHEN-HYDROcod 8-10mg/5ml 5 ml PO Q12HR 02/16/19 02/16/19 History [Tussionex] LORazepam [Ativan] 0.5 mg PO DAILY PRN 02/16/19 02/16/19 History Buprenorphine HCl [Subutex] 2 mg SL Q6H PRN #12 tab.subl 02/21/19 Rx Allergies Allergy/AdvReac Type Severity Reaction Status Date / Time No Known Allergies Allergy Verified 02/16/19 14:53 Physical Exam Vitals: Vital Signs Temp Pulse Pulse Resp BP Pulse Ox 02/28/19 19:54 99.6 F 16 138/80 96 02/28/19 16:02 96 02/28/19 12:22 98.7 F 120 H 17 139/90 98 02/28/19 04:00 101 F H 110 H 16 126/82 94 L 02/28/19 00:20 99.3 F 89 18 Intake and Output 02/28/19 02/28/19 02/28/19 06:59 14:59 22:59 Intake Total 920 800 Balance 920 800 Intake: Intake, IV Titration 800 800 Amount Sodium Chloride 0.9% 1, 800 800 000 ml @ 100 mls/hr IV . Q10H [facility] Rx#:[id number] Oral 120 Other: Voiding Method Toilet Toilet Toilet # Voids 1 3 43-year-old female with alopecia, pallor and appears chronically ill but is not in acute distress HEENT: Anicteric conjunctiva are pale but moist nasal mucosa grossly intact without significant lesions, there is no thrush. No oral lesions Neck: The neck is supple without significant lymphadenopathy or thyromegaly. Lungs: Symmetrical air entry is noted evidence of few expiratory wheezes no bronchial sounds dullness or egophony Heart: Regular rate and rhythm with an audible S1-S2, no S3 no S4. There is no significant murmur click or rub, PMI was nondisplaced. Abdomen: Few bowel sounds are noted, there is some tenderness at the surgical sites but there is not significant diffuse abdominal tenderness. No palpable masses are noted. No guarding or rebound. Extremities: The upper extremities have excellent pulses they are symmetric, no significant petechiae or telangiectasia. No splinter hemorrhages were noted. The lower extremities have mild edema but no open ulcerations Neuro: Awake alert oriented to person place and time. There are no acute new gross focal sensory motor deficits. Results CBC & Chem 7: 02/27/19 06:55 02/28/19 07:39 Labs: Abnormal Lab Results - Last 24 Hours (Table) 02/28/19 Range/Units 07:39 Sodium 132 L (137-145) mmol/L Chloride 95 L (98-107) mmol/L Creatinine 0.42 L (0.52-1.04) mg/dL Laboratory Results WBC 8.2 k/uL (3.8-10.6) 02/27/19 06:55 RBC 3.07 m/uL (3.80-5.40) L 02/27/19 06:55 Hgb 8.9 gm/dL (11.4-16.0) L 02/27/19 06:55 Hct 28.8 % (34.0-46.0) L 02/27/19 06:55 MCV 93.9 fL (80.0-100.0) 02/27/19 06:55 MCH 28.9 pg (25.0-35.0) 02/27/19 06:55 MCHC 30.8 g/dL (31.0-37.0) L 02/27/19 06:55 RDW 17.9 % (11.5-15.5) H 02/27/19 06:55 Plt Count 235 k/uL (150-450) 02/27/19 06:55 Neutrophils % 82 % 02/27/19 06:55 Neutrophils % (Manual) 59 % 02/19/19 09:30 Band Neutrophils % 1 % 02/17/19 13:45 Lymphocytes % 9 % 02/27/19 06:55 Lymphocytes % (Manual) 16 % 02/19/19 09:30 Monocytes % 6 % 02/27/19 06:55 Monocytes % (Manual) 25 % 02/19/19 09:30 Eosinophils % 0 % 02/27/19 06:55 Basophils % 0 % 02/27/19 06:55 Neutrophils # 6.7 k/uL (1.3-7.7) 02/27/19 06:55 Neutrophils # (Manual) 2.01 k/uL (1.3-7.7) 02/19/19 09:30 Lymphocytes # 0.7 k/uL (1.0-4.8) L 02/27/19 06:55 Lymphocytes # (Manual) 0.54 k/uL (1.0-4.8) L 02/19/19 09:30 Monocytes # 0.5 k/uL (0-1.0) 02/27/19 06:55 Monocytes # (Manual) 0.85 k/uL (0-1.0) 02/19/19 09:30 Eosinophils # 0.0 k/uL (0-0.7) 02/27/19 06:55 Basophils # 0.0 k/uL (0-0.2) 02/27/19 06:55 Nucleated RBCs 0 /100 WBC (0-0) 02/19/19 09:30 Manual Slide Review Performed 02/19/19 09:30 Toxic Vacuolation Present 02/16/19 15:30 Polychromasia Present 02/16/19 15:30 Hypochromasia Slight 02/27/19 06:55 Poikilocytosis Slight 02/26/19 06:40 Poikilocytosis (manual Present 02/16/19 15:30 Anisocytosis Slight 02/27/19 06:55 Macrocytosis Slight 02/26/19 06:40 Target Cells Present 02/16/19 15:30 PT 10.3 sec (9.0-12.0) 02/16/19 15:30 INR 1.0 (<1.2) 02/16/19 15:30 APTT 27.8 sec (22.0-30.0) 02/16/19 15:30 Sodium 132 mmol/L (137-145) L 02/28/19 07:39 Potassium 4.3 mmol/L (3.5-5.1) 02/28/19 07:39 Chloride 95 mmol/L (98-107) L 02/28/19 07:39 Carbon Dioxide 25 mmol/L (22-30) 02/28/19 07:39 Anion Gap 12 mmol/L 02/28/19 07:39 BUN 7 mg/dL (7-17) 02/28/19 07:39 Creatinine 0.42 mg/dL (0.52-1.04) L 02/28/19 07:39 Est GFR (CKD-EPI)AfAm >90 (>60 ml/min/1.73 sqM) 02/28/19 07:39 Est GFR (CKD-EPI)NonAf >90 (>60 ml/min/1.73 sqM) 02/28/19 07:39 Glucose 92 mg/dL (74-99) 02/28/19 07:39 Plasma Lactic Acid Peter 1.9 mmol/L (0.7-2.0) 02/27/19 06:55 Calcium 8.7 mg/dL (8.4-10.2) 02/28/19 07:39 Ionized Calcium Aicha 4.9 mg/dL (4.5-5.3) 02/24/19 12:32 Phosphorus 3.9 mg/dL (2.5-4.5) 02/28/19 07:39 Magnesium 1.6 mg/dL (1.6-2.3) 02/28/19 07:39 Total Bilirubin 0.3 mg/dL (0.2-1.3) 02/24/19 12:32 AST 18 U/L (14-36) 02/24/19 12:32 ALT 10 U/L (9-52) 02/24/19 12:32 Alkaline Phosphatase 102 U/L (38-126) 02/24/19 12:32 Total Protein 6.0 g/dL (6.3-8.2) L 02/24/19 12:32 Albumin 3.1 g/dL (3.5-5.0) L 02/24/19 12:32 Triglycerides 264 mg/dL (<150) H 02/24/19 12:32 Amylase 37 U/L (30-110) 02/16/19 15:30 Lipase 21 U/L (23-300) L 02/16/19 15:30 HCG, Qual Not Detected 02/23/19 09:01 Urine Color Yellow 02/16/19 15:30 Urine Appearance Clear (Clear) 02/16/19 15:30 Urine pH 6.5 (5.0-8.0) 02/16/19 15:[address] 1.017 (1.001-1.035) 02/16/19 15:30 Urine Protein Negative (Negative) 02/16/19 15:30 Urine Glucose (UA) Negative (Negative) 02/16/19 15:30 Urine Ketones Negative (Negative) 02/16/19 15:30 Urine Blood Negative (Negative) 02/16/19 15:30 Urine Nitrite Negative (Negative) 02/16/19 15:30 Urine Bilirubin Negative (Negative) 02/16/19 15:30 Urine Urobilinogen <2.0 mg/dL (<2.0) 02/16/19 15:30 Ur Leukocyte Esterase Negative (Negative) 02/16/19 15:30 Blood Type B Negative 02/23/19 09:01 Blood Type Recheck B Neg 02/23/19 09:01 Bld Type Recheck Status No 02/23/19 09:01 Antibody Screen NEGATIVE 02/23/19 09:01 Crossmatch See Detail 02/16/19 16:50 Spec Expiration Date 02/26/2019230002/23/19 09:01 Assessment and Plan (1) Primary cervical cancer with metastasis to other site Current Visit: Yes Status: Chronic Priority: Medium Code(s): C53.9 - MALIGNANT NEOPLASM OF CERVIX UTERI, UNSPECIFIED SNOMED Code(s): 323878571 (2) Febrile illness, acute Narrative/Plan: 43-year-old woman who has a history of the metastatic cervical cancer with metastasis to lung and liver and intra-abdominal contents who was having increasing abdominal pain and has now undergone her laparoscopic intervention to assist in the ileus and obstruction. She's doing better but is still feeling somewhat poorly. She did have a stiff in fever 101 and consult was requested. Antibiotic therapy was added with vancomycin and Levaquin with concerns to potential pulmonary source. At this time as is reasonable I cultures are in process. Chest x-ray is markedly abnormal but it has been. Symptomatically she seems to be actually doing relatively well today. Would follow cultures closely and de-escalate antibiotic therapy rapidly, underlying cancer with liver metastasis often causes fevers. She is not neutropenic. Current Visit: No Status: Acute Code(s): R50.9 - FEVER, UNSPECIFIED SNOMED Code(s): 595371307 (3) S/P small bowel resection Current Visit: Yes Status: Acute Code(s): Z90.49 - ACQUIRED ABSENCE OF OTHER SPECIFIED PARTS OF DIGESTIVE TRACT SNOMED Code(s): 690311270562745
[2019-03-01] MEDS: ONDANSETRON 4 MG TAB PO SCH ×2 (00:27→09:50)
[2019-03-01] MEDS: SODIUM CHLORIDE 0.9% 1,000 ML IV SCH (05:02)
[2019-03-01 06:58] LABS: Appearance,Urine Clear (Clear); Bilirubin,Urine Negative (Negative); Blood,Urine Negative (Negative); Color,Urine Yellow; Glucose,Urine (UA) Negative (Negative); Ketones,Urine 1+ (Negative); Leukocyte Esterase,Urine Negative (Negative); Nitrite,Urine Negative (Negative); Protein,Urine Negative (Negative); Specific Gravity,Urine 1.012 (1.001-1.035); Urobilinogen,Urine <2.0 mg/dL (<2.0)
[2019-03-01 07:22] LABS: Anisocytosis Slight; Basophils # (A) 0.1 k/uL (0-0.2); Basophils % (A) 0 %; Eosinophils % (A) 0 %; HCT 27.4 % (34.0-46.0); HGB 8.9 gm/dL (11.4-16.0); Hypochromasia Moderate; Lymphocytes # (A) 0.8 k/uL (1.0-4.8); Lymphocytes % (A) 6 %; MCH 30.3 pg (25.0-35.0); MCHC 32.4 g/dL (31.0-37.0); MCV 93.4 fL (80.0-100.0); Mean Platelet Volume 6.7; Monocytes # (A) 0.8 k/uL (0-1.0); Monocytes % (A) 6 %; Neutrophils # (A) 11.3 k/uL (1.3-7.7); Neutrophils % (A) 85 %; Platelet Count 234 k/uL (150-450); Poikilocytosis Slight; RBC 2.93 m/uL (3.80-5.40); RDW 17.7 % (11.5-15.5); WBC 13.3 k/uL (3.8-10.6)
[2019-03-01 07:48] LABS: African American GFR (CKD) >90 (>60 ml/min/1.73 sqM); Anion Gap 12 mmol/L; Blood Urea Nitrogen 7 mg/dL (7-17); Calcium 8.8 mg/dL (8.4-10.2); Carbon Dioxide 30 mmol/L (22-30); Chloride 90 mmol/L (98-107); Glucose 92 mg/dL (74-99); Potassium 4.4 mmol/L (3.5-5.1); Sodium 132 mmol/L (137-145)
--- NOTE | 2019-03-01 09:24 | P.PN ---
Subjective Progress Note Date: 03/01/19 Principal diagnosis: Small bowel obstruction Patient feels well today. Denies abdominal pain. Tolerating diet. Passing flatus. T-max 99.6. White blood cell count did increase slightly today to 13. Objective - Vital Signs Vital signs: Vital Signs Temp 99 F 03/01/19 05:00 Pulse 127 H 03/01/19 05:00 Resp 16 03/01/19 05:00 BP 131/77 03/01/19 05:00 Pulse Ox 93 L 03/01/19 05:00 Intake & Output 02/28/19 03/01/19 03/01/19 18:59 06:59 18:59 Intake Total 1040 1930 Balance 1040 1930 Intake: Intake, IV Titration 800 850 Amount Sodium Chloride 0.9% 1, 800 600 000 ml @ 100 mls/hr IV . Q10H [facility] Rx#:[id number] Vancomycin 1,250 mg In 250 Sodium Chloride 0.9% 250 ml @ 125 mls/hr IVPB Q12HR [facility] Rx#:[id number] Oral 240 1080 Other: Voiding Method Toilet Toilet # Voids 3 1 - Exam Abdomen: Soft, minimal distention, nontender, incision clean and dry without er ythema - Labs CBC & Chem 7: 03/01/19 06:46 03/01/19 06:46 Labs: Abnormal Lab Results - Last 24 Hours (Table) 03/01/19 03/01/19 03/01/19 Range/Units 06:30 06:46 06:46 WBC 13.3 H (3.8-10.6) k/uL RBC 2.93 L (3.80-5.40) m/uL Hgb 8.9 L (11.4-16.0) gm/dL Hct 27.4 L (34.0-46.0) % RDW 17.7 H (11.5-15.5) % Neutrophils # 11.3 H (1.3-7.7) k/uL Lymphocytes # 0.8 L (1.0-4.8) k/uL Sodium 132 L (137-145) mmol/L Chloride 90 L (98-107) mmol/L Urine Ketones 1+ H (Negative) Assessment and Plan (1) Small bowel obstruction Narrative/Plan: Patient doing well from my standpoint. Continue low fiber diet. Surgically stable for discharge. Await infectious disease opinion regarding leukocytosis and intermittent fevers. Current Visit: Yes Status: Acute Priority: High Code(s): K56.609 - UNSP INTESTNL OBST, UNSP TO PARTIAL VERSUS COMPLETE OBST SNOMED Code(s): 429431938
[2019-03-01] MEDS: VANCOMYCIN 1,250 MG in SODIUM CHLORIDE 0.9% 250 ML IVPB SCH (09:49)
[2019-03-01] MEDS: BENZONATATE 100 MG CAP PO SCH (09:49)
[2019-03-01] MEDS: clonazePAM 1 MG TAB PO SCH (09:50)
[2019-03-01] MEDS: LEVOFLOXACIN 500 MG TAB PO SCH (09:50)
[2019-03-01] MEDS: [UNRECOGNIZED DRUG - OTHER] PO SCH (09:50)
[2019-03-01] MEDS: PANTOPRAZOLE 40 MG TABLET PO SCH (09:50)
--- NOTE | 2019-03-01 10:54 | P.PN ---
Subjective Progress Note Date: 03/01/19 Principal diagnosis: persistent partial SBO Fevers improved, she is anxious to go home and states she is feeling more depressed longer she is here. Objective - Vital Signs Vital signs: Vital Signs Temp 99 F 03/01/19 05:00 Pulse 127 H 03/01/19 05:00 Resp 16 03/01/19 05:00 BP 131/77 03/01/19 05:00 Pulse Ox 93 L 03/01/19 05:00 Intake & Output 02/28/19 03/01/19 03/01/19 18:59 06:59 18:59 Intake Total 1040 1930 Balance 1040 1930 Intake: Intake, IV Titration 800 850 Amount Sodium Chloride 0.9% 1, 800 600 000 ml @ 100 mls/hr IV . Q10H [facility] Rx#:[id number] Vancomycin 1,250 mg In 250 Sodium Chloride 0.9% 250 ml @ 125 mls/hr IVPB Q12HR [facility] Rx#:[id number] Oral 240 1080 Other: Voiding Method Toilet Toilet Toilet # Voids 3 1 - Exam Gen: Alert and Oriented, NAD Head: NCNT Neck Supple Heart Tachy Lungs No increased effort CTA B Abdomen: firm Tender Ext: No Rash, No Edema, Equal Strength Psych: Calm and Cooperative Neuro: No Focal Deficits Noted. - Labs CBC & Chem 7: 03/01/19 06:46 03/01/19 06:46 Labs: Abnormal Lab Results - Last 24 Hours (Table) 03/01/19 03/01/19 03/01/19 Range/Units 06:30 06:46 06:46 WBC 13.3 H (3.8-10.6) k/uL RBC 2.93 L (3.80-5.40) m/uL Hgb 8.9 L (11.4-16.0) gm/dL Hct 27.4 L (34.0-46.0) % RDW 17.7 H (11.5-15.5) % Neutrophils # 11.3 H (1.3-7.7) k/uL Lymphocytes # 0.8 L (1.0-4.8) k/uL Sodium 132 L (137-145) mmol/L Chloride 90 L (98-107) mmol/L Urine Ketones 1+ H (Negative) Assessment and Plan Plan: Assessment and Recommendations: Metastatic Cervical Cancer: - Metastatic Disease to lungs - Recent CT improvement in mets to lung Intractable midepigastric pain:Secondary to persistent partial SBO - Associated nausea and vomiting - Hx: Ulcers -S/p Ex Lap with surgery 02.23.19 Laparoscopic lysis of adhesions, open small bowel resection with anastamosis Encourage to get out of bed and increased activity Pain continues to be an issue, although currently only on IV dilaudid. She had pain at home and therefore concerned she was taking too much of her norco. This maybe because of tolerance and increased pain due to progressive cancer. Will need to switch to PO medications. - Will prescribe Percocet 1 q4 hours for now and see if that manages breakthrough pain. Would recommend 1-2 week prescritions only to closely monitor use. If not controlling pain, long acting MS contin for short term recommended. Fevers: - Villalta culture in progress - ID consult - Improved DISPO: Per Primary Team: - Ok from oncology standpoint I have completed the full history and physical of this patient and developed the complete impression and plan, Agree with Elmira GIRON, dictated as a sccribe
[2019-03-01 12:04] VITALS: BP 118/74; PULSE 113; RESP 17; TEMP 98.2
[2019-03-02] MEDS ORDERED: VANCOMYCIN TROUGH DUE 1 EACH MISC MISCELLANE ONE (08:00)
== END 2019-03-01 17:41 | disposition home or self-care (01) | DRG 330 ==
LOC: EC 14:02 → 3NMEDONC 16:48 → 4SSUR 17:42 → OBSVTOIN 02-18 12:42 → 3NMEDONC 02-20 11:48
PROVIDERS: ADMIT Family Medicine; ATTEND Family Medicine
PROC: 0DN84ZZ Release Small Intestine, Percutaneous Endoscopic Approach (ICD-10-PCS; 2019-02-23)
PROC: 0DB80ZZ Excision of Small Intestine, Open Approach (ICD-10-PCS; principal; 2019-02-23 15:30)
DX: C78.6 Secondary malignant neoplasm of retroperitoneum and peritoneum (principal); C78.7 Secondary malignant neoplasm of liver and intrahepatic bile duct; C78.00 Secondary malignant neoplasm of unspecified lung; F33.1 Major depressive disorder, recurrent, moderate; K56.51 Intestinal adhesions [bands], with partial obstruction; K56.7 Ileus, unspecified; C53.9 Malignant neoplasm of cervix uteri, unspecified; D50.9 Iron deficiency anemia, unspecified; E86.0 Dehydration; F11.21 Opioid dependence, in remission; F41.0 Panic disorder [episodic paroxysmal anxiety]; F60.3 Borderline personality disorder; F90.9 Attention-deficit hyperactivity disorder, unspecified type; I10 Essential (primary) hypertension; R09.02 Hypoxemia; Z53.31 Laparoscopic surgical procedure converted to open procedure; Z79.899 Other long term (current) drug therapy; Z81.3 Family history of other psychoactive substance abuse and dependence; Z85.43 Personal history of malignant neoplasm of ovary; Z87.891 Personal history of nicotine dependence; Z92.21 Personal history of antineoplastic chemotherapy; Z92.3 Personal history of irradiation
CPT/HCPCS: 36415; 71046; 74018; 74177; 74245; 80048; 80053; 81003; 82150; 82330; 83605; 83690; 83735; 84100; 84478; 84703; 85025; 85610; 85730; 86850; 86900; 86901; 86920; 87040; 88309; 88342; 93005; 94760; 96361; 96374; 96375; 99285

== ENCOUNTER 2019-03-12 20:21 | Inpatient (IN) | payer OTHER ==
[2019-03-12] MEDS ORDERED: SODIUM CHLORIDE 0.9% 1,000 ML IV STA (20:57)
--- NOTE | 2019-03-12 20:59 | ED ---
General Adult HPI - General Chief complaint: Shortness of Breath Stated complaint: chest pain Time Seen by Provider: 03/12/19 20:33 Source: patient Mode of arrival: ambulatory Limitations: no limitations - History of Present Illness Initial comments: Patient presents to the ED with her boyfriend for evaluation. Patient states that she has had bilateral lower rib pain anteriorly since yesterday. Patient states that her pain is worse when she coughs and when she takes a deep breath. Patient admits to have a chronic and unchanged cough. Patient states that she has lung cancer, and she states that she last had chemotherapy treatment about 4 weeks ago. Patient also states that she had resection of tumor from her abdomen about a week ago. Patient admits to being mildly dyspneic as well. Patient denies trauma or injury, fever or chills, headache, focal neuro deficit, neck/arm/jaw/back pain, hemoptysis, palpitations, dizziness, nausea or vomiting, abdominal pain, urinary symptoms, leg or calf swelling or tenderness, or any other symptoms or complaints. - Related Data Home Medications Medication Instructions Recorded Confirmed cloNIDine HCL 0.3 mg PO HS 05/15/15 03/12/19 ARIPiprazole [Abilify] 15 mg PO HS 11/01/18 03/12/19 Vortioxetine Hydrobromide 20 mg PO HS 11/01/18 03/12/19 [Trintellix] clonazePAM [KlonoPIN] 1 mg PO BID PRN 11/01/18 03/12/19 lamoTRIgine [LaMICtal] 200 mg PO HS 11/01/18 03/12/19 Benzonatate [Tessalon Perles] 200 mg PO TID PRN 11/22/18 03/12/19 Ondansetron Odt [Zofran Odt] 8 mg PO Q8HR PRN 11/22/18 03/12/19 Acetaminophen 650 mg PO Q6H PRN 11/30/18 03/12/19 CHLORPHEN-HYDROcod 8-10mg/5ml 5 ml PO Q12HR PRN 02/16/19 03/12/19 [Tussionex] Omeprazole 20 mg PO BID 03/12/19 03/12/19 Phenylephrine/Dm/Acetaminop/GG 30 ml PO Q4H PRN 10/06/19 10/06/19 [Vicks Dayquil Severe Cold-Flu] Polyethylene Glycol 3350 [Miralax] 17 gm PO DAILY 03/12/19 03/12/19 Prochlorperazine [Compazine] 10 mg PO Q6H PRN 03/12/19 03/12/19 Allergies Allergy/AdvReac Type Severity Reaction Status Date / Time No Known Allergies Allergy Verified 03/12/19 21:02 Review of Systems ROS Statement: Those systems with pertinent positive or pertinent negative responses have been documented in the HPI. ROS Other: All systems not noted in ROS Statement are negative. Past Medical History Past Medical History: Cancer Additional Past Medical History / Comment(s): stage 4 lung cancer,anxiety, recovering opiate addiction clean for a year, borderline personality History of Any Multi-Drug Resistant Organisms: None Reported Past Surgical History: Section, Tubal Ligation Additional Past Surgical History / Comment(s): bowel resection Past Anesthesia/Blood Transfusion Reactions: No Reported Reaction Past Psychological History: ADD/ADHD, Anxiety, Depression, Panic Disorder Smoking Status: Former smoker Past Alcohol Use History: None Reported Past Drug Use History: None Reported - Past Family History Father History Unknown: Yes Family Medical History: Liver Disease Additional Family Medical History / Comment(s): Father had hepatitis at the age of 17 yrs. He was an drug addict. He started drinking when his and this lead to his per pt. Mother History Unknown: Yes Additional Family Medical History / Comment(s): Mother is healthy. General Exam Limitations: no limitations General appearance: alert, in no apparent distress Head exam: Present: atraumatic Eye exam: Present: normal appearance, EOMI ENT exam: Present: mucous membranes moist Neck exam: Present: other (Trachea is in midline). Absent: tenderness Respiratory exam: Present: normal lung sounds bilaterally. Absent: respiratory distress, wheezes, rales, rhonchi, stridor, chest wall tenderness Cardiovascular Exam: Present: normal rhythm, tachycardia, normal heart sounds, other (Normal radial pulses bilaterally) GI/Abdominal exam: Present: soft, other (Surgical wounds appear to be healing well without any evidence of infection). Absent: distended, tenderness, guarding Extremities exam: Absent: tenderness, pedal edema, calf tenderness Neurological exam: Present: alert, oriented X3. Absent: motor sensory deficit Psychiatric exam: Present: normal affect, normal mood Skin exam: Present: warm, dry, intact, normal color Course Vital Signs 03/12/19 03/12/19 03/12/19 20:27 21:31 22:26 Temperature 98.1 F 99.4 F Pulse Rate 143 H 114 H 112 H Respiratory 20 18 17 Rate Blood Pressure 133/82 122/80 124/73 O2 Sat by Pulse 92 L 96 97 Oximetry 03/12/19 03/13/19 23:48 00:34 Temperature 98.8 F 98.2 F Pulse Rate 117 H 120 H Respiratory 16 18 Rate Blood Pressure 112/64 112/70 O2 Sat by Pulse 87 L 96 Oximetry - Reevaluation(s) Reevaluation #1: 03/12/19 23:09 Case, H&P and test results were discussed with Dr. Castellano (heme/onc). He recommends checking a fibrinogen level, LDH level and haptoglobin level given the patient's thrombocytopenia. He also recommends having the patient admitted to her medical service for observation/further evaluation and consulting Dr. Toney, the patient's oncologist. He has no further recommendations at this time. 03/12/19 23:21 Patient states that her pain has improved with ED treatment, and she denies development of any new symptoms while in the ED. Patient remains alert and breathing comfortably. Patient and boyfriend are aware of the patient's test results and my discussion with Dr. Castellano as above. Patient agrees with hospital admission at this time. 03/12/19 23:22 Case, H&P, test results and my discussion with DrCarlos as above were discussed with DrCarlos. She accepts hospital for admission. He has no further recommendations at this time. EKG Findings - EKG Comments: EKG Findings:: Sinus tachycardia, ventricular rate of 134 bpm, normal IL and QRS intervals, normal QT interval, no ST or T-wave abnormality, normal axis Medical Decision Making - Medical Decision Making Patient's CT angiogram chest is negative for pulmonary embolism, but does show progression of right-sided lung tumor and bilateral pleural effusions, which I suspect may be the etiology of her pleuritic chest pain. Patient is afebrile and without leukocytosis, and I do not suspect an infectious process. Given the patient's thrombocytopenia, Dr. Castellano (heme/onc) has recommended admission for observation out of concern for possible development of DIC. Will admit the patient to the hospital at this time. Patient agrees with this plan. Multiple attempts have been made to page/contact the patient's admitting physician, Dr. Eason, but he has not returned his pages. Dr. Greenfield (ED mine shifter physician) has agreed to continue making attempts to contact Dr. Eason and notify him about the admission. - Lab Data Result diagrams: 03/12/19 21:13 03/12/19 21:13 Lab Results 03/12/19 03/12/19 03/12/19 Range/Units 21:13 21:13 21:13 WBC 10.2 (3.8-10.6) k/uL RBC 2.67 L (3.80-5.40) m/uL Hgb 8.2 L (11.4-16.0) gm/dL Hct 25.9 L (34.0-46.0) % MCV 96.9 (80.0-100.0) fL MCH 30.8 (25.0-35.0) pg MCHC 31.8 (31.0-37.0) g/dL RDW 16.9 H (11.5-15.5) % Plt Count 17 L* D (150-450) k/uL Neutrophils % 80 % Lymphocytes % 12 % Monocytes % 5 % Eosinophils % 0 % Basophils % 0 % Neutrophils # 8.2 H (1.3-7.7) k/uL Lymphocytes # 1.3 (1.0-4.8) k/uL Monocytes # 0.5 (0-1.0) k/uL Eosinophils # 0.0 (0-0.7) k/uL Basophils # 0.0 (0-0.2) k/uL Manual Slide Review Performed Hypochromasia Slight Poikilocytosis Slight Anisocytosis Slight Macrocytosis Slight PT 10.5 (9.0-12.0) sec INR 1.0 (<1.2) APTT 27.4 (22.0-30.0) sec Fibrinogen (200-500) mg/dL Sodium 137 (137-145) mmol/L Potassium 3.8 (3.5-5.1) mmol/L Chloride 97 L (98-107) mmol/L Carbon Dioxide 26 (22-30) mmol/L Anion Gap 14 mmol/L BUN 11 (7-17) mg/dL Creatinine 0.46 L (0.52-1.04) mg/dL Est GFR (CKD-EPI)AfAm >90 (>60 ml/min/1.73 sqM) Est GFR (CKD-EPI)NonAf >90 (>60 ml/min/1.73 sqM) Glucose 118 H (74-99) mg/dL Lactic Ac Sepsis Rflx Plasma Lactic Acid Peter (0.7-2.0) mmol/L Calcium 9.5 (8.4-10.2) mg/dL Total Bilirubin 0.3 (0.2-1.3) mg/dL AST 37 H (14-36) U/L ALT 34 (9-52) U/L Alkaline Phosphatase 210 H (38-126) U/L Lactate Dehydrogenase (313-618) U/L Troponin I (0.000-0.034) ng/mL NT-Pro-B Natriuret Pep pg/mL Total Protein 7.0 (6.3-8.2) g/dL Albumin 3.5 (3.5-5.0) g/dL 03/12/19 03/12/19 03/12/19 Range/Units 21:13 21:13 21:13 WBC (3.8-10.6) k/uL RBC (3.80-5.40) m/uL Hgb (11.4-16.0) gm/dL Hct (34.0-46.0) % MCV (80.0-100.0) fL MCH (25.0-35.0) pg MCHC (31.0-37.0) g/dL RDW (11.5-15.5) % Plt Count (150-450) k/uL Neutrophils % % Lymphocytes % % Monocytes % % Eosinophils % % Basophils % % Neutrophils # (1.3-7.7) k/uL Lymphocytes # (1.0-4.8) k/uL Monocytes # (0-1.0) k/uL Eosinophils # (0-0.7) k/uL Basophils # (0-0.2) k/uL Manual Slide Review Hypochromasia Poikilocytosis Anisocytosis Macrocytosis PT (9.0-12.0) sec INR (<1.2) APTT (22.0-30.0) sec Fibrinogen 1042 H (200-500) mg/dL Sodium (137-145) mmol/L Potassium (3.5-5.1) mmol/L Chloride (98-107) mmol/L Carbon Dioxide (22-30) mmol/L Anion Gap mmol/L BUN (7-17) mg/dL Creatinine (0.52-1.04) mg/dL Est GFR (CKD-EPI)AfAm (>60 ml/min/1.73 sqM) Est GFR (CKD-EPI)NonAf (>60 ml/min/1.73 sqM) Glucose (74-99) mg/dL Lactic Ac Sepsis Rflx Plasma Lactic Acid Peter (0.7-2.0) mmol/L Calcium (8.4-10.2) mg/dL Total Bilirubin (0.2-1.3) mg/dL AST (14-36) U/L ALT (9-52) U/L Alkaline Phosphatase (38-126) U/L Lactate Dehydrogenase (313-618) U/L Troponin I <0.012 (0.000-0.034) ng/mL NT-Pro-B Natriuret Pep 70 pg/mL Total Protein (6.3-8.2) g/dL Albumin (3.5-5.0) g/dL 03/12/19 03/12/19 03/12/19 Range/Units 21:13 21:39 21:57 WBC (3.8-10.6) k/uL RBC (3.80-5.40) m/uL Hgb (11.4-16.0) gm/dL Hct (34.0-46.0) % MCV (80.0-100.0) fL MCH (25.0-35.0) pg MCHC (31.0-37.0) g/dL RDW (11.5-15.5) % Plt Count (150-450) k/uL Neutrophils % % Lymphocytes % % Monocytes % % Eosinophils % % Basophils % % Neutrophils # (1.3-7.7) k/uL Lymphocytes # (1.0-4.8) k/uL Monocytes # (0-1.0) k/uL Eosinophils # (0-0.7) k/uL Basophils # (0-0.2) k/uL Manual Slide Review Hypochromasia Poikilocytosis Anisocytosis Macrocytosis PT (9.0-12.0) sec INR (<1.2) APTT (22.0-30.0) sec Fibrinogen (200-500) mg/dL Sodium (137-145) mmol/L Potassium (3.5-5.1) mmol/L Chloride (98-107) mmol/L Carbon Dioxide (22-30) mmol/L Anion Gap mmol/L BUN (7-17) mg/dL Creatinine (0.52-1.04) mg/dL Est GFR (CKD-EPI)AfAm (>60 ml/min/1.73 sqM) Est GFR (CKD-EPI)NonAf (>60 ml/min/1.73 sqM) Glucose (74-99) mg/dL Lactic Ac Sepsis Rflx Y Plasma Lactic Acid Peter 2.7 H* (0.7-2.0) mmol/L Calcium (8.4-10.2) mg/dL Total Bilirubin (0.2-1.3) mg/dL AST (14-36) U/L ALT (9-52) U/L Alkaline Phosphatase (38-126) U/L Lactate Dehydrogenase 513 (313-618) U/L Troponin I (0.000-0.034) ng/mL NT-Pro-B Natriuret Pep pg/mL Total Protein (6.3-8.2) g/dL Albumin (3.5-5.0) g/dL - Radiology Data Radiology results: report reviewed (CT angiogram chest is negative for pulmonary embolism, but does show increasing consolidation and atelectasis in the right lung consistent with progression of tumor) Disposition Clinical Impression: Pleuritic chest pain, Thrombocytopenia, Metastatic cancer Disposition: ADMITTED IP TO THIS [facility] Condition: Stable Is patient prescribed a controlled substance at d/c from ED?: No Time of Disposition: 00:30 Decision Date: 03/12/19 Decision Time: 23:18
[2019-03-12] MEDS ORDERED: MORPHINE SULFATE 4 MG/ML SYRINGE IVP STA (21:18)
[2019-03-12 21:36] LABS: Anisocytosis Slight; Basophils % (A) 0 %; Eosinophils % (A) 0 %; HCT 25.9 % (34.0-46.0); HGB 8.2 gm/dL (11.4-16.0); Hypochromasia Slight; Lymphocytes # (A) 1.3 k/uL (1.0-4.8); Lymphocytes % (A) 12 %; MCH 30.8 pg (25.0-35.0); MCHC 31.8 g/dL (31.0-37.0); MCV 96.9 fL (80.0-100.0); Macrocytosis Slight; Mean Platelet Volume 8.2; Monocytes # (A) 0.5 k/uL (0-1.0); Monocytes % (A) 5 %; Neutrophils # (A) 8.2 k/uL (1.3-7.7); Neutrophils % (A) 80 %; Poikilocytosis Slight; RBC 2.67 m/uL (3.80-5.40); RDW 16.9 % (11.5-15.5); WBC 10.2 k/uL (3.8-10.6)
[2019-03-12 21:52] LABS: ALT 34 U/L (9-52); AST 37 U/L (14-36); African American GFR (CKD) >90 (>60 ml/min/1.73 sqM); Albumin 3.5 g/dL (3.5-5.0); Alkaline Phosphatase 210 U/L (38-126); Anion Gap 14 mmol/L; Blood Urea Nitrogen 11 mg/dL (7-17); Calcium 9.5 mg/dL (8.4-10.2); Carbon Dioxide 26 mmol/L (22-30); Chloride 97 mmol/L (98-107); Glucose 118 mg/dL (74-99); Potassium 3.8 mmol/L (3.5-5.1); Sodium 137 mmol/L (137-145); Total Bilirubin 0.3 mg/dL (0.2-1.3)
[2019-03-12 21:55] LABS: Partial Thromboplastin Time 27.4 sec (22.0-30.0); Prothrombin Time 10.5 sec (9.0-12.0)
[2019-03-12 22:25] LABS: Platelet Count 17 k/uL (150-450)
--- NOTE | 2019-03-12 22:53 | CT ---
EXAMINATION TYPE: CT chest angio for PE DATE OF EXAM: 03/12/2019 COMPARISON: 02/14/2019 HISTORY: Chest pain,hx of lung CA CT DLP: 235.7 mGycm Automated exposure control for dose reduction was used. CONTRAST: CT Chest for pulmonary embolism performed with with IV Contrast, patient injected with 80 mL of Isovu e 370. There are 3-D post processed images. FINDINGS: There is extensive airspace consolidation and atelectasis in the right lower lobe. There is right ple ural effusion. There is irregular pleural thickening around the right lung. There is small left pleur al effusion. There is some patchy atelectasis left lower lobe. There is increased density in the medi astinum and subcarinal region consistent with adenopathy. There is also some consolidation and atelec tasis anterior right upper lobe. The thoracic aorta is intact without evidence of aneurysm or dissection. There is small pericardial e ffusion. I see no filling defects in the pulmonary arteries. There is no thoracic compression fracture. Sternu m is intact. The ribs appear intact. The visualized liver shows some heterogeneity. IMPRESSION: No evidence of pulmonary embolism. There is increasing consolidation and atelectasis in the right lluvia g consistent with progression of tumor. There is pleural thickening and atelectasis left lower lobe n ot significantly different than last exam.
[2019-03-13] MEDS ORDERED: MORPHINE SULFATE 4 MG/ML SYRINGE IV PRN (00:19)
[2019-03-13] MEDS ORDERED: NALOXONE 0.4 MG/ML 1 ML VIAL IV PRN (00:19)
[2019-03-13] MEDS ORDERED: MORPHINE SULFATE 4 MG/ML SYRINGE IVP STA (00:36)
[2019-03-13] MEDS ORDERED: PROCHLORPERAZINE 10 MG TAB PO PRN (07:26)
[2019-03-13] MEDS ORDERED: ACETAMINOPHEN TAB 325 MG TAB PO PRN (07:26)
[2019-03-13] MEDS ORDERED: NON FORMULARY DRUG (Chlorphen-Hydrocod 8-10mg/5ml 5 ML) PO PRN (07:26)
[2019-03-13] MEDS ORDERED: [UNRECOGNIZED DRUG - OTHER] PO PRN (07:26)
[2019-03-13] MEDS: HYDROmorphone 1 MG/ML 1 ML SYRINGE IVP PRN ×7 (08:10→22:31)
[2019-03-13] MEDS: POLYETHYLENE GLYCOL 3350 17 GM POWD.PACK PO SCH (08:10)
--- NOTE | 2019-03-13 12:45 | P.HPIM ---
History of Present Illness H&P Date: 03/13/19 Chief Complaint: Chest discomfort, history of metastatic cervical cancer Patient presents to the hospital via the emergency room, with bilateral lower rib pain anteriorly since day before yesterday. Patient states that her pain is worse when she coughs and when she takes a deep breath. Admits to having a chronic unchanged cough. Patient has known metastatic lung tumors, primary is cervical cancer, last chemotherapy treatment was about 4 weeks ago. Patient is status post bowel resection secondary to metastases. Patient denies trauma or injury fever chills headache denies dizziness nausea or vomiting denies abdominal pain Review of Systems Constitutional: Reports as per HPI, Reports anorexia, Reports fatigue Ears, nose, mouth and throat: Reports as per HPI Cardiovascular: Reports chest pain Respiratory: Reports cough, Reports dyspnea Gastrointestinal: Reports as per HPI Genitourinary: Reports as per HPI Menstruation: Reports as per HPI Musculoskeletal: Reports as per HPI Integumentary: Reports as per HPI Neurological: Reports as per HPI Past Medical History Past Medical History: Cancer Additional Past Medical History / Comment(s): stage 4 cervical cancer, recovering opiate addiction clean for a year, borderline personality this patient does not have lung cancer, this patient has cervical cancer with metastatic disease to the lungs the liver and the bowel History of Any Multi-Drug Resistant Organisms: None Reported Past Surgical History: Section, Tubal Ligation Additional Past Surgical History / Comment(s): bowel resection Past Anesthesia/Blood Transfusion Reactions: No Reported Reaction Past Psychological History: ADD/ADHD, Anxiety, Depression, Panic Disorder Smoking Status: Former smoker Past Alcohol Use History: None Reported Past Drug Use History: None Reported - Past Family History Father History Unknown: Yes Family Medical History: Liver Disease Additional Family Medical History / Comment(s): Father had hepatitis at the age of 17 yrs. He was an drug addict. He started drinking when his and this lead to his per pt. Mother History Unknown: Yes Additional Family Medical History / Comment(s): Mother is healthy. Medications and Allergies Home Medications Medication Instructions Recorded Confirmed Type cloNIDine HCL 0.3 mg PO HS 05/15/15 03/12/19 History ARIPiprazole [Abilify] 15 mg PO HS 11/01/18 03/12/19 History Vortioxetine Hydrobromide 20 mg PO HS 11/01/18 03/12/19 History [Trintellix] clonazePAM [KlonoPIN] 1 mg PO BID PRN 11/01/18 03/12/19 History lamoTRIgine [LaMICtal] 200 mg PO HS 11/01/18 03/12/19 History Benzonatate [Tessalon Perles] 200 mg PO TID PRN 11/22/18 03/12/19 History Ondansetron Odt [Zofran Odt] 8 mg PO Q8HR PRN 11/22/18 03/12/19 History Acetaminophen 650 mg PO Q6H PRN 11/30/18 03/12/19 History CHLORPHEN-HYDROcod 8-10mg/5ml 5 ml PO Q12HR PRN 02/16/19 03/12/19 History [Tussionex] Omeprazole 20 mg PO BID 03/12/19 03/12/19 History Phenylephrine/Dm/Acetaminop/GG 30 ml PO Q4H PRN 03/12/19 03/12/19 History [Vicks Dayquil Severe Cold-Flu] Polyethylene Glycol 3350 [Miralax] 17 gm PO DAILY 03/12/19 03/12/19 History Prochlorperazine [Compazine] 10 mg PO Q6H PRN 03/12/19 03/12/19 History Allergies Allergy/AdvReac Type Severity Reaction Status Date / Time No Known Allergies Allergy Verified 03/12/19 21:02 Physical Exam Osteopathic Statement: *. No significant issues noted on an osteopathic structural exam other than those noted in the History and Physical/Consult. Vitals: Vital Signs Temp Pulse Pulse Resp BP BP Pulse Ox 03/13/19 11:50 98.8 F 122 H 18 121/73 96 03/13/19 08:00 108 H 16 03/13/19 05:15 95 03/13/19 05:00 98.7 F 108 H 16 119/76 95 03/13/19 00:34 98.2 F 120 H 18 112/70 96 03/13/19 00:15 98.1 F 111 H 16 127/68 94 L 03/12/19 23:48 98.8 F 117 H 16 112/64 87 L 03/12/19 22:26 112 H 17 124/73 97 03/12/19 21:31 99.4 F 114 H 18 122/80 96 03/12/19 20:27 98.1 F 143 H 20 133/82 92 L Intake and Output 03/12/19 03/13/19 03/13/19 22:59 06:59 14:59 Intake Total 600 Balance 600 Intake: Oral 600 Other: Voiding Method Toilet Toilet # Voids 1 Weight 58.513 kg General: [Patient awake, alert and oriented times 3. Patient in no acute distress.] HEENT: [PERRL. EOMI. No pharyngeal erythema or exudate.] Neck: [No adenopathy.] Cardiac: [Heart regular in rate and rhythm. No S3. No S4. No clicks, rubs. No murmur.] Bilateral chest discomfort bilateral lower rib area Lungs: [Clear to auscultation bilaterally.] Abdomen: [No mass. No organomegaly. Bowel sounds presnt and normoactive in all 4 quadrants. Abdominal scar from recent bowel resection Extremes: [No edema no cyanosis no claudication normal pulses] : Normal female genitalia Musculoskeletal: [No joint erythema, edema or tenderness.] Skin: [No rash.] Neurologic: [No lateralizing deficits. CN II - XII grossly intact.] Lymphatic: [No adenopathy.] Results CBC & Chem 7: 03/12/19 21:13 03/12/19 21:13 Labs: Abnormal Lab Results - Last 24 Hours (Table) 03/12/19 03/12/19 03/12/19 Range/Units 21:13 21:13 21:13 RBC 2.67 L (3.80-5.40) m/uL Hgb 8.2 L (11.4-16.0) gm/dL Hct 25.9 L (34.0-46.0) % RDW 16.9 H (11.5-15.5) % Plt Count 17 L* D (150-450) k/uL Neutrophils # 8.2 H (1.3-7.7) k/uL Haptoglobin (31.2-198.0) mg/dL Fibrinogen 1042 H (200-500) mg/dL Chloride 97 L (98-107) mmol/L Creatinine 0.46 L (0.52-1.04) mg/dL Glucose 118 H (74-99) mg/dL Plasma Lactic Acid Peter (0.7-2.0) mmol/L AST 37 H (14-36) U/L Alkaline Phosphatase 210 H (38-126) U/L 03/12/19 03/12/19 Range/Units 21:13 21:39 RBC (3.80-5.40) m/uL Hgb (11.4-16.0) gm/dL Hct (34.0-46.0) % RDW (11.5-15.5) % Plt Count (150-450) k/uL Neutrophils # (1.3-7.7) k/uL Haptoglobin 620.0 H (31.2-198.0) mg/dL Fibrinogen (200-500) mg/dL Chloride (98-107) mmol/L Creatinine (0.52-1.04) mg/dL Glucose (74-99) mg/dL Plasma Lactic Acid Peter 2.7 H* (0.7-2.0) mmol/L AST (14-36) U/L Alkaline Phosphatase (38-126) U/L Thrombosis Risk Factor Assmnt - Choose All That Apply Any of the Below Risk Factors Present?: Yes Each Factor Represents 1 point: Age 41-60 years, History of prior major surgery (<1month), Obesity (BMI >25) Other Risk Factors: Yes Each Risk Factor Represents 2 Points: Malignancy Other congenital or acquired thrombophilia - If yes, enter type in comment: No Thrombosis Risk Factor Assessment Total Risk Factor Score: 5 Thrombosis Risk Factor Assessment Level: High Risk Assessment and Plan (1) Metastatic cancer Current Visit: Yes Status: Acute Code(s): C79.9 - SECONDARY MALIGNANT N EOPLASM OF UNSPECIFIED SITE SNOMED Code(s): 397117209 (2) Pleuritic chest pain Current Visit: Yes Status: Acute Code(s): R07.81 - PLEURODYNIA SNOMED Code(s): 3419400 (3) Thrombocytopenia Current Visit: Yes Status: Acute Code(s): D69.6 - THROMBOCYTOPENIA, UNSPECIFIED SNOMED Code(s): 548778576 (4) Liver metastases Current Visit: No Status: Acute Code(s): C78.7 - SECONDARY MALIG NEOPLASM OF LIVER AND INTRAHEPATIC BILE DUCT SNOMED Code(s): 16611663 (5) Metastatic cancer to lung Current Visit: No Status: Acute Code(s): C78.00 - SECONDARY MALIGNANT NEOPLASM OF UNSPECIFIED LUNG SNOMED Code(s): 49703460 (6) Opioid dependence in remission Current Visit: No Status: Acute Code(s): F11.21 - OPIOID DEPENDENCE, IN REMISSION SNOMED Code(s): 943431282 (7) S/P small bowel resection Current Visit: No Status: Acute Code(s): Z90.49 - ACQUIRED ABSENCE OF OTHER SPECIFIED PARTS OF DIGESTIVE TRACT SNOMED Code(s): 761402654014795 (8) Sinus tachycardia Current Visit: No Status: Acute Code(s): R00.0 - TACHYCARDIA, UNSPECIFIED SNOMED Code(s): 12579805 Plan: Consultation with Dr. Cheek, heme oncology Aggressive pain management Appears to be chronic progress and of the right-sided lung metastases Also concerned regarding thrombocytopenia possible risk for DIC Sinus tachycardia possibly secondary to dehydration will rehydrate patient We'll follow closely Time with Patient: Greater than 30
[2019-03-13 13:34] VITALS: BMI 26.0
[2019-03-13] MEDS ORDERED: predniSONE 20 MG TAB PO STA (16:50)
--- NOTE | 2019-03-13 17:26 | P.CONS ---
History of Present Illness - Reason for Consult Consult date: 03/13/19 met squamous cell Requesting physician: Roger Valdez - Chief Complaint lower chest pain with cough - History of Present Illness Latonia is a very pleasant cuacasian female pt well known to our practice and a pt of Dr. Toney with a history of being treated by [facility] for cervical cancer in August 2017, she was diagnosed with stage IIB cervical squamous cell carcinoma, treated with concurrent chemo/radiation with excellent local response. She had a R Pleural biopsy on 11/07/18 revealed metastatic squamous cell. 12/23 she started chemo with carbo/taxol/avastin with improved symptoms. She had 3 cycles and scans showed a positive response to treatment. Current plan is to move to maintenance therapy with keytruda and avastin (avastin will be resumed later as it can impair surgical healing). Pt was admitted 02/23 for intractable nausea, abdominal pain. She did have bowel resection with Dr. Flynn due to tumor/scar tissue from treatment of cancer? Now, she is admitted for persistent, lower chest pain, general malaise, temp running in the low 100F range, pleuritic type chest pain with coughing, feels better when she braces. No hemoptysis, mild nausea, no vomiting, she has had BM, denies bleeding (plt 17,000??). Pt feels better since admit, No other c/o on a 14 point ROS. Review of Systems 14 point ROS is negative except as stated in HPI Past Medical History Past Medical History: Cancer Additional Past Medical History / Comment(s): stage 4 cervical cancer, recovering opiate addiction clean for a year, borderline personality this patient does not have lung cancer, this patient has cervical cancer with metastatic disease to the lungs the liver and the bowel History of Any Multi-Drug Resistant Organisms: None Reported Past Surgical History: Section, Tubal Ligation Additional Past Surgical History / Comment(s): bowel resection Past Anesthesia/Blood Transfusion Reactions: No Reported Reaction Past Psychological History: ADD/ADHD, Anxiety, Depression, Panic Disorder Smoking Status: Former smoker Past Alcohol Use History: None Reported Past Drug Use History: None Reported Additional History: narcotic abuse - Past Family History Father History Unknown: Yes Family Medical History: Liver Disease Additional Family Medical History / Comment(s): Father had hepatitis at the age of 17 yrs. He was an drug addict. He started drinking when his and this lead to his per pt. Mother History Unknown: Yes Additional Family Medical History / Comment(s): Mother is healthy. Medications and Allergies Home Medications Medication Instructions Recorded Confirmed Type cloNIDine HCL 0.3 mg PO HS 05/15/15 03/12/19 History ARIPiprazole [Abilify] 15 mg PO HS 11/01/18 03/12/19 History Vortioxetine Hydrobromide 20 mg PO HS 11/01/18 03/12/19 History [Trintellix] clonazePAM [KlonoPIN] 1 mg PO BID PRN 11/01/18 03/12/19 History lamoTRIgine [LaMICtal] 200 mg PO HS 11/01/18 03/12/19 History Benzonatate [Tessalon Perles] 200 mg PO TID PRN 11/22/18 03/12/19 History Ondansetron Odt [Zofran Odt] 8 mg PO Q8HR PRN 11/22/18 03/12/19 History Acetaminophen 650 mg PO Q6H PRN 11/30/18 03/12/19 History CHLORPHEN-HYDROcod 8-10mg/5ml 5 ml PO Q12HR PRN 02/16/19 03/12/19 History [Tussionex] Omeprazole 20 mg PO BID 03/12/19 03/12/19 History Phenylephrine/Dm/Acetaminop/GG 30 ml PO Q4H PRN 03/12/19 03/12/19 History [Vicks Dayquil Severe Cold-Flu] Polyethylene Glycol 3350 [Miralax] 17 gm PO DAILY 03/12/19 03/12/19 History Prochlorperazine [Compazine] 10 mg PO Q6H PRN 03/12/19 03/12/19 History Allergies Allergy/AdvReac Type Severity Reaction Status Date / Time No Known Allergies Allergy Verified 03/12/19 21:02 Physical Exam Vitals: Vital Signs Temp Pulse Pulse Resp BP BP Pulse Ox 03/13/19 15:44 122 H 18 03/13/19 11:50 98.8 F 122 H 18 121/73 96 03/13/19 08:00 108 H 16 03/13/19 05:15 95 03/13/19 05:00 98.7 F 108 H 16 119/76 95 03/13/19 00:34 98.2 F 120 H 18 112/70 96 03/13/19 00:15 98.1 F 111 H 16 127/68 94 L 03/12/19 23:48 98.8 F 117 H 16 112/64 87 L 03/12/19 22:26 112 H 17 124/73 97 03/12/19 21:31 99.4 F 114 H 18 122/80 96 03/12/19 20:27 98.1 F 143 H 20 133/82 92 L Intake and Output 03/13/19 03/13/19 03/13/19 06:59 14:59 22:59 Intake Total 600 400 Balance 600 400 Intake: Oral 600 400 Other: Voiding Method Toilet Toilet Toilet # Voids 1 1 Weight 58.513 kg - Constitutional General appearance: average body habitus, cooperative, no acute distress - EENT Eyes: anicteric sclerae, EOMI, poor dentition ENT: hearing grossly normal, normal oropharynx - Neck Neck: no lymphadenopathy - Respiratory Respiratory: right: diminished (lower lobe), bilateral: CTA - Cardiovascular mild tachycardia Rhythm: regular Heart sounds: normal: S1, S2 Abnormal Heart Sounds: no systolic murmur, no diastolic murmur, no rub, no S3 Gallop, no S4 Gallop, no click, no other - Gastrointestinal surgical incision well healed General gastrointestinal: no absent bowel sounds, no decreased bowel sounds, no distended, no hepatomegaly, no hyperactive bowel sounds, normal bowel sounds, no organomegaly, no rigid, no scaphoid, soft, no splenomegaly, no tenderness, no umbilical hernia, no ventral hernia - Integumentary Integumentary: pale - Neurologic Neurologic: CNII-XII intact - Musculoskeletal Musculoskeletal: strength equal bilaterally - Psychiatric Psychiatric: A&O x's 3, appropriate affect, intact judgment & insight Results CBC & Chem 7: 03/12/19 21:13 03/12/19 21:13 Labs: Abnormal Lab Results - Last 24 Hours (Table) 03/12/19 03/12/19 03/12/19 Range/Units 21:13 21:13 21:13 RBC 2.67 L (3.80-5.40) m/uL Hgb 8.2 L (11.4-16.0) gm/dL Hct 25.9 L (34.0-46.0) % RDW 16.9 H (11.5-15.5) % Plt Count 17 L* D (150-450) k/uL Neutrophils # 8.2 H (1.3-7.7) k/uL Haptoglobin (31.2-198.0) mg/dL Fibrinogen 1042 H (200-500) mg/dL Chloride 97 L (98-107) mmol/L Creatinine 0.46 L (0.52-1.04) mg/dL Glucose 118 H (74-99) mg/dL Plasma Lactic Acid Peter (0.7-2.0) mmol/L AST 37 H (14-36) U/L Alkaline Phosphatase 210 H (38-126) U/L 03/12/19 03/12/19 Range/Units 21:13 21:39 RBC (3.80-5.40) m/uL Hgb (11.4-16.0) gm/dL Hct (34.0-46.0) % RDW (11.5-15.5) % Plt Count (150-450) k/uL Neutrophils # (1.3-7.7) k/uL Haptoglobin 620.0 H (31.2-198.0) mg/dL Fibrinogen (200-500) mg/dL Chloride (98-107) mmol/L Creatinine (0.52-1.04) mg/dL Glucose (74-99) mg/dL Plasma Lactic Acid Peter 2.7 H* (0.7-2.0) mmol/L AST (14-36) U/L Alkaline Phosphatase (38-126) U/L CT scan - chest: report reviewed Assessment and Plan (1) Thrombocytopenia Narrative/Plan: Hemolysis and DIC work up negative. Have requested plt draw in a citrate tube. Current Visit: Yes Status: Acute Priority: High Code(s): D69.6 - THROMBOCYTOPENIA, UNSPECIFIED SNOMED Code(s): 278092458 (2) Pleuritic chest pain Narrative/Plan: Dr. García reviewed scan report, may not be progressive malignancy. Pt has a history of pleural involvement with metastatic disease and her recent hospitalization and surgery may have caused some minor atelectasis. For now, cont perez meds but, I encouraged pt to brace abd with a pillow-she states that is does help with the pain. Cont supportive care. Did add steroids to see if that would help any pain from inflammation. IS ordered Current Visit: Yes Status: Acute Priority: High Code(s): R07.81 - PLEURODYNIA SNOMED Code(s): 4233820 (3) Metastatic cancer Narrative/Plan: Pt is going to start maintenance therapy in the near future. No reason to change this plan. Current Visit: Yes Status: Chronic Priority: Medium Code(s): C79.9 - SECONDARY MALIGNANT NEOPLASM OF UNSPECIFIED SITE SNOMED Code(s): 414966478
[2019-03-13 18:55] LABS: Mean Platelet Volume 10.1; Platelet Count 11 k/uL (150-450)
[2019-03-13] MEDS: AZITHROMYCIN 1,200 MG/30 ML BOTTLE PO SCH (19:36)
[2019-03-13] MEDS: clonazePAM 1 MG TAB PO PRN (19:36)
[2019-03-13] MEDS: VORTIOXETINE HYDROBROMIDE 20 MG TABLET PO SCH (21:21)
[2019-03-13] MEDS: cloNIDine HCL 0.1 MG TAB PO SCH (21:21)
[2019-03-13] MEDS: lamoTRIgine 100 MG TAB PO SCH (21:21)
[2019-03-13] MEDS: ARIPiprazole 15 MG TAB PO SCH (21:21)
[2019-03-13] MEDS: ONDANSETRON ODT 4 MG TAB PO PRN (21:24)
[2019-03-14] MEDS: HYDROmorphone 1 MG/ML 1 ML SYRINGE IVP PRN ×11 (01:20→23:42)
[2019-03-14] MEDS: POLYETHYLENE GLYCOL 3350 17 GM POWD.PACK PO SCH (08:22)
[2019-03-14] MEDS: PANTOPRAZOLE 40 MG TABLET PO SCH (08:22)
[2019-03-14 08:40] LABS: Anisocytosis Slight; Basophils % (A) 0 %; Eosinophils % (A) 0 %; HCT 23.4 % (34.0-46.0); HGB 7.1 gm/dL (11.4-16.0); Hypochromasia Moderate; Lymphocytes # (A) 0.7 k/uL (1.0-4.8); Lymphocytes % (A) 10 %; MCH 30.4 pg (25.0-35.0); MCHC 30.4 g/dL (31.0-37.0); MCV 99.8 fL (80.0-100.0); Macrocytosis Slight; Mean Platelet Volume 8.2; Monocytes # (A) 0.2 k/uL (0-1.0); Monocytes % (A) 3 %; Neutrophils % (A) 85 %; Poikilocytosis Slight; RBC 2.34 m/uL (3.80-5.40); RDW 16.9 % (11.5-15.5); WBC 7.1 k/uL (3.8-10.6)
[2019-03-14 08:50] LABS: Platelet Count 7 k/uL (150-450)
[2019-03-14] MEDS ORDERED: predniSONE 10 MG TAB PO SCH (09:00)
[2019-03-14 09:10] LABS: AST 34 U/L (14-36); African American GFR (CKD) >90 (>60 ml/min/1.73 sqM); Albumin 3.4 g/dL (3.5-5.0); Alkaline Phosphatase 194 U/L (38-126); Anion Gap 11 mmol/L; Blood Urea Nitrogen 10 mg/dL (7-17); Calcium 9.8 mg/dL (8.4-10.2); Carbon Dioxide 30 mmol/L (22-30); Chloride 96 mmol/L (98-107); Glucose 110 mg/dL (74-99); Potassium 4.6 mmol/L (3.5-5.1); Sodium 137 mmol/L (137-145); Total Bilirubin 0.4 mg/dL (0.2-1.3); Total Protein 6.9 g/dL (6.3-8.2)
[2019-03-14 09:23] LABS: ALT 32 U/L (9-52)
[2019-03-14] MEDS: BENZONATATE 100 MG CAP PO PRN ×2 (12:44→17:44)
[2019-03-14] MEDS: clonazePAM 1 MG TAB PO PRN ×2 (12:48→20:57)
--- NOTE | 2019-03-14 13:26 | P.PN ---
<Rashmi Mendez - Last Filed: 03/14/19 13:23> Subjective Progress Note Date: 03/14/19 Principal diagnosis: Pleuritic chest pain, shortness of breath In follow-up today patient has complaints of epistaxis, started last evening, persistent, she denies hemoptysis, gum bleeding, hematuria, black or bloody stool, she feels her breathing is improving, her pain is better in the lower part of her rib cage, less pleuritic type pain, she is using incentive spirometry, patient does state feeling a little better today overall. Objective - Vital Signs Vital signs: Vital Signs Temp 97.7 F 03/14/19 05:00 Pulse 97 03/14/19 05:00 Resp 16 03/14/19 05:00 BP 115/63 03/14/19 05:00 Pulse Ox 91 L 03/14/19 08:38 Intake & Output 03/13/19 03/14/19 03/14/19 18:59 06:59 18:59 Intake Total 400 50 Balance 400 50 Weight 58.513 kg Intake: Intake, IV Titration 50 Amount cefTRIAXone 1 gm In 50 Sodium Chloride 0.9% 50 ml @ 100 mls/hr IVPB Q24H [facility] Rx#:[id number] Oral 400 Other: Voiding Method Toilet Toilet # Voids 1 1 - Constitutional General appearance: Present: average body habitus, cooperative, no acute distress - EENT Eyes: Present: anicteric sclerae, EOMI ENT: Present: hearing grossly normal, normal oropharynx - Respiratory Respiratory: bilateral: CTA, diminished (bases) - Cardiovascular Rhythm: regular Heart sounds: normal: S1, S2 Abnormal Heart Sounds: Absent: systolic murmur, diastolic murmur, rub, S3 Gallop, S4 Gallop, click, other - Peripheral edema leg Peripheral Edema: bilateral: None - Gastrointestinal General gastrointestinal: Present: normal bowel sounds, soft. Absent: absent b owel sounds, decreased bowel sounds, distended, hepatomegaly, hyperactive bowel sounds, organomegaly, rigid, scaphoid, splenomegaly, tenderness, umbilical hernia, ventral hernia - Integumentary Integumentary: Present: pale - Neurologic Neurologic: Present: CNII-XII intact - Musculoskeletal Musculoskeletal: Present: strength equal bilaterally - Psychiatric Psychiatric: Present: A&O x's 3, appropriate affect, intact judgment & insight - Labs CBC & Chem 7: 03/14/19 07:59 03/14/19 07:59 Labs: Abnormal Lab Results - Last 24 Hours (Table) 03/13/19 03/14/19 03/14/19 Range/Units 18:21 07:59 07:59 RBC 2.34 L (3.80-5.40) m/uL Hgb 7.1 L (11.4-16.0) gm/dL Hct 23.4 L (34.0-46.0) % MCHC 30.4 L (31.0-37.0) g/dL RDW 16.9 H (11.5-15.5) % Plt Count 11 L* 7 L* (150-450) k/uL Lymphocytes # 0.7 L (1.0-4.8) k/uL Chloride 96 L (98-107) mmol/L Creatinine 0.40 L (0.52-1.04) mg/dL Glucose 110 H (74-99) mg/dL Alkaline Phosphatase 194 H (38-126) U/L Albumin 3.4 L (3.5-5.0) g/dL Microbiology - Last 24 Hours (Table) 03/12/19 21:13 Blood Culture - Preliminary Blood No Growth after 24 hours Assessment and Plan (1) Thrombocytopenia Narrative/Plan: Hemolysis and DIC work up negative. Plt draw in a citrate tube, confirmed low. 1 unit SDP today HIT ab ordered due to recent heparin exposure CBC daily Bleeding precautions discussed Current Visit: Yes Status: Acute Priority: High Code(s): D69.6 - THROMBOCYTOPENIA, UNSPECIFIED SNOMED Code(s): 572722803 (2) Pleuritic chest pain Narrative/Plan: Slight improvement in pleuritic pain and symptoms with steroids and abx. Cont IS. Plan is to f/u scan in 4-6 weeks Current Visit: Yes Status: Acute Priority: High Code(s): R07.81 - PLEURODYNIA SNOMED Code(s): 4023009 (3) Metastatic cancer Narrative/Plan: Pt is going to start maintenance therapy in the near future. No reason to change this plan IF platelets recover. Avastin needs to be held for 4 weeks post op and after evaluation to resume Current Visit: Yes Status: Chronic Priority: Medium Code(s): C79.9 - SECONDARY MALIGNANT NEOPLASM OF UNSPECIFIED SITE SNOMED Code(s): 483017046 <Ricky,Abdullahi - Last Filed: 03/14/19 22:27> Objective - Vital Signs Vital signs: Vital Signs Temp 97.8 F 03/14/19 19:25 Pulse 110 H 03/14/19 19:25 Resp 17 03/14/19 19:25 BP 135/78 03/14/19 19:25 Pulse Ox 96 03/14/19 19:25 Intake & Output 03/14/19 03/14/19 03/15/19 06:59 18:59 06:59 Intake Total 50 209 400 Balance 50 209 400 Intake: Intake, IV Titration 50 Amount cefTRIAXone 1 gm In 50 Sodium Chloride 0.9% 50 ml @ 100 mls/hr IVPB Q24H [facility] Rx#:[id number] Oral 400 Blood Product 209 Platelet Irr Pheresis 3 209 Acda Unit [id number] Other: Voiding Method Toilet # Voids 1 2 - Labs CBC & Chem 7: 03/14/19 07:59 03/14/19 07:59 Labs: Abnormal Lab Results - Last 24 Hours (Table) 03/14/19 03/14/19 Range/Units 07:59 07:59 RBC 2.34 L (3.80-5.40) m/uL Hgb 7.1 L (11.4-16.0) gm/dL Hct 23.4 L (34.0-46.0) % MCHC 30.4 L (31.0-37.0) g/dL RDW 16.9 H (11.5-15.5) % Plt Count 7 L* (150-450) k/uL Lymphocytes # 0.7 L (1.0-4.8) k/uL Chloride 96 L (98-107) mmol/L Creatinine 0.40 L (0.52-1.04) mg/dL Glucose 110 H (74-99) mg/dL Alkaline Phosphatase 194 H (38-126) U/L Albumin 3.4 L (3.5-5.0) g/dL Microbiology - Last 24 Hours (Table) 03/12/19 21:13 Blood Culture - Preliminary Blood No Growth after 24 hours Assessment and Plan (1) Thrombocytopenia Narrative/Plan: If above w/u negative, a possibility is post transfusion purpura ( as the pt had PRBC transfusion about 3 wks ago, which is the usual timeline). However , this is generally self limting, and management is supportive. Current Visit: Yes Status: Acute Priority: High Code(s): D69.6 - THROMBOCYTOPENIA, UNSPECIFIED SNOMED Code(s): 943538311
--- NOTE | 2019-03-14 15:18 | P.PN ---
Subjective Progress Note Date: 03/14/19 Patient presents to the hospital via the emergency room, with bilateral lower rib pain anteriorly since day before yesterday. Patient states that her pain is worse when she coughs and when she takes a deep breath. Admits to having a chronic unchanged cough. Patient has known metastatic lung tumors, primary is cervical cancer, last chemotherapy treatment was about 4 weeks ago. Patient is status post bowel resection secondary to metastases. Patient denies trauma or injury fever chills headache denies dizziness nausea or vomiting denies abdominal pain 03/14/2019 evaluated by oncology, recommendations noted and appreciated. Bloody nose since last night, denies any other sites of bleeding .Hemoglobin 7.1, platelets 7; one unit of platelets ordered. Oral steroids changed to IV as per nephrology. Pain better controlled on Dilaudid 2 mg IV push averaging every 2-3 hours. Reports pain of bilateral lung bases, greater on the right. Incentive spirometer 400. Afebrile, normal WBC. Vital signs stable, maintaining O2 sats in the 90s on 2 L nasal cannula. Objective - Vital Signs Vital signs: Vital Signs Temp 97.7 F 03/14/19 05:00 Pulse 97 03/14/19 05:00 Resp 16 03/14/19 05:00 BP 115/63 03/14/19 05:00 Pulse Ox 91 L 03/14/19 08:38 Intake & Output 03/13/19 03/14/19 03/14/19 18:59 06:59 18:59 Intake Total 400 50 Balance 400 50 Weight 58.513 kg Intake: Intake, IV Titration 50 Amount cefTRIAXone 1 gm In 50 Sodium Chloride 0.9% 50 ml @ 100 mls/hr IVPB Q24H [facility] Rx#:[id number] Oral 400 Other: Voiding Method Toilet Toilet # Voids 1 1 - Exam General: [Patient awake, alert and oriented times 3. Patient in no acute distress.] HEENT: [PERRL. EOMI. No pharyngeal erythema or exudate.] Neck: [No adenopathy.] Cardiac: [Heart regular in rate and rhythm. No S3. No S4. No clicks, rubs. No murmur.] Bilateral chest discomfort bilateral lower rib area Lungs: [Clear to auscultation bilaterally.] Abdomen: [No mass. No organomegaly. Bowel sounds presnt and normoactive in all 4 quadrants. Abdominal scar from recent bowel resection Extremes: [No edema no cyanosis no claudication normal pulses] : Normal female genitalia Musculoskeletal: [No joint erythema, edema or tenderness.] Skin: [No rash.] Neurologic: [No lateralizing deficits. CN II - XII grossly intact.] Lymphatic: [No adenopathy.] - Labs CBC & Chem 7: 03/14/19 07:59 03/14/19 07:59 Labs: Abnormal Lab Results - Last 24 Hours (Table) 03/12/19 03/13/19 03/14/19 Range/Units 21:13 18:21 07:59 RBC 2.34 L (3.80-5.40) m/uL Hgb 7.1 L (11.4-16.0) gm/dL Hct 23.4 L (34.0-46.0) % MCHC 30.4 L (31.0-37.0) g/dL RDW 16.9 H (11.5-15.5) % Plt Count 11 L* 7 L* (150-450) k/uL Lymphocytes # 0.7 L (1.0-4.8) k/uL Haptoglobin 620.0 H (31.2-198.0) mg/dL Chloride (98-107) mmol/L Creatinine (0.52-1.04) mg/dL Glucose (74-99) mg/dL Alkaline Phosphatase (38-126) U/L Albumin (3.5-5.0) g/dL 03/14/19 Range/Units 07:59 RBC (3.80-5.40) m/uL Hgb (11.4-16.0) gm/dL Hct (34.0-46.0) % MCHC (31.0-37.0) g/dL RDW (11.5-15.5) % Plt Count (150-450) k/uL Lymphocytes # (1.0-4.8) k/uL Haptoglobin (31.2-198.0) mg/dL Chloride 96 L (98-107) mmol/L Creatinine 0.40 L (0.52-1.04) mg/dL Glucose 110 H (74-99) mg/dL Alkaline Phosphatase 194 H (38-126) U/L Albumin 3.4 L (3.5-5.0) g/dL Microbiology - Last 24 Hours (Table) 03/12/19 21:13 Blood Culture - Preliminary Blood No Growth after 24 hours Assessment and Plan Assessment: 1) Metastatic cancer Current Visit: Yes Status: Acute Code(s): C79.9 - SECONDARY MALIGNANT NEOPLASM OF UNSPECIFIED SITE SNOMED Code(s): 359726607 (2) Pleuritic chest pain, right sided lung metastasis, atelectasis with possible underlying community-acquired pneumonia. Current Visit: Yes Status: Acute Code(s): R07.81 - PLEURODYNIA SNOMED Code(s): 2108835 (3) Thrombocytopenia Current Visit: Yes Status: Acute Code(s): D69.6 - THROMBOCYTOPENIA, UNSPECIFIED SNOMED Code(s): 376604399 (4) Liver metastases Current Visit: No Status: Acute Code(s): C78.7 - SECONDARY MALIG NEOPLASM OF LIVER AND INTRAHEPATIC BILE DUCT SNOMED Code(s): 76375135 (5) Metastatic cancer to lung Current Visit: No Status: Acute Code(s): C78.00 - SECONDARY MALIGNANT NEOPLASM OF UNSPECIFIED LUNG SNOMED Code(s): 77832050 (6) Opioid dependence in remission Current Visit: No Status: Acute Code(s): F11.21 - OPIOID DEPENDENCE, IN REMISSION SNOMED Code(s): 380186557 (7) S/P small bowel resection Current Visit: No Status: Acute Code(s): Z90.49 - ACQUIRED ABSENCE OF OTHER SPECIFIED PARTS OF DIGESTIVE TRACT SNOMED Code(s): 717500963407860 (8) Sinus tachycardia, secondary to possibly dehydration Current Visit: No Status: Acute Code(s): R00.0 - TACHYCARDIA, UNSPECIFIED SNOMED Code(s): 57428971 Plan: Continue current medication regime ,monitoring and symptomatic treatment. Pain management. Maintain steroids-converted to IV push, Rocephin, Zithromax. Gentle IV fluid hydration. Aggressive pulmonary toileting with incentive spirometer reinforced. Scheduled to receive 1 unit of platelets. Close monitoring of coags/labs with repeat labs ordered for a.m. Follow closely with oncology. Prognosis guarded given multiple complex medical issues. The impression and plan of care has been dictated as directed. : I performed a history and examination of this patient, discussed the same with the dictator. I agree with the dictator's note ,documented as a scribe. Any additional findings or plans will be noted.
[2019-03-14] MEDS: methylPREDNISolone SOD SUCCI 125 MG/2 ML VIAL IV SCH (16:46)
[2019-03-14] MEDS: AZITHROMYCIN 1,200 MG/30 ML BOTTLE PO SCH (19:07)
[2019-03-14] MEDS: ONDANSETRON ODT 4 MG TAB PO PRN (20:28)
[2019-03-14] MEDS: lamoTRIgine 100 MG TAB PO SCH (20:51)
[2019-03-14] MEDS: ARIPiprazole 15 MG TAB PO SCH (20:51)
[2019-03-14] MEDS: cloNIDine HCL 0.1 MG TAB PO SCH (20:51)
[2019-03-14] MEDS: VORTIOXETINE HYDROBROMIDE 20 MG TABLET PO SCH (20:51)
[2019-03-15] MEDS: methylPREDNISolone SOD SUCCI 125 MG/2 ML VIAL IV SCH ×3 (00:05→16:43)
[2019-03-15] MEDS: HYDROmorphone 1 MG/ML 1 ML SYRINGE IVP PRN ×9 (02:13→21:14)
[2019-03-15] MEDS: BENZONATATE 100 MG CAP PO PRN ×2 (02:16→19:03)
[2019-03-15 07:43] LABS: Anisocytosis Slight; Basophils % (A) 0 %; Eosinophils % (A) 0 %; HCT 22.7 % (34.0-46.0); Hypochromasia Moderate; Lymphocytes # (A) 0.5 k/uL (1.0-4.8); Lymphocytes % (A) 6 %; MCH 30.6 pg (25.0-35.0); MCHC 30.8 g/dL (31.0-37.0); MCV 99.4 fL (80.0-100.0); Macrocytosis Slight; Mean Platelet Volume 7.1; Monocytes # (A) 0.2 k/uL (0-1.0); Monocytes % (A) 2 %; Neutrophils # (A) 8.1 k/uL (1.3-7.7); Neutrophils % (A) 91 %; RBC 2.29 m/uL (3.80-5.40); RDW 17.1 % (11.5-15.5); WBC 8.9 k/uL (3.8-10.6)
[2019-03-15 07:46] LABS: Platelet Count 4 k/uL (150-450)
[2019-03-15] MEDS: PANTOPRAZOLE 40 MG TABLET PO SCH (08:34)
[2019-03-15] MEDS: POLYETHYLENE GLYCOL 3350 17 GM POWD.PACK PO SCH (08:40)
[2019-03-15 09:42] LABS: INR 0.9 (<1.2); Partial Thromboplastin Time 22.5 sec (22.0-30.0); Prothrombin Time 10.2 sec (9.0-12.0)
--- NOTE | 2019-03-15 14:41 | P.PN ---
Subjective Progress Note Date: 03/15/19 Principal diagnosis: Pleuritic chest pain, shortness of breath, severe thrombocytopenia In f/u today pt states feeling ok, presenting pleuritic chest pain was not concern today, cough is better. Nose bleeding has stopped, no other bleeding to report, she has been nervous to walk around the room and to have a BM for fear of bleeding. No hemoptysis, she is eating and drinking with caution-concerned about bitting her tongue. No rash or petechiae. Objective - Vital Signs Vital signs: Vital Signs Temp 97.7 F 03/15/19 13:06 Pulse 105 H 03/15/19 13:06 Resp 14 03/15/19 13:06 BP 131/73 03/15/19 13:06 Pulse Ox 94 L 03/15/19 13:06 Intake & Output 03/14/19 03/15/19 03/15/19 18:59 06:59 18:59 Intake Total 209 1460 0 Balance 209 1460 0 Intake: Oral 1460 Blood Product 209 0 Platelet Irr Pheresis 3 209 Acda Unit [id number] Platelet Irr Pheresis 0 Acda1 Unit [id number] Other: Voiding Method Toilet Toilet # Voids 2 1 - Constitutional General appearance: Present: average body habitus, cooperative, no acute distress - EENT Eyes: Present: anicteric sclerae, EOMI ENT: Present: hearing grossly normal - Respiratory Respiratory: bilateral: CTA - Cardiovascular Heart sounds: normal: S1, S2 - Peripheral edema leg Peripheral Edema: bilateral: None - Gastrointestinal General gastrointestinal: Present: normal bowel sounds - Integumentary Integumentary: Present: pale - Neurologic Neurologic: Present: CNII-XII intact - Musculoskeletal Musculoskeletal: Present: strength equal bilaterally - Psychiatric Psychiatric: Present: A&O x's 3, appropriate affect, intact judgment & insight - Labs CBC & Chem 7: 03/15/19 06:55 03/14/19 07:59 Labs: Abnormal Lab Results - Last 24 Hours (Table) 03/15/19 Range/Units 06:55 RBC 2.29 L (3.80-5.40) m/uL Hgb 7.0 L (11.4-16.0) gm/dL Hct 22.7 L (34.0-46.0) % MCHC 30.8 L (31.0-37.0) g/dL RDW 17.1 H (11.5-15.5) % Plt Count 4 L* (150-450) k/uL Neutrophils # 8.1 H (1.3-7.7) k/uL Lymphocytes # 0.5 L (1.0-4.8) k/uL Microbiology - Last 24 Hours (Table) 03/12/19 21:13 Blood Culture - Preliminary Blood No Growth after 48 hours Assessment and Plan (1) Thrombocytopenia Narrative/Plan: Hemolysis and DIC work up negative. Plt draw in a citrate tube, confirmed low. 1 unit SDP today got plt count 4,000-less then yesterday after transfusion. CBC daily, transfuse for plt <10,000 HIT ab ordered due to recent heparin exposure. Taking into consideration recent surgery but her low plt count is rather extreme. Dr. García has concern for post transfusion purpura as she was transfused with PRBCs at her last visit about 3 weeks ago. The plt count falls typically about the 1-2 weeks after transfusion- pt plt were low on admit, not known how long they were low prior but, plt count was normal on 03/01. Treatment includes steroids-which have been started, IVIg- which is unavailable and plasmaphoresis. Will do CBC in AM and make further plans for pt care. Bleeding precautions discussed, validated pt fears but, encouraged safety, r eporting of any symptoms and being thoughtful in her activities. Told her try and have a BM without straining, to just sit and wait it out. Told her to chew slowly, choose softer foods and to drink plenty of fluids. She verbalized understanding Current Visit: Yes Status: Acute Priority: High Code(s): D69.6 - THROMBOCYTOPENIA, UNSPECIFIED SNOMED Code(s): 716346961 (2) Pleuritic chest pain Narrative/Plan: Better then on admit. Cont supportive care, IS, fluids, pain meds. Current Visit: Yes Status: Acute Priority: High Code(s): R07.81 - PLEURODYNIA SNOMED Code(s): 8506329 (3) Metastatic cancer Narrative/Plan: Pt is going to start maintenance therapy in the near future. No reason to change this plan IF platelets recover. Avastin needs to be held for 4 weeks post op and after evaluation to resume Current Visit: Yes Status: Chronic Priority: Medium Code(s): C79.9 - SECONDARY MALIGNANT NEOPLASM OF UNSPECIFIED SITE SNOMED Code(s): 561604463
[2019-03-15] MEDS ORDERED: IPRATROPIUM-ALBUTEROL 3 ML NEB INHALATION PRN (15:23)
--- NOTE | 2019-03-15 15:27 | P.PN ---
Subjective Progress Note Date: 03/15/19 Patient presents to the hospital via the emergency room, with bilateral lower rib pain anteriorly since day before yesterday. Patient states that her pain is worse when she coughs and when she takes a deep breath. Admits to having a chronic unchanged cough. Patient has known metastatic lung tumors, primary is cervical cancer, last chemotherapy treatment was about 4 weeks ago. Patient is status post bowel resection secondary to metastases. Patient denies trauma or injury fever chills headache denies dizziness nausea or vomiting denies abdominal pain 03/14/2019 evaluated by oncology, recommendations noted and appreciated. Bloody nose since last night, denies any other sites of bleeding .Hemoglobin 7.1, platelets 7; one unit of platelets ordered. Oral steroids changed to IV as per nephrology. Pain better controlled on Dilaudid 2 mg IV push averaging every 2-3 hours. Reports pain of bilateral lung bases, greater on the right. Incentive spirometer 400. Afebrile, normal WBC. Vital signs stable, maintaining O2 sats in the 90s on 2 L nasal cannula. 03/15/2019 tachycardia low 100s, VSS. Afebrile. Hemoglobin 7. Status post 1 unit platelets yesterday, platelets currently 4. Another unit of platelets ordered.Subsided, no further bleeding reported. Diet intake 50% with no nausea vomiting. Reports pain improving under bilateral rib cages, controlled with Dilaudid 2 mg every 2 hours. Nonproductive cough, appears tighter today compared to yesterday. Afebrile. No bowel movement since Wednesday or Wednesday. Objective - Vital Signs Vital signs: Vital Signs Temp 97.5 F L 03/15/19 05:00 Pulse 105 H 03/15/19 05:00 Resp 16 03/15/19 05:00 BP 124/78 03/15/19 05:00 Pulse Ox 95 03/15/19 05:00 Intake & Output 03/14/19 03/15/19 03/15/19 18:59 06:59 18:59 Intake Total 209 1460 Balance 209 1460 Intake: Oral 1460 Blood Product 209 Platelet Irr Pheresis 3 209 Acda Unit [id number] Other: Voiding Method Toilet Toilet # Voids 2 1 - Exam General: [Patient awake, alert and oriented times 3. Patient in no acute distress.] HEENT: [PERRL. EOMI. No pharyngeal erythema or exudate.] Neck: [No adenopathy.] Cardiac: [Heart regular in rate and rhythm. No S3. No S4. No clicks, rubs. No murmur.] Bilateral chest discomfort bilateral lower rib area Lungs: Bilateral bases diminished, occasional expiratory wheeze] Abdomen: [No mass. No organomegaly. Bowel sounds presnt and normoactive in all 4 quadrants. Abdominal scar from recent bowel resection Extremes: [No edema no cyanosis no claudication normal pulses] : Normal female genitalia Musculoskeletal: [No joint erythema, edema or tenderness.] Skin: [No rash.] Neurologic: [No lateralizing deficits. CN II - XII grossly intact.] Lymphatic: [No adenopathy.] Microbiology 03/12/19 21:13 Blood Blood Culture - Preliminary No Growth after 48 hours - Labs CBC & Chem 7: 03/15/19 06:55 03/14/19 07:59 Labs: Abnormal Lab Results - Last 24 Hours (Table) 03/15/19 Range/Units 06:55 RBC 2.29 L (3.80-5.40) m/uL Hgb 7.0 L (11.4-16.0) gm/dL Hct 22.7 L (34.0-46.0) % MCHC 30.8 L (31.0-37.0) g/dL RDW 17.1 H (11.5-15.5) % Plt Count 4 L* (150-450) k/uL Neutrophils # 8.1 H (1.3-7.7) k/uL Lymphocytes # 0.5 L (1.0-4.8) k/uL Microbiology - Last 24 Hours (Table) 03/12/19 21:13 Blood Culture - Preliminary Blood No Growth after 48 hours Assessment and Plan Assessment: 1) Metastatic cancer Current Visit: Yes Status: Acute Code(s): C79.9 - SECONDARY MALIGNANT NEOPLASM OF UNSPECIFIED SITE SNOMED Code(s): 671980447 (2) Pleuritic chest pain, right sided lung metastasis, atelectasis with possible underlying community-acquired pneumonia. Current Visit: Yes Status: Acute Code(s): R07.81 - PLEURODYNIA SNOMED Code(s): 8072960 (3) Thrombocytopenia Current Visit: Yes Status: Acute Code(s): D69.6 - THROMBOCYTOPENIA, UNSPECIFIED SNOMED Code(s): 040551055 (4) Liver metastases Current Visit: No Status: Acute Code(s): C78.7 - SECONDARY MALIG NEOPLASM OF LIVER AND INTRAHEPATIC BILE DUCT SNOMED Code(s): 68089335 (5) Metastatic cancer to lung Current Visit: No Status: Acute Code(s): C78.00 - SECONDARY MALIGNANT NEOPLASM OF UNSPECIFIED LUNG SNOMED Code(s): 89018614 (6) Opioid dependence in remission Current Visit: No Status: Acute Code(s): F11.21 - OPIOID DEPENDENCE, IN REMISSION SNOMED Code(s): 071508100 (7) S/P small bowel resection Current Visit: No Status: Acute Code(s): Z90.49 - ACQUIRED ABSENCE OF OTHER SPECIFIED PARTS OF DIGESTIVE TRACT SNOMED Code(s): 034410718435683 (8) Sinus tachycardia, secondary to possibly dehydration Current Visit: No Status: Acute Code(s): R00.0 - TACHYCARDIA, UNSPECIFIED SNOMED Code(s): 21591764 Plan: Continue current medication regime ,monitoring and symptomatic treatment. Scheduled to receive 1 unit of platelets today .portable chest x-ray today - hearing less air entry today .nebulized bronchodilators added to med regime .Senokot added to med regime in addition to MiraLAX .Pain management. Maintain steroids, Rocephin, Zithromax. Gentle IV fluid hydration. Aggressive pulmonary toileting with incentive spirometer reinforced. Close monitoring of coags/labs with repeat labs ordered for a.m. Follow closely with oncology. Prognosis guarded given multiple complex medical issues. The impression and plan of care has been dictated as directed. : I performed a history and examination of this patient, discussed the same with the dictator. I agree with the dictator's note ,documented as a scribe. Any additional findings or plans will be noted.
[2019-03-15] MEDS: IPRATROPIUM-ALBUTEROL 3 ML NEB INHALATION SCH ×2 (15:47→20:10)
[2019-03-15] MEDS: SENNOSIDES-DOCUSATE SODIUM 1 EACH TAB PO SCH ×2 (16:43→21:03)
--- NOTE | 2019-03-15 16:43 | XR ---
EXAMINATION TYPE: XR chest 1V portable DATE OF EXAM: 03/15/2019 CLINICAL HISTORY: Difficulty breathing progress study. TECHNIQUE: Single AP portable upright view of the chest is obtained. COMPARISON: Chest x-ray from 02/28/2019. CTA chest March 12, 2019 FINDINGS: Stable right subclavian Mediport catheter. Persistent right lung opacity most prominent in the base distended with mass or neoplasm and associated consolidation and/or atelectasis with irregu lar pleural thickening are all redemonstrated. Left lung remains predominantly clear. Cardiac silhoue tte size is stable and mildly enlarged. Overlying EKG leads are present. Osseous structures are inta ct. IMPRESSION: Overall stable findings, chronic neoplastic changes right lung with irregular pleural t hickening. Left lung remains clear.
[2019-03-15] MEDS: AZITHROMYCIN 1,200 MG/30 ML BOTTLE PO SCH (19:01)
[2019-03-15] MEDS: cloNIDine HCL 0.1 MG TAB PO SCH (21:02)
[2019-03-15] MEDS: VORTIOXETINE HYDROBROMIDE 20 MG TABLET PO SCH (21:02)
[2019-03-15] MEDS: ARIPiprazole 15 MG TAB PO SCH (21:02)
[2019-03-15] MEDS: lamoTRIgine 100 MG TAB PO SCH (21:02)
[2019-03-16] MEDS: methylPREDNISolone SOD SUCCI 125 MG/2 ML VIAL IV SCH ×4 (00:50→17:48)
[2019-03-16] MEDS: HYDROmorphone 1 MG/ML 1 ML SYRINGE IVP PRN ×8 (00:51→19:57)
[2019-03-16] MEDS: BENZONATATE 100 MG CAP PO PRN ×2 (04:07→19:58)
[2019-03-16] MEDS: ONDANSETRON ODT 4 MG TAB PO PRN ×2 (06:29→20:49)
[2019-03-16] MEDS: IPRATROPIUM-ALBUTEROL 3 ML NEB INHALATION SCH ×4 (07:57→18:58)
[2019-03-16 08:14] LABS: Anisocytosis Slight; Basophils % (A) 0 %; Eosinophils % (A) 0 %; HCT 20.2 % (34.0-46.0); Hypochromasia Moderate; Lymphocytes # (A) 0.5 k/uL (1.0-4.8); Lymphocytes % (A) 5 %; MCH 31.6 pg (25.0-35.0); MCHC 32.6 g/dL (31.0-37.0); Macrocytosis Slight; Mean Platelet Volume 9.7; Monocytes # (A) 0.3 k/uL (0-1.0); Monocytes % (A) 3 %; Neutrophils # (A) 8.3 k/uL (1.3-7.7); Neutrophils % (A) 90 %; RBC 2.08 m/uL (3.80-5.40); RDW 16.9 % (11.5-15.5); WBC 9.2 k/uL (3.8-10.6)
[2019-03-16 08:23] LABS: HGB 6.6 gm/dL (11.4-16.0)
[2019-03-16 08:24] LABS: Platelet Count 2 k/uL (150-450)
[2019-03-16] MEDS: POLYETHYLENE GLYCOL 3350 17 GM POWD.PACK PO SCH (09:10)
[2019-03-16] MEDS: PANTOPRAZOLE 40 MG TABLET PO SCH (09:11)
[2019-03-16] MEDS: SENNOSIDES-DOCUSATE SODIUM 1 EACH TAB PO SCH ×2 (09:11→20:39)
[2019-03-16] MEDS: clonazePAM 1 MG TAB PO PRN (09:18)
--- NOTE | 2019-03-16 11:44 | P.PN ---
Subjective Progress Note Date: 03/16/19 Principal diagnosis: Pleuritic chest pain, shortness of breath, severe thrombocytopenia In follow-up today patient is actually feeling pretty well, no more complaints of pleuritic type chest pain, she has not had any bleeding. She is very nervous and anxious about her current situation. Objective - Vital Signs Vital signs: Vital Signs Temp 97.6 F 03/16/19 10:50 Pulse 102 H 03/16/19 11:30 Resp 20 03/16/19 11:30 BP 115/76 03/16/19 11:30 Pulse Ox 100 03/16/19 11:30 Intake & Output 03/15/19 03/16/19 03/16/19 18:59 06:59 18:59 Intake Total 426 250 0 Balance 426 250 0 Intake: Intake, IV Titration 50 Amount cefTRIAXone 1 gm In 50 Sodium Chloride 0.9% 50 ml @ 100 mls/hr IVPB Q24H [facility] Rx#:[id number] Oral 200 Blood Product 426 0 Platelet Irr Pheresis 213 Acda1 Unit [id number] Rc Pheresis As-3 Unit 0 [id number] Other: Voiding Method Toilet Toilet # Voids 1 # Bowel Movements 1 - Constitutional General appearance: Present: average body habitus, cooperative, mild distress (Emotional) - EENT Eyes: Present: anicteric sclerae, EOMI ENT: Present: hearing grossly normal - Respiratory Respiratory: bilateral: CTA - Cardiovascular Details: Tachycardia, regular rhythm. Heart sounds: normal: S1, S2 - Gastrointestinal General gastrointestinal: Present: soft - Integumentary Integumentary: Present: pale - Neurologic Neurologic: Present: CNII-XII intact - Musculoskeletal Musculoskeletal: Present: strength equal bilaterally - Psychiatric Psychiatric: Present: A&O x's 3, appropriate affect, intact judgment & insight - Labs CBC & Chem 7: 03/16/19 07:05 03/14/19 07:59 Labs: Abnormal Lab Results - Last 24 Hours (Table) 03/15/19 03/16/19 Range/Units 08:59 07:05 RBC 2.08 L (3.80-5.40) m/uL Hgb 6.6 L* (11.4-16.0) gm/dL Hct 20.2 L (34.0-46.0) % RDW 16.9 H (11.5-15.5) % Plt Count 2 L* (150-450) k/uL Neutrophils # 8.3 H (1.3-7.7) k/uL Lymphocytes # 0.5 L (1.0-4.8) k/uL Crossmatch See Detail Microbiology - Last 24 Hours (Table) 03/12/19 21:13 Blood Culture - Preliminary Blood No Growth after 72 hours Assessment and Plan (1) Thrombocytopenia Narrative/Plan: Hemolysis and DIC work up negative. Plt draw in a citrate tube, confirmed low. HIT antibody negative. Platelets are at 2000 today despite transfusion. 1 unit SDP ANDRE. 1 unit PRBCs Suspicion for PTP is higher. Dr. García has requested lab to do a peripheral smear to evaluate and ensure this is not an unusual TTP presentation. Discussed with the patient the options for treatment which include steroids, which she is receiving, dose increased today. IVIG and Rituxan are also options, we will contact pharmacy to discuss ability to obtain and administer. The final option would be for pheresis to remove the antibodies. Patient would have to be sent to a tertiary care facility for this procedure. Patient was very anxious about this discussion. Assured her that we will continue to follow with her closely. Again, discussed bleeding precautions, validated pt fears, encouraged safety, encouraged reporting of symptoms and to continue to be thoughtful in her activities. She verbalized understanding Current Visit: Yes Status: Acute Priority: High Code(s): D69.6 - THROMBOCYTOPENIA, UNSPECIFIED SNOMED Code(s): 082046708 (2) Pleuritic chest pain Current Visit: Yes Status: Resolved Priority: High Code(s): R07.81 - PLEURODYNIA SNOMED Code(s): 8692582 (3) Metastatic cancer Narrative/Plan: Pt is going to start maintenance therapy in the near future. No reason to change this plan IF platelets recover. Avastin needs to be held for 4 weeks post op and after evaluation to resume Current Visit: Yes Status: Chronic Priority: Medium Code(s): C79.9 - SECONDARY MALIGNANT NEOPLASM OF UNSPECIFIED SITE SNOMED Code(s): 867698669 Plan: Doctor attests: I performed a history and physical examination of this patient, developed impression and plan of care. Discussed with dictator. I agree with dictators note, documented as a scribe.
--- NOTE | 2019-03-16 12:33 | CDI ---
Anemia due to malignancy Documentation Clarification Form Date: 03/16/2019 12:05:30 PM From: Allyssa Valenzuela RN, CCDS Admit Date: 03/14/2019 10:28:00 AM Patient Name: Latonia Quiles Visit Number: [id number] ATTENTION: The Clinical Documentation Specialists (CDI) and [facility] Coding Staff appreciate your assistance in clarifying documentation. Please respond to the clarification below the line at the bottom and electronically sign. The CDI & [facility] Coding staff will review the response and follow-up if needed. Please note: Queries are made part of the Legal Health Record. If you have any questions, please contact the author of this message via ITS. Dr. Abdullahi García A declining Hgb and Hct have been noted and lacks specificity to accurately reflect your patients severity of condition and clarification is needed. History/Risk Factors: Cevrical Cancer with Mets to Lungs and liver, s/p small bowel resection Clinical indicators: 03/15 Oncology Progress Note: "Dr. García has concern for post transfusion purpura as she was transfused with PRBCs at her last visit about 3 weeks ago." 03/16 Oncology Progress note: "Pleuritic chest pain, shortness of breath, severe thrombocytopenia." Hemoglobin: 8.2/7.1/7/6.6 Hematocrit: 25.9/23.4/22.7/20.2 Treatment: Possible IVIG infusion 1 unit PRBC'S transfused 3 units Platelets transfused IV Solumedrol 1L IVF Bolus Labs AM Daily In order to capture the severity of condition, please clarify the clincal significance of the declining Hgb and Hct and etiology if known: Acute on chronic blood loss anemia Chronic blood loss anemia Iron deficiency anemia Drug induced anemia Anemia due to malignancy Nutritional anemia Anemia of chronic disease Unable to determine Other, please specify MTDD
--- NOTE | 2019-03-16 15:01 | P.PN ---
Subjective Progress Note Date: 03/16/19 Patient presents to the hospital via the emergency room, with bilateral lower rib pain anteriorly since day before yesterday. Patient states that her pain is worse when she coughs and when she takes a deep breath. Admits to having a chronic unchanged cough. Patient has known metastatic lung tumors, primary is cervical cancer, last chemotherapy treatment was about 4 weeks ago. Patient is status post bowel resection secondary to metastases. Patient denies trauma or injury fever chills headache denies dizziness nausea or vomiting denies abdominal pain 03/14/2019 evaluated by oncology, recommendations noted and appreciated. Bloody nose since last night, denies any other sites of bleeding .Hemoglobin 7.1, platelets 7; one unit of platelets ordered. Oral steroids changed to IV as per nephrology. Pain better controlled on Dilaudid 2 mg IV push averaging every 2-3 hours. Reports pain of bilateral lung bases, greater on the right. Incentive spirometer 400. Afebrile, normal WBC. Vital signs stable, maintaining O2 sats in the 90s on 2 L nasal cannula. 03/15/2019 tachycardia low 100s, VSS. Afebrile. Hemoglobin 7. Status post 1 unit platelets yesterday, platelets currently 4. Another unit of platelets ordered.Subsided, no further bleeding reported. Diet intake 50% with no nausea vomiting. Reports pain improving under bilateral rib cages, controlled with Dilaudid 2 mg every 2 hours. Nonproductive cough, appears tighter today compared to yesterday. Afebrile. No bowel movement since Wednesday or Wednesday. 03/16/2019 status post transfusion of platelets, platelets have decreased further to 2, hemoglobin decreased to 6.6. One unit of packed RBCs and 1 unit of platelets ordered. Occasional mild nausea, no emesis. Pain continues to improve, controlled with Dilaudid every 2 hours. Afebrile, WBC 9.2. Chest x- ray yesterday reporting stable chronic neoplastic changes of right lung with irregular pleural thickening, left lung clear. Objective - Vital Signs Vital signs: Vital Signs Temp 97.7 F 03/16/19 05:00 Pulse 106 H 03/16/19 08:11 Resp 18 03/16/19 07:57 BP 126/86 03/16/19 05:00 Pulse Ox 97 03/16/19 07:57 Intake & Output 03/15/19 03/16/1919 18:59 06:59 18:59 Intake Total 426 250 Balance 426 250 Intake: Intake, IV Titration 50 Amount cefTRIAXone 1 gm In 50 Sodium Chloride 0.9% 50 ml @ 100 mls/hr IVPB Q24H [facility] Rx#:[id number] Oral 200 Blood Product 426 Platelet Irr Pheresis 213 Acda1 Unit [id number] Other: Voiding Method Toilet Toilet # Voids 1 # Bowel Movements 1 - Exam General: [Patient sitting up in bed, alert and oriented times 3. no acute distress.] HEENT: [PERRL. EOMI. No pharyngeal erythema or exudate.] Neck: [No adenopathy.] Cardiac: [Heart regular in rate and rhythm. No S3. No S4. No clicks, rubs. No murmur.] Bilateral chest discomfort bilateral lower rib area Lungs: Bilateral bases diminished, occasional expiratory wheeze] Abdomen: [No mass. No organomegaly. Bowel sounds presnt and normoactive in all 4 quadrants. Abdominal scar from recent bowel resection Extremes: [No edema no cyanosis no claudication normal pulses] : Normal female genitalia Musculoskeletal: [No joint erythema, edema or tenderness.] Skin: [No rash.] Neurologic: [No lateralizing deficits. CN II - XII grossly intact.] Lymphatic: [No adenopathy.] Microbiology 03/12/19 21:13 Blood Blood Culture - Preliminary No Growth after 72 hours - Labs CBC & Chem 7: 03/16/19 07:05 03/14/19 07:59 Labs: Abnormal Lab Results - Last 24 Hours (Table) 03/15/19 03/16/19 Range/Units 08:59 07:05 RBC 2.08 L (3.80-5.40) m/uL Hgb 6.6 L* (11.4-16.0) gm/dL Hct 20.2 L (34.0-46.0) % RDW 16.9 H (11.5-15.5) % Plt Count 2 L* (150-450) k/uL Neutrophils # 8.3 H (1.3-7.7) k/uL Lymphocytes # 0.5 L (1.0-4.8) k/uL Crossmatch See Detail Microbiology - Last 24 Hours (Table) 03/12/19 21:13 Blood Culture - Preliminary Blood No Growth after 72 hours Assessment and Plan Assessment: 1) Metastatic cancer Current Visit: Yes Status: Acute Code(s): C79.9 - SECONDARY MALIGNANT NEOPLASM OF UNSPECIFIED SITE SNOMED Code(s): 387908974 (2) Pleuritic chest pain, right sided lung metastasis, atelectasis with possible underlying community-acquired pneumonia. Current Visit: Yes Status: Acute Code(s): R07.81 - PLEURODYNIA SNOMED Code(s): 8403612 (3) Thrombocytopenia Current Visit: Yes Status: Acute Code(s): D69.6 - THROMBOCYTOPENIA, UNSPECIFIED SNOMED Code(s): 549394278 (4) Liver metastases Current Visit: No Status: Acute Code(s): C78.7 - SECONDARY MALIG NEOPLASM OF LIVER AND INTRAHEPATIC BILE DUCT SNOMED Code(s): 09533253 (5) Metastatic cancer to lung Current Visit: No Status: Acute Code(s): C78.00 - SECONDARY MALIGNANT NEOPLASM OF UNSPECIFIED LUNG SNOMED Code(s): 45559880 (6) Opioid dependence in remission Current Visit: No Status: Acute Code(s): F11.21 - OPIOID DEPENDENCE, IN REMISSION SNOMED Code(s): 014337938 (7) S/P small bowel resection Current Visit: No Status: Acute Code(s): Z90.49 - ACQUIRED ABSENCE OF OTHER SPECIFIED PARTS OF DIGESTIVE TRACT SNOMED Code(s): 595462674077386 (8) Sinus tachycardia, secondary to possibly dehydration Current Visit: No Status: Acute Code(s): R00.0 - TACHYCARDIA, UNSPECIFIED SNOMED Code(s): 69961438 Plan: Continue current medication regime ,monitoring and symptomatic treatment. 1 unit of platelets and 1 unit of packed RBCs ordered for today .oncology discussing smear to rule out TTP .Discussing IVIG .steroids increased today .Option of pheresis at a tertiary care center also discussed with patient. Pain management. Maintain Rocephin, Zithromax. Gentle IV fluid hydration. Aggressive pulmonary toileting with incentive spirometer reinforced. Close monitoring of coags/labs with repeat labs ordered for a.m. Follow closely with oncology. Prognosis guarded given multiple complex medical issues. The impression and plan of care has been dictated as directed. : I performed a history and examination of this patient, discussed the same with the dictator. I agree with the dictator's note ,documented as a scribe. Any additional findings or plans will be noted.
[2019-03-16] MEDS: AZITHROMYCIN 1,200 MG/30 ML BOTTLE PO SCH (17:48)
[2019-03-16] MEDS ORDERED: IMMUNE GLOBULIN (GAMMAGARD) 10 GM in EMPTY BAG 1 BAG IV NR (18:00)
[2019-03-16] MEDS ORDERED: IMMUNE GLOBULIN (GAMMAGARD) 20 GM in EMPTY BAG 1 BAG IV NR (18:00)
[2019-03-16] MEDS: ARIPiprazole 15 MG TAB PO SCH (20:49)
[2019-03-16] MEDS: lamoTRIgine 100 MG TAB PO SCH (20:49)
[2019-03-16] MEDS: cloNIDine HCL 0.1 MG TAB PO SCH (20:49)
[2019-03-16] MEDS: clonazePAM 1 MG TAB PO SCH (20:49)
[2019-03-16] MEDS: VORTIOXETINE HYDROBROMIDE 20 MG TABLET PO SCH (20:49)
[2019-03-17] MEDS: methylPREDNISolone SOD SUCCI 125 MG/2 ML VIAL IV SCH ×4 (00:33→18:07)
[2019-03-17] MEDS: HYDROmorphone 1 MG/ML 1 ML SYRINGE IVP PRN ×4 (00:51→08:41)
[2019-03-17] MEDS: ONDANSETRON ODT 4 MG TAB PO PRN (06:17)
[2019-03-17 08:24] LABS: Anisocytosis Slight; Basophils % (A) 0 %; Eosinophils % (A) 0 %; HCT 23.8 % (34.0-46.0); HGB 7.9 gm/dL (11.4-16.0); Hypochromasia Slight; Lymphocytes # (A) 0.5 k/uL (1.0-4.8); Lymphocytes % (A) 5 %; MCH 30.8 pg (25.0-35.0); MCV 93.1 fL (80.0-100.0); Mean Platelet Volume 6.3; Monocytes # (A) 0.4 k/uL (0-1.0); Monocytes % (A) 4 %; Neutrophils # (A) 8.8 k/uL (1.3-7.7); Neutrophils % (A) 90 %; Poikilocytosis Slight; RBC 2.55 m/uL (3.80-5.40); RDW 18.8 % (11.5-15.5); WBC 9.8 k/uL (3.8-10.6)
[2019-03-17 08:30] LABS: Platelet Count 20 k/uL (150-450)
[2019-03-17] MEDS: SENNOSIDES-DOCUSATE SODIUM 1 EACH TAB PO SCH ×2 (08:35→20:28)
[2019-03-17] MEDS: PANTOPRAZOLE 40 MG TABLET PO SCH (08:36)
[2019-03-17] MEDS: POLYETHYLENE GLYCOL 3350 17 GM POWD.PACK PO SCH (08:36)
[2019-03-17] MEDS: clonazePAM 1 MG TAB PO SCH ×2 (08:39→20:27)
[2019-03-17] MEDS: IPRATROPIUM-ALBUTEROL 3 ML NEB INHALATION SCH ×4 (08:50→20:01)
[2019-03-17] MEDS: HYDROmorphone 2 MG/ML 1 ML SYRINGE IVP PRN ×5 (11:41→20:26)
--- NOTE | 2019-03-17 14:20 | P.PN ---
Subjective Progress Note Date: 03/17/19 Patient presents to the hospital via the emergency room, with bilateral lower rib pain anteriorly since day before yesterday. Patient states that her pain is worse when she coughs and when she takes a deep breath. Admits to having a chronic unchanged cough. Patient has known metastatic lung tumors, primary is cervical cancer, last chemotherapy treatment was about 4 weeks ago. Patient is status post bowel resection secondary to metastases. Patient denies trauma or injury fever chills headache denies dizziness nausea or vomiting denies abdominal pain 03/14/2019 evaluated by oncology, recommendations noted and appreciated. Bloody nose since last night, denies any other sites of bleeding .Hemoglobin 7.1, platelets 7; one unit of platelets ordered. Oral steroids changed to IV as per nephrology. Pain better controlled on Dilaudid 2 mg IV push averaging every 2-3 hours. Reports pain of bilateral lung bases, greater on the right. Incentive spirometer 400. Afebrile, normal WBC. Vital signs stable, maintaining O2 sats in the 90s on 2 L nasal cannula. 03/15/2019 tachycardia low 100s, VSS. Afebrile. Hemoglobin 7. Status post 1 unit platelets yesterday, platelets currently 4. Another unit of platelets ordered.Subsided, no further bleeding reported. Diet intake 50% with no nausea vomiting. Reports pain improving under bilateral rib cages, controlled with Dilaudid 2 mg every 2 hours. Nonproductive cough, appears tighter today compared to yesterday. Afebrile. No bowel movement since Wednesday or Wednesday. 03/16/2019 status post transfusion of platelets, platelets have decreased further to 2, hemoglobin decreased to 6.6. One unit of packed RBCs and 1 unit of platelets ordered. Occasional mild nausea, no emesis. Pain continues to improve, controlled with Dilaudid every 2 hours. Afebrile, WBC 9.2. Chest x- ray yesterday reporting stable chronic neoplastic changes of right lung with irregular pleural thickening, left lung clear. 03/17/2019 receiving IVIG ,hemoglobin 7.9, platelets 20. No signs or symptoms of bleeding. Positive bowel movement. Vital signs stable. Decompensated, desats and becomes significantly tachycardic with minimal exertion. Pain controlled. Objective - Vital Signs Vital signs: Vital Signs Temp 97.7 F 03/17/19 05:58 Pulse 107 H 03/17/19 05:58 Resp 20 03/17/19 05:58 BP 133/81 03/17/19 05:58 Pulse Ox 95 03/17/19 05:58 Intake & Output 03/16/19 03/17/19 03/17/19 18:59 06:59 18:59 Intake Total 520 222 Balance 520 222 Weight 58.513 kg Intake: Intake, IV Titration 222 Amount Immune Globulin ( 62 Gammagard) 10 gm In Empty Bag 1 bag @ Titrate IV . Q0M NR Rx#:[id number] Immune Globulin ( 160 Gammagard) 20 gm In Empty Bag 1 bag @ Titrate IV . Q0M NR Rx#:[id number] Blood Product 520 Platelet Pheresis Acda2 210 Unit [id number] Rc Pheresis As-3 Unit 310 [id number] Other: Voiding Method Toilet # Voids 1 # Bowel Movements 1 - Exam General: [Patient sitting up in bed, alert and oriented times 3. no acute distress.] HEENT: [PERRL. EOMI. No pharyngeal erythema or exudate. Neck supple, no JVD.] Cardiac: [Heart regular in rate and rhythm. No S3. No S4. No clicks, rubs. No murmur.] Bilateral chest discomfort bilateral lower rib area Lungs: Bilateral bases diminished, occasional expiratory wheeze] Abdomen: [No mass. No organomegaly. Bowel sounds presnt and normoactive in all 4 quadrants. Abdominal scar from recent bowel resection Extremes: [No edema no cyanosis no claudication normal pulses] Skin: [No rash.] Neurologic: [No lateralizing deficits. CN II - XII grossly intact.] Microbiology 03/12/19 21:13 Blood Blood Culture - Preliminary No Growth after 96 hours - Labs CBC & Chem 7: 03/17/19 07:51 03/14/19 07:59 Labs: Abnormal Lab Results - Last 24 Hours (Table) 03/15/19 03/16/19 Range/Units 08:59 07:05 RBC 2.08 L (3.80-5.40) m/uL Hgb 6.6 L* (11.4-16.0) gm/dL Hct 20.2 L (34.0-46.0) % RDW 16.9 H (11.5-15.5) % Plt Count 2 L* (150-450) k/uL Neutrophils # 8.3 H (1.3-7.7) k/uL Lymphocytes # 0.5 L (1.0-4.8) k/uL Crossmatch See Detail Microbiology - Last 24 Hours (Table) 03/12/19 21:13 Blood Culture - Preliminary Blood No Growth after 96 hours Assessment and Plan Assessment: 1) Metastatic cancer Current Visit: Yes Status: Acute Code(s): C79.9 - SECONDARY MALIGNANT NEOPLASM OF UNSPECIFIED SITE SNOMED Code(s): 009477609 (2) Pleuritic chest pain, right sided lung metastasis, atelectasis with possible underlying community-acquired pneumonia. Current Visit: Yes Status: Acute Code(s): R07.81 - PLEURODYNIA SNOMED Code(s): 0183265 (3) Thrombocytopenia Current Visit: Yes Status: Acute Code(s): D69.6 - THROMBOCYTOPENIA, UNSPECIFIED SNOMED Code(s): 074976421 (4) Liver metastases Current Visit: No Status: Acute Code(s): C78.7 - SECONDARY MALIG NEOPLASM OF LIVER AND INTRAHEPATIC BILE DUCT SNOMED Code(s): 71928599 (5) Metastatic cancer to lung Current Visit: No Status: Acute Code(s): C78.00 - SECONDARY MALIGNANT NEOPLASM OF UNSPECIFIED LUNG SNOMED Code(s): 10364605 (6) Opioid dependence in remission Current Visit: No Status: Acute Code(s): F11.21 - OPIOID DEPENDENCE, IN REMISSION SNOMED Code(s): 237137241 (7) S/P small bowel resection Current Visit: No Status: Acute Code(s): Z90.49 - ACQUIRED ABSENCE OF OTHER SPECIFIED PARTS OF DIGESTIVE TRACT SNOMED Code(s): 430435308584517 (8) Sinus tachycardia, secondary to possibly dehydration Current Visit: No Status: Acute Code(s): R00.0 - TACHYCARDIA, UNSPECIFIED SNOMED Code(s): 62885099 (10) acute on chronic anemia, status post transfusion, secondary to malignancy, treatment Plan: Continue current medication regime ,monitoring and symptomatic treatment. IVIG. Continue Rocephin, Zithromax. Maintain aggressive pulmonary toileting with incentive spirometer reinforced. Increase ambulation as tolerated. Close monitoring of coags/labs with repeat labs ordered for a.m. Follow closely with oncology. Discharge planning in progress. Prognosis guarded given multiple complex medical issues. The impression and plan of care has been dictated as directed. : I performed a history and examination of this patient, discussed the same with the dictator. I agree with the dictator's note ,documented as a scribe. Any ad ditional findings or plans will be noted.
[2019-03-17] MEDS: BENZONATATE 100 MG CAP PO PRN (14:23)
[2019-03-17] MEDS: AZITHROMYCIN 1,200 MG/30 ML BOTTLE PO SCH (18:07)
--- NOTE | 2019-03-17 20:10 | P.PN ---
Subjective Progress Note Date: 03/17/19 Principal diagnosis: cytopenias, chest pain, SOB No New complaints, feeling better. Platelets did increase to 20K today - Receiving IVIG and continue steroids Objective - Vital Signs Vital signs: Vital Signs Temp 97.8 F 03/17/19 11:51 Pulse 94 03/17/19 12:03 Resp 18 03/17/19 11:51 BP 138/75 03/17/19 11:51 Pulse Ox 97 03/17/19 11:51 Intake & Output 03/16/19 03/17/19 03/17/19 18:59 06:59 18:59 Intake Total 520 222 850 Balance 520 222 850 Weight 58.513 kg Intake: Intake, IV Titration 222 Amount Immune Globulin ( 62 Gammagard) 10 gm In Empty Bag 1 bag @ Titrate IV . Q0M NR Rx#:[id number] Immune Globulin ( 160 Gammagard) 20 gm In Empty Bag 1 bag @ Titrate IV . Q0M NR Rx#:[id number] Oral 850 Blood Product 520 Platelet Pheresis Acda2 210 Unit [id number] Rc Pheresis As-3 Unit 310 [id number] Other: Voiding Method Toilet Toilet # Voids 1 2 # Bowel Movements 1 1 - Exam Gen: Alert and Oriented, NAD Head: NCNT Neck Supple Heart RRR Lungs No increased effort CTA B Abdomen: S/ND/NT Ext: No Rash, No Edema, Equal Strength Psych: Calm and Coroperative Neuro: No Focal Deficits Noted. - Labs CBC & Chem 7: 03/17/19 07:51 03/14/19 07:59 Labs: Abnormal Lab Results - Last 24 Hours (Table) 03/17/19 Range/Units 07:51 RBC 2.55 L (3.80-5.40) m/uL Hgb 7.9 L (11.4-16.0) gm/dL Hct 23.8 L (34.0-46.0) % RDW 18.8 H (11.5-15.5) % Plt Count 20 L D (150-450) k/uL Neutrophils # 8.8 H (1.3-7.7) k/uL Lymphocytes # 0.5 L (1.0-4.8) k/uL Microbiology - Last 24 Hours (Table) 03/12/19 21:13 Blood Culture - Preliminary Blood No Growth after 96 hours Assessment and Plan Plan: Thrombocytopenia Hemolysis and DIC work up negative. Plt draw in a citrate tube, confirmed low. HIT antibody negative. Platelets are at 20K today Currently receiving IVIG Suspicion for PTP (post Transfusion Purpura) is higher. Dr. García has discussed peripheral smear with pathology department and no schistocytes identified. Pleuritic chest pain Metastatic cancer Pt is going to start maintenance therapy in the near future. No reason to change this plan IF platelets recover. Avastin needs to be held for 4 weeks post op and after evaluation to resume Plan: - Close monitoring of CBC, CMP - IVIG, Increased Steroids (PPI) - If needed add rituxan and may consider pheresis if refractory. I have completed the full history and physical of this patient and developed the complete impression and plan, Agree with Elmira GIRON, dictated as a scribe
[2019-03-17] MEDS: cloNIDine HCL 0.1 MG TAB PO SCH (20:27)
[2019-03-17] MEDS: VORTIOXETINE HYDROBROMIDE 20 MG TABLET PO SCH (20:27)
[2019-03-17] MEDS: ARIPiprazole 15 MG TAB PO SCH (20:27)
[2019-03-17] MEDS: lamoTRIgine 100 MG TAB PO SCH (20:27)
[2019-03-18] MEDS: methylPREDNISolone SOD SUCCI 125 MG/2 ML VIAL IV SCH ×4 (00:11→17:42)
[2019-03-18] MEDS: HYDROmorphone 2 MG/ML 1 ML SYRINGE IVP PRN ×5 (02:08→12:42)
[2019-03-18] MEDS: BENZONATATE 100 MG CAP PO PRN ×2 (02:10→10:38)
[2019-03-18] MEDS: POLYETHYLENE GLYCOL 3350 17 GM POWD.PACK PO SCH (07:02)
[2019-03-18] MEDS: PANTOPRAZOLE 40 MG TABLET PO SCH (07:02)
[2019-03-18] MEDS: SENNOSIDES-DOCUSATE SODIUM 1 EACH TAB PO SCH ×2 (07:04→20:44)
[2019-03-18 07:38] LABS: Anisocytosis Slight; Basophils # (A) 0.1 k/uL (0-0.2); Basophils % (A) 1 %; Eosinophils % (A) 0 %; HCT 25.2 % (34.0-46.0); HGB 7.8 gm/dL (11.4-16.0); Hypochromasia Slight; Lymphocytes # (A) 0.8 k/uL (1.0-4.8); Lymphocytes % (A) 6 %; MCH 28.8 pg (25.0-35.0); MCHC 30.9 g/dL (31.0-37.0); MCV 93.2 fL (80.0-100.0); Mean Platelet Volume 7.6; Monocytes # (A) 0.7 k/uL (0-1.0); Monocytes % (A) 5 %; Neutrophils % (A) 87 %; RDW 18.5 % (11.5-15.5); WBC 12.7 k/uL (3.8-10.6)
[2019-03-18 07:39] LABS: Platelet Count 14 k/uL (150-450)
[2019-03-18] MEDS: IPRATROPIUM-ALBUTEROL 3 ML NEB INHALATION SCH ×4 (09:07→21:10)
[2019-03-18] MEDS: clonazePAM 1 MG TAB PO SCH ×2 (10:39→20:44)
--- NOTE | 2019-03-18 10:55 | P.PN ---
Subjective Progress Note Date: 03/18/19 The patient denies any new complaints today. She continues on oxygen. No obvious bleeding. She continues to ask for Dilaudid every 2 hours Objective - Vital Signs Vital signs: Vital Signs Temp 98.7 F 03/18/19 05:00 Pulse 115 H 03/18/19 09:20 Resp 16 03/18/19 05:00 BP 137/82 03/18/19 05:00 Pulse Ox 97 03/18/19 09:09 Intake & Output 03/17/19 03/18/19 03/18/19 18:59 06:59 18:59 Intake Total 850 1070 Balance 850 1070 Intake: Oral 850 1070 Other: Voiding Method Toilet Toilet # Voids 2 3 # Bowel Movements 1 - Constitutional General appearance: Present: no acute distress - EENT Eyes: Present: EOMI ENT: Present: hearing grossly normal, normal oropharynx - Respiratory Respiratory: bilateral: CTA - Cardiovascular Rhythm: regular Heart sounds: normal: S1, S2 - Gastrointestinal General gastrointestinal: Present: normal bowel sounds, soft - Integumentary Integumentary: Present: normal - Neurologic Neurologic: Present: CNII-XII intact - Musculoskeletal Musculoskeletal: Present: generalized weakness, strength equal bilaterally - Psychiatric Psychiatric: Present: A&O x's 3, appropriate affect - Labs CBC & Chem 7: 03/18/19 06:51 03/14/19 07:59 Labs: Abnormal Lab Results - Last 24 Hours (Table) 03/18/19 Range/Units 06:51 WBC 12.7 H (3.8-10.6) k/uL RBC 2.70 L (3.80-5.40) m/uL Hgb 7.8 L (11.4-16.0) gm/dL Hct 25.2 L (34.0-46.0) % MCHC 30.9 L (31.0-37.0) g/dL RDW 18.5 H (11.5-15.5) % Plt Count 14 L* (150-450) k/uL Neutrophils # 11.0 H (1.3-7.7) k/uL Lymphocytes # 0.8 L (1.0-4.8) k/uL Microbiology - Last 24 Hours (Table) 03/12/19 21:13 Blood Culture - Preliminary Blood No Growth after 120 hours Assessment and Plan (1) Thrombocytopenia Narrative/Plan: As noted previously, DIC, as well as TTP have been ruled out. 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 Clinically the latter is more likely. Treatment is essentially the same. The patient is currently on IV steroids, and has also received IVIG. Platelets of 20,000 today but her 14 today. She has no active bleeding and therefore no need for transfusion. However I would recommend continued IV steroids at this time and close monitoring. If the patient's platelets dropped further, i ndicating her process being refractory to steroids/IVIG, then she will need higher intensity of treatment which could include rituximab as well as need for plasma exchange Current Visit: Yes Status: Acute Priority: High Code(s): D69.6 - THROMBOCYTOPENIA, UNSPECIFIED SNOMED Code(s): 414194044 (2) Anemia Narrative/Plan: This is felt to be due to malignancy, as well as her significant nosebleeds. Hemoglobin is stable above 7 today. Continue to monitor and transfuse to keep hemoglobin greater than 7. No active bleeding noted today Current Visit: No Status: Acute Code(s): D64.9 - ANEMIA, UNSPECIFIED SNOMED Code(s): 839395966 (3) Metastatic cancer Narrative/Plan: treatment is currently on hold, till acute condition resolves sufficiently Current Visit: Yes Status: Chronic Priority: Medium Code(s): C79.9 - SECONDARY MALIGNANT NEOPLASM OF UNSPECIFIED SITE SNOMED Code(s): 940043201
--- NOTE | 2019-03-18 14:04 | P.PN ---
Subjective Progress Note Date: 03/18/19 Principal diagnosis: Metastatic cervical cancer, thrombocytopenia Patient's platelet count is down to 14 from 20, sinus tachycardia noted intermittently Hemoglobin is slightly up as well, we will decrease frequency of IV narcotics Q4 adding Robitussin AC 10 mL every 4 hours as needed for cough We'll reevaluate patient and reassess heart rate at that time Objective - Vital Signs Vital signs: Vital Signs Temp 98.7 F 03/18/19 05:00 Pulse 115 H 03/18/19 09:20 Resp 16 03/18/19 07:15 BP 137/82 03/18/19 05:00 Pulse Ox 97 03/18/19 09:09 Intake & Output 03/17/19 03/18/19 03/18/19 18:59 06:59 18:59 Intake Total 850 1070 Balance 850 1070 Intake: Oral 850 1070 Other: Voiding Method Toilet Toilet Toilet # Voids 2 3 # Bowel Movements 1 - Exam General: [Patient awake, alert and oriented times 3. Patient in no acute distress.] Pallor pale HEENT: [PERRL. EOMI. No pharyngeal erythema or exudate.] Neck: [No adenopathy.] Cardiac: [Heart regular in rate and rhythm. No S3. No S4. No clicks, rubs. No murmur.] Lungs: [Clear to auscultation bilaterally.] Rapid respiratory rate Abdomen: [No mass. No organomegaly. Bowel sounds presnt and normoactive in all 4 quadrants.] Extremes: [No edema no cyanosis no claudication normal pulses] : [] Musculoskeletal: [No joint erythema, edema or tenderness.] Skin: [No rash.] Neurologic: [No lateralizing deficits. CN II - XII grossly intact.] Lymphatic: [No adenopathy.] - Labs CBC & Chem 7: 03/18/19 06:51 03/14/19 07:59 Labs: Abnormal Lab Results - Last 24 Hours (Table) 03/18/19 Range/Units 06:51 WBC 12.7 H (3.8-10.6) k/uL RBC 2.70 L (3.80-5.40) m/uL Hgb 7.8 L (11.4-16.0) gm/dL Hct 25.2 L (34.0-46.0) % MCHC 30.9 L (31.0-37.0) g/dL RDW 18.5 H (11.5-15.5) % Plt Count 14 L* (150-450) k/uL Neutrophils # 11.0 H (1.3-7.7) k/uL Lymphocytes # 0.8 L (1.0-4.8) k/uL Microbiology - Last 24 Hours (Table) 03/12/19 21:13 Blood Culture - Preliminary Blood No Growth after 120 hours Assessment and Plan (1) Metastatic cancer Current Visit: Yes Status: Chronic Priority: Medium Code(s): C79.9 - SECONDARY MALIGNANT NEOPLASM OF UNSPECIFIED SITE SNOMED Code(s): 616442499 (2) Pleuritic chest pain Current Visit: Yes Status: Resolved Priority: High Code(s): R07.81 - PLEURODYNIA SNOMED Code(s): 3326191 (3) Thrombocytopenia Current Visit: Yes Status: Acute Priority: High Code(s): D69.6 - THROMBOCYTOPENIA, UNSPECIFIED SNOMED Code(s): 311963561 (4) Liver metastases Current Visit: No Status: Acute Code(s): C78.7 - SECONDARY MALIG NEOPLASM OF LIVER AND INTRAHEPATIC BILE DUCT SNOMED Code(s): 54779336 (5) Metastatic cancer to lung Current Visit: No Status: Acute Code(s): C78.00 - SECONDARY MALIGNANT NEOPLASM OF UNSPECIFIED LUNG SNOMED Code(s): 33752143 (6) Opioid dependence in remission Current Visit: No Status: Acute Code(s): F11.21 - OPIOID DEPENDENCE, IN REMISSION SNOMED Code(s): 953190917 (7) S/P small bowel resection Current Visit: No Status: Acute Code(s): Z90.49 - ACQUIRED ABSENCE OF OTHER SPECIFIED PARTS OF DIGESTIVE TRACT SNOMED Code(s): 349845283174799 (8) Sinus tachycardia Current Visit: No Status: Acute Code(s): R00.0 - TACHYCARDIA, UNSPECIFIED SNOMED Code(s): 48412292 Plan: Aggressive pain management Appears to be chronic progress and of the right-sided lung metastases Also concerned regarding thrombocytopenia possible risk for DIC, platelets at 14,000 at this time Sinus tachycardia possibly secondary to dehydration will rehydrate patient, and decrease frequency of narcotic pain meds to every 4 hours hoping that patient will take better respiratory efforts to decrease heart rate We'll follow closely Time with Patient: Greater than 30
[2019-03-18] MEDS: guaiFENesin-Coden 100-10MG/5ML 10 ML CUP PO PRN ×2 (16:02→20:44)
[2019-03-18] MEDS: HYDROmorphone 0.5 MG/0.5 ML SYRINGE IVP PRN ×2 (16:02→19:52)
[2019-03-18] MEDS: AZITHROMYCIN 1,200 MG/30 ML BOTTLE PO SCH (17:42)
[2019-03-18] MEDS: LORazepam 2 MG/ML INJ IV PRN (17:50)
[2019-03-18] MEDS: cloNIDine HCL 0.1 MG TAB PO SCH (20:44)
[2019-03-18] MEDS: VORTIOXETINE HYDROBROMIDE 20 MG TABLET PO SCH (20:44)
[2019-03-18] MEDS: lamoTRIgine 100 MG TAB PO SCH (20:44)
[2019-03-18] MEDS: ARIPiprazole 15 MG TAB PO SCH (20:44)
[2019-03-18] MEDS: ONDANSETRON ODT 4 MG TAB PO PRN (20:56)
[2019-03-19] MEDS: methylPREDNISolone SOD SUCCI 125 MG/2 ML VIAL IV SCH ×5 (00:21→23:34)
[2019-03-19] MEDS: HYDROmorphone 0.5 MG/0.5 ML SYRINGE IVP PRN ×3 (00:27→08:08)
[2019-03-19] MEDS: LORazepam 2 MG/ML INJ IV PRN ×2 (00:28→15:06)
[2019-03-19] MEDS: guaiFENesin-Coden 100-10MG/5ML 10 ML CUP PO PRN ×3 (03:29→22:06)
[2019-03-19] MEDS: PANTOPRAZOLE 40 MG TABLET PO SCH (08:08)
[2019-03-19] MEDS: clonazePAM 1 MG TAB PO SCH ×2 (08:08→22:05)
[2019-03-19] MEDS: POLYETHYLENE GLYCOL 3350 17 GM POWD.PACK PO SCH (08:09)
[2019-03-19] MEDS: SENNOSIDES-DOCUSATE SODIUM 1 EACH TAB PO SCH ×2 (08:10→22:05)
[2019-03-19 08:20] LABS: ALT 90 U/L (9-52); AST 52 U/L (14-36); African American GFR (CKD) >90 (>60 ml/min/1.73 sqM); Albumin 3.8 g/dL (3.5-5.0); Alkaline Phosphatase 195 U/L (38-126); Anion Gap 15 mmol/L; Blood Urea Nitrogen 16 mg/dL (7-17); Calcium 10.3 mg/dL (8.4-10.2); Carbon Dioxide 33 mmol/L (22-30); Chloride 90 mmol/L (98-107); Glucose 170 mg/dL (74-99); Sodium 138 mmol/L (137-145); Total Bilirubin 0.5 mg/dL (0.2-1.3); Total Protein 7.8 g/dL (6.3-8.2)
[2019-03-19 08:21] LABS: Anisocytosis Slight; Basophils % (A) 0 %; Eosinophils % (A) 0 %; HCT 26.9 % (34.0-46.0); HGB 8.7 gm/dL (11.4-16.0); Hypochromasia Slight; Lymphocytes # (A) 0.7 k/uL (1.0-4.8); Lymphocytes % (A) 5 %; MCH 29.6 pg (25.0-35.0); MCHC 32.3 g/dL (31.0-37.0); MCV 91.6 fL (80.0-100.0); Mean Platelet Volume 9.1; Monocytes # (A) 0.5 k/uL (0-1.0); Monocytes % (A) 3 %; Neutrophils # (A) 12.3 k/uL (1.3-7.7); Neutrophils % (A) 90 %; RBC 2.94 m/uL (3.80-5.40); RDW 17.9 % (11.5-15.5); WBC 13.6 k/uL (3.8-10.6)
[2019-03-19 08:25] LABS: Platelet Count 11 k/uL (150-450)
[2019-03-19] MEDS: IPRATROPIUM-ALBUTEROL 3 ML NEB INHALATION SCH ×4 (08:41→20:24)
[2019-03-19] MEDS: HYDROmorphone 1 MG/ML 1 ML SYRINGE IVP PRN ×3 (12:03→20:18)
[2019-03-19] MEDS: AZITHROMYCIN 1,200 MG/30 ML BOTTLE PO SCH (18:23)
[2019-03-19] MEDS: lamoTRIgine 100 MG TAB PO SCH (20:19)
[2019-03-19] MEDS: cloNIDine HCL 0.1 MG TAB PO SCH (20:19)
[2019-03-19] MEDS: VORTIOXETINE HYDROBROMIDE 20 MG TABLET PO SCH (20:19)
[2019-03-19] MEDS: ONDANSETRON ODT 4 MG TAB PO PRN (20:24)
[2019-03-19] MEDS: ARIPiprazole 15 MG TAB PO SCH (22:06)
[2019-03-20] MEDS: HYDROmorphone 1 MG/ML 1 ML SYRINGE IVP PRN ×7 (00:12→21:33)
[2019-03-20] MEDS: methylPREDNISolone SOD SUCCI 125 MG/2 ML VIAL IV SCH ×4 (06:29→23:38)
[2019-03-20] MEDS: IPRATROPIUM-ALBUTEROL 3 ML NEB INHALATION SCH ×5 (07:34→20:17)
[2019-03-20] MEDS: clonazePAM 1 MG TAB PO SCH ×2 (07:41→20:16)
[2019-03-20] MEDS: PANTOPRAZOLE 40 MG TABLET PO SCH (07:41)
[2019-03-20] MEDS: POLYETHYLENE GLYCOL 3350 17 GM POWD.PACK PO SCH (07:42)
[2019-03-20] MEDS: SENNOSIDES-DOCUSATE SODIUM 1 EACH TAB PO SCH ×2 (07:42→20:16)
[2019-03-20] MEDS ORDERED: HYDROmorphone 1 MG/ML 1 ML SYRINGE IM PRN (08:57)
[2019-03-20 09:02] LABS: Anisocytosis Slight; HGB 8.9 gm/dL (11.4-16.0); MCHC 32.8 g/dL (31.0-37.0); MCV 91.6 fL (80.0-100.0); Mean Platelet Volume 8.5; RBC 2.95 m/uL (3.80-5.40); RDW 18.1 % (11.5-15.5)
[2019-03-20 09:04] LABS: Platelet Count 9 k/uL (150-450)
[2019-03-20] MEDS: guaiFENesin-Coden 100-10MG/5ML 10 ML CUP PO PRN (13:46)
[2019-03-20] MEDS ORDERED: FAMOTIDINE 20 MG/2 ML VIAL IV ONE (16:00)
[2019-03-20] MEDS ORDERED: ACETAMINOPHEN TAB 325 MG TAB PO ONE (16:00)
[2019-03-20] MEDS ORDERED: diphenhydrAMINE 50 MG/ML 1 ML VIAL IVP ONE (16:00)
--- NOTE | 2019-03-20 16:20 | P.PN ---
Subjective Progress Note Date: 03/20/19 Patient presents to the hospital via the emergency room, with bilateral lower rib pain anteriorly since day before yesterday. Patient states that her pain is worse when she coughs and when she takes a deep breath. Admits to having a chronic unchanged cough. Patient has known metastatic lung tumors, primary is cervical cancer, last chemotherapy treatment was about 4 weeks ago. Patient is status post bowel resection secondary to metastases. Patient denies trauma or injury fever chills headache denies dizziness nausea or vomiting denies abdominal pain 03/14/2019 evaluated by oncology, recommendations noted and appreciated. Bloody nose since last night, denies any other sites of bleeding .Hemoglobin 7.1, platelets 7; one unit of platelets ordered. Oral steroids changed to IV as per nephrology. Pain better controlled on Dilaudid 2 mg IV push averaging every 2-3 hours. Reports pain of bilateral lung bases, greater on the right. Incentive spirometer 400. Afebrile, normal WBC. Vital signs stable, maintaining O2 sats in the 90s on 2 L nasal cannula. 03/15/2019 tachycardia low 100s, VSS. Afebrile. Hemoglobin 7. Status post 1 unit platelets yesterday, platelets currently 4. Another unit of platelets ordered.Subsided, no further bleeding reported. Diet intake 50% with no nausea vomiting. Reports pain improving under bilateral rib cages, controlled with Dilaudid 2 mg every 2 hours. Nonproductive cough, appears tighter today compared to yesterday. Afebrile. No bowel movement since Wednesday or Wednesday. 03/16/2019 status post transfusion of platelets, platelets have decreased further to 2, hemoglobin decreased to 6.6. One unit of packed RBCs and 1 unit of platelets ordered. Occasional mild nausea, no emesis. Pain continues to improve, controlled with Dilaudid every 2 hours. Afebrile, WBC 9.2. Chest x- ray yesterday reporting stable chronic neoplastic changes of right lung with irregular pleural thickening, left lung clear. 03/17/2019 receiving IVIG ,hemoglobin 7.9, platelets 20. No signs or symptoms of bleeding. Positive bowel movement. Vital signs stable. Decompensated, desats and becomes significantly tachycardic with minimal exertion. Pain controlled. 03/20/2019 complains of significant pain, fentanyl patch ordered, Dilaudid increased. Platelets down to 9. Hemoglobin 8.9. No active bleeding noted. Rituximab scheduled for today in addition to IV steroid. Nausea, no vomiting. Diet intake fair. Objective - Vital Signs Vital signs: Vital Signs Temp 98.3 F 03/20/19 13:41 Pulse 109 H 03/20/19 13:41 Resp 16 03/20/19 13:41 BP 134/84 03/20/19 13:41 Pulse Ox 95 03/20/19 13:41 Intake & Output 03/19/19 03/20/19 03/20/19 18:59 06:59 18:59 Intake Total 240 740 310 Balance 240 740 310 Intake: Intake, IV Titration 150 Amount cefTRIAXone 1 gm In 150 Sodium Chloride 0.9% 50 ml @ 100 mls/hr IVPB Q24H [facility] Rx#:[id number] Oral 240 590 Blood Product 310 Platelet Irr Pheresis 2 310 Acda Unit [id number] Other: Voiding Method Toilet Toilet # Voids 2 2 - Exam General: [Patient sitting up in bed, alert and oriented times 3. no acute distress.] HEENT: [PERRL. EOMI. No pharyngeal erythema or exudate. Neck supple, no JVD.] Cardiac: [Heart regular in rate and rhythm. Tachycardic. No S3. No S4. No clicks, rubs. No murmur.] Bilateral chest discomfort bilateral lower rib area Lungs: Bilateral bases diminished, occasional expiratory wheeze, coarse] Abdomen: [No mass. No organomegaly. Bowel sounds presnt and normoactive in all 4 quadrants. Abdominal scar from recent bowel resection Extremes: [No edema no cyanosis no claudication normal pulses] Skin: [No rash.] Neurologic: [No lateralizing deficits. CN II - XII grossly intact.] Microbiology 03/12/19 21:13 Blood Blood Culture - Final No Growth after 144 hours - Labs CBC & Chem 7: 03/20/19 08:50 03/19/19 07:47 Labs: Abnormal Lab Results - Last 24 Hours (Table) 03/20/19 Range/Units 08:50 WBC 19.0 H (3.8-10.6) k/uL RBC 2.95 L (3.80-5.40) m/uL Hgb 8.9 L (11.4-16.0) gm/dL Hct 27.0 L (34.0-46.0) % RDW 18.1 H (11.5-15.5) % Plt Count 9 L* (150-450) k/uL Assessment and Plan Assessment: 1) Metastatic cancer Current Visit: Yes Status: Acute Code(s): C79.9 - SECONDARY MALIGNANT NEOPLASM OF UNSPECIFIED SITE SNOMED Code(s): 950841347 (2) Pleuritic chest pain, right sided lung metastasis, atelectasis with possible underlying community-acquired pneumonia. Current Visit: Yes Status: Acute Code(s): R07.81 - PLEURODYNIA SNOMED Code(s): 1706458 (3) Thrombocytopenia Current Visit: Yes Status: Acute Code(s): D69.6 - THROMBOCYTOPENIA, UNSPECIFIED SNOMED Code(s): 371976036 (4) Liver metastases Current Visit: No Status: Acute Code(s): C78.7 - SECONDARY MALIG NEOPLASM OF LIVER AND INTRAHEPATIC BILE DUCT SNOMED Code(s): 84037353 (5) Metastatic cancer to lung Current Visit: No Status: Acute Code(s): C78.00 - SECONDARY MALIGNANT NEOPLASM OF UNSPECIFIED LUNG SNOMED Code(s): 89085400 (6) Opioid dependence in remission Current Visit: No Status: Acute Code(s): F11.21 - OPIOID DEPENDENCE, IN REMISSION SNOMED Code(s): 972158814 (7) S/P small bowel resection Current Visit: No Status: Acute Code(s): Z90.49 - ACQUIRED ABSENCE OF OTHER SPECIFIED PARTS OF DIGESTIVE TRACT SNOMED Code(s): 860436062508989 (8) Sinus tachycardia, secondary to possibly dehydration Current Visit: No Status: Acute Code(s): R00.0 - TACHYCARDIA, UNSPECIFIED SNOMED Code(s): 58400328 (10) acute on chronic anemia, status post transfusion, secondary to malignancy, treatment Plan: Continue current medication regime ,monitoring and symptomatic treatment. IV steroids, rituximab .pain management.Maintain aggressive pulmonary toileting with incentive spirometer reinforced. Increase ambulation as tolerated. Close monitoring of coags/labs with repeat labs ordered for a.m. Follow closely with oncology. CODE STATUS discussed. Discharge planning in progress. Prognosis guarded given multiple complex medical issues. The impression and plan of care has been dictated as directed. : I performed a history and examination of this patient, discussed the same with the dictator. I agree with the dictator's note ,documented as a scribe. Any additional findings or plans will be noted.
[2019-03-20] MEDS ORDERED: RITUXIMAB IV ONE (17:00)
[2019-03-20] MEDS ORDERED: SODIUM CHLORIDE 0.9% IV ONE (17:00)
--- NOTE | 2019-03-20 18:17 | P.PN ---
Subjective Progress Note Date: 03/20/19 Principal diagnosis: Pleuritic chest pain, shortness of breath, severe thrombocytopenia In follow-up today patient is expressing depression as well as frustration. Her pain medications were decreased over the weekend due to lethargy and decreased respirations, this led to an increase in pain, she is back on Dilaudid every 2 hours with the addition of a fentanyl patch, currently no signs or symptoms of respiratory depression. We had a long and very gustavo discussion about patient goals, she stated some things that were said to her were concerning. Patient's complaints of pain are still in the diaphragm area bilaterally, patient is comfortable at rest, it is worse when she coughs, she says that splinting does help occasionally, she is not complaining of pain anywhere else. There is no bleeding at this time, no epistaxis, hemoptysis, rash, petechiae, blood in the urine or stool. Objective - Vital Signs Vital signs: Vital Signs Temp 98.3 F 03/20/19 16:51 Pulse 127 H 03/20/19 16:51 Resp 16 03/20/19 16:51 BP 178/89 03/20/19 16:51 Pulse Ox 96 03/20/19 16:51 Intake & Output 03/19/19 03/20/19 03/20/19 18:59 06:59 18:59 Intake Total 240 740 353.2 Balance 240 740 353.2 Intake: Intake, IV Titration 150 43.2 Amount cefTRIAXone 1 gm In 150 Sodium Chloride 0.9% 50 ml @ 100 mls/hr IVPB Q24H [facility] Rx#:[id number] riTUXimab 580 mg In 43.2 Sodium Chloride 0.9% 500 ml 500 ml @ Titrate IV . Q0M ONE Rx#:[id number] Oral 240 590 Blood Product 310 Platelet Irr Pheresis 2 310 Acda Unit [id number] Other: Voiding Method Toilet Toilet # Voids 2 2 4 - Constitutional General appearance: Present: average body habitus, mild distress - EENT Eyes: Present: anicteric sclerae, edentulous, EOMI ENT: Present: hearing grossly normal - Respiratory Respiratory: bilateral: CTA - Cardiovascular Details: increased heart rate with anxiety, regular rhythm Rhythm: regular Heart sounds: normal: S1, S2 - Gastrointestinal General gastrointestinal: Present: normal bowel sounds, soft - Integumentary Integumentary: Present: pale - Neurologic Neurologic: Present: CNII-XII intact - Musculoskeletal Musculoskeletal: Present: strength equal bilaterally - Psychiatric Psychiatric Comment(s): tearful, anxious Psychiatric: Present: A&O x's 3, intact judgment & insight - Labs CBC & Chem 7: 03/20/19 08:50 03/19/19 07:47 Labs: Abnormal Lab Results - Last 24 Hours (Table) 03/20/19 Range/Units 08:50 WBC 19.0 H (3.8-10.6) k/uL RBC 2.95 L (3.80-5.40) m/uL Hgb 8.9 L (11.4-16.0) gm/dL Hct 27.0 L (34.0-46.0) % RDW 18.1 H (11.5-15.5) % Plt Count 9 L* (150-450) k/uL - Imaging and Cardiology CT scan - chest: report reviewed Assessment and Plan (1) Thrombocytopenia Narrative/Plan: Hemolysis and DIC work up negative. Plt draw in a citrate tube, confirmed low. Steroids initiated. HIT antibody negative. IVIG administered. Platelets are at 9000 today. 1 unit SDP ANDRE. PTP is most likely diagnosis. At this time the plan is to administer a first dose of Rituxan. Orders have been sent to the same to pharmacy as well as to the unit. Discussed Rituxan with the patient and her mother. Rituxan is a monoclonal antibody and not chemotherapy. The most common side effects are flulike symptoms. Most people tolerate Rituxan very well. Oxygen is to work along with her functioning immune system to combat the effects of the immune system that is behaving out of control and destroying her platelets. All que stions were answered to the best of my ability. Patient is going to sign a consent to proceed. Current Visit: Yes Status: Acute Priority: High Code(s): D69.6 - THROMBOCYTOPENIA, UNSPECIFIED SNOMED Code(s): 438303558 (2) Pleuritic chest pain Narrative/Plan: We had a lengthy discussion today about pain management. We discussed realistic pain goal and this it is not going to be 0. I had nursing remove time to next pain medication from patient's information board in the room. I explained to patient that we need to medicate her pain and not her perception of pain or just asking for pain meds because it is due. The fact that she is laying around in bed and not doing much and now getting progressively depressed is not going to improve her situation in fact, these problems will increase her pain as well as her perception of it. Patient has been encouraged to ambulate with her family, staff and with an assistive device. Yes, she needs to be very cautious of falls but, the longer she lays in the bed the worse her recovery is going to be for her as she is only going to get weaker. The pleuritic type chest pain is only going to persist, and possibly progress because she is laying around. We discussed alternatives to pain meds, incliding topical analgesics, bracing, even using a abd binder to try and help. Pt was told she needs to try and help herself improve because only using meds is not going to manage her complex situation. She agreed and so did her mother. Consider another image of the chest? Will see in AM Current Visit: Yes Status: Resolved Priority: High Code(s): R07.81 - PLEURODYNIA SNOMED Code(s): 5916991 (3) Metastatic cancer Current Visit: Yes Status: Chronic Priority: Medium Code(s): C79.9 - SECONDARY MALIGNANT NEOPLASM OF UNSPECIFIED SITE SNOMED Code(s): 628901896
[2019-03-20] MEDS: lamoTRIgine 100 MG TAB PO SCH (20:16)
[2019-03-20] MEDS: ONDANSETRON ODT 4 MG TAB PO PRN (20:16)
[2019-03-20] MEDS: cloNIDine HCL 0.1 MG TAB PO SCH (20:16)
[2019-03-20] MEDS: ARIPiprazole 15 MG TAB PO SCH (20:17)
[2019-03-20] MEDS: VORTIOXETINE HYDROBROMIDE 20 MG TABLET PO SCH (20:17)
[2019-03-21] MEDS: HYDROmorphone 1 MG/ML 1 ML SYRINGE IVP PRN ×5 (01:30→09:40)
[2019-03-21 05:20] VITALS: TEMP 97.9
[2019-03-21] MEDS: methylPREDNISolone SOD SUCCI 125 MG/2 ML VIAL IV SCH ×2 (05:35→12:14)
[2019-03-21] MEDS: POLYETHYLENE GLYCOL 3350 17 GM POWD.PACK PO SCH (07:38)
[2019-03-21] MEDS: SENNOSIDES-DOCUSATE SODIUM 1 EACH TAB PO SCH (07:43)
[2019-03-21] MEDS: clonazePAM 1 MG TAB PO SCH (07:43)
[2019-03-21] MEDS: PANTOPRAZOLE 40 MG TABLET PO SCH (07:43)
[2019-03-21] MEDS: IPRATROPIUM-ALBUTEROL 3 ML NEB INHALATION SCH ×2 (08:35→11:43)
[2019-03-21 09:43] LABS: Anisocytosis Slight; Basophils % (A) 0 %; Eosinophils % (A) 0 %; HCT 25.5 % (34.0-46.0); HGB 8.1 gm/dL (11.4-16.0); Hypochromasia Slight; Lymphocytes # (A) 0.6 k/uL (1.0-4.8); Lymphocytes % (A) 4 %; MCV 93.7 fL (80.0-100.0); Mean Platelet Volume 8.5; Monocytes # (A) 0.5 k/uL (0-1.0); Monocytes % (A) 3 %; Neutrophils # (A) 14.8 k/uL (1.3-7.7); Neutrophils % (A) 92 %; RBC 2.72 m/uL (3.80-5.40); RDW 18.4 % (11.5-15.5)
[2019-03-21 09:52] LABS: Platelet Count 12 k/uL (150-450)
--- NOTE | 2019-03-21 10:24 | P.PN ---
Objective - Vital Signs Vital signs: Vital Signs Temp 97.9 F 03/21/19 05:00 Pulse 112 H 03/21/19 08:47 Resp 20 03/21/19 05:00 BP 114/74 03/21/19 05:00 Pulse Ox 95 03/21/19 05:00 Intake & Output 03/20/19 03/21/19 03/21/19 18:59 06:59 18:59 Intake Total 448.4 1009.6 Balance 448.4 1009.6 Intake: Intake, IV Titration 138.4 419.6 Amount riTUXimab 580 mg In 138.4 419.6 Sodium Chloride 0.9% 500 ml 500 ml @ Titrate IV . Q0M ONE Rx#:[id number] Oral 590 Blood Product 310 Platelet Irr Pheresis 2 310 Acda Unit [id number] Other: Voiding Method Toilet # Voids 4 2 # Bowel Movements 1 - Labs CBC & Chem 7: 03/21/19 09:11 03/19/19 07:47 Labs: Abnormal Lab Results - Last 24 Hours (Table) 03/21/19 Range/Units 09:11 WBC 16.0 H (3.8-10.6) k/uL RBC 2.72 L (3.80-5.40) m/uL Hgb 8.1 L (11.4-16.0) gm/dL Hct 25.5 L (34.0-46.0) % RDW 18.4 H (11.5-15.5) % Plt Count 12 L* (150-450) k/uL Neutrophils # 14.8 H (1.3-7.7) k/uL Lymphocytes # 0.6 L (1.0-4.8) k/uL Assessment and Plan (1) Thrombocytopenia Narrative/Plan: Hemolysis and DIC work up negative. Plt draw in a citrate tube, confirmed low. Steroids initiated. HIT antibody negative. IVIG administered. S/P 1 [place] [address] today. PTP is most likely diagnosis. Rituxan will continue outpatient weekly for a total of 4 doses. OV and CBC sched for and is in DC plan Tapering steroid E-Rx sent to [facility] pharmacy. Current Visit: Yes Status: Acute Priority: High Code(s): D69.6 - THROMBOCYTOPENIA, UNSPECIFIED SNOMED Code(s): 590588741 (2) Pleuritic chest pain Narrative/Plan: Dr. García and Dr. Eason discussed the case this morning. Dr. Eason is going to provide pain management for the patient Current Visit: Yes Status: Resolved Priority: High Code(s): R07.81 - PLEURODYNIA SNOMED Code(s): 4025112 (3) Metastatic cancer Narrative/Plan: Plan for treatment is currently on hold due to patient's low platelet counts. I suspect there will be restaging images prior to moving on to maintenance therapy. This will be addressed in the outpatient setting. Current Visit: Yes Status: Chronic Priority: Medium Code(s): C79.9 - SECONDARY MALIGNANT NEOPLASM OF UNSPECIFIED SITE SNOMED Code(s): 579753806
--- NOTE | 2019-03-21 11:54 | P.DS ---
Providers Date of admission: 03/14/19 10:28 Expected date of discharge: 03/21/19 Attending physician: Fredo Eason Consults: 03/12/19 23:15 Consult Physician Urgent Consulting Provider: Haris Toney Consult Reason/Comments: thrombocytopenia Do you want consulting provider notified?: Yes 03/13/19 00:20 Consult Physician Urgent Consulting Provider: Haris Toney Consult Reason/Comments: thrombocytopenia, metastatic malignancy Do you want consulting provider notified?: Yes Primary care physician: Fredo Eason [facility] Course: Final Diagnoses: 1) Metastatic cancer Current Visit: Yes Status: Acute Code(s): C79.9 - SECONDARY MALIGNANT NEOPLASM OF UNSPECIFIED SITE SNOMED Code(s): 641970937 (2) Pleuritic chest pain, right sided lung metastasis, atelectasis with possible underlying community-acquired pneumonia. Current Visit: Yes Status: Acute Code(s): R07.81 - PLEURODYNIA SNOMED Code(s): 2453224 (3) Thrombocytopenia Current Visit: Yes Status: Acute Code(s): D69.6 - THROMBOCYTOPENIA, UNSPECIFIED SNOMED Code(s): 995228502 (4) Liver metastases Current Visit: No Status: Acute Code(s): C78.7 - SECONDARY MALIG NEOPLASM OF LIVER AND INTRAHEPATIC BILE DUCT SNOMED Code(s): 29250237 (5) Metastatic cancer to lung Current Visit: No Status: Acute Code(s): C78.00 - SECONDARY MALIGNANT NEOPLASM OF UNSPECIFIED LUNG SNOMED Code(s): 30704226 (6) Opioid dependence in remission Current Visit: No Status: Acute Code(s): F11.21 - OPIOID DEPENDENCE, IN REMISSION SNOMED Code(s): 887069016 (7) S/P small bowel resection Current Visit: No Status: Acute Code(s): Z90.49 - ACQUIRED ABSENCE OF OTHER SPECIFIED PARTS OF DIGESTIVE TRACT SNOMED Code(s): 230204604924286 (8) Sinus tachycardia, secondary to possibly dehydration Current Visit: No Status: Acute Code(s): R00.0 - TACHYCARDIA, UNSPECIFIED SNOMED Code(s): 60911642 (10) acute on chronic anemia, status post transfusion, secondary to malignancy, treatment Hospital course:Patient presents to the hospital via the emergency room, with bilateral lower rib pain anteriorly since day before yesterday. Patient states that her pain is worse when she coughs and when she takes a deep breath. Admits to having a chronic unchanged cough. Patient has known metastatic lung tumors, primary is cervical cancer, last chemotherapy treatment was about 4 weeks ago. Patient is status post bowel resection secondary to metastases. Patient denies trauma or injury fever chills headache denies dizziness nausea or vomiting denies abdominal pain 03/14/2019 evaluated by oncology, recommendations noted and appreciated. Bloody nose since last night, denies any other sites of bleeding .Hemoglobin 7.1, platelets 7; one unit of platelets ordered. Oral steroids changed to IV as per nephrology. Pain better controlled on Dilaudid 2 mg IV push averaging every 2-3 hours. Reports pain of bilateral lung bases, greater on the right. Incentive spirometer 400. Afebrile, normal WBC. Vital signs stable, maintaining O2 sats in the 90s on 2 L nasal cannula. 03/15/2019 tachycardia low 100s, VSS. Afebrile. Hemoglobin 7. Status post 1 unit platelets yesterday, platelets currently 4. Another unit of platelets ordered.Subsided, no further bleeding reported. Diet intake 50% with no nausea vomiting. Reports pain improving under bilateral rib cages, controlled with Dilaudid 2 mg every 2 hours. Nonproductive cough, appears tighter today compared to yesterday. Afebrile. No bowel movement since Wednesday or Wednesday. 03/16/2019 status post transfusion of platelets, platelets have decreased further to 2, hemoglobin decreased to 6.6. One unit of packed RBCs and 1 unit of platelets ordered. Occasional mild nausea, no emesis. Pain continues to improve, controlled with Dilaudid every 2 hours. Afebrile, WBC 9.2. Chest x- ray yesterday reporting stable chronic neoplastic changes of right lung with irregular pleural thickening, left lung clear. 03/17/2019 receiving IVIG ,hemoglobin 7.9, platelets 20. No signs or symptoms of bleeding. Positive bowel movement. Vital signs stable. Decompensated, desats and becomes significantly tachycardic with minimal exertion. Pain controlled. 03/20/2019 complains of significant pain, fentanyl patch ordered, Dilaudid increased. Platelets down to 9. Hemoglobin 8.9. No active bleeding noted. Rituximab scheduled for today in addition to IV steroid. Nausea, no vomiting. Diet intake fair. Significant clinical improvement, platelets up to 12. Cleared by oncology for discharge. Patient will be receiving weekly rituximab OP in oncology's office. Patient is being discharged home in a stable condition with guarded prognosis. - Exam General: Alert and oriented times 3. no acute distress.] Cardiac: [Heart regular in rate and rhythm. No S3. No S4. No clicks, rubs. No murmur.] Bilateral chest discomfort bilateral lower rib area Lungs: Bilateral bases diminished, occasional expiratory wheeze, coarse] Abdomen: [Soft, Abdominal scar from recent bowel resection, minimal tenderness ,No mass. No organomegaly. Bowel sounds presnt and normoactive in all 4 quadrants. Neurologic: [No focal deficits. The impression and plan of care has been dictated as directed. : I performed a history and examination of this patient, discussed the same with the dictator. I agree with the dictator's note ,documented as a scribe. Any additional findings or plans will be noted. Patient Condition at Discharge: Stable Plan - Discharge Summary Discharge Rx Participant: Yes New Discharge Prescriptions: New predniSONE 20 mg PO DAILY #26 tab fentaNYL 25MCG/HR PATCH [Duragesic 25MCG/HR] 1 patch TRANSDERM Q72H #1 patch Continue cloNIDine HCL 0.3 mg PO HS lamoTRIgine [LaMICtal] 200 mg PO HS clonazePAM [KlonoPIN] 1 mg PO BID PRN PRN Reason: Anxiety ARIPiprazole [Abilify] 15 mg PO HS Vortioxetine Hydrobromide [Trintellix] 20 mg PO HS Ondansetron Odt [Zofran ODT] 8 mg PO Q8HR PRN PRN Reason: Nausea Benzonatate [Tessalon Perles] 200 mg PO TID PRN PRN Reason: Cough Acetaminophen 650 mg PO Q6H PRN PRN Reason: Pain Or Fever > 100.5 CHLORPHEN-HYDROcod 8-10mg/5ml [Tussionex] 5 ml PO Q12HR PRN PRN Reason: Cough Prochlorperazine [Compazine] 10 mg PO Q6H PRN PRN Reason: Nausea Polyethylene Glycol 3350 [Miralax] 17 gm PO DAILY Phenylephrine/Dm/Acetaminop/GG [Vicks Dayquil Severe Cold-Flu] 30 ml PO Q4H PRN PRN Reason: Cold Symptoms Omeprazole 20 mg PO BID Discharge Medication List cloNIDine HCL 0.3 mg PO HS 05/15/15 [History] ARIPiprazole [Abilify] 15 mg PO HS 11/01/18 [History] Vortioxetine Hydrobromide [Trintellix] 20 mg PO HS 11/01/18 [History] clonazePAM [KlonoPIN] 1 mg PO BID PRN 11/01/18 [History] lamoTRIgine [LaMICtal] 200 mg PO HS 11/01/18 [History] Benzonatate [Tessalon Perles] 200 mg PO TID PRN 11/22/18 [History] Ondansetron Odt [Zofran ODT] 8 mg PO Q8HR PRN 11/22/18 [History] Acetaminophen 650 mg PO Q6H PRN 11/30/18 [History] CHLORPHEN-HYDROcod 8-10mg/5ml [Tussionex] 5 ml PO Q12HR PRN 02/16/19 [History] Omeprazole 20 mg PO BID 03/12/19 [History] Phenylephrine/Dm/Acetaminop/GG [Vicks Dayquil Severe Cold-Flu] 30 ml PO Q4H PRN 03/12/19 [History] Polyethylene Glycol 3350 [Miralax] 17 gm PO DAILY 03/12/19 [History] Prochlorperazine [Compazine] 10 mg PO Q6H PRN 03/12/19 [History] fentaNYL 25MCG/HR PATCH [Duragesic 25MCG/HR] 1 patch TRANSDERM Q72H #1 patch 03/21/19 [Rx] predniSONE 20 mg PO DAILY #26 tab 03/21/19 [Rx] Follow up Appointment(s)/Referral(s): [facility], [NON-STAFF] - 1-2 Days [facility] [Nurse Practitioner] - 03/23/19 10:30 am
[2019-03-21 12:31] VITALS: BP 133/77; PULSE 114; RESP 16
[2019-03-21] MEDS: guaiFENesin-Coden 100-10MG/5ML 10 ML CUP PO PRN (12:32)
--- NOTE | 2019-03-22 13:10 | CDI ---
Documentation Clarification Form Date: 03/22/2019 12:48:18 PM From: MADELAINE Farrell; Romy Merino, Slot Operations Director Phone: If you have any questions about the query, please contact Romy Merino, at [phone] between 8 am and 5 pm. Admit Date: 03/14/2019 10:28:00 AM Patient Name: Latonia Quiles Visit Number: [id number] Discharge Date: 03/21/2019 1:32:00 PM ATTENTION: The Clinical Documentation Specialists (CDI) and [facility] Coding Staff appreciate your assistance in clarifying documentation. Please respond to the clarification below the line at the bottom and electronically sign. The CDI & [facility] Coding staff will review the response and follow-up if needed. Please note: Queries are made part of the Legal Health Record. If you have any questions, please contact the author of this message via ITS. Dr. Fredo Eason The patient was admitted to [facility] with pleuritic chest pain and thrombocytopenia. There is an order to make inpatient on 03/14. History/Risk Factors: Metastatic cervical CA with mets to lung and liver. Clinical Indicators: Right sided lung mets, possible DIC, sinus tachycardia. Lab findings: Hemoglobin 8.2; hematocrit 25.9 Radiology findings: atelectasis, pleural effusion, mets. Vital Signs: temp 97.7, pulse 97, BP 115/63. Other Clinical Indicators: Epistaxis Treatment: transfusion/platelets. Pain management. In your professional opinion, can you please clarify the reason for status change on 03/14? ---->Thrombocytopenia Pleuritic chest pain Other, please specify Unable to determine MTDD
== END 2019-03-21 13:32 | disposition home health service (06) | DRG 180 ==
LOC: EC 20:21 → 3NMEDONC 03-13 00:32 → OBSVTOIN 03-14 10:28 → 3NMEDONC 03-14 21:53
PROVIDERS: ADMIT Family Medicine; ATTEND Family Medicine
PROC: 30233R1 Transfusion of Nonautologous Platelets into Peripheral Vein, Percutaneous Approach (ICD-10-PCS; principal; 2019-03-14)
PROC: 30233N1 Transfusion of Nonautologous Red Blood Cells into Peripheral Vein, Percutaneous Approach (ICD-10-PCS; principal; 2019-03-14)
DX: C78.01 Secondary malignant neoplasm of right lung (principal); J18.9 Pneumonia, unspecified organism; C78.7 Secondary malignant neoplasm of liver and intrahepatic bile duct; J98.11 Atelectasis; D69.6 Thrombocytopenia, unspecified; G89.3 Neoplasm related pain (acute) (chronic); C53.9 Malignant neoplasm of cervix uteri, unspecified; D69.51 Posttransfusion purpura; F11.21 Opioid dependence, in remission; F32.9 Major depressive disorder, single episode, unspecified; F41.0 Panic disorder [episodic paroxysmal anxiety]; F60.3 Borderline personality disorder; F90.9 Attention-deficit hyperactivity disorder, unspecified type; Z81.3 Family history of other psychoactive substance abuse and dependence; Z87.891 Personal history of nicotine dependence; Z90.49 Acquired absence of other specified parts of digestive tract; Z98.51 Tubal ligation status; Z79.899 Other long term (current) drug therapy; E86.0 Dehydration; D64.81 Anemia due to antineoplastic chemotherapy; D63.0 Anemia in neoplastic disease
CPT/HCPCS: 36415; 71045; 71275; 80053; 83010; 83605; 83615; 83880; 84484; 85025; 85027; 85049; 85384; 85610; 85730; 86022; 86850; 86900; 86901; 86920; 87040; 93005; 94640; 94760; 96361; 96374; 96376; 99285

== ENCOUNTER → 2019-03-31 | Outpatient (CLI) | payer OTHER ==
--- NOTE | 2019-04-03 07:29 | PE ---
EXAMINATION TYPE: PET CT fusion skull to thigh DATE OF EXAM: 03/31/2019 COMPARISON: CT chest 03/12/2019, CT abdomen pelvis 02/17/2019 Prior PET/CT: None HISTORY: Cervical cancer TECHNIQUE: Following the intravenous administration of 12.66 mCi of F-18 FDG, whole body images are performed from the skull base to the midthigh. Images are reviewed on the computer in the coronal, a xial, and sagittal planes. Reconstructed rotating images are created on independent workstation and reviewed on the computer. A localization and attenuation correction CT is performed in conjunction with the PET scan. DLP: 274.98 mGycm SCAN: Initial Blood glucose: 146 mg/dL Average Mediastinum SUV: 1.24 Average Liver SUV: 1.44 FINDINGS: NECK: No abnormal uptake THORAX: There is extensive uptake throughout the bilateral lungs predominantly within the peripheral pleural margins. This is bilateral. Small right pleural effusion is present. ABDOMEN: Multiple scattered hyperintensities through left and right lobe of liver are present compati ble with metastatic lesions. There are some areas of increased signal within the mid mesentery, image 149, suspicious for metastat ic lesions. Some additional mesenteric adenopathy may be slightly more inferior. Right lower lobe foc us of uptake could be additional metastatic lymph node. Image 165. PELVIS: Large area of uptake is within the uterus with an SUV value of 12.41. Image 175. OSSEOUS STRUCTURES: No abnormal uptake LOCALIZATION CT: Pleural thickening through the bilateral lung goode are evident. Multiple masses co rresponding to the areas of uptake are evident. Small pericardial effusion may be present. Metastatic lesions are evident within the liver. COMPARISON: Findings correlate with the CTA chest and CT abdomen pelvis IMPRESSION: 1. Extensive metastatic disease to the pleural margins and within the bilateral lungs. 2. Large mass with abnormal uptake in the uterus.
== END | disposition home or self-care (01) ==
LOC: RADPETMAIN 17:19
PROVIDERS: ATTEND Internal Medicine Hematology & Oncology
DX: C53.8 Malignant neoplasm of overlapping sites of cervix uteri (principal); C78.02 Secondary malignant neoplasm of left lung; C78.01 Secondary malignant neoplasm of right lung; Z92.21 Personal history of antineoplastic chemotherapy
CPT/HCPCS: 78815; A9552

== ENCOUNTER 2019-06-20 20:16 | Inpatient (IN) | payer OTHER ==
[2019-06-20] MEDS ORDERED: SODIUM CHLORIDE 0.9% 1,000 ML IV STA (20:36)
[2019-06-20] MEDS ORDERED: IPRATROPIUM-ALBUTEROL 3 ML NEB INHALATION STA (20:36)
--- NOTE | 2019-06-20 21:09 | ED ---
SOB HPI - General Chief Complaint: Shortness of Breath Stated Complaint: SOB Time Seen by Provider: 06/20/19 20:35 Source: patient, RN notes reviewed, old records reviewed Mode of arrival: ambulatory Limitations: no limitations - History of Present Illness Initial Comments: This is a 43-year-old female here for evaluation regards to shortness of breath weakness dehydration not feeling well possible medication reaction to chemotherapy. Known history of ovarian cervical cancer which is stage IV with metastasis Vicky. Patient severe shortness of breath history of recurrent pneumonias. No chest pain currently but just generalized body aches and pains. No fevers. MD Complaint: shortness of breath, cough, pain with inspiration, anxiety -: days(s) Severity: severe Severity scale (1-10): 8 Quality: throbbing Consistency: constant Improves With: oxygen, rest, bronchodilators, upright position, medication Worsens With: exertion, movement Known History Of: recurrent pneumonia, other (Known history of lung cancer) Associated Symptoms: pain with inspiration, cough, sputum production Treatments Prior to Arrival: none - Related Data Home Medications Medication Instructions Recorded Confirmed cloNIDine HCL 0.3 mg PO HS 05/15/15 06/20/19 ARIPiprazole [Abilify] 15 mg PO HS 11/01/18 06/20/19 Vortioxetine Hydrobromide 20 mg PO HS 11/01/18 06/20/19 [Trintellix] clonazePAM [KlonoPIN] 1 mg PO BID PRN 11/01/18 06/20/19 lamoTRIgine [LaMICtal] 200 mg PO HS 11/01/18 06/20/19 Ondansetron Odt [Zofran ODT] 8 mg PO Q8HR PRN 11/22/18 06/20/19 Acetaminophen 650 mg PO Q6H PRN 11/30/18 06/20/19 Omeprazole 20 mg PO BID 03/12/19 06/20/19 Dronabinol [Marinol] 5 mg PO BID PRN 03/29/19 06/20/19 Albuterol Nebulized [Ventolin 2.5 mg INHALATION RT-QID PRN 06/20/19 06/20/19 Nebulized] Benzonatate [Tessalon Perles] 200 mg PO TID PRN 06/20/19 06/20/19 Levothyroxine Sodium [Synthroid] 100 mcg PO HS 06/20/19 06/20/19 fentaNYL 50MCG/HR PATCH [Duragesic 1 patch TRANSDERM Q72H 06/20/19 06/20/19 50MCG/HR] oxyCODONE-APAP 10-325MG [Percocet 2 tab PO Q6H PRN 06/20/19 06/20/19 10-325 mg] Allergies Allergy/AdvReac Type Severity Reaction Status Date / Time No Known Allergies Allergy Verified 06/20/19 22:08 Review of Systems ROS Statement: Those systems with pertinent positive or pertinent negative responses have been documented in the HPI. ROS Other: All systems not noted in ROS Statement are negative. Past Medical History Past Medical History: Cancer, Pneumonia Additional Past Medical History / Comment(s): stage 4 cervical cancer, recover ing opiate addiction clean for a year, borderline personality. History of Any Multi-Drug Resistant Organisms: None Reported Past Surgical History: Bowel Resection, Section, Tubal Ligation Additional Past Surgical History / Comment(s): BOWEL RESECTION D/T SMALL BOWEL OBSTRUCTION. Past Anesthesia/Blood Transfusion Reactions: No Reported Reaction Past Psychological History: ADD/ADHD, Anxiety, Depression, Panic Disorder Smoking Status: Former smoker Past Alcohol Use History: None Reported Past Drug Use History: None Reported - Past Family History Father History Unknown: Yes Family Medical History: Liver Disease Additional Family Medical History / Comment(s): Father had hepatitis at the age of 17 yrs. He was an drug addict. He started drinking when his and this lead to his per pt. Mother History Unknown: Yes Additional Family Medical History / Comment(s): Mother is healthy. General Exam Limitations: no limitations General appearance: alert, anxious, in distress, cachectic Head exam: Present: atraumatic, normocephalic, normal inspection Eye exam: Present: normal appearance, PERRL, EOMI. Absent: scleral icterus, conjunctival injection, periorbital swelling ENT exam: Present: normal exam, mucous membranes dry Neck exam: Present: normal inspection. Absent: tenderness, meningismus, lymphadenopathy Respiratory exam: Present: normal lung sounds bilaterally, wheezes, accessory muscle use, decreased breath sounds, prolonged expiratory. Absent: respiratory distress, rales, rhonchi, stridor Cardiovascular Exam: Present: normal rhythm, tachycardia, normal heart sounds. Absent: systolic murmur, diastolic murmur, rubs, gallop, clicks GI/Abdominal exam: Present: soft, normal bowel sounds. Absent: distended, tenderness, guarding, rebound, rigid Extremities exam: Present: normal inspection, full ROM, normal capillary refill. Absent: tenderness, pedal edema, joint swelling, calf tenderness Back exam: Present: normal inspection Neurological exam: Present: alert, oriented X3, CN II-XII intact Psychiatric exam: Present: normal affect, normal mood Skin exam: Present: warm, dry, intact, normal color. Absent: rash Course Vital Signs 06/20/19 06/20/19 06/20/19 20:17 20:38 20:49 Temperature 97.7 F Pulse Rate 126 H 126 H Respiratory 26 H 24 Rate Blood Pressure 132/83 O2 Sat by Pulse 99 Oximetry 06/20/19 06/20/19 21:08 22:26 Temperature Pulse Rate 122 H 134 H Respiratory 20 Rate Blood Pressure O2 Sat by Pulse 98 Oximetry - Reevaluation(s) Reevaluation #1: 06/20/19 23:05 Medical Record review, history of CTA showing no PE Reevaluation #2: 06/20/19 23:05 Patient symptoms are markedly improved here in the ER with oxygen breathing treatments and symptom management, pain control - Consultations Consultation #1: Spoke with Dr. John who'll be okay for an admission Medical Decision Making - Medical Decision Making History female DF for evaluation cough congestion shortness of breath severe. Severe shortness of breath pleural effusions maybe some pulmonary edema from heart disease and lung CA, patient will be admitted for breathing treatments and monitoring of cardiopulmonary status - Lab Data Result diagrams: 06/20/19 21:40 06/20/19 21:40 Lab Results 06/20/19 06/20/19 06/20/19 Range/Units 21:40 21:40 21:40 WBC 12.4 H (3.8-10.6) k/uL RBC 2.75 L (3.80-5.40) m/uL Hgb 9.4 L (11.4-16.0) gm/dL Hct 30.9 L (34.0-46.0) % MCV 112.4 H (80.0-100.0) fL MCH 34.1 (25.0-35.0) pg MCHC 30.4 L (31.0-37.0) g/dL RDW 17.8 H (11.5-15.5) % Plt Count 278 (150-450) k/uL Neutrophils % 85 % Lymphocytes % 7 % Monocytes % 5 % Eosinophils % 0 % Basophils % 0 % Neutrophils # 10.6 H (1.3-7.7) k/uL Lymphocytes # 0.9 L (1.0-4.8) k/uL Monocytes # 0.6 (0-1.0) k/uL Eosinophils # 0.0 (0-0.7) k/uL Basophils # 0.0 (0-0.2) k/uL Manual Slide Review Performed Hypochromasia Marked Poikilocytosis Slight Anisocytosis Slight Macrocytosis Marked A PT 11.6 (9.0-12.0) sec INR 1.1 (<1.2) APTT 27.1 (22.0-30.0) sec D-Dimer 1.08 H (<0.60) mg/L FEU Sodium 140 (137-145) mmol/L Potassium 4.3 (3.5-5.1) mmol/L Chloride 92 L (98-107) mmol/L Carbon Dioxide 37 H (22-30) mmol/L Anion Gap 11 mmol/L BUN 13 (7-17) mg/dL Creatinine 0.31 L (0.52-1.04) mg/dL Est GFR (CKD-EPI)AfAm >90 (>60 ml/min/1.73 sqM) Est GFR (CKD-EPI)NonAf >90 (>60 ml/min/1.73 sqM) Glucose 119 H (74-99) mg/dL Calcium 10.0 (8.4-10.2) mg/dL Magnesium 1.9 (1.6-2.3) mg/dL Total Bilirubin 0.7 (0.2-1.3) mg/dL AST 68 H (14-36) U/L ALT 26 (4-34) U/L Alkaline Phosphatase 1173 H (38-126) U/L Troponin I (0.000-0.034) ng/mL NT-Pro-B Natriuret Pep pg/mL Total Protein 7.0 (6.3-8.2) g/dL Albumin 3.7 (3.5-5.0) g/dL 06/20/19 06/20/19 Range/Units 21:40 21:40 WBC (3.8-10.6) k/uL RBC (3.80-5.40) m/uL Hgb (11.4-16.0) gm/dL Hct (34.0-46.0) % MCV (80.0-100.0) fL MCH (25.0-35.0) pg MCHC (31.0-37.0) g/dL RDW (11.5-15.5) % Plt Count (150-450) k/uL Neutrophils % % Lymphocytes % % Monocytes % % Eosinophils % % Basophils % % Neutrophils # (1.3-7.7) k/uL Lymphocytes # (1.0-4.8) k/uL Monocytes # (0-1.0) k/uL Eosinophils # (0-0.7) k/uL Basophils # (0-0.2) k/uL Manual Slide Review Hypochromasia Poikilocytosis Anisocytosis Macrocytosis PT (9.0-12.0) sec INR (<1.2) APTT (22.0-30.0) sec D-Dimer (<0.60) mg/L FEU Sodium (137-145) mmol/L Potassium (3.5-5.1) mmol/L Chloride (98-107) mmol/L Carbon Dioxide (22-30) mmol/L Anion Gap mmol/L BUN (7-17) mg/dL Creatinine (0.52-1.04) mg/dL Est GFR (CKD-EPI)AfAm (>60 ml/min/1.73 sqM) Est GFR (CKD-EPI)NonAf (>60 ml/min/1.73 sqM) Glucose (74-99) mg/dL Calcium (8.4-10.2) mg/dL Magnesium (1.6-2.3) mg/dL Total Bilirubin (0.2-1.3) mg/dL AST (14-36) U/L ALT (4-34) U/L Alkaline Phosphatase (38-126) U/L Troponin I 0.035 H* (0.000-0.034) ng/mL NT-Pro-B Natriuret Pep 538 pg/mL Total Protein (6.3-8.2) g/dL Albumin (3.5-5.0) g/dL - EKG Data -: EKG Interpreted by Me (EKG shows sinus tachycardia of 1:30, pO2 124, QRS 70, QTc 412) - Radiology Data Radiology results: report reviewed (S x-ray shows elliott pleural effusions from prior mild pulmonary edema), image reviewed Disposition Clinical Impression: Acute pulmonary edema, Congestive heart failure, Ovarian cancer, Anemia, Dehydr ation Disposition: ADMITTED IP TO THIS [facility] Condition: Serious Is patient prescribed a controlled substance at d/c from ED?: No Referrals: Fredo Eason MD [Primary Care Provider] - 1-2 days
--- NOTE | 2019-06-20 21:20 | XR ---
EXAMINATION TYPE: XR chest 1V portable DATE OF EXAM: 06/20/2019 COMPARISON: 03/15/2019 HISTORY: Follow-up pneumonia TECHNIQUE: Single view FINDINGS: There is pulmonary edema. There are chest leads. There is blunting of the costophrenic angl es more on the right side. There is right-sided central venous catheter in the tip is in the superior vena cava. IMPRESSION: Congestive heart failure with pleural effusions and pulmonary edema appears worse than la st exam.
[2019-06-20] MEDS ORDERED: HYDROmorphone 0.5 MG/0.5 ML SYRINGE IVP STA (21:25)
[2019-06-20] MEDS ORDERED: DEXAMETHASONE SOD PHOSPHATE 10 MG/ML 1 ML VIAL IV STA (21:26)
[2019-06-20] MEDS ORDERED: ONDANSETRON 4 MG/2 ML VIAL IVP STA (21:26)
[2019-06-20 22:04] LABS: ALT 26 U/L (4-34); AST 68 U/L (14-36); African American GFR (CKD) >90 (>60 ml/min/1.73 sqM); Albumin 3.7 g/dL (3.5-5.0); Alkaline Phosphatase 1173 U/L (38-126); Anion Gap 11 mmol/L; Blood Urea Nitrogen 13 mg/dL (7-17); Carbon Dioxide 37 mmol/L (22-30); Chloride 92 mmol/L (98-107); Glucose 119 mg/dL (74-99); Magnesium 1.9 mg/dL (1.6-2.3); Non-African American GFR(CKD) >90 (>60 ml/min/1.73 sqM); Potassium 4.3 mmol/L (3.5-5.1); Sodium 140 mmol/L (137-145); Total Bilirubin 0.7 mg/dL (0.2-1.3)
[2019-06-20 22:15] LABS: Anisocytosis Slight; Basophils % (A) 0 %; Eosinophils % (A) 0 %; HCT 30.9 % (34.0-46.0); HGB 9.4 gm/dL (11.4-16.0); Hypochromasia Marked; Lymphocytes # (A) 0.9 k/uL (1.0-4.8); Lymphocytes % (A) 7 %; MCH 34.1 pg (25.0-35.0); MCHC 30.4 g/dL (31.0-37.0); MCV 112.4 fL (80.0-100.0); Macrocytosis Marked; Mean Platelet Volume 7.3; Monocytes # (A) 0.6 k/uL (0-1.0); Monocytes % (A) 5 %; Neutrophils # (A) 10.6 k/uL (1.3-7.7); Neutrophils % (A) 85 %; Platelet Count 278 k/uL (150-450); Poikilocytosis Slight; RBC 2.75 m/uL (3.80-5.40); RDW 17.8 % (11.5-15.5); WBC 12.4 k/uL (3.8-10.6)
[2019-06-20 22:25] LABS: INR 1.1 (<1.2)
[2019-06-20 22:26] LABS: Partial Thromboplastin Time 27.1 sec (22.0-30.0); Prothrombin Time 11.6 sec (9.0-12.0)
[2019-06-20 22:27] LABS: D-Dimer 1.08 mg/L FEU (<0.60)
[2019-06-20] MEDS ORDERED: ALBUTEROL NEBULIZED 2.5 MG/3 ML INHALATION PRN (22:58)
[2019-06-20] MEDS ORDERED: MORPHINE SULFATE 4 MG/ML SYRINGE IVP STA (23:01)
[2019-06-20] MEDS ORDERED: LORazepam 2 MG/ML INJ IV STA (23:01)
[2019-06-20] MEDS ORDERED: AZITHROMYCIN 500 MG in SODIUM CHLORIDE 0.9% 250 ML IVPB STA (23:11)
[2019-06-20] MEDS: SODIUM CHLORIDE 0.9% 1,000 ML IV SCH (23:13)
[2019-06-20] MEDS ORDERED: chlorproMAZINE 25 MG/ML 2 ML AMP IM STA (23:16)
[2019-06-20] MEDS ORDERED: DIAZEPAM 5 MG/ML 2 ML INJ IVP STA (23:16)
[2019-06-21] MEDS: methylPREDNISolone SOD SUCCI 125 MG/2 ML VIAL IV SCH ×4 (01:07→17:49)
[2019-06-21] MEDS: MORPHINE SULFATE 4 MG/ML SYRINGE IVP PRN ×5 (03:37→23:52)
[2019-06-21] MEDS ORDERED: BENZONATATE 100 MG CAP PO PRN (07:29)
[2019-06-21] MEDS ORDERED: clonazePAM 1 MG TAB PO PRN (07:29)
[2019-06-21] MEDS ORDERED: DRONABINOL 2.5 MG CAP PO PRN (07:29)
[2019-06-21] MEDS ORDERED: ACETAMINOPHEN TAB 325 MG TAB PO PRN (07:29)
[2019-06-21] MEDS: IPRATROPIUM-ALBUTEROL 3 ML NEB INHALATION SCH ×4 (08:02→19:14)
[2019-06-21] MEDS: ENOXAPARIN 40 MG/0.4 ML SYRINGE SQ SCH (09:07)
[2019-06-21] MEDS: SODIUM CHLORIDE 0.9% 1,000 ML IV SCH ×2 (09:07→22:28)
[2019-06-21] MEDS: PANTOPRAZOLE 40 MG TABLET PO SCH ×2 (09:07→22:27)
[2019-06-21] MEDS ORDERED: hydrALAZINE HCL 25 MG TAB PO SCH (09:45)
[2019-06-21] MEDS: LORazepam 2 MG/ML INJ IV PRN ×2 (11:34→18:58)
[2019-06-21] MEDS ORDERED: VANCOMYCIN IV PER PHARMACY 1 EACH MISC MISCELLANE PRN (11:55)
[2019-06-21] MEDS ORDERED: IPRATROPIUM-ALBUTEROL 3 ML NEB INHALATION SCH (12:00)
[2019-06-21] MEDS: CEFEPIME 1 GM in SODIUM CHLORIDE 0.9% 50 ML IVPB SCH (12:50)
--- NOTE | 2019-06-21 13:06 | US ---
EXAMINATION TYPE: US chest DATE OF EXAM: 06/21/2019 COMPARISON: X ray CLINICAL HISTORY: pleural effusions, R>L. TECHNIQUE: Targeted ultrasound of the posterior bilateral chest EXAM MEASUREMENTS: Right Pleural Effusion (solid components) pocket size: 7.1 cm (no free fluid was seen) Left Pleural Effusion pocket size: 0.8 cm Right side was not marked for possible thoracentesis outside the dept. Left side was not marked for possible thoracentesis outside the dept. Pulmonologists are able to review the images in the patient?s EMR. IMPRESSIONS: Small pleural effusions.
[2019-06-21] MEDS: VANCOMYCIN 1,000 MG in SODIUM CHLORIDE 0.9% 250 ML IVPB SCH (14:23)
--- NOTE | 2019-06-21 15:01 | P.CNPUL ---
History of Present Illness Consult date: 06/21/19 Requesting physician: Sal Matute Reason for consult: dyspnea, cough, hypoxemia, abnormal CXR/CT Chief complaint: Dyspnea, cough, acute on chronic hypoxemia History of present illness: 43-year-old patient of Dr. Eason with past medical history of recurrent metastatic cervical cancer with metastasis to the lungs, currently receiving treatment with a combination of Keytruda and Avastin. Patient was initially diagnosed with cervical cancer 3 years ago after having increased vaginal bleeding according to the daughter was treated with chemoradiation, and was apparently in remission up until October 2018. CAT scan of the chest on 10/24/2018 revealed evidence of bilateral perihilar masslike consolidations right greater than left with extension into upper and lower lungs, there was also bronchial narrowing and occlusion bilaterally, possible hilar adenopathy. There was also abnormalities involving the liver. Patient was seen by Dr. Braun at that time however patient was too unstable in the bronchoscopy suite, when bronchoscopy with biopsies was planned and patient was subsequently transferred to [facility] for further evaluation. Patient follows with Dr. Toney and according to the daughter she has been receiving treatment every Wednesday. She is on home oxygen at 2 L. patient is an ex-smoker, other medical history includes ADHD, former opiate addiction, anxiety, depression, panic disorder, borderline personality disorder. Most recently patient had a PET scan done in March 2019 showing extensive metastatic disease to the pleural margins and within the bilateral lungs, and a large mass with abnormal uptake in the uterus. On 06/20/2019 patient was brought into the emergency department by her family for evaluation of increasing shortness of breath, weakness, dehydration, dry cough, and low pulse ox. She denied any fever, denied any hemoptysis, chest x-ray, her respirations are quite shallow and tachypneic, and patient's oxygen requirements have increased is currently on 5 L of oxygen with a pulse ox of 96%, quite tachycardic on presentation, with a rate of 126-131, sinus mechanism. Chest x- ray showed pulmonary edema, blunting of the costophrenic angles, bilateral perihilar infiltrates, and pleural effusions. Ultrasound of the chest showed a 7.1 cm pocket on the right, and 0.8 cm pocket on the left. She was started on empiric antibiotics, she was given IV fluids. Her labs were reviewed, showing white blood cell count of 12.4, hemoglobin of 9.4, d-dimer was 1.08, sodium was 140 potassium was 4.3, chloride was 92, CO2 is 37, BUN is 13 creatinine was 0.31, AST was 68, ALT was 26, alkaline phosphatase was 1173, troponins were 0. 035, 0.030, and 0.021, proBNP was 538 Review of Systems All systems: negative Constitutional: Denies chills, Denies fever Eyes: denies blurred vision, denies pain Ears, nose, mouth and throat: Denies headache, Denies sore throat Cardiovascular: Denies chest pain, Denies shortness of breath Respiratory: Reports congestion, Reports cough, Reports dyspnea, Reports home oxygen Gastrointestinal: Denies abdominal pain, Denies diarrhea, Denies nausea, Denies vomiting Genitourinary: Denies dysuria, Denies hematuria Musculoskeletal: Denies myalgias Integumentary: Denies pruritus, Denies rash Neurological: Reports change in mentation, Denies numbness, Denies weakness Psychiatric: Denies anxiety, Denies depression Endocrine: Denies fatigue, Denies weight change Past Medical History Past Medical History: Cancer, Pneumonia Additional Past Medical History / Comment(s): stage 4 cervical cancer, r ecovering opiate addiction clean for a year, borderline personality. History of Any Multi-Drug Resistant Organisms: None Reported Past Surgical History: Bowel Resection, Section, Tubal Ligation Additional Past Surgical History / Comment(s): BOWEL RESECTION D/T SMALL BOWEL OBSTRUCTION. Past Anesthesia/Blood Transfusion Reactions: No Reported Reaction Past Psychological History: ADD/ADHD, Anxiety, Depression, Panic Disorder Additional Psychological History / Comment(s): Borderline personality disorder. Pt resides with her significant other and 2 of her adult children. She recieves social security d/t mental health problems. She is independent. She goes to [employer] Smoking Status: Former smoker Past Alcohol Use History: None Reported Additional Past Alcohol Use History / Comment(s): Pt started smoking in 2006 quit October 2018 Past Drug Use History: None Reported Additional Drug Use History / Comment(s): Pt is a recovering opiate addict-she has been clean 5 yrs. - Past Family History Father History Unknown: Yes Family Medical History: Liver Disease Additional Family Medical History / Comment(s): Father had hepatitis at the age of 17 yrs. He was an drug addict. He started drinking when his and this lead to his per pt. Mother History Unknown: Yes Additional Family Medical History / Comment(s): Mother is healthy. Medications and Allergies Home Medications Medication Instructions Recorded Confirmed Type cloNIDine HCL 0.3 mg PO HS 05/15/15 06/20/19 History ARIPiprazole [Abilify] 15 mg PO HS 11/01/18 06/20/19 History Vortioxetine Hydrobromide 20 mg PO HS 11/01/18 06/20/19 History [Trintellix] clonazePAM [KlonoPIN] 1 mg PO BID PRN 11/01/18 06/20/19 History lamoTRIgine [LaMICtal] 200 mg PO HS 11/01/18 06/20/19 History Ondansetron Odt [Zofran ODT] 8 mg PO Q8HR PRN 11/22/18 06/20/19 History Acetaminophen 650 mg PO Q6H PRN 11/30/18 06/20/19 History Omeprazole 20 mg PO BID 03/12/19 06/20/19 History Dronabinol [Marinol] 5 mg PO BID PRN 03/29/19 06/20/19 History Albuterol Nebulized [Ventolin 2.5 mg INHALATION RT-QID PRN 06/20/19 06/20/19 History Nebulized] Benzonatate [Tessalon Perles] 200 mg PO TID PRN 06/20/19 06/20/19 History Levothyroxine Sodium [Synthroid] 100 mcg PO HS 06/20/19 06/20/19 History fentaNYL 50MCG/HR PATCH [Duragesic 1 patch TRANSDERM Q72H 06/20/19 06/20/19 History 50MCG/HR] oxyCODONE-APAP 10-325MG [Percocet 2 tab PO Q6H PRN 06/20/19 06/20/19 History 10-325 mg] Allergies Allergy/AdvReac Type Severity Reaction Status Date / Time No Known Allergies Allergy Verified 06/20/19 22:08 Physical Exam Vitals: Vital Signs Temp Pulse Pulse Resp BP BP Pulse Ox 06/21/19 14:02 145/110 06/21/19 12:10 97.1 F L 131 H 22 163/105 98 06/21/19 11:18 125 H 06/21/19 11:13 98 20 169/112 96 06/21/19 11:07 126 H 06/21/19 09:00 120 H 18 151/121 98 06/21/19 08:16 97.6 F 122 H 18 161/108 98 06/21/19 08:14 124 H 06/21/19 08:02 120 H 06/21/19 07:17 120 H 22 165/100 99 06/21/19 05:19 118 H 22 140/94 98 06/21/19 03:41 97.2 F L 125 H 28 H 146/94 98 06/21/19 01:09 97.9 F 125 H 18 158/106 100 06/21/19 00:53 97.9 F 125 H 18 158/106 100 06/21/19 00:00 112 H 18 140/90 99 06/20/19 23:19 123 H 20 141/100 98 06/20/19 22:26 134 H 20 98 06/20/19 21:08 122 H 06/20/19 20:49 126 H 06/20/19 20:38 24 06/20/19 20:17 97.7 F 126 H 26 H 132/83 99 Intake and Output 06/20/19 06/21/19 06/21/19 22:59 06:59 14:59 Other: Voiding Method Toilet Weight 52.163 kg 52.163 kg GENERAL EXAM: Alert, 43-year-old white female, pale, dyspneic and tachypneic, currently on 5 L of oxygen with a pulse ox of 98% HEAD: Normocephalic/atraumatic. EYES: Normal reaction of pupils, equal size. Conjunctiva pink, sclera white. NOSE: Clear with pink turbinates. THROAT: No erythema or exudates. NECK: No masses, no JVD, no thyroid enlargement, no adenopathy. CHEST: No chest wall deformity. Symmetrical expansion. Right upper chest MediPort in place which is accessed LUNGS: Equal air entry with basilar crackles, diminished breath sounds at the bases, especially the right base ABDOMEN: Soft, nontender. No hepatosplenomegaly, normal bowel sounds, no guarding or rigidity. EXTREMITIES: No clubbing, no edema, no cyanosis, 2+ pulses and upper and lower extremities. MUSCULOSKELETAL: Muscle strength and tone normal. SPINE: No scoliosis or deformity SKIN: No rashes CENTRAL NERVOUS SYSTEM: Alert and oriented -3. No focal deficits, tone is normal in all 4 extremities. PSYCHIATRIC: Alert and oriented -3. Appropriate affect. Intact judgment and insight. Results - Laboratory Findings CBC and BMP: 06/20/19 21:40 06/20/19 21:40 PT/INR, D-dimer PT 11.6 sec (9.0-12.0) 06/20/19 21:40 INR 1.1 (<1.2) 06/20/19 21:40 D-Dimer 1.08 mg/L FEU (<0.60) H 06/20/19 21:40 Abnormal lab findings: Abnormal Labs 06/20/19 06/20/19 06/20/19 21:40 21:40 21:40 WBC 12.4 H RBC 2.75 L Hgb 9.4 L Hct 30.9 L MCV 112.4 H MCHC 30.4 L RDW 17.8 H Neutrophils # 10.6 H Lymphocytes # 0.9 L Macrocytosis Marked A D-Dimer 1.08 H Chloride 92 L Carbon Dioxide 37 H Creatinine 0.31 L Glucose 119 H AST 68 H Alkaline Phosphatase 1173 H Troponin I 06/20/19 21:40 WBC RBC Hgb Hct MCV MCHC RDW Neutrophils # Lymphocytes # Macrocytosis D-Dimer Chloride Carbon Dioxide Creatinine Glucose AST Alkaline Phosphatase Troponin I 0.035 H* - Diagnostic Findings Chest x-ray: report reviewed, image reviewed Additional studies: Ultrasound of the chest reviewed Assessment and Plan Plan: Assessment: #1. Acute on chronic hypoxemic respiratory failure, related to large right sided pleural effusion. Possibility of pneumonia is not excluded in this immunocompromised patient #2. History of metastatic cervical cancer with metastasis to the lungs, currently on Keytruda and Avastin #3. Mild troponin leak possibly related to hypoxemia #4. Metabolic encephalopathy likely related to sepsis #5. Generalized weakness, malaise #6. History of chronic tobacco dependence, currently in remission #7. History of substance abuse, former IV drug abuse, former opiate dependence #8. Anxiety/depression #9. ADD/ADHD Plan: Ultrasound the chest has been reviewed, we'll consider right-sided t horacentesis, we will switch Rocephin and Zithromax to cefepime and vancomycin, send the sputum culture, continue with nebulized bronchodilators. Status has been discussed with the patient and patient will discuss it with her family. Oncology consultation is pending. Overall prognosis is guarded, continue to follow I performed a history & physical examination of the patient and discussed their management with my nurse practitioner, Nicole Yancey. I reviewed the nurse practitioner's note and agree with the documented findings and plan of care. Lung sounds are positive for diminished breath sounds at the right base, and rales at the left lower base. The findings and the impression was discussed with the patient. I attest to the documentation by the nurse practitioner. Time with Patient: Greater than 30
[2019-06-21] MEDS: hydrALAZINE HCL 25 MG TAB PO SCH (15:43)
--- NOTE | 2019-06-21 16:12 | P.HPIM ---
History of Present Illness H&P Date: 06/21/19 Chief Complaint: Worsening shortness of breath, weakness, cough This a 43-year-old female with history of cervical cancer stage IV with metastasis, lung CA with metastasis , currently receiving combination treatment of Keytruda and Avastin. Patient follows with Dr. Toney. presented to the ER with worsening shortness of breath, cough, dehydration, weakness , recently rec eived chemotherapy, and multiple other medical issues. Denies chest pain, palpitations. Denies fever, no hemoptysis. Afebrile, WBC 12.4. Chest x-ray reported worsened congestive heart failure with pleural effusions and pulmonary edema. Tachycardic, initially high 90s on room air on admission , hypoxia worsened requiring Ventimask which has been weaned down now to 5 L nasal cannula. Hemoglobin 9.4, platelets 278, neutrophils 10.6. D-dimer 108. Troponin 0.035, 0.030, 0.021. BNP 538. Alk phos 1173, AST 68, T bili within normal limits. Reports she is on 4 L nasal cannula O2 at home. Chest Ultrasound pending. IV fluids and empiric IV antibiotics initiated. Review of Systems ROS Statement: Those systems with pertinent positive or pertinent negative responses have been documented in the HPI. ROS Other: All systems not noted in ROS Statement are negative. Past Medical History Past Medical History: Cancer, Pneumonia Additional Past Medical History / Comment(s): stage 4 cervical cancer, recovering opiate addiction clean for a year, borderline personality. History of Any Multi-Drug Resistant Organisms: None Reported Past Surgical History: Bowel Resection, Section, Tubal Ligation Additional Past Surgical History / Comment(s): BOWEL RESECTION D/T SMALL BOWEL OBSTRUCTION. Past Anesthesia/Blood Transfusion Reactions: No Reported Reaction Past Psychological History: ADD/ADHD, Anxiety, Depression, Panic Disorder Additional Psychological History / Comment(s): Borderline personality disorder. Pt resides with her significant other and 2 of her adult children. She recieves social security d/t mental health problems. She is independent. She goes to [employer] Smoking Status: Former smoker Past Alcohol Use History: None Reported Additional Past Alcohol Use History / Comment(s): Pt started smoking in 2006 quit October 2018 Past Drug Use History: None Reported Additional Drug Use History / Comment(s): Pt is a recovering opiate addict-she has been clean 5 yrs. - Past Family History Father History Unknown: Yes Family Medical History: Liver Disease Additional Family Medical History / Comment(s): Father had hepatitis at the age of 17 yrs. He was an drug addict. He started drinking when his and this lead to his per pt. Mother History Unknown: Yes Additional Family Medical History / Comment(s): Mother is healthy. Medications and Allergies Home Medications Medication Instructions Recorded Confirmed Type cloNIDine HCL 0.3 mg PO HS 05/15/15 06/20/19 History ARIPiprazole [Abilify] 15 mg PO HS 11/01/18 06/20/19 History Vortioxetine Hydrobromide 20 mg PO HS 11/01/18 06/20/19 History [Trintellix] clonazePAM [KlonoPIN] 1 mg PO BID PRN 11/01/18 06/20/19 History lamoTRIgine [LaMICtal] 200 mg PO HS 11/01/18 06/20/19 History Ondansetron Odt [Zofran ODT] 8 mg PO Q8HR PRN 11/22/18 06/20/19 History Acetaminophen 650 mg PO Q6H PRN 11/30/18 06/20/19 History Omeprazole 20 mg PO BID 03/12/19 06/20/19 History Dronabinol [Marinol] 5 mg PO BID PRN 03/29/19 06/20/19 History Albuterol Nebulized [Ventolin 2.5 mg INHALATION RT-QID PRN 06/20/19 06/20/19 History Nebulized] Benzonatate [Tessalon Perles] 200 mg PO TID PRN 06/20/19 06/20/19 History Levothyroxine Sodium [Synthroid] 100 mcg PO HS 06/20/19 06/20/19 History fentaNYL 50MCG/HR PATCH [Duragesic 1 patch TRANSDERM Q72H 06/20/19 06/20/19 History 50MCG/HR] oxyCODONE-APAP 10-325MG [Percocet 2 tab PO Q6H PRN 06/20/19 06/20/19 History 10-325 mg] Allergies Allergy/AdvReac Type Severity Reaction Status Date / Time No Known Allergies Allergy Verified 06/20/19 22:08 Physical Exam Vitals: Vital Signs Temp Pulse Pulse Resp BP BP Pulse Ox 06/21/19 09:00 120 H 18 151/121 98 06/21/19 08:16 97.6 F 122 H 18 161/108 98 06/21/19 08:14 124 H 06/21/19 08:02 120 H 06/21/19 07:17 120 H 22 165/100 99 06/21/19 05:19 118 H 22 140/94 98 06/21/19 03:41 97.2 F L 125 H 28 H 146/94 98 06/21/19 01:09 97.9 F 125 H 18 158/106 100 06/21/19 00:53 97.9 F 125 H 18 158/106 100 06/21/19 00:00 112 H 18 140/90 99 06/20/19 23:19 123 H 20 141/100 98 06/20/19 22:26 134 H 20 98 06/20/19 21:08 122 H 06/20/19 20:49 126 H 06/20/19 20:38 24 06/20/19 20:17 97.7 F 126 H 26 H 132/83 99 Intake and Output 06/20/19 06/21/19 06/21/19 22:59 06:59 14:59 Other: Voiding Method Toilet Weight 52.163 kg 52.163 kg General: [Patient sitting up in stretcher, tachypneic, anxious, alert and oriented times 3. HEENT: [PERRL. EOMI. No pharyngeal erythema or exudate. Neck supple, no JVD.] Cardiac: [Heart regular in rate and rhythm. Tachycardic. No S3. No S4. No clicks, rubs. No murmur.] Bilateral chest discomfort bilateral lower rib area Lungs: Equal Air entry,Bilateral bases diminished, bibasilar crackles, fine end expiratory wheeze Abdomen: [No mass. No organomegaly. Bowel sounds presnt and normoactive in all 4 quadrants. Abdominal scar from recent bowel resection Extremes: [No edema no cyanosis no claudication normal pulses] Skin: [No rash.] Neurologic: [No lateralizing deficits. CN II - XII grossly intact.] Results CBC & Chem 7: 06/20/19 21:40 06/20/19 21:40 Labs: Abnormal Lab Results - Last 24 Hours (Table) 06/20/19 06/20/19 06/20/19 Range/Units 21:40 21:40 21:40 WBC 12.4 H (3.8-10.6) k/uL RBC 2.75 L (3.80-5.40) m/uL Hgb 9.4 L (11.4-16.0) gm/dL Hct 30.9 L (34.0-46.0) % MCV 112.4 H (80.0-100.0) fL MCHC 30.4 L (31.0-37.0) g/dL RDW 17.8 H (11.5-15.5) % Neutrophils # 10.6 H (1.3-7.7) k/uL Lymphocytes # 0.9 L (1.0-4.8) k/uL Macrocytosis Marked A D-Dimer 1.08 H (<0.60) mg/L FEU Chloride 92 L (98-107) mmol/L Carbon Dioxide 37 H (22-30) mmol/L Creatinine 0.31 L (0.52-1.04) mg/dL Glucose 119 H (74-99) mg/dL AST 68 H (14-36) U/L Alkaline Phosphatase 1173 H (38-126) U/L Troponin I (0.000-0.034) ng/mL 06/20/19 Range/Units 21:40 WBC (3.8-10.6) k/uL RBC (3.80-5.40) m/uL Hgb (11.4-16.0) gm/dL Hct (34.0-46.0) % MCV (80.0-100.0) fL MCHC (31.0-37.0) g/dL RDW (11.5-15.5) % Neutrophils # (1.3-7.7) k/uL Lymphocytes # (1.0-4.8) k/uL Macrocytosis D-Dimer (<0.60) mg/L FEU Chloride (98-107) mmol/L Carbon Dioxide (22-30) mmol/L Creatinine (0.52-1.04) mg/dL Glucose (74-99) mg/dL AST (14-36) U/L Alkaline Phosphatase (38-126) U/L Troponin I 0.035 H* (0.000-0.034) ng/mL Thrombosis Risk Factor Assmnt - Choose All That Apply Any of the Below Risk Factors Present?: Yes Each Factor Represents 1 point: Age 41-60 years Other Risk Factors: Yes Each Risk Factor Represents 2 Points: Malignancy Thrombosis Risk Factor Assessment Total Risk Factor Score: 3 Thrombosis Risk Factor Assessment Level: Moderate Risk Assessment and Plan Assessment: 1) Acute on chronic hypoxic respiratory failure secondary to pleural effusions, possible community-acquired pneumonia (2)Metastatic cervical cancer Current Visit: Yes Status: Acute Code(s): C79.9 - SECONDARY MALIGNANT NEOPLASM OF UNSPECIFIED SITE SNOMED Code(s): 707064919 (3) Metastatic cancer to lung Current Visit: No Status: Acute Code(s): C78.00 - SECONDARY MALIGNANT NEOPLASM OF UNSPECIFIED LUNG SNOMED Code(s): 80694778 (4) acute metabolic encephalopathy secondary to sepsis, chemotherapy (5) Acute on chronic anemia secondary to malignancy (6) Opioid dependence in remission Current Visit: No Status: Acute Code(s): F11.21 - OPIOID DEPENDENCE, IN REMISSION SNOMED Code(s): 378554805 (8) Sinus tachycardia, secondary to possibly dehydration Current Visit: No Status: Acute Code(s): R00.0 - TACHYCARDIA, UNSPECIFIED SNOMED Code(s): 59544366 (9) anxiety, depression Plan: Continue current medication regime ,monitoring and symptomatically treatment. CTA ordered to rule out PE. Ultrasound pending. Maintain IV anti biotics, nebulized bronchodilators. Sputum culture in progress. Pulmonary, oncology consults in place, recommendations pending. Prognosis guarded given multiple complex medical issues. The impression and plan of care has been dictated as directed. : I performed a history and examination of this patient, discussed the same with the dictator. I agree with the dictator's note ,documented as a scribe. Any additional findings or plans will be noted.
--- NOTE | 2019-06-21 17:08 | CT ---
EXAMINATION TYPE: CT angio chest DATE OF EXAM: 06/21/2019 COMPARISON: 03/12/2019 HISTORY: Shortness of breath. CT DLP: 232.4 mGycm Automated exposure control for dose reduction was used. CONTRAST: Performed with IV Contrast, patient injected with 100 mL of Isovue 370. There are 3-D post processed images. There is extensive bilateral airspace infiltrates. There is bilateral pleural effusions. There is lar ge pericardial effusion. Thoracic aorta shows no aneurysm or dissection. There are enlarged paratrach eal lymph nodes up to almost 2 cm. I see no filling defects in the pulmonary arteries. There is significant heterogeneity throughout the liver that could relate to metastatic disease. Sple en is intact. There is no evidence of pancreatic mass. IMPRESSION: Extensive pneumonic consolidation in both lungs and worse at the right pulmonary hilum. This is consi stent with tumor. Large pericardial effusion. Pulmonary infiltrates slightly increased compared to ol d exam. Pleural fluid and pericardial effusion increased compared to old exam.
[2019-06-21 19:46] LABS: Glucose,Whole Blood 250 mg/dL (75-99)
[2019-06-21] MEDS ORDERED: ADENOSINE 3 MG/ML 2 ML VIAL IVP ONE (19:50)
[2019-06-21 20:45] LABS: Anisocytosis Slight; Basophils # (A) 0.1 k/uL (0-0.2); Basophils % (A) 1 %; Eosinophils % (A) 0 %; HCT 32.1 % (34.0-46.0); HGB 9.3 gm/dL (11.4-16.0); Hypochromasia Marked; Lymphocytes # (A) 0.2 k/uL (1.0-4.8); Lymphocytes % (A) 1 %; MCH 33.7 pg (25.0-35.0); MCHC 29.1 g/dL (31.0-37.0); Macrocytosis Marked; Mean Platelet Volume 7.3; Monocytes # (A) 0.3 k/uL (0-1.0); Monocytes % (A) 2 %; Neutrophils # (A) 14.6 k/uL (1.3-7.7); Neutrophils % (A) 96 %; Platelet Count 312 k/uL (150-450); Poikilocytosis Slight; RBC 2.77 m/uL (3.80-5.40); RDW 18.8 % (11.5-15.5); WBC 15.2 k/uL (3.8-10.6)
[2019-06-21 20:48] LABS: INR 1.2 (<1.2); Partial Thromboplastin Time 24.3 sec (22.0-30.0); Prothrombin Time 12.3 sec (9.0-12.0)
[2019-06-21 20:50] LABS: ALT 26 U/L (4-34); AST 72 U/L (14-36); African American GFR (CKD) >90 (>60 ml/min/1.73 sqM); Albumin 3.5 g/dL (3.5-5.0); Alkaline Phosphatase 1069 U/L (38-126); Anion Gap 17 mmol/L; Blood Urea Nitrogen 10 mg/dL (7-17); Calcium 9.5 mg/dL (8.4-10.2); Carbon Dioxide 27 mmol/L (22-30); Chloride 99 mmol/L (98-107); Glucose 190 mg/dL (74-99); Non-African American GFR(CKD) >90 (>60 ml/min/1.73 sqM); Potassium 3.4 mmol/L (3.5-5.1); Sodium 143 mmol/L (137-145); Total Bilirubin 0.8 mg/dL (0.2-1.3); Total Protein 6.6 g/dL (6.3-8.2)
[2019-06-21 20:59] LABS: Creatine Kinase MB 0.4 ng/mL (0.0-2.4)
[2019-06-21 21:07] LABS: Polychromasia Present
[2019-06-21] MEDS: cloNIDine HCL 0.1 MG TAB PO SCH (22:28)
[2019-06-21] MEDS: LEVOTHYROXINE 100 MCG TAB PO SCH (22:28)
[2019-06-21] MEDS: lamoTRIgine 100 MG TAB PO SCH (22:28)
[2019-06-21 22:29] LABS: ABG Base Excess 9.1 mmol/L; ABG HCO3 33 mmol/L (21-25); ABG Oxygen Saturation 90.8 % (94-97); ABG PCO2 48 mmHg (35-45); ABG PH 7.45 (7.35-7.45); ABG PO2 61 mmHg (83-108); ABG TCO2 35 mmol/L (19-24); Allen Test Performed? Yes
[2019-06-21] MEDS ORDERED: AZITHROMYCIN 500 MG in SODIUM CHLORIDE 0.9% 250 ML IVPB SCH (23:00)
[2019-06-21] MEDS ORDERED: ONDANSETRON 4 MG/2 ML VIAL IVP PRN (23:10)
[2019-06-22] MEDS: VANCOMYCIN 1,000 MG in SODIUM CHLORIDE 0.9% 250 ML IVPB SCH ×4 (00:01→22:20)
[2019-06-22] MEDS: ARIPiprazole 15 MG TAB PO SCH ×2 (01:08→20:51)
[2019-06-22] MEDS: VORTIOXETINE HYDROBROMIDE 20 MG TABLET PO SCH ×2 (01:09→20:54)
[2019-06-22] MEDS: hydrALAZINE HCL 25 MG TAB PO SCH ×3 (02:24→16:42)
[2019-06-22] MEDS: methylPREDNISolone SOD SUCCI 125 MG/2 ML VIAL IV SCH ×4 (02:24→18:13)
[2019-06-22] MEDS: LORazepam 2 MG/ML INJ IV PRN ×3 (02:24→18:12)
[2019-06-22] MEDS: CEFEPIME 1 GM in SODIUM CHLORIDE 0.9% 50 ML IVPB SCH ×3 (02:32→21:10)
[2019-06-22 05:25] LABS: Anisocytosis Slight; Basophils % (A) 0 %; Eosinophils % (A) 0 %; HCT 29.6 % (34.0-46.0); HGB 8.7 gm/dL (11.4-16.0); Hypochromasia Marked; Lymphocytes # (A) 0.3 k/uL (1.0-4.8); Lymphocytes % (A) 2 %; MCH 33.8 pg (25.0-35.0); MCHC 29.5 g/dL (31.0-37.0); MCV 114.8 fL (80.0-100.0); Macrocytosis Marked; Mean Platelet Volume 6.9; Monocytes # (A) 0.4 k/uL (0-1.0); Monocytes % (A) 3 %; Neutrophils # (A) 11.2 k/uL (1.3-7.7); Neutrophils % (A) 94 %; Platelet Count 211 k/uL (150-450); Poikilocytosis Slight; RBC 2.58 m/uL (3.80-5.40); RDW 18.8 % (11.5-15.5)
[2019-06-22 05:28] LABS: African American GFR (CKD) >90 (>60 ml/min/1.73 sqM); Anion Gap 10 mmol/L; Blood Urea Nitrogen 10 mg/dL (7-17); Calcium 9.2 mg/dL (8.4-10.2); Carbon Dioxide 34 mmol/L (22-30); Chloride 96 mmol/L (98-107); Glucose 123 mg/dL (74-99); Non-African American GFR(CKD) >90 (>60 ml/min/1.73 sqM); Sodium 140 mmol/L (137-145)
[2019-06-22] MEDS ORDERED: NALOXONE 0.4 MG/ML 1 ML VIAL IV PRN (06:35)
[2019-06-22] MEDS: SODIUM CHLORIDE 0.9% 1,000 ML IV SCH ×2 (06:35→18:13)
[2019-06-22 06:40] LABS: Amphetamine Screen,Urine Not Detected (NotDetected); Barbiturate Screen,Urine Not Detected (NotDetected); Benzodiazepines Screen,Urine Detected (NotDetected); Cocaine Screen,Urine Not Detected (NotDetected); Methadone Screen, Urine Not Detected (NotDetected); Opiate Screen,Urine Detected (NotDetected); Oxycodone Screen, Urine Detected (NotDetected); Phencyclidine Screen,Urine Not Detected (NotDetected); Tricyclic Antidepressant,Urine Not Detected (NotDetected); Urn Cannabinoid Scrn Detected (NotDetected)
[2019-06-22 06:41] LABS: Glucose,Whole Blood 147 mg/dL (75-99)
[2019-06-22] MEDS: MORPHINE SULFATE 4 MG/ML SYRINGE IVP PRN ×5 (07:32→23:34)
--- NOTE | 2019-06-22 07:43 | XR ---
EXAMINATION TYPE: XR chest 1V portable DATE OF EXAM: 06/22/2019 COMPARISON: 06/20/2019 HISTORY: Congestive heart failure. Shortness of breath. TECHNIQUE: Single frontal view of the chest is obtained. FINDINGS: There is redemonstration of marked cardiomegaly. There is mild interstitial pulmonary kaden a and mild/moderate bilateral pleural effusions (right greater than left) with associated bibasilar a irspace disease, likely atelectasis. Tubing overlying the left upper mediastinal border is new and li kirk external to the patient. Right-sided Mediport is noted cannulated with a single Heubner needle. No acute osseous pathology. IMPRESSION: Similar findings of cardiogenic fluid overload with minimal to moderate right and small left pleural effusions and interstitial edema.
[2019-06-22] MEDS: ENOXAPARIN 40 MG/0.4 ML SYRINGE SQ SCH (08:20)
[2019-06-22] MEDS: PANTOPRAZOLE 40 MG TABLET PO SCH ×2 (08:20→20:54)
[2019-06-22] MEDS: IPRATROPIUM-ALBUTEROL 3 ML NEB INHALATION SCH ×5 (08:29→19:44)
--- NOTE | 2019-06-22 08:48 | CONS ---
CONSULTATION Mrs. Latonia Quiles is a 43-year-old unfortunate lady with a history of metastatic cervical cancer with METS to the lungs and she is receiving Avastin treatment. She was diagnosed with cervical cancer 3 years ago and then had a chemoradiation and now she has metastasis to the lungs. I was asked to see her mainly because a CAT scan revealed pericardial effusion that was described as large on the CAT scan. The patient was in respiratory distress with sinus tachycardia yesterday. The rhythm looked more like an SVT. She received adenosine and then the heart rate came down to the low 100s and was more sinus like appearance. It is possible she may have had an episode of SVT yesterday but this morning she is in a sinus rhythm. An echocardiogram was performed last night and the study revealed that there is a moderate pericardial effusion without tamponade physiology. The patient has received some pain medications. She is on an airway and is not able to communicate much. She is having shortness of breath. She has significant pneumonia on the CT scan and chest x-ray with some pleural effusion as well. However, left ventricular systolic function on echo appears to be fairly well preserved. PAST MEDICAL HISTORY: 1. Cervical cancer with metastasis to the lungs, status post chemo and radiation. 2. History of some bowel surgery in the past. 3. History of recurrent pneumonias. The patient is a previous smoker, quit in October of last year. Please refer to Dr. Peck's note for other information. Echo revealed preserved systolic function, moderate pericardial effusion without tamponade physiology. PHYSICAL EXAMINATION: On examination, blood pressure is 150/90, pulse rate is 120, sinus. HEENT: Unremarkable. Very limited exam was performed. NECK: Supple. There is JVD of 1 cm. No carotid bruit. HEART: Exam reveals a tachycardia, diminished breath sounds on the lung goode with rales. ABDOMEN: Soft. LOWER EXTREMITIES: Reveal diminished pulses. CENTRAL NERVOUS SYSTEM: Assessment was not performed in detail. IMPRESSION: 1. Acute respiratory insufficiency impending respiratory failure secondary to pneumonia. 2. Metastatic cervical cancer with metastasis to the lung. 3. Moderate-sized pericardial effusion without tamponade physiology. RECOMMENDATIONS: From a cardiac standpoint, I would not recommend any aggressive measures and specifically patient's pericardial effusion does not require any emergency drainage at this time. Her respiratory insufficiency is more from her pulmonary situation with what seems to be described as an extensive consolidation of both lung goode much worse at the right hilum. Sinus tachycardia that we are noticing is also in response to the hypoxia that she now has. Supportive care and palliative care may be a much better approach than aggressive measures for this patient. Thank you very much for the consult. HAYDEN / FARHAN: [id number] /
[2019-06-22] MEDS: IPRATROPIUM-ALBUTEROL 3 ML NEB INHALATION PRN (08:51)
--- NOTE | 2019-06-22 08:59 | P.GSCN ---
History of Present Illness Consult date: 06/22/19 Reason for Consult: Pericardial effusion Requesting physician: Truman Thomas Jr History of present illness: This is a 43-year-old very sick female patient who follows on an outpatient basis with Dr. Eason and Dr. Toney. She has a previous medical history of stage for cervical cancer with metastasis, lung cancer, currently receiving Keytruda and Avastin, borderline personality disorder, previous tobacco depen dence, and previous opioid addiction. She presented to [facility] emergency room with complaints of worsening shortness of breath, weakness and cough. Chest x-ray was completed demonstrating pulmonary edema with pleural effusions. EKG showed sinus tachycardia without acute ischemic changes. White blood cell count was 12.4, hemoglobin 9.4, BNP initially 538 elevated to 1490, and lactic acid 3.7. She was admitted for heart failure, anemia, and dehydration with consultations placed to pulmonology and oncology. Chest ultrasound was completed for possible thoracentesis. In addition a CTA of the chest was completed which demonstrated extensive pneumonia in both lungs, bilateral pleural effusions, and large pericardial effusion. Transthoracic echocardiogram was also ordered, moderate pericardial effusion is present without any evidence of tamponade. Dr. Davis cardiothoracic surgery was consulted for recommendations regarding the pericardial effusion. Review of Systems Review of systems was completed and was negative except as noted - Constitutional Reports fatigue, Reports lethargy, Reports malaise - Cardiovascular Reports shortness of breath - Respiratory Reports cough, Reports home oxygen - Gastrointestinal Reports loss of appetite Past Medical History Past Medical History: Cancer, Pneumonia Additional Past Medical History / Comment(s): stage 4 cervical cancer, recove ring opiate addiction clean for a year, borderline personality. History of Any Multi-Drug Resistant Organisms: None Reported Past Surgical History: Bowel Resection, Section, Tubal Ligation Additional Past Surgical History / Comment(s): BOWEL RESECTION D/T SMALL BOWEL OBSTRUCTION. Past Anesthesia/Blood Transfusion Reactions: No Reported Reaction Past Psychological History: ADD/ADHD, Anxiety, Depression, Panic Disorder Additional Psychological History / Comment(s): Borderline personality disorder. Pt resides with her significant other and 2 of her adult children. She recieves social security d/t mental health problems. She is independent. She goes to [employer] Smoking Status: Former smoker Past Alcohol Use History: None Reported Additional Past Alcohol Use History / Comment(s): Pt started smoking in 2006 quit October 2018 Past Drug Use History: None Reported Additional Drug Use History / Comment(s): Pt is a recovering opiate addict-she has been clean 5 yrs. - Past Family History Father History Unknown: Yes Family Medical History: Liver Disease Additional Family Medical History / Comment(s): Father had hepatitis at the age of 17 yrs. He was an drug addict. He started drinking when his and this lead to his per pt. Mother History Unknown: Yes Additional Family Medical History / Comment(s): Mother is healthy. Medications and Allergies Home Medications Medication Instructions Recorded Confirmed Type cloNIDine HCL 0.3 mg PO HS 05/15/15 06/20/19 History ARIPiprazole [Abilify] 15 mg PO HS 11/01/18 06/20/19 History Vortioxetine Hydrobromide 20 mg PO HS 11/01/18 06/20/19 History [Trintellix] clonazePAM [KlonoPIN] 1 mg PO BID PRN 11/01/18 06/20/19 History lamoTRIgine [LaMICtal] 200 mg PO HS 11/01/18 06/20/19 History Ondansetron Odt [Zofran ODT] 8 mg PO Q8HR PRN 11/22/18 06/20/19 History Acetaminophen 650 mg PO Q6H PRN 11/30/18 06/20/19 History Omeprazole 20 mg PO BID 03/12/19 06/20/19 History Dronabinol [Marinol] 5 mg PO BID PRN 03/29/19 06/20/19 History Albuterol Nebulized [Ventolin 2.5 mg INHALATION RT-QID PRN 06/20/19 06/20/19 History Nebulized] Benzonatate [Tessalon Perles] 200 mg PO TID PRN 06/20/19 06/20/19 History Levothyroxine Sodium [Synthroid] 100 mcg PO HS 06/20/19 06/20/19 History fentaNYL 50MCG/HR PATCH [Duragesic 1 patch TRANSDERM Q72H 06/20/19 06/20/19 History 50MCG/HR] oxyCODONE-APAP 10-325MG [Percocet 2 tab PO Q6H PRN 06/20/19 06/20/19 History 10-325 mg] Allergies Allergy/AdvReac Type Severity Reaction Status Date / Time No Known Allergies Allergy Verified 06/20/19 22:08 Surgical - Exam Vital Signs Temp Pulse Resp BP Pulse Ox 97.7 F 126 H 26 H 132/83 99 06/20/19 20:17 06/20/19 20:17 06/20/19 20:17 06/20/19 20:17 06/20/19 20:17 - General well developed, moderate distress, no pain, chronically ill - Eyes normal ocular movement - ENT no hearing loss - Neck no masses, no bruits, trachea midline - Respiratory Lungs sounds diminished bilaterally with breath sounds in the bases, right greater than left. Respirations shallow, taccypneic. Currently on air flow, 50% FiO2 at 40 L with pulse ox 96%. Right chest wall Mediport present. - Cardiovascular S1, S2 present. Tachycardic but regular rate and rhythm, sinus tachycardia on telemetry. Palpable peripheral pulses bilaterally. Trace generalized edema p resent. - Abdomen Abdomen: soft, non tender, bowel sounds - Genitourinary Deferred - Rectum Deferred - Integumentary no rash, no growths - Neurologic normal coordination, normal sensation - Musculoskeletal normal posture - Psychiatric oriented to time, oriented to person, oriented to place Results - Labs 06/22/19 04:36 06/22/19 04:36 Abnormal Lab Results - Last 24 Hours (Table) 06/21/19 06/21/19 06/21/19 Range/Units 19:44 20:22 20:27 WBC 15.2 H (3.8-10.6) k/uL RBC 2.77 L (3.80-5.40) m/uL Hgb 9.3 L (11.4-16.0) gm/dL Hct 32.1 L (34.0-46.0) % MCV 116.0 H (80.0-100.0) fL MCHC 29.1 L (31.0-37.0) g/dL RDW 18.8 H (11.5-15.5) % Neutrophils # 14.6 H (1.3-7.7) k/uL Lymphocytes # 0.2 L (1.0-4.8) k/uL Macrocytosis Marked A PT (9.0-12.0) sec INR (<1.2) D-Dimer (<0.60) mg/L FEU ABG pCO2 (35-45) mmHg ABG pO2 (83-108) mmHg ABG HCO3 (21-25) mmol/L ABG Total CO2 (19-24) mmol/L ABG O2 Saturation (94-97) % Potassium (3.5-5.1) mmol/L Chloride (98-107) mmol/L Carbon Dioxide (22-30) mmol/L Creatinine (0.52-1.04) mg/dL Glucose (74-99) mg/dL POC Glucose (mg/dL) 250 H (75-99) mg/dL Plasma Lactic Acid Peter 3.7 H* (0.7-2.0) mmol/L AST (14-36) U/L Alkaline Phosphatase (38-126) U/L Urine Opiates Screen (NotDetected) Ur Oxycodone Screen (NotDetected) U Benzodiazepines Scrn (NotDetected) U Marijuana (THC) Screen (NotDetected) 06/21/19 06/21/19 06/21/19 Range/Units 20:27 20:27 21:05 WBC (3.8-10.6) k/uL RBC (3.80-5.40) m/uL Hgb (11.4-16.0) gm/dL Hct (34.0-46.0) % MCV (80.0-100.0) fL MCHC (31.0-37.0) g/dL RDW (11.5-15.5) % Neutrophils # (1.3-7.7) k/uL Lymphocytes # (1.0-4.8) k/uL Macrocytosis PT 12.3 H (9.0-12.0) sec INR 1.2 H (<1.2) D-Dimer 0.79 H (<0.60) mg/L FEU ABG pCO2 (35-45) mmHg ABG pO2 (83-108) mmHg ABG HCO3 (21-25) mmol/L ABG Total CO2 (19-24) mmol/L ABG O2 Saturation (94-97) % Potassium 3.4 L (3.5-5.1) mmol/L Chloride (98-107) mmol/L Carbon Dioxide (22-30) mmol/L Creatinine 0.29 L (0.52-1.04) mg/dL Glucose 190 H (74-99) mg/dL POC Glucose (mg/dL) (75-99) mg/dL Plasma Lactic Acid Peter (0.7-2.0) mmol/L AST 72 H (14-36) U/L Alkaline Phosphatase 1069 H (38-126) U/L Urine Opiates Screen (NotDetected) Ur Oxycodone Screen (NotDetected) U Benzodiazepines Scrn (NotDetected) U Marijuana (THC) Screen (NotDetected) 06/21/19 06/22/19 06/22/19 Range/Units 22:18 00:32 04:36 WBC (3.8-10.6) k/uL RBC (3.80-5.40) m/uL Hgb (11.4-16.0) gm/dL Hct (34.0-46.0) % MCV (80.0-100.0) fL MCHC (31.0-37.0) g/dL RDW (11.5-15.5) % Neutrophils # (1.3-7.7) k/uL Lymphocytes # (1.0-4.8) k/uL Macrocytosis PT (9.0-12.0) sec INR (<1.2) D-Dimer (<0.60) mg/L FEU ABG pCO2 48 H (35-45) mmHg ABG pO2 61 L (83-108) mmHg ABG HCO3 33 H (21-25) mmol/L ABG Total CO2 35 H (19-24) mmol/L ABG O2 Saturation 90.8 L (94-97) % Potassium (3.5-5.1) mmol/L Chloride (98-107) mmol/L Carbon Dioxide (22-30) mmol/L Creatinine (0.52-1.04) mg/dL Glucose (74-99) mg/dL POC Glucose (mg/dL) (75-99) mg/dL Plasma Lactic Acid Peter 2.7 H* 2.5 H* (0.7-2.0) mmol/L AST (14-36) U/L Alkaline Phosphatase (38-126) U/L Urine Opiates Screen (NotDetected) Ur Oxycodone Screen (NotDetected) U Benzodiazepines Scrn (NotDetected) U Marijuana (THC) Screen (NotDetected) 06/22/19 06/22/19 06/22/19 Range/Units 04:36 04:36 05:45 WBC 12.0 H (3.8-10.6) k/uL RBC 2.58 L (3.80-5.40) m/uL Hgb 8.7 L (11.4-16.0) gm/dL Hct 29.6 L (34.0-46.0) % MCV 114.8 H (80.0-100.0) fL MCHC 29.5 L (31.0-37.0) g/dL RDW 18.8 H (11.5-15.5) % Neutrophils # 11.2 H (1.3-7.7) k/uL Lymphocytes # 0.3 L (1.0-4.8) k/uL Macrocytosis Marked A PT (9.0-12.0) sec INR (<1.2) D-Dimer (<0.60) mg/L FEU ABG pCO2 (35-45) mmHg ABG pO2 (83-108) mmHg ABG HCO3 (21-25) mmol/L ABG Total CO2 (19-24) mmol/L ABG O2 Saturation (94-97) % Potassium (3.5-5.1) mmol/L Chloride 96 L (98-107) mmol/L Carbon Dioxide 34 H (22-30) mmol/L Creatinine 0.28 L (0.52-1.04) mg/dL Glucose 123 H (74-99) mg/dL POC Glucose (mg/dL) (75-99) mg/dL Plasma Lactic Acid Peter (0.7-2.0) mmol/L AST (14-36) U/L Alkaline Phosphatase (38-126) U/L Urine Opiates Screen Detected H (NotDetected) Ur Oxycodone Screen Detected H (NotDetected) U Benzodiazepines Scrn Detected H (NotDetected) U Marijuana (THC) Screen Detected H (NotDetected) 06/22/19 Range/Units 06:35 WBC (3.8-10.6) k/uL RBC (3.80-5.40) m/uL Hgb (11.4-16.0) gm/dL Hct (34.0-46.0) % MCV (80.0-100.0) fL MCHC (31.0-37.0) g/dL RDW (11.5-15.5) % Neutrophils # (1.3-7.7) k/uL Lymphocytes # (1.0-4.8) k/uL Macrocytosis PT (9.0-12.0) sec INR (<1.2) D-Dimer (<0.60) mg/L FEU ABG pCO2 (35-45) mmHg ABG pO2 (83-108) mmHg ABG HCO3 (21-25) mmol/L ABG Total CO2 (19-24) mmol/L ABG O2 Saturation (94-97) % Potassium (3.5-5.1) mmol/L Chloride (98-107) mmol/L Carbon Dioxide (22-30) mmol/L Creatinine (0.52-1.04) mg/dL Glucose (74-99) mg/dL POC Glucose (mg/dL) 147 H (75-99) mg/dL Plasma Lactic Acid Peter (0.7-2.0) mmol/L AST (14-36) U/L Alkaline Phosphatase (38-126) U/L Urine Opiates Screen (NotDetected) Ur Oxycodone Screen (NotDetected) U Benzodiazepines Scrn (NotDetected) U Marijuana (THC) Screen (NotDetected) Diabetes panel 06/21/19 06/22/19 Range/Units 20:27 04:36 Sodium 143 140 (137-145) mmol/L Potassium 3.4 L 4.0 (3.5-5.1) mmol/L Chloride 99 96 L (98-107) mmol/L Carbon Dioxide 27 34 H (22-30) mmol/L BUN 10 10 (7-17) mg/dL Creatinine 0.29 L 0.28 L (0.52-1.04) mg/dL Glucose 190 H 123 H (74-99) mg/dL Calcium 9.5 9.2 (8.4-10.2) mg/dL AST 72 H (14-36) U/L ALT 26 (4-34) U/L Alkaline Phosphatase 1069 H (38-126) U/L Total Protein 6.6 (6.3-8.2) g/dL Albumin 3.5 (3.5-5.0) g/dL Calcium panel 06/21/19 06/22/19 Range/Units 20:27 04:36 Calcium 9.5 9.2 (8.4-10.2) mg/dL Albumin 3.5 (3.5-5.0) g/dL Pituitary panel 06/21/19 06/22/19 Range/Units 20:27 04:36 Sodium 143 140 (137-145) mmol/L Potassium 3.4 L 4.0 (3.5-5.1) mmol/L Chloride 99 96 L (98-107) mmol/L Carbon Dioxide 27 34 H (22-30) mmol/L BUN 10 10 (7-17) mg/dL Creatinine 0.29 L 0.28 L (0.52-1.04) mg/dL Glucose 190 H 123 H (74-99) mg/dL Calcium 9.5 9.2 (8.4-10.2) mg/dL Adrenal panel 06/21/19 06/22/19 Range/Units 20:27 04:36 Sodium 143 140 (137-145) mmol/L Potassium 3.4 L 4.0 (3.5-5.1) mmol/L Chloride 99 96 L (98-107) mmol/L Carbon Dioxide 27 34 H (22-30) mmol/L BUN 10 10 (7-17) mg/dL Creatinine 0.29 L 0.28 L (0.52-1.04) mg/dL Glucose 190 H 123 H (74-99) mg/dL Calcium 9.5 9.2 (8.4-10.2) mg/dL Total Bilirubin 0.8 (0.2-1.3) mg/dL AST 72 H (14-36) U/L ALT 26 (4-34) U/L Alkaline Phosphatase 1069 H (38-126) U/L Total Protein 6.6 (6.3-8.2) g/dL Albumin 3.5 (3.5-5.0) g/dL - Imaging Chest x-ray: report reviewed, image reviewed CT scan - chest: report reviewed, image reviewed EKG: image reviewed Additional studies: Echo films reviewed with Dr. Davis Assessment and Plan Assessment: 1. Pericardial effusion, present on computed tomography scan and echocardiogram, no evidence of tamponade 2. Acute hypoxemic respiratory failure, multifactorial 3. Bilateral pleural effusions 4. Metastatic cervical cancer with metastases to the lungs, currently being treated with Keytruda and Avastin 5. Previous tobacco dependence 6. Previous opioid addiction 7. Borderline personality disorder Plan: The patient was seen and examined at the bedside. Chart/diagnostics were reviewed with Dr. Davis. There is no evidence of tamponade. No surgical intervention warranted at this time. Recommend consultation to palliative care. Continue management per primary care, pulmonology, oncology, cardiology. Thank you Dr. Thomas for this consult. Please call us with any further questions. Time with Patient: Greater than 30
[2019-06-22 09:54] LABS: ALT 24 U/L (4-34); AST 66 U/L (14-36); Albumin 3.2 g/dL (3.5-5.0); Alkaline Phosphatase 872 U/L (38-126); Total Bilirubin 0.6 mg/dL (0.2-1.3); Total Protein 6.1 g/dL (6.3-8.2)
[2019-06-22 10:00] VITALS: BMI 23.2
--- NOTE | 2019-06-22 12:32 | P.PN ---
Subjective Progress Note Date: 06/22/19 Principal diagnosis: Acute on chronic hypoxic respiratory failure secondary to metastatic cervical cancer to the lungs. 43-year-old patient of Dr. Eason with past medical history of recurrent metastatic cervical cancer with metastasis to the lungs, currently receiving treatment with a combination of Keytruda and Avastin. Patient was initially diagnosed with cervical cancer 3 years ago after having increased vaginal bleeding according to the daughter was treated with chemoradiation, and was apparently in remission up until October 2018. CAT scan of the chest on 10/24/2018 revealed evidence of bilateral perihilar masslike consolidations right greater than left with extension into upper and lower lungs, there was also bronchial narrowing and occlusion bilaterally, possible hilar adenopathy. There was also abnormalities involving the liver. Patient was seen by Dr. Braun at that time however patient was too unstable in the bronchoscopy suite, when bronchoscopy with biopsies was planned and patient was subsequently transferred to [facility] for further evaluation. Patient follows with Dr. Toney and according to the daughter she has been receiving treatment every Wednesday. She is on home oxygen at 2 L. patient is an ex-smoker, other medical history includes ADHD, former opiate addiction, anxiety, depression, panic disorder, borderline personality disorder. Most recently patient had a PET scan done in March 2019 showing extensive metastatic disease to the pleural margins and within the bilateral lungs, and a large mass with abnormal uptake in the uterus. On 06/20/2019 patient was brought into the emergency department by her family for evaluation of increasing shortness of breath, weakness, dehydration, dry cough, and low pulse ox. She denied any fever, denied any hemoptysis, chest x-ray, her respirations are quite shallow and tachypneic, and patient's oxygen requirements have increased is currently on 5 L of oxygen with a pulse ox of 96%, quite tachycardic on presentation, with a rate of 126-131, sinus mechanism. Chest x- ray showed pulmonary edema, blunting of the costophrenic angles, bilateral perihilar infiltrates, and pleural effusions. Ultrasound of the chest showed a 7.1 cm pocket on the right, and 0.8 cm pocket on the left. She was started on empiric antibiotics, she was given IV fluids. Her labs were reviewed, showing white blood cell count of 12.4, hemoglobin of 9.4, d-dimer was 1.08, sodium was 140 potassium was 4.3, chloride was 92, CO2 is 37, BUN is 13 creatinine was 0.31, AST was 68, ALT was 26, alkaline phosphatase was 1173, troponins were 0.035, 0.030, and 0.021, proBNP was 538 Patient was reevaluated today on 06/22/2019. Patient was transferred to the ICU last night mostly because of worsening shortness of breath. Her echocardiogram showed good sized pericardial effusion, but no tamponade physiology. Patient was seen by cardiology, and seen by thoracic surgery, did not feel a need for pericardiocentesis. Her ultrasound of the chest failed to show any significant freely flowing pleural effusion for thoracentesis. Patient was seen by many consultants, and it seems like everybody is in agreement to consider palliative/comfort care on this patient. Apparently the patient and her were approached today, and are willing to proceed with comfort care measures. And I think that is very appropriate. Objective - Vital Signs Vital signs: Vital Signs Temp 97.9 F 06/22/19 08:00 Pulse 128 H 06/22/19 09:01 Resp 36 H 06/22/19 08:00 BP 155/101 06/22/19 08:00 Pulse Ox 96 06/22/19 08:31 Intake & Output 06/21/19 06/22/19 06/22/19 18:59 06:59 18:59 Intake Total 50 50 Output Total 125 Balance 50 -75 Weight 52.163 kg Intake: IV 50 50 0.9 50 50 Output: Urine 125 Other: Voiding Method Toilet # Voids 1 - Exam GENERAL EXAM: Alert, 43-year-old white female, pale, dyspneic and tachypneic, on airvo high flow oxygen. HEAD: Normocephalic/atraumatic. ENT: PERRLA, EOMI, no icterus, dry mucous membranes. CHEST: No chest wall deformity. Symmetrical expansion. Right upper chest MediPort in place which is accessed LUNGS: Diminished breath sounds and crackles at the bases. No wheezes. ABDOMEN: Soft, nontender. No hepatosplenomegaly, normal bowel sounds, no guarding or rigidity. EXTREMITIES: No clubbing, no edema, no cyanosis, 2+ pulses and upper and lower extremities. MUSCULOSKELETAL: Muscle strength and tone normal. SKIN: No rashes CENTRAL NERVOUS SYSTEM: Alert and oriented -3. No focal deficits, tone is normal in all 4 extremities. PSYCHIATRIC: Anxious, blunt affect, normal mental status. - Labs CBC & Chem 7: 06/22/19 04:36 06/22/19 04:36 Labs: Abnormal Lab Results - Last 24 Hours (Table) 06/21/19 06/21/19 06/21/19 Range/Units 19:44 20:22 20:27 WBC 15.2 H (3.8-10.6) k/uL RBC 2.77 L (3.80-5.40) m/uL Hgb 9.3 L (11.4-16.0) gm/dL Hct 32.1 L (34.0-46.0) % MCV 116.0 H (80.0-100.0) fL MCHC 29.1 L (31.0-37.0) g/dL RDW 18.8 H (11.5-15.5) % Neutrophils # 14.6 H (1.3-7.7) k/uL Lymphocytes # 0.2 L (1.0-4.8) k/uL Macrocytosis Marked A PT (9.0-12.0) sec INR (<1.2) D-Dimer (<0.60) mg/L FEU ABG pCO2 (35-45) mmHg ABG pO2 (83-108) mmHg ABG HCO3 (21-25) mmol/L ABG Total CO2 (19-24) mmol/L ABG O2 Saturation (94-97) % Potassium (3.5-5.1) mmol/L Chloride (98-107) mmol/L Carbon Dioxide (22-30) mmol/L Creatinine (0.52-1.04) mg/dL Glucose (74-99) mg/dL POC Glucose (mg/dL) 250 H (75-99) mg/dL Plasma Lactic Acid Peter 3.7 H* (0.7-2.0) mmol/L AST (14-36) U/L Alkaline Phosphatase (38-126) U/L Total Protein (6.3-8.2) g/dL Albumin (3.5-5.0) g/dL Urine Opiates Screen (NotDetected) Ur Oxycodone Screen (NotDetected) U Benzodiazepines Scrn (NotDetected) U Marijuana (THC) Screen (NotDetected) 06/21/19 06/21/19 06/21/19 Range/Units 20:27 20:27 21:05 WBC (3.8-10.6) k/uL RBC (3.80-5.40) m/uL Hgb (11.4-16.0) gm/dL Hct (34.0-46.0) % MCV (80.0-100.0) fL MCHC (31.0-37.0) g/dL RDW (11.5-15.5) % Neutrophils # (1.3-7.7) k/uL Lymphocytes # (1.0-4.8) k/uL Macrocytosis PT 12.3 H (9.0-12.0) sec INR 1.2 H (<1.2) D-Dimer 0.79 H (<0.60) mg/L FEU ABG pCO2 (35-45) mmHg ABG pO2 (83-108) mmHg ABG HCO3 (21-25) mmol/L ABG Total CO2 (19-24) mmol/L ABG O2 Saturation (94-97) % Potassium 3.4 L (3.5-5.1) mmol/L Chloride (98-107) mmol/L Carbon Dioxide (22-30) mmol/L Creatinine 0.29 L (0.52-1.04) mg/dL Glucose 190 H (74-99) mg/dL POC Glucose (mg/dL) (75-99) mg/dL Plasma Lactic Acid Peter (0.7-2.0) mmol/L AST 72 H (14-36) U/L Alkaline Phosphatase 1069 H (38-126) U/L Total Protein (6.3-8.2) g/dL Albumin (3.5-5.0) g/dL Urine Opiates Screen (NotDetected) Ur Oxycodone Screen (NotDetected) U Benzodiazepines Scrn (NotDetected) U Marijuana (THC) Screen (NotDetected) 06/21/19 06/22/19 06/22/19 Range/Units 22:18 00:32 04:36 WBC (3.8-10.6) k/uL RBC (3.80-5.40) m/uL Hgb (11.4-16.0) gm/dL Hct (34.0-46.0) % MCV (80.0-100.0) fL MCHC (31.0-37.0) g/dL RDW (11.5-15.5) % Neutrophils # (1.3-7.7) k/uL Lymphocytes # (1.0-4.8) k/uL Macrocytosis PT (9.0-12.0) sec INR (<1.2) D-Dimer (<0.60) mg/L FEU ABG pCO2 48 H (35-45) mmHg ABG pO2 61 L (83-108) mmHg ABG HCO3 33 H (21-25) mmol/L ABG Total CO2 35 H (19-24) mmol/L ABG O2 Saturation 90.8 L (94-97) % Potassium (3.5-5.1) mmol/L Chloride (98-107) mmol/L Carbon Dioxide (22-30) mmol/L Creatinine (0.52-1.04) mg/dL Glucose (74-99) mg/dL POC Glucose (mg/dL) (75-99) mg/dL Plasma Lactic Acid Peter 2.7 H* 2.5 H* (0.7-2.0) mmol/L AST (14-36) U/L Alkaline Phosphatase (38-126) U/L Total Protein (6.3-8.2) g/dL Albumin (3.5-5.0) g/dL Urine Opiates Screen (NotDetected) Ur Oxycodone Screen (NotDetected) U Benzodiazepines Scrn (NotDetected) U Marijuana (THC) Screen (NotDetected) 06/22/19 06/22/19 06/22/19 Range/Units 04:36 04:36 05:45 WBC 12.0 H (3.8-10.6) k/uL RBC 2.58 L (3.80-5.40) m/uL Hgb 8.7 L (11.4-16.0) gm/dL Hct 29.6 L (34.0-46.0) % MCV 114.8 H (80.0-100.0) fL MCHC 29.5 L (31.0-37.0) g/dL RDW 18.8 H (11.5-15.5) % Neutrophils # 11.2 H (1.3-7.7) k/uL Lymphocytes # 0.3 L (1.0-4.8) k/uL Macrocytosis Marked A PT (9.0-12.0) sec INR (<1.2) D-Dimer (<0.60) mg/L FEU ABG pCO2 (35-45) mmHg ABG pO2 (83-108) mmHg ABG HCO3 (21-25) mmol/L ABG Total CO2 (19-24) mmol/L ABG O2 Saturation (94-97) % Potassium (3.5-5.1) mmol/L Chloride 96 L (98-107) mmol/L Carbon Dioxide 34 H (22-30) mmol/L Creatinine 0.28 L (0.52-1.04) mg/dL Glucose 123 H (74-99) mg/dL POC Glucose (mg/dL) (75-99) mg/dL Plasma Lactic Acid Peter (0.7-2.0) mmol/L AST 66 H (14-36) U/L Alkaline Phosphatase 872 H (38-126) U/L Total Protein 6.1 L (6.3-8.2) g/dL Albumin 3.2 L (3.5-5.0) g/dL Urine Opiates Screen Detected H (NotDetected) Ur Oxycodone Screen Detected H (NotDetected) U Benzodiazepines Scrn Detected H (NotDetected) U Marijuana (THC) Screen Detected H (NotDetected) 06/22/19 06/22/19 Range/Units 06:35 08:49 WBC (3.8-10.6) k/uL RBC (3.80-5.40) m/uL Hgb (11.4-16.0) gm/dL Hct (34.0-46.0) % MCV (80.0-100.0) fL MCHC (31.0-37.0) g/dL RDW (11.5-15.5) % Neutrophils # (1.3-7.7) k/uL Lymphocytes # (1.0-4.8) k/uL Macrocytosis PT (9.0-12.0) sec INR (<1.2) D-Dimer (<0.60) mg/L FEU ABG pCO2 (35-45) mmHg ABG pO2 (83-108) mmHg ABG HCO3 (21-25) mmol/L ABG Total CO2 (19-24) mmol/L ABG O2 Saturation (94-97) % Potassium (3.5-5.1) mmol/L Chloride (98-107) mmol/L Carbon Dioxide (22-30) mmol/L Creatinine (0.52-1.04) mg/dL Glucose (74-99) mg/dL POC Glucose (mg/dL) 147 H (75-99) mg/dL Plasma Lactic Acid Peter 2.8 H* (0.7-2.0) mmol/L AST (14-36) U/L Alkaline Phosphatase (38-126) U/L Total Protein (6.3-8.2) g/dL Albumin (3.5-5.0) g/dL Urine Opiates Screen (NotDetected) Ur Oxycodone Screen (NotDetected) U Benzodiazepines Scrn (NotDetected) U Marijuana (THC) Screen (NotDetected) Assessment and Plan Assessment: #1. Acute on chronic hypoxemic respiratory failure, related metastatic cervical cancer to the lungs, and loculated right pleural effusion. #2. History of metastatic cervical cancer with metastasis to the lungs, currently on Keytruda and Avastin #3. Mild troponin leak possibly related to hypoxemia #4. Metabolic encephalopathy likely related to sepsis #5. Generalized weakness, malaise #6. History of chronic tobacco dependence, currently in remission #7. History of substance abuse, former IV drug abuse, former opiate dependence #8. Anxiety/depression #9. ADD/ADHD #10 moderate pericardial effusion, secondary to metastatic disease and likely malignant unless for otherwise. However no tamponade. Recommendation: Discussed her condition with her and with her , they seem to be agreeable to proceed with comfort care measures. We'll proceed with comfort care measures as per patient and family's wishes. Prognosis is extremely poor, and this is basically a medical futility situation. Time with Patient: Less than 30
--- NOTE | 2019-06-22 12:58 | ECHOF ---
Referral Reason:elevated heart rate MEASUREMENTS -------- HEIGHT: 132.1 cm WEIGHT: 52.2 kg BP: RVIDd: 2.7 cm (< 3.3) IVSd: 1.2 cm (0.6 - 1.1) LVIDd: 3.3 cm (3.9 - 5.3) LVPWd: 1.1 cm (0.6 - 1.1) IVSs: 1.2 cm LVIDs: 2.3 cm LVPWs: 1.4 cm LA Diam: 3.2 cm (2.7 - 3.8) Ao Diam: 2.3 cm (2.0 - 3.7) AV Cusp: 1.7 cm (1.5 - 2.6) LA Diam: 3.5 cm (2.7 - 3.8) MV EXCURSION: 16.920 mm (> 18.000) MV EF SLOPE: 113 mm/s (70 - 150) EPSS: 0.5 cm RAP: 5.00 mmHg RVSP: 50.57 mmHg FINDINGS -------- Resting tachycardia (HR>100bpm). This was a technically good study. The left ventricular size is normal. There is mild concentric left ventricular hypertrophy. Overa ll left ventricular systolic function is low-normal with, an EF between 50 - 55 %. The right ventricle is normal in size. The left atrial size is normal. The right atrial size is normal. The aortic valve is trileaflet, and appears structurally normal. No aortic stenosis or regurgitation. Mild mitral regurgitation is present. Moderate tricuspid regurgitation present. There is mild pulmonary hypertension. The right ventric ular systolic pressure, as measured by Doppler, is 50.57mmHg. There is no pulmonic regurgitation present. The aortic root size is normal. There is a moderate, generalized pericardial effusion present. There is no evidence of cardiac tamp onade. CONCLUSIONS -------- 1. Resting tachycardia (HR>100bpm). 2. This was a technically good study. 3. The left ventricular size is normal. 4. There is mild concentric left ventricular hypertrophy. 5. Overall left ventricular systolic function is low-normal with, an EF between 50 - 55 %. 6. The right ventricle is normal in size. 7. The left atrial size is normal. 8. The right atrial size is normal. 9. The aortic valve is trileaflet, and appears structurally normal. No aortic stenosis or regurgitati on. 10. Mild mitral regurgitation is present. 11. Moderate tricuspid regurgitation present. 12. There is mild pulmonary hypertension. 13. The right ventricular systolic pressure, as measured by Doppler, is 50.57mmHg. 14. There is no pulmonic regurgitation present. 15. The aortic root size is normal. 16. There is a moderate, generalized pericardial effusion present. 17. There is no evidence of cardiac tamponade. MAC DEVELOPER: Gia Ritter RDCS
[2019-06-22] MEDS ORDERED: MORPHINE SULFATE 4 MG/ML SYRINGE IVP PRN (14:06)
--- NOTE | 2019-06-22 15:27 | CDI ---
Documentation Clarification Form Date: 06/22/2019 03:08:49 PM From: Renate Alba RN CCDS Admit Date: 06/20/2019 11:02:00 PM Patient Name: Latonia Quiles Visit Number: [id number] Discharge Date: ATTENTION: The Clinical Documentation Specialists (CDI) and [facility] Coding Staff appreciate your assistance in clarifying documentation. Please respond to the clarification below the line at the bottom and electronically sign. The CDI & [facility] Coding staff will review the response and follow-up if needed. Please note: Queries are made part of the Legal Health Record. If you have any questions, please contact the author of this message via ITS. Dr. Christine Peck Mild Troponin Leak is documented in your consult 06/21/2019 and in subsequent progress note Patient History/Risk Factors: 43-year-old female presents to the ED with weakness and shortness of breath and cough. Medical history Cervical cancer stage IV with metastases, right lung cancer with metastasis. Clinical Indicators: VSS 06/20/2019 20:17 132/83 126 97.7 26 99% ra 21:08 RR 20 98% venti mask 5L Troponin: 0.035; 0.030; 0.021 EKG Results: 06/20/2019 Sinus Tachycardia Abn ECG cannot rule out Anterior infarct age undetermined CTA Extensive pneumonic consolidation in both lungs and worse at the right pulmonary hilum. This is consistent with tumor. Large pericardial effusion. Duoneb/ Ipratropium PRN LAYLA QID; Albuterol Sulfate QID PRN; Tessalon Perles; Solumedrol Ivpb Q 6Hrs Treatment: Monitoring Oxygen saturation, Oxygen via Venti Mask, ICU admission, High Flow nasal Cannula; Bipap In order to capture the severity of condition and necessary documentation specificity, please clarify: * Type Two MT related to Hypoxic Respiratory Failure * Type Two MT ruled Out * Unable to determine * Other, please specify (Last Revision: March 2017) MTDD
--- NOTE | 2019-06-22 16:19 | P.PN ---
Subjective Progress Note Date: 06/22/19 This a 43-year-old female with history of cervical cancer stage IV with metastasis, lung CA with metastasis , currently receiving combination treatment of Keytruda and Avastin. Patient follows with Dr. Toney. presented to the ER with worsening shortness of breath, cough, dehydration, weakness , recently received chemotherapy, and multiple other medical issues. Denies chest pain, palpitations. Denies fever, no hemoptysis. Afebrile, WBC 12.4. Chest x-ray reported worsened congestive heart failure with pleural effusions and pulmonary edema. Tachycardic, initially high 90s on room air on admission , hypoxia worsened requiring Ventimask which has been weaned down now to 5 L nasal cannula. Hemoglobin 9.4, platelets 278, neutrophils 10.6. D-dimer 108. Troponin 0.035, 0.030, 0.021. BNP 538. Alk phos 1173, AST 68, T bili within normal limits. Reports she is on 4 L nasal cannula O2 at home. Chest Ultrasound pending. IV fluids and empiric IV antibiotics initiated. 06/22/2019 chest ultrasound reported small pleural effusions .extensive pneumonic consolidation in bilateral lungs, worse at the right pulmonary hilum, consistent with tumor. Large pericardial effusion, pulmonary infiltrates increased in size. Pleural fluid and pericardial effusion increased compared to prior exam. Echo reported normal EF, 50-55% with no evidence of cardiac tamponade on, moderate tricuspid regurgitation, moderate pericardial effusion, mild pulmonary hypertension. Evaluated by cardiothoracic surgery, no surgical intervention at this time with recommendations for palliative care. Telemetry sinus tachycardia with heart rates currently in the 120s. Objective - Vital Signs Vital signs: Vital Signs Temp 97.8 F 06/22/19 12:01 Pulse 125 H 06/22/19 15:00 Resp 30 H 06/22/19 15:00 BP 165/105 06/22/19 15:00 Pulse Ox 93 L 06/22/19 15:00 Intake & Output 06/21/19 06/22/19 06/22/19 18:59 06:59 18:59 Intake Total 50 400 Output Total 482 Balance 50 -82 Weight 52.163 kg Intake: IV 50 400 0.9 50 400 Output: Urine 482 Other: Voiding Method Toilet Indwelling Catheter # Voids 1 - Exam General: Sitting up in bed, tachypneic, anxious, wearing airvo, alert and oriented times 3. HEENT: [PERRL. EOMI. No pharyngeal erythema or exudate. Neck supple, no JVD.] Cardiac: [Heart regular in rate and rhythm. Tachycardic. No S3. No S4. No clicks, rubs. No murmur.] Bilateral chest discomfort bilateral lower rib area Lungs: Equal Air entry,Bilateral bases diminished, bibasilar crackles. Abdomen: [No mass. No organomegaly. Bowel sounds presnt and normoactive in all 4 quadrants. Abdominal scar from recent bowel resection Extremes: [No edema no cyanosis no claudication normal pulses] Skin: [No rash.] Neurologic: [No lateralizing deficits. CN II - XII grossly intact.] - Labs CBC & Chem 7: 06/22/19 04:36 06/22/19 04:36 Labs: Abnormal Lab Results - Last 24 Hours (Table) 06/21/19 06/21/19 06/21/19 Range/Units 19:44 20:22 20:27 WBC 15.2 H (3.8-10.6) k/uL RBC 2.77 L (3.80-5.40) m/uL Hgb 9.3 L (11.4-16.0) gm/dL Hct 32.1 L (34.0-46.0) % MCV 116.0 H (80.0-100.0) fL MCHC 29.1 L (31.0-37.0) g/dL RDW 18.8 H (11.5-15.5) % Neutrophils # 14.6 H (1.3-7.7) k/uL Lymphocytes # 0.2 L (1.0-4.8) k/uL Macrocytosis Marked A PT (9.0-12.0) sec INR (<1.2) D-Dimer (<0.60) mg/L FEU ABG pCO2 (35-45) mmHg ABG pO2 (83-108) mmHg ABG HCO3 (21-25) mmol/L ABG Total CO2 (19-24) mmol/L ABG O2 Saturation (94-97) % Potassium (3.5-5.1) mmol/L Chloride (98-107) mmol/L Carbon Dioxide (22-30) mmol/L Creatinine (0.52-1.04) mg/dL Glucose (74-99) mg/dL POC Glucose (mg/dL) 250 H (75-99) mg/dL Plasma Lactic Acid Peter 3.7 H* (0.7-2.0) mmol/L AST (14-36) U/L Alkaline Phosphatase (38-126) U/L Total Protein (6.3-8.2) g/dL Albumin (3.5-5.0) g/dL Urine Opiates Screen (NotDetected) Ur Oxycodone Screen (NotDetected) U Benzodiazepines Scrn (NotDetected) U Marijuana (THC) Screen (NotDetected) 06/21/19 06/21/19 06/21/19 Range/Units 20:27 20:27 21:05 WBC (3.8-10.6) k/uL RBC (3.80-5.40) m/uL Hgb (11.4-16.0) gm/dL Hct (34.0-46.0) % MCV (80.0-100.0) fL MCHC (31.0-37.0) g/dL RDW (11.5-15.5) % Neutrophils # (1.3-7.7) k/uL Lymphocytes # (1.0-4.8) k/uL Macrocytosis PT 12.3 H (9.0-12.0) sec INR 1.2 H (<1.2) D-Dimer 0.79 H (<0.60) mg/L FEU ABG pCO2 (35-45) mmHg ABG pO2 (83-108) mmHg ABG HCO3 (21-25) mmol/L ABG Total CO2 (19-24) mmol/L ABG O2 Saturation (94-97) % Potassium 3.4 L (3.5-5.1) mmol/L Chloride (98-107) mmol/L Carbon Dioxide (22-30) mmol/L Creatinine 0.29 L (0.52-1.04) mg/dL Glucose 190 H (74-99) mg/dL POC Glucose (mg/dL) (75-99) mg/dL Plasma Lactic Acid Peter (0.7-2.0) mmol/L AST 72 H (14-36) U/L Alkaline Phosphatase 1069 H (38-126) U/L Total Protein (6.3-8.2) g/dL Albumin (3.5-5.0) g/dL Urine Opiates Screen (NotDetected) Ur Oxycodone Screen (NotDetected) U Benzodiazepines Scrn (NotDetected) U Marijuana (THC) Screen (NotDetected) 06/21/19 06/22/19 06/22/19 Range/Units 22:18 00:32 04:36 WBC (3.8-10.6) k/uL RBC (3.80-5.40) m/uL Hgb (11.4-16.0) gm/dL Hct (34.0-46.0) % MCV (80.0-100.0) fL MCHC (31.0-37.0) g/dL RDW (11.5-15.5) % Neutrophils # (1.3-7.7) k/uL Lymphocytes # (1.0-4.8) k/uL Macrocytosis PT (9.0-12.0) sec INR (<1.2) D-Dimer (<0.60) mg/L FEU ABG pCO2 48 H (35-45) mmHg ABG pO2 61 L (83-108) mmHg ABG HCO3 33 H (21-25) mmol/L ABG Total CO2 35 H (19-24) mmol/L ABG O2 Saturation 90.8 L (94-97) % Potassium (3.5-5.1) mmol/L Chloride (98-107) mmol/L Carbon Dioxide (22-30) mmol/L Creatinine (0.52-1.04) mg/dL Glucose (74-99) mg/dL POC Glucose (mg/dL) (75-99) mg/dL Plasma Lactic Acid Peter 2.7 H* 2.5 H* (0.7-2.0) mmol/L AST (14-36) U/L Alkaline Phosphatase (38-126) U/L Total Protein (6.3-8.2) g/dL Albumin (3.5-5.0) g/dL Urine Opiates Screen (NotDetected) Ur Oxycodone Screen (NotDetected) U Benzodiazepines Scrn (NotDetected) U Marijuana (THC) Screen (NotDetected) 06/22/19 06/22/19 06/22/19 Range/Units 04:36 04:36 05:45 WBC 12.0 H (3.8-10.6) k/uL RBC 2.58 L (3.80-5.40) m/uL Hgb 8.7 L (11.4-16.0) gm/dL Hct 29.6 L (34.0-46.0) % MCV 114.8 H (80.0-100.0) fL MCHC 29.5 L (31.0-37.0) g/dL RDW 18.8 H (11.5-15.5) % Neutrophils # 11.2 H (1.3-7.7) k/uL Lymphocytes # 0.3 L (1.0-4.8) k/uL Macrocytosis Marked A PT (9.0-12.0) sec INR (<1.2) D-Dimer (<0.60) mg/L FEU ABG pCO2 (35-45) mmHg ABG pO2 (83-108) mmHg ABG HCO3 (21-25) mmol/L ABG Total CO2 (19-24) mmol/L ABG O2 Saturation (94-97) % Potassium (3.5-5.1) mmol/L Chloride 96 L (98-107) mmol/L Carbon Dioxide 34 H (22-30) mmol/L Creatinine 0.28 L (0.52-1.04) mg/dL Glucose 123 H (74-99) mg/dL POC Glucose (mg/dL) (75-99) mg/dL Plasma Lactic Acid Peter (0.7-2.0) mmol/L AST 66 H (14-36) U/L Alkaline Phosphatase 872 H (38-126) U/L Total Protein 6.1 L (6.3-8.2) g/dL Albumin 3.2 L (3.5-5.0) g/dL Urine Opiates Screen Detected H (NotDetected) Ur Oxycodone Screen Detected H (NotDetected) U Benzodiazepines Scrn Detected H (NotDetected) U Marijuana (THC) Screen Detected H (NotDetected) 06/22/19 06/22/19 06/22/19 Range/Units 06:35 08:49 13:01 WBC (3.8-10.6) k/uL RBC (3.80-5.40) m/uL Hgb (11.4-16.0) gm/dL Hct (34.0-46.0) % MCV (80.0-100.0) fL MCHC (31.0-37.0) g/dL RDW (11.5-15.5) % Neutrophils # (1.3-7.7) k/uL Lymphocytes # (1.0-4.8) k/uL Macrocytosis PT (9.0-12.0) sec INR (<1.2) D-Dimer (<0.60) mg/L FEU ABG pCO2 (35-45) mmHg ABG pO2 (83-108) mmHg ABG HCO3 (21-25) mmol/L ABG Total CO2 (19-24) mmol/L ABG O2 Saturation (94-97) % Potassium (3.5-5.1) mmol/L Chloride (98-107) mmol/L Carbon Dioxide (22-30) mmol/L Creatinine (0.52-1.04) mg/dL Glucose (74-99) mg/dL POC Glucose (mg/dL) 147 H (75-99) mg/dL Plasma Lactic Acid Peter 2.8 H* 2.6 H* (0.7-2.0) mmol/L AST (14-36) U/L Alkaline Phosphatase (38-126) U/L Total Protein (6.3-8.2) g/dL Albumin (3.5-5.0) g/dL Urine Opiates Screen (NotDetected) Ur Oxycodone Screen (NotDetected) U Benzodiazepines Scrn (NotDetected) U Marijuana (THC) Screen (NotDetected) Assessment and Plan Assessment: 1) Acute on chronic hypoxic respiratory failure multifactorial ,secondary to bilateral pleural effusions-greater on the right, possible bilateral pneumonia, large pericardial effusion without cardiac tamponade (2)Metastatic cervical cancer Current Visit: Yes Status: Acute Code(s): C79.9 - SECONDARY MALIGNANT NEOPLASM OF UNSPECIFIED SITE SNOMED Code(s): 171513172 (3) Metastatic cancer to lung Current Visit: No Status: Acute Code(s): C78.00 - SECONDARY MALIGNANT NEOPLASM OF UNSPECIFIED LUNG SNOMED Code(s): 81304209 (4) acute metabolic encephalopathy secondary to sepsis, chemotherapy (5) Acute on chronic anemia secondary to malignancy (6) Opioid dependence in remission Current Visit: No Status: Acute Code(s): F11.21 - OPIOID DEPENDENCE, IN REMISSION SNOMED Code(s): 717681652 (8) Sinus tachycardia, secondary to possibly dehydration Current Visit: No Status: Acute Code(s): R00.0 - TACHYCARDIA, UNSPECIFIED SNOMED Code(s): 17325390 (9) anxiety, depression (10) no code, no CPR, no intubation Plan: Continue current medication regime ,monitoring and symptomatically treatment. Maintain supportive care. Family and patient discussing comfort car e, hospice at this time. Prognosis guarded given multiple complex medical issues. The impression and plan of care has been dictated as directed. : I performed a history and examination of this patient, discussed the same with the dictator. I agree with the dictator's note ,documented as a scribe. Any additional findings or plans will be noted.
[2019-06-22 16:50] LABS: Glucose,Whole Blood 139 mg/dL (75-99)
--- NOTE | 2019-06-22 18:43 | P.PN ---
Progress Note - Text Progress Note Date: 06/22/19 For documentation purposes, the exact cause of her troponin leak is undetermined. Unable to do to determine. Please refer to consultation by cardiology.
--- NOTE | 2019-06-22 19:51 | P.CONS ---
History of Present Illness - Reason for Consult Consult date: 06/22/19 cervical cancer Requesting physician: Sal Matute - Chief Complaint JOHNNY, weakness - History of Present Illness Latonia is a very pleasant female pt well known to our practice and a pt of Dr. Toney with a history of being treated by [facility] for cervical cancer in August 2017, she was diagnosed with stage IIB cervical squamous cell carcinoma, treated with concurrent chemo/radiation with excellent local response. She had a R Pleural biopsy on 11/07/18 revealed metastatic squamous cell. 12/23 she started chemo with carbo/taxol/avastin with improved symptoms. She had 3 cycles and scans showed a positive response to treatment. Immunotherapy was added. Pt was admitted 02/23 for intractable nausea, abdominal pain. She did have bowel resection with Dr. Flynn due to tumor/scar tissue from treatment of cancer. In March the patient had an episode of ITP. Patient was treated with Rituxan weekly 1 month with recovery of her platelets. She eventually had 6 cycles of carbo/taxol/avastin/keytruda, and started maintenance keytruda and avastin, x 2 cycles, last one on 06/14. Unfortunately, patient last week was showing some symptoms of progressive decline. She is seen today in the intensive care unit, severely short of breath and mildly confused. She is anxious and all her family is at the bedside for discussion. No current nausea, pain. Review of Systems 14 point review of systems negative except as stated in HPI Past Medical History Past Medical History: Cancer, Pneumonia Additional Past Medical History / Comment(s): stage 4 cervical cancer, recovering opiate addiction clean for a year, borderline personality. History of Any Multi-Drug Resistant Organisms: None Reported Past Surgical History: Bowel Resection, Section, Tubal Ligation Additional Past Surgical History / Comment(s): BOWEL RESECTION D/T SMALL BOWEL OBSTRUCTION. Past Anesthesia/Blood Transfusion Reactions: No Reported Reaction Past Psychological History: ADD/ADHD, Anxiety, Depression, Panic Disorder Additional Psychological History / Comment(s): Borderline personality disorder. Pt resides with her significant other and 2 of her adult children. She recieves social security d/t mental health problems. She is independent. She goes to [employer] Smoking Status: Former smoker Past Alcohol Use History: None Reported Additional Past Alcohol Use History / Comment(s): Pt started smoking in 2006 quit October 2018 Past Drug Use History: None Reported Additional Drug Use History / Comment(s): Pt is a recovering opiate addict-she has been clean 5 yrs. - Past Family History Father History Unknown: Yes Family Medical History: Liver Disease Additional Family Medical History / Comment(s): Father had hepatitis at the age of 17 yrs. He was an drug addict. He started drinking when his and this lead to his per pt. Mother History Unknown: Yes Additional Family Medical History / Comment(s): Mother is healthy. Medications and Allergies Home Medications Medication Instructions Recorded Confirmed Type cloNIDine HCL 0.3 mg PO HS 05/15/15 06/20/19 History ARIPiprazole [Abilify] 15 mg PO HS 11/01/18 06/20/19 History Vortioxetine Hydrobromide 20 mg PO HS 11/01/18 06/20/19 History [Trintellix] clonazePAM [KlonoPIN] 1 mg PO BID PRN 11/01/18 06/20/19 History lamoTRIgine [LaMICtal] 200 mg PO HS 11/01/18 06/20/19 History Ondansetron Odt [Zofran ODT] 8 mg PO Q8HR PRN 11/22/18 06/20/19 History Acetaminophen 650 mg PO Q6H PRN 11/30/18 06/20/19 History Omeprazole 20 mg PO BID 03/12/19 06/20/19 History Dronabinol [Marinol] 5 mg PO BID PRN 03/29/19 06/20/19 History Albuterol Nebulized [Ventolin 2.5 mg INHALATION RT-QID PRN 06/20/19 06/20/19 History Nebulized] Benzonatate [Tessalon Perles] 200 mg PO TID PRN 06/20/19 06/20/19 History Levothyroxine Sodium [Synthroid] 100 mcg PO HS 06/20/19 06/20/19 History fentaNYL 50MCG/HR PATCH [Duragesic 1 patch TRANSDERM Q72H 06/20/19 06/20/19 History 50MCG/HR] oxyCODONE-APAP 10-325MG [Percocet 2 tab PO Q6H PRN 06/20/19 06/20/19 History 10-325 mg] Allergies Allergy/AdvReac Type Severity Reaction Status Date / Time No Known Allergies Allergy Verified 06/20/19 22:08 Physical Exam Vitals: Vital Signs Temp Pulse Resp BP Pulse Ox 06/22/19 19:00 124 H 162/109 95 06/22/19 18:30 126 H 96 06/22/19 18:00 116 H 175/114 96 06/22/19 17:30 121 H 93 L 06/22/19 17:00 125 H 168/103 93 L 06/22/19 16:30 122 H 2 L 168/103 93 L 06/22/19 16:00 97.7 F 125 H 28 H 164/106 95 06/22/19 15:30 124 H 164/106 95 06/22/19 15:00 125 H 30 H 165/105 93 L 06/22/19 14:30 125 H 30 H 93 L 06/22/19 14:00 169/106 93 L 06/22/19 13:30 131 H 94 L 06/22/19 13:00 128 H 171/120 94 L 06/22/19 12:30 126 H 34 H 95 06/22/19 12:01 97.8 F 130 H 34 H 175/107 93 L 06/22/19 11:30 129 H 34 H 94 L 06/22/19 11:00 131 H 343 H 173/110 93 L 06/22/19 10:30 125 H 34 H 160/92 95 06/22/19 10:00 129 H 34 H 152/95 94 L 06/22/19 09:30 125 H 34 H 165/103 94 L 06/22/19 09:01 128 H 06/22/19 09:00 124 H 34 H 159/101 96 06/22/19 08:50 126 H 06/22/19 08:31 96 06/22/19 08:30 124 H 34 H 171/106 06/22/19 08:00 97.9 F 126 H 36 H 155/101 96 06/22/19 07:30 125 H 22 165/107 97 06/22/19 07:00 126 H 26 H 162/92 96 06/22/19 06:30 128 H 24 147/104 100 06/22/19 06:00 121 H 149/100 06/22/19 05:30 129 H 24 06/22/19 05:14 95 06/22/19 05:00 89 26 H 154/108 06/22/19 04:30 125 H 147/91 90 L 06/22/19 04:00 121 H 147/91 93 L 06/22/19 03:30 122 H 137/86 96 06/22/19 03:10 97 06/22/19 03:00 121 H 133/84 97 06/22/19 02:30 121 H 145/94 97 06/22/19 02:00 123 H 167/126 96 06/22/19 01:30 137/94 06/22/19 01:00 121 H 144/92 82 L 06/22/19 00:30 121 H 135/94 100 06/22/19 00:00 123 H 145/98 98 06/21/19 23:30 71 152/104 84 L 06/21/19 23:00 138 H 161/122 82 L 06/21/19 22:30 137 H 178/115 80 L 06/21/19 22:00 138 H 172/107 97 06/21/19 21:30 137 H 43 H 149/99 91 L 06/21/19 21:00 138 H 39 H 142/104 85 L 06/21/19 20:30 137 H 56 H 146/90 97 06/21/19 20:00 134 H 42 H 163/104 72 L 06/21/19 19:47 52 H Intake and Output 06/22/19 06/22/19 06/22/19 06:59 14:59 22:59 Intake Total 50 400 600 Output Total 482 292 Balance 50 -82 308 Intake: IV 50 400 250 0.9 50 400 250 Intake, IV Titration 350 Amount Cefepime 1 gm In Sodium 100 Chloride 0.9% 50 ml @ 100 mls/hr IVPB Q12HR [facility] Rx #:[id number] Vancomycin 1,000 mg In 250 Sodium Chloride 0.9% 250 ml @ 125 mls/hr IVPB Q8H [facility] Rx#:[id number] Output: Urine 482 292 Other: Voiding Method Indwelling Catheter Indwelling Catheter Weight 52.163 kg Well-developed well-nourished female sitting in a high Wynn's position in bed, she is alert, oriented 4, moderate to severe distress due to respiratory status, respiratory rate increased, patient is tachycardic, she has generalized swelling Results CBC & Chem 7: 06/22/19 04:36 06/22/19 04:36 Labs: Abnormal Lab Results - Last 24 Hours (Table) 06/21/19 06/21/19 06/21/19 Range/Units 19:44 20:22 20:27 WBC 15.2 H (3.8-10.6) k/uL RBC 2.77 L (3.80-5.40) m/uL Hgb 9.3 L (11.4-16.0) gm/dL Hct 32.1 L (34.0-46.0) % MCV 116.0 H (80.0-100.0) fL MCHC 29.1 L (31.0-37.0) g/dL RDW 18.8 H (11.5-15.5) % Neutrophils # 14.6 H (1.3-7.7) k/uL Lymphocytes # 0.2 L (1.0-4.8) k/uL Macrocytosis Marked A PT (9.0-12.0) sec INR (<1.2) D-Dimer (<0.60) mg/L FEU ABG pCO2 (35-45) mmHg ABG pO2 (83-108) mmHg ABG HCO3 (21-25) mmol/L ABG Total CO2 (19-24) mmol/L ABG O2 Saturation (94-97) % Potassium (3.5-5.1) mmol/L Chloride (98-107) mmol/L Carbon Dioxide (22-30) mmol/L Creatinine (0.52-1.04) mg/dL Glucose (74-99) mg/dL POC Glucose (mg/dL) 250 H (75-99) mg/dL Plasma Lactic Acid Peter 3.7 H* (0.7-2.0) mmol/L AST (14-36) U/L Alkaline Phosphatase (38-126) U/L Total Protein (6.3-8.2) g/dL Albumin (3.5-5.0) g/dL Urine Opiates Screen (NotDetected) Ur Oxycodone Screen (NotDetected) U Benzodiazepines Scrn (NotDetected) U Marijuana (THC) Screen (NotDetected) 06/21/19 06/21/19 06/21/19 Range/Units 20:27 20:27 21:05 WBC (3.8-10.6) k/uL RBC (3.80-5.40) m/uL Hgb (11.4-16.0) gm/dL Hct (34.0-46.0) % MCV (80.0-100.0) fL MCHC (31.0-37.0) g/dL RDW (11.5-15.5) % Neutrophils # (1.3-7.7) k/uL Lymphocytes # (1.0-4.8) k/uL Macrocytosis PT 12.3 H (9.0-12.0) sec INR 1.2 H (<1.2) D-Dimer 0.79 H (<0.60) mg/L FEU ABG pCO2 (35-45) mmHg ABG pO2 (83-108) mmHg ABG HCO3 (21-25) mmol/L ABG Total CO2 (19-24) mmol/L ABG O2 Saturation (94-97) % Potassium 3.4 L (3.5-5.1) mmol/L Chloride (98-107) mmol/L Carbon Dioxide (22-30) mmol/L Creatinine 0.29 L (0.52-1.04) mg/dL Glucose 190 H (74-99) mg/dL POC Glucose (mg/dL) (75-99) mg/dL Plasma Lactic Acid Peter (0.7-2.0) mmol/L AST 72 H (14-36) U/L Alkaline Phosphatase 1069 H (38-126) U/L Total Protein (6.3-8.2) g/dL Albumin (3.5-5.0) g/dL Urine Opiates Screen (NotDetected) Ur Oxycodone Screen (NotDetected) U Benzodiazepines Scrn (NotDetected) U Marijuana (THC) Screen (NotDetected) 06/21/19 06/22/19 06/22/19 Range/Units 22:18 00:32 04:36 WBC (3.8-10.6) k/uL RBC (3.80-5.40) m/uL Hgb (11.4-16.0) gm/dL Hct (34.0-46.0) % MCV (80.0-100.0) fL MCHC (31.0-37.0) g/dL RDW (11.5-15.5) % Neutrophils # (1.3-7.7) k/uL Lymphocytes # (1.0-4.8) k/uL Macrocytosis PT (9.0-12.0) sec INR (<1.2) D-Dimer (<0.60) mg/L FEU ABG pCO2 48 H (35-45) mmHg ABG pO2 61 L (83-108) mmHg ABG HCO3 33 H (21-25) mmol/L ABG Total CO2 35 H (19-24) mmol/L ABG O2 Saturation 90.8 L (94-97) % Potassium (3.5-5.1) mmol/L Chloride (98-107) mmol/L Carbon Dioxide (22-30) mmol/L Creatinine (0.52-1.04) mg/dL Glucose (74-99) mg/dL POC Glucose (mg/dL) (75-99) mg/dL Plasma Lactic Acid Peter 2.7 H* 2.5 H* (0.7-2.0) mmol/L AST (14-36) U/L Alkaline Phosphatase (38-126) U/L Total Protein (6.3-8.2) g/dL Albumin (3.5-5.0) g/dL Urine Opiates Screen (NotDetected) Ur Oxycodone Screen (NotDetected) U Benzodiazepines Scrn (NotDetected) U Marijuana (THC) Screen (NotDetected) 06/22/19 06/22/19 06/22/19 Range/Units 04:36 04:36 05:45 WBC 12.0 H (3.8-10.6) k/uL RBC 2.58 L (3.80-5.40) m/uL Hgb 8.7 L (11.4-16.0) gm/dL Hct 29.6 L (34.0-46.0) % MCV 114.8 H (80.0-100.0) fL MCHC 29.5 L (31.0-37.0) g/dL RDW 18.8 H (11.5-15.5) % Neutrophils # 11.2 H (1.3-7.7) k/uL Lymphocytes # 0.3 L (1.0-4.8) k/uL Macrocytosis Marked A PT (9.0-12.0) sec INR (<1.2) D-Dimer (<0.60) mg/L FEU ABG pCO2 (35-45) mmHg ABG pO2 (83-108) mmHg ABG HCO3 (21-25) mmol/L ABG Total CO2 (19-24) mmol/L ABG O2 Saturation (94-97) % Potassium (3.5-5.1) mmol/L Chloride 96 L (98-107) mmol/L Carbon Dioxide 34 H (22-30) mmol/L Creatinine 0.28 L (0.52-1.04) mg/dL Glucose 123 H (74-99) mg/dL POC Glucose (mg/dL) (75-99) mg/dL Plasma Lactic Acid Peter (0.7-2.0) mmol/L AST 66 H (14-36) U/L Alkaline Phosphatase 872 H (38-126) U/L Total Protein 6.1 L (6.3-8.2) g/dL Albumin 3.2 L (3.5-5.0) g/dL Urine Opiates Screen Detected H (NotDetected) Ur Oxycodone Screen Detected H (NotDetected) U Benzodiazepines Scrn Detected H (NotDetected) U Marijuana (THC) Screen Detected H (NotDetected) 06/22/19 06/22/19 06/22/19 Range/Units 06:35 08:49 13:01 WBC (3.8-10.6) k/uL RBC (3.80-5.40) m/uL Hgb (11.4-16.0) gm/dL Hct (34.0-46.0) % MCV (80.0-100.0) fL MCHC (31.0-37.0) g/dL RDW (11.5-15.5) % Neutrophils # (1.3-7.7) k/uL Lymphocytes # (1.0-4.8) k/uL Macrocytosis PT (9.0-12.0) sec INR (<1.2) D-Dimer (<0.60) mg/L FEU ABG pCO2 (35-45) mmHg ABG pO2 (83-108) mmHg ABG HCO3 (21-25) mmol/L ABG Total CO2 (19-24) mmol/L ABG O2 Saturation (94-97) % Potassium (3.5-5.1) mmol/L Chloride (98-107) mmol/L Carbon Dioxide (22-30) mmol/L Creatinine (0.52-1.04) mg/dL Glucose (74-99) mg/dL POC Glucose (mg/dL) 147 H (75-99) mg/dL Plasma Lactic Acid Peter 2.8 H* 2.6 H* (0.7-2.0) mmol/L AST (14-36) U/L Alkaline Phosphatase (38-126) U/L Total Protein (6.3-8.2) g/dL Albumin (3.5-5.0) g/dL Urine Opiates Screen (NotDetected) Ur Oxycodone Screen (NotDetected) U Benzodiazepines Scrn (NotDetected) U Marijuana (THC) Screen (NotDetected) 06/22/19 06/22/19 Range/Units 16:48 17:12 WBC (3.8-10.6) k/uL RBC (3.80-5.40) m/uL Hgb (11.4-16.0) gm/dL Hct (34.0-46.0) % MCV (80.0-100.0) fL MCHC (31.0-37.0) g/dL RDW (11.5-15.5) % Neutrophils # (1.3-7.7) k/uL Lymphocytes # (1.0-4.8) k/uL Macrocytosis PT (9.0-12.0) sec INR (<1.2) D-Dimer (<0.60) mg/L FEU ABG pCO2 (35-45) mmHg ABG pO2 (83-108) mmHg ABG HCO3 (21-25) mmol/L ABG Total CO2 (19-24) mmol/L ABG O2 Saturation (94-97) % Potassium (3.5-5.1) mmol/L Chloride (98-107) mmol/L Carbon Dioxide (22-30) mmol/L Creatinine (0.52-1.04) mg/dL Glucose (74-99) mg/dL POC Glucose (mg/dL) 139 H (75-99) mg/dL Plasma Lactic Acid Peter 2.6 H* (0.7-2.0) mmol/L AST (14-36) U/L Alkaline Phosphatase (38-126) U/L Total Protein (6.3-8.2) g/dL Albumin (3.5-5.0) g/dL Urine Opiates Screen (NotDetected) Ur Oxycodone Screen (NotDetected) U Benzodiazepines Scrn (NotDetected) U Marijuana (THC) Screen (NotDetected) CT scan - chest: report reviewed Assessment and Plan (1) Ovarian cancer Narrative/Plan: CT of the chest was reviewed with Dr. Toney. 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 It was explained to the patient and her family that the only way to absolutely confirm this is to bronchoscopy with biopsy but, doing the biopsy would be very difficult considering her respiratory status. It was reviewed that there are no current lines of therapy available for treatment of her cancer. Recommendation is for symptom management and allowing natural . All of the patient and her family's questions were answered to the best of my ability. Provided counseling and coordinating of care. I asked patient's mother to gather the patient's children now as I do feel that the patient's situation is rapidly going to be terminal. We did discuss No CODE STATUS. It was agreed upon that it would be significantly traumatic to the patient, as well as the family, with no good outcome on the other side. I did discuss the case with nursing. Once the family has gathered and had the opportunity to speak with the patient they will communicate with her and the patient will be placed on comfort measures only. Current Visit: Yes Status: Acute Priority: High Code(s): C56.9 - MALIGNANT NEOPLASM OF UNSPECIFIED OVARY SNOMED Code(s): 545911289 Plan: Doctor attests: I performed a history and physical examination of this patient, developed impression and plan of care, discussed with dictator. I agree with dictators note, documented as a scribe. Time with Patient: Greater than 30
[2019-06-22] MEDS: cloNIDine HCL 0.1 MG TAB PO SCH (20:54)
[2019-06-22] MEDS: lamoTRIgine 100 MG TAB PO SCH (20:54)
[2019-06-22] MEDS: LEVOTHYROXINE 100 MCG TAB PO SCH (20:54)
[2019-06-22] MEDS ORDERED: VANCOMYCIN TROUGH DUE 1 EACH MISC MISCELLANE ONE (21:00)
[2019-06-23 00:11] LABS: Glucose,Whole Blood 142 mg/dL (75-99)
[2019-06-23] MEDS: hydrALAZINE HCL 25 MG TAB PO SCH ×2 (00:35→09:05)
[2019-06-23] MEDS: methylPREDNISolone SOD SUCCI 125 MG/2 ML VIAL IV SCH ×2 (00:35→06:03)
[2019-06-23] MEDS: SODIUM CHLORIDE 0.9% 1,000 ML IV SCH (01:00)
[2019-06-23 02:50] LABS: Anisocytosis Slight; Basophils % (A) 0 %; Eosinophils % (A) 0 %; HCT 30.6 % (34.0-46.0); HGB 9.2 gm/dL (11.4-16.0); Hypochromasia Marked; Lymphocytes # (A) 0.2 k/uL (1.0-4.8); Lymphocytes % (A) 1 %; MCH 34.3 pg (25.0-35.0); MCV 114.4 fL (80.0-100.0); Macrocytosis Marked; Mean Platelet Volume 6.8; Monocytes # (A) 0.5 k/uL (0-1.0); Monocytes % (A) 3 %; Neutrophils # (A) 15.3 k/uL (1.3-7.7); Neutrophils % (A) 95 %; Platelet Count 242 k/uL (150-450); Poikilocytosis Slight; RBC 2.68 m/uL (3.80-5.40); RDW 18.8 % (11.5-15.5); WBC 16.1 k/uL (3.8-10.6)
[2019-06-23 02:55] LABS: African American GFR (CKD) >90 (>60 ml/min/1.73 sqM); Anion Gap 10 mmol/L; Blood Urea Nitrogen 17 mg/dL (7-17); Calcium 9.2 mg/dL (8.4-10.2); Carbon Dioxide 31 mmol/L (22-30); Chloride 100 mmol/L (98-107); Glucose 147 mg/dL (74-99); Magnesium 1.9 mg/dL (1.6-2.3); Non-African American GFR(CKD) >90 (>60 ml/min/1.73 sqM); Phosphorus 3.2 mg/dL (2.5-4.5); Potassium 3.5 mmol/L (3.5-5.1); Sodium 141 mmol/L (137-145)
[2019-06-23] MEDS: MORPHINE SULFATE 4 MG/ML SYRINGE IVP PRN ×2 (02:56→05:37)
[2019-06-23] MEDS: LORazepam 2 MG/ML INJ IV PRN ×3 (03:39→11:12)
[2019-06-23] MEDS: IPRATROPIUM-ALBUTEROL 3 ML NEB INHALATION PRN (03:45)
[2019-06-23] MEDS: VANCOMYCIN 1,000 MG in SODIUM CHLORIDE 0.9% 250 ML IVPB SCH (06:04)
[2019-06-23 06:20] LABS: Glucose,Whole Blood 133 mg/dL (75-99)
[2019-06-23] MEDS ORDERED: Potassium Replacement Protocol 1 EACH MISC MISCELLANE PRN (06:44)
[2019-06-23] MEDS: POTASSIUM BICARBONATE/CIT AC 20 MEQ TABLET.EFF NG-TUBE SCH ×2 (07:42→09:05)
[2019-06-23] MEDS: IPRATROPIUM-ALBUTEROL 3 ML NEB INHALATION SCH (07:54)
[2019-06-23 07:58] VITALS: RESP 28
[2019-06-23 08:09] VITALS: TEMP 97.6
--- NOTE | 2019-06-23 08:24 | XR ---
EXAMINATION TYPE: XR chest 1V DATE OF EXAM: 06/23/2019 COMPARISON: 06/22/2019 HISTORY: Shortness of breath TECHNIQUE: Single frontal view of the chest is obtained. FINDINGS: Again there is marked cardiomegaly. Mild to moderate residual pulmonary edema is similar. T here are bilateral pleural effusions that are unchanged. Right-sided Mediport is again seen. No sizab le pneumothorax. No acute osseous process. IMPRESSION: Stable marked cardiomegaly and moderate pleural effusions with associated bibasilar airs pace disease.
[2019-06-23] MEDS: ENOXAPARIN 40 MG/0.4 ML SYRINGE SQ SCH (09:05)
[2019-06-23] MEDS: PANTOPRAZOLE 40 MG TABLET PO SCH (09:05)
[2019-06-23 10:04] VITALS: BP 153/97; PULSE 134
--- NOTE | 2019-06-23 15:33 | P.PN ---
Subjective Progress Note Date: 06/23/19 This a 43-year-old female with history of cervical cancer stage IV with metastasis, lung CA with metastasis , currently receiving combination treatment of Keytruda and Avastin. Patient follows with Dr. Toney. presented to the ER with worsening shortness of breath, cough, dehydration, weakness , recently received chemotherapy, and multiple other medical issues. Denies chest pain, palpitations. Denies fever, no hemoptysis. Afebrile, WBC 12.4. Chest x-ray reported worsened congestive heart failure with pleural effusions and pulmonary edema. Tachycardic, initially high 90s on room air on admission , hypoxia worsened requiring Ventimask which has been weaned down now to 5 L nasal cannula. Hemoglobin 9.4, platelets 278, neutrophils 10.6. D-dimer 108. Troponin 0.035, 0.030, 0.021. BNP 538. Alk phos 1173, AST 68, T bili within normal limits. Reports she is on 4 L nasal cannula O2 at home. Chest Ultrasound pending. IV fluids and empiric IV antibiotics initiated. 06/22/2019 chest ultrasound reported small pleural effusions .extensive pneumonic consolidation in bilateral lungs, worse at the right pulmonary hilum, consistent with tumor. Large pericardial effusion, pulmonary infiltrates increased in size. Pleural fluid and pericardial effusion increased compared to prior exam. Echo reported normal EF, 50-55% with no evidence of cardiac tamponade on, moderate tricuspid regurgitation, moderate pericardial effusion, mild pulmonary hypertension. Evaluated by cardiothoracic surgery, no surgical intervention at this time with recommendations for palliative care. Telemetry sinus tachycardia with heart rates currently in the 120s. 06/23/2022 family members in route, then patient is being converted over to comfort care/hospice. Patient is exhausted, unable to swallow, mildly hallucinating, heart rate up into the 130s, respiratory rate 40s currently maintained on high flow 40%. Chest x-ray noted. Objective - Vital Signs Vital signs: Vital Signs Temp 97.6 F 06/23/19 08:00 Pulse 134 H 06/23/19 10:00 Resp 28 H 06/23/19 08:05 BP 153/97 06/23/19 10:00 Pulse Ox 96 06/23/19 10:00 Intake & Output 06/22/19 06/23/19 06/23/19 18:59 06:59 18:59 Intake Total 600 1200 200 Output Total 704 555 80 Balance -104 645 120 Weight 52.163 kg 57.6 kg Intake: IV 600 850 200 0.9 600 850 200 Intake, IV Titration 350 Amount Cefepime 1 gm In Sodium 100 Chloride 0.9% 50 ml @ 100 mls/hr IVPB Q12HR [facility] Rx #:[id number] Vancomycin 1,000 mg In 250 Sodium Chloride 0.9% 250 ml @ 125 mls/hr IVPB Q8H [facility] Rx#:[id number] Output: Urine 704 555 80 Other: Voiding Method Indwelling Catheter Indwelling Catheter Indwelling Catheter # Voids 1 - Exam General: Sitting up in bed, tachypneic, wearing airvo, lethargic, arousable to name only HEENT: [PERRL. EOMI. No pharyngeal erythema or exudate. Neck supple, no JVD.] Cardiac: [Heart regular in rate and rhythm. Tachycardic. No S3. No S4. No clicks, rubs. No murmur.] Bilateral chest discomfort bilateral lower rib area Lungs: Respiratory effort increased .Equal Air entry,Bilateral bases diminished, scattered rhonchi, bibasilar crackles. Abdomen: [No mass. No organomegaly. Bowel sounds presnt and normoactive in all 4 quadrants. Abdominal scar from recent bowel resection Extremes: Positive edema. Skin: [No rash. NEURO: Unable to evaluate at this time, given patient's current condition] - Labs CBC & Chem 7: 06/23/19 02:12 06/23/19 02:12 Labs: Abnormal Lab Results - Last 24 Hours (Table) 06/22/19 06/22/19 06/22/19 Range/Units 16:48 17:12 21:29 WBC (3.8-10.6) k/uL RBC (3.80-5.40) m/uL Hgb (11.4-16.0) gm/dL Hct (34.0-46.0) % MCV (80.0-100.0) fL MCHC (31.0-37.0) g/dL RDW (11.5-15.5) % Neutrophils # (1.3-7.7) k/uL Lymphocytes # (1.0-4.8) k/uL Macrocytosis Carbon Dioxide (22-30) mmol/L Creatinine (0.52-1.04) mg/dL Glucose (74-99) mg/dL POC Glucose (mg/dL) 139 H (75-99) mg/dL Plasma Lactic Acid Peter 2.6 H* 2.8 H* (0.7-2.0) mmol/L 06/23/19 06/23/19 06/23/19 Range/Units 00:07 02:12 02:12 WBC 16.1 H (3.8-10.6) k/uL RBC 2.68 L (3.80-5.40) m/uL Hgb 9.2 L (11.4-16.0) gm/dL Hct 30.6 L (34.0-46.0) % MCV 114.4 H (80.0-100.0) fL MCHC 30.0 L (31.0-37.0) g/dL RDW 18.8 H (11.5-15.5) % Neutrophils # 15.3 H (1.3-7.7) k/uL Lymphocytes # 0.2 L (1.0-4.8) k/uL Macrocytosis Marked A Carbon Dioxide 31 H (22-30) mmol/L Creatinine 0.33 L (0.52-1.04) mg/dL Glucose 147 H (74-99) mg/dL POC Glucose (mg/dL) 142 H (75-99) mg/dL Plasma Lactic Acid Peter (0.7-2.0) mmol/L 06/23/19 06/23/19 06/23/19 Range/Units 02:12 06:18 06:19 WBC (3.8-10.6) k/uL RBC (3.80-5.40) m/uL Hgb (11.4-16.0) gm/dL Hct (34.0-46.0) % MCV (80.0-100.0) fL MCHC (31.0-37.0) g/dL RDW (11.5-15.5) % Neutrophils # (1.3-7.7) k/uL Lymphocytes # (1.0-4.8) k/uL Macrocytosis Carbon Dioxide (22-30) mmol/L Creatinine (0.52-1.04) mg/dL Glucose (74-99) mg/dL POC Glucose (mg/dL) 133 H (75-99) mg/dL Plasma Lactic Acid Peter 3.1 H* 3.0 H* (0.7-2.0) mmol/L Microbiology - Last 24 Hours (Table) 06/21/19 20:22 Blood Culture - Preliminary Blood No Growth after 24 hours Assessment and Plan Assessment: 1) Acute on chronic hypoxic respiratory failure multifactorial ,secondary to bilateral pleural effusions-greater on the right, possible bilateral pneumonia, large pericardial effusion without cardiac tamponade (2)Metastatic cervical cancer Current Visit: Yes Status: Acute Code(s): C79.9 - SECONDARY MALIGNANT NEOPLASM OF UNSPECIFIED SITE SNOMED Code(s): 578623044 (3) Metastatic cancer to lung Current Visit: No Status: Acute Code(s): C78.00 - SECONDARY MALIGNANT NEOPLASM OF UNSPECIFIED LUNG SNOMED Code(s): 59400450 (4) acute metabolic encephalopathy secondary to sepsis, chemotherapy (5) Acute on chronic anemia secondary to malignancy (6) Opioid dependence in remission Current Visit: No Status: Acute Code(s): F11.21 - OPIOID DEPENDENCE, IN REMISSION SNOMED Code(s): 372418737 (8) Sinus tachycardia, secondary to possibly dehydration Current Visit: No Status: Acute Code(s): R00.0 - TACHYCARDIA, UNSPECIFIED SNOMED Code(s): 37184732 (9) anxiety, depression (10) no code, no CPR, no intubation (11) Metabolic encephalopathy likely related to sepsis Plan: Continue current medication regime ,monitoring and symptomatically treatment. Family plans to transition to comfort care, hospice once the rest of the family arrives. Pain management. Support given. Prognosis guarded given multiple complex medical issues. The impression and plan of care has been dictated as directed. : I performed a history and examination of this patient, discussed the same with the dictator. I agree with the dictator's note ,documented as a scribe. Any additional findings or plans will be noted.
--- NOTE | 2019-06-25 13:01 | P.PN ---
Subjective Progress Note Date: 06/23/19 Principal diagnosis: Terminal cervical cancer Decision was made to once was decided that the car pericardial effusion that had developed was inoperable the patient would not tolerate anesthetic or the procedure itself this was discussed at length with the family and the patient decision was made to call the family in, patient decided to undergo a wedding in the hospital with her long standing significant other shortly after that ceremony was completed the patient was immediately placed on comfort care hospice arrangements were initiated and the patient was transferred to [facility]. This patient was placed on a morphine drip and subsequently early that morning Objective - Vital Signs Vital signs: Vital Signs Temp 97.6 F 06/23/19 08:00 Pulse 134 H 06/23/19 10:00 Resp 28 H 06/23/19 08:05 BP 153/97 06/23/19 10:00 Pulse Ox 96 06/23/19 10:00 - Exam General: HEENT: Neck: [No adenopathy.] Cardiac ventricular standstill Lungs: Absent Abdomen: Extremes: : [] Musculoskeletal: [ Skin: [No rash.] Neurologic: Lymphatic: - Labs CBC & Chem 7: 06/23/19 02:12 06/23/19 02:12 Labs: Microbiology - Last 24 Hours (Table) 06/21/19 20:22 Blood Culture - Preliminary Blood No Growth after 72 hours Assessment and Plan Assessment: Terminal illness (1) COPD (chronic obstructive pulmonary disease) Status: Acute Code(s): J44.9 - CHRONIC OBSTRUCTIVE PULMONARY DISEASE, UNSPECIFIED SNOMED Code(s): 26747292 (2) Sinus tachycardia Status: Acute Code(s): R00.0 - TACHYCARDIA, UNSPECIFIED SNOMED Code(s): 55963467 (3) Personality disorder Status: Chronic Code(s): F60.9 - PERSONALITY DISORDER, UNSPECIFIED SNOMED Code(s): 73866874 (4) Viral syndrome Status: Acute Code(s): B34.9 - VIRAL INFECTION, UNSPECIFIED SNOMED Code(s): 76638008 (5) Pneumonia Status: Acute Code(s): J18.9 - PNEUMONIA, UNSPECIFIED ORGANISM SNOMED Code(s): 441577996 (6) Symptomatic anemia Status: Acute Code(s): D64.9 - ANEMIA, UNSPECIFIED SNOMED Code(s): 374402301 (7) Left lower lobe pneumonia Status: Acute Code(s): J18.1 - LOBAR PNEUMONIA, UNSPECIFIED ORGANISM SNOMED Code(s): 184058307 (8) Metastatic cancer to lung Status: Acute Code(s): C78.00 - SECONDARY MALIGNANT NEOPLASM OF UNSPECIFIED LUNG SNOMED Code(s): 16032906 (9) Primary cervical squamous cell carcinoma Status: Chronic Priority: High Code(s): C53.9 - MALIGNANT NEOPLASM OF CERVIX UTERI, UNSPECIFIED SNOMED Code(s): 935302063 (10) Abdominal pain Status: Acute Priority: High Code(s): R10.9 - UNSPECIFIED ABDOMINAL PAIN SNOMED Code(s): 17991930 (11) Anemia Status: Acute Code(s): D64.9 - ANEMIA, UNSPECIFIED SNOMED Code(s): 060526709 (12) Liver metastases Status: Acute Code(s): C78.7 - SECONDARY MALIG NEOPLASM OF LIVER AND INTRAHEPATIC BILE DUCT SNOMED Code(s): 80854136 (13) Primary cervical cancer with metastasis to other site Status: Chronic Priority: Medium Code(s): C53.9 - MALIGNANT NEOPLASM OF CERVIX UTERI, UNSPECIFIED SNOMED Code(s): 429716320 (14) S/P small bowel resection Status: Acute Code(s): Z90.49 - ACQUIRED ABSENCE OF OTHER SPECIFIED PARTS OF DIGESTIVE TRACT SNOMED Code(s): 790159155533081 Plan: Terminal illness Time with Patient: Less than 30
--- NOTE | 2019-06-25 13:04 | P.DS ---
Providers Date of admission: 06/20/19 23:02 Expected date of discharge: 06/23/19 Attending physician: Fredo Eason Consults: 06/20/19 22:58 Consult Physician Routine Consulting Provider: Christine Peck Consult Reason/Comments: sob Do you want consulting provider notified?: Yes Consult Physician Routine Consulting Provider: Abdullahi García Consult Reason/Comments: [place] Do you want consulting provider notified?: Yes 06/21/19 17:17 Consult Physician Routine Consulting Provider: Irasema Koo Consult Reason/Comments: pericardial effusion Do you want consulting provider notified?: Yes, Notify in am 06/22/19 10:43 Consult Physician Routine Consulting Provider: Jacob Davis Consult Reason/Comments: pericardial effusion Do you want consulting provider notified?: Already Contacted Primary care physician: Fredo Eason - Discharge Diagnosis(es) (1) COPD (chronic obstructive pulmonary disease) Status: Acute (2) Sinus tachycardia Status: Acute (3) Personality disorder Status: Chronic (4) Viral syndrome Status: Acute (5) Pneumonia Status: Acute (6) Symptomatic anemia Status: Acute (7) Left lower lobe pneumonia Status: Acute (8) Metastatic cancer to lung Status: Acute (9) Primary cervical squamous cell carcinoma Status: Chronic Priority: High (10) Abdominal pain Status: Acute Priority: High (11) Anemia Status: Acute (12) Liver metastases Status: Acute (13) Primary cervical cancer with metastasis to other site Status: Chronic Priority: Medium (14) S/P small bowel resection Status: Acute Hospital Course: Terminal illness Assessment: Patient Condition at Discharge: Critical Plan - Discharge Summary New Discharge Prescriptions: No Action RX: cloNIDine HCL 0.3 mg PO HS RX: lamoTRIgine [LaMICtal] 200 mg PO HS RX: clonazePAM [KlonoPIN] 1 mg PO BID PRN PRN Reason: Anxiety RX: ARIPiprazole [Abilify] 15 mg PO HS RX: Vortioxetine Hydrobromide [Trintellix] 20 mg PO HS RX: Ondansetron Odt [Zofran ODT] 8 mg PO Q8HR PRN PRN Reason: Nausea RX: Acetaminophen 650 mg PO Q6H PRN PRN Reason: Pain Or Fever > 100.5 RX: Omeprazole 20 mg PO BID Dronabinol [Marinol] 5 mg PO BID PRN PRN Reason: APETITE oxyCODONE-APAP 10-325MG [Percocet 10-325 mg] 2 tab PO Q6H PRN PRN Reason: Pain fentaNYL 50MCG/HR PATCH [Duragesic 50MCG/HR] 1 patch TRANSDERM Q72H Benzonatate [Tessalon Perles] 200 mg PO TID PRN PRN Reason: Cough Albuterol Nebulized [Ventolin Nebulized] 2.5 mg INHALATION RT-QID PRN PRN Reason: Shortness Of Breath Levothyroxine Sodium [Synthroid] 100 mcg PO HS Discharge Medication List RX: cloNIDine HCL 0.3 mg PO HS 05/15/15 [History] RX: ARIPiprazole [Abilify] 15 mg PO HS 11/01/18 [History] RX: Vortioxetine Hydrobromide [Trintellix] 20 mg PO HS 11/01/18 [History] RX: clonazePAM [KlonoPIN] 1 mg PO BID PRN 11/01/18 [History] RX: lamoTRIgine [LaMICtal] 200 mg PO HS 11/01/18 [History] RX: Ondansetron Odt [Zofran ODT] 8 mg PO Q8HR PRN 11/22/18 [History] RX: Acetaminophen 650 mg PO Q6H PRN 11/30/18 [History] RX: Omeprazole 20 mg PO BID 03/12/19 [History] Dronabinol [Marinol] 5 mg PO BID PRN 03/29/19 [History] Albuterol Nebulized [Ventolin Nebulized] 2.5 mg INHALATION RT-QID PRN 06/20/19 [History] Benzonatate [Tessalon Perles] 200 mg PO TID PRN 06/20/19 [History] Levothyroxine Sodium [Synthroid] 100 mcg PO HS 06/20/19 [History] fentaNYL 50MCG/HR PATCH [Duragesic 50MCG/HR] 1 patch TRANSDERM Q72H 06/20/19 [History] oxyCODONE-APAP 10-325MG [Percocet 10-325 mg] 2 tab PO Q6H PRN 06/20/19 [History] Follow up Appointment(s)/Referral(s): Fredo Eason MD [Primary Care Provider] - 1-2 days Discharge Disposition: DISCH TO [facility]
--- NOTE | 2019-06-27 16:17 | CDI ---
Date: 06/27/19 From: Rosalind Luevano CCS Phone: If you have a question about this query, please contact Romy Merino, Hvac R Instructor at [phone] between 8am and 5pm. Admit Date: 06/20/19 Discharge Date: 06/23/19 Patient Name: Latonia Quiles Visit Number: [id number] ATTENTION: The Clinical Documentation Specialists (CDI) and [facility] Coding Staff appreciate your assistance in clarifying documentation. Please respond to the clarification below the line at the bottom and electronically sign. The CDI & [facility] Coding staff will review the response and follow-up if needed. Please note: Queries are made part of the Legal Health Record. If you have any questions, please contact the author of this message via ITS. Dear Dr. Thomas CHF is documented in the ED, PNs, Consult, H&P. History/Risk Factors: Pulmonary HTN, Anemia, A/C hypoxic respiratory failure, COPD Clinical Indicators: Bilateral pleural effusions VS/Pulse OX: BP 132/83, [place] 126 , RR 18, Temp 97.7, Ox 98 BNP: 538-06/20, 1490-06/21 Echocardiogram Results: EF-50-55% Chest X Ray: CHF w/ pleural effusions and pulmonary edema Treatment: Patient was made DNR/palliative care In your professional opinion, can you please clarify the acuity and type of CHF if known? Systolic Heart Failure: Acute Chronic Acute on Chronic Diastolic Heart Failure: Acute Chronic Acute on Chronic Systolic & Diastolic Heart Failure: Acute Chronic Acute on Chronic Heart Failure Unable to Determine Other, please specify MTDD
--- NOTE | 2019-07-07 08:55 | CDI ---
Documentation Clarification Form Date: 06/27/19 From: Rosalind Luevano CCS Phone: If you have a question about this query, please contact Romy Merino, House Steward/Stewardess at [phone] between 8am and 5pm. Admit Date: 06/20/19 Discharge Date: 06/23/19 Patient Name: Latonia Quiles Visit Number: [id number] ATTENTION: The Clinical Documentation Specialists (CDI) and [facility] Coding Staff appreciate your assistance in clarifying documentation. Please respond to the clarification below the line at the bottom and electronically sign. The CDI & [facility] Coding staff will review the response and follow-up if needed. Please note: Queries are made part of the Legal Health Record. If you have any questions, please contact the author of this message via ITS. Dear Dr. Thomas CHF is documented in the ED, PNs, Consult, H&P. History/Risk Factors: Pulmonary HTN, Anemia, A/C hypoxic respiratory failure, COPD, Pericardial effusion Clinical Indicators: Bilateral pleural effusions VS/Pulse OX: BP 132/83, [place] 126 , RR 18, Temp 97.7, Ox 98 BNP: 538-06/20, 1490-06/21 Echocardiogram Results: EF-50-55% Chest X Ray: CHF w/ pleural effusions and pulmonary edema Treatment: Patient was made DNR/palliative care In your professional opinion, can you please clarify the acuity and type of CHF if known? Systolic Heart Failure: Acute Chronic Acute on Chronic Diastolic Heart Failure: Acute Chronic Acute on Chronic Systolic & Diastolic Heart Failure: Acute Chronic Acute on Chronic Heart Failure Unable to Determine Other, please specify MTDD
== END 2019-06-23 10:15 | disposition hospice, inpatient (51) | DRG 871 ==
LOC: EC 20:16 → 3SCARD 23:02 → 2SICU 06-21 19:44
PROVIDERS: ADMIT Family Medicine; ATTEND Family Medicine
PROC: 5A09357 Assistance with Respiratory Ventilation, Less than 24 Consecutive Hours, Continuous Positive Airway Pressure (ICD-10-PCS; principal; 2019-06-22)
DX: A41.9 Sepsis, unspecified organism (principal); J96.21 Acute and chronic respiratory failure with hypoxia; G93.41 Metabolic encephalopathy; J18.9 Pneumonia, unspecified organism; I31.3 Pericardial effusion (noninflammatory); J44.0 Chronic obstructive pulmonary disease with (acute) lower respiratory infection; I47.1 Supraventricular tachycardia; C78.00 Secondary malignant neoplasm of unspecified lung; C78.7 Secondary malignant neoplasm of liver and intrahepatic bile duct; I27.20 Pulmonary hypertension, unspecified; I50.9 Heart failure, unspecified; R65.20 Severe sepsis without septic shock; F41.0 Panic disorder [episodic paroxysmal anxiety]; F32.9 Major depressive disorder, single episode, unspecified; C53.9 Malignant neoplasm of cervix uteri, unspecified; D63.0 Anemia in neoplastic disease; F60.3 Borderline personality disorder; Z51.5 Encounter for palliative care; Z66 Do not resuscitate; B34.9 Viral infection, unspecified; F90.9 Attention-deficit hyperactivity disorder, unspecified type; E86.0 Dehydration; R79.89 Other specified abnormal findings of blood chemistry; F11.21 Opioid dependence, in remission; T45.1X5A Adverse effect of antineoplastic and immunosuppressive drugs, initial encounter; Z71.3 Dietary counseling and surveillance; Z79.890 Hormone replacement therapy; Z79.899 Other long term (current) drug therapy; Z99.81 Dependence on supplemental oxygen; Z92.21 Personal history of antineoplastic chemotherapy; Z92.3 Personal history of irradiation; Z87.01 Personal history of pneumonia (recurrent); Z90.49 Acquired absence of other specified parts of digestive tract; Z87.891 Personal history of nicotine dependence; Z98.51 Tubal ligation status; Z98.890 Other specified postprocedural states; Z83.79 Family history of other diseases of the digestive system; Z81.3 Family history of other psychoactive substance abuse and dependence
CPT/HCPCS: 36415; 71045; 71275; 76604; 80048; 80053; 80202; 80306; 82550; 82553; 82805; 83605; 83735; 83880; 84100; 84484; 85025; 85379; 85610; 85730; 87040; 93005; 93306; 94640; 96361; 96365; 96366; 96367; 96368; 96372; 96375; 96376; 99285

== ENCOUNTER 2019-06-22 14:07 | Inpatient (IN) | payer MEDICAID ==
[2019-06-22] MEDS ORDERED: ONDANSETRON 4 MG/2 ML VIAL IVP PRN (16:49)
[2019-06-22] MEDS ORDERED: MORPHINE SULFATE 2 MG/ML SYRINGE IV PRN (16:49)
[2019-06-22] MEDS ORDERED: ACETAMINOPHEN SUPPOSITORY 650 MG SUPP RECTAL PRN (16:49)
[2019-06-22] MEDS ORDERED: GLYCOPYRROLATE 0.2 MG/ML 2 ML VIAL IVP PRN (16:49)
[2019-06-22] MEDS ORDERED: ATROPINE OPHTH SOLN 1% 5ML BTL SUBLINGUAL PRN (16:49)
[2019-06-22] MEDS ORDERED: SCOPOLAMINE 1.5MG/72HR PATCH TRANSDERM SCH (17:00)
[2019-06-23] MEDS: MORPHINE SULFATE (100 MG/2 ML) 100 MG in SODIUM CHLORIDE 0.9% 100 ML IV SCH ×4 (11:51→23:47)
[2019-06-23] MEDS: LORazepam 2 MG/ML INJ IV PRN ×4 (12:40→22:39)
[2019-06-23 21:33] VITALS: BP 100/69; PULSE 129; RESP 11; TEMP 96.8
== END 2019-06-24 05:51 | disposition expired | DRG 951 ==
LOC: 2SICU 06-23 10:22 → 6NMEDSUR 06-23 15:57
PROVIDERS: ADMIT Family Medicine; ATTEND Family Medicine
DX: Z51.5 Encounter for palliative care (principal); J96.21 Acute and chronic respiratory failure with hypoxia; R65.20 Severe sepsis without septic shock; G93.41 Metabolic encephalopathy; A41.9 Sepsis, unspecified organism; J18.9 Pneumonia, unspecified organism; C78.7 Secondary malignant neoplasm of liver and intrahepatic bile duct; C78.00 Secondary malignant neoplasm of unspecified lung; Z66 Do not resuscitate; F11.21 Opioid dependence, in remission; C53.9 Malignant neoplasm of cervix uteri, unspecified; D63.0 Anemia in neoplastic disease; E86.0 Dehydration; F41.9 Anxiety disorder, unspecified; F32.9 Major depressive disorder, single episode, unspecified; J44.9 Chronic obstructive pulmonary disease, unspecified; F60.9 Personality disorder, unspecified; B34.9 Viral infection, unspecified; Z87.01 Personal history of pneumonia (recurrent); Z87.891 Personal history of nicotine dependence; Z79.890 Hormone replacement therapy; Z79.899 Other long term (current) drug therapy; Z90.49 Acquired absence of other specified parts of digestive tract; Z98.51 Tubal ligation status